=== PATIENT | male | born 2000 | race Caucasian/White ===

== ENCOUNTER 2018-10-08 12:05 | Emergency (ER) | payer BC ==
[2018-10-08] MEDS ORDERED: Ondansetron 4 MG/2 ML SDV IVPUSH ONE ×2 (12:13→13:46)
[2018-10-08] MEDS ORDERED: LORazepam 2 MG/ML SDV IVPUSH PRN (12:13)
[2018-10-08] MEDS ORDERED: Sodium Chloride 0.9% 1,000 ML IV ONE ×2 (12:18→13:25)
--- NOTE | 2018-10-08 13:19 | EDM.PDOC ---
ED HPI GENERAL MEDICAL PROBLEM - General Chief Complaint: Neurological Problem Stated Complaint: [facility] Time Seen by Provider: 10/08/18 12:08 Source of Information: Reports: EMS, Other (Mother has arrived and provided additional information on the patient's health status.) History Limitations: Reports: Altered Mental Status (Postictal) - History of Present Illness INITIAL COMMENTS - FREE TEXT/NARRATIVE: Patient is a 18-year-old male who presents to the ED via EMS after having a full tonic-clonic seizure lasted approximately 1 minute and 30 seconds. Patient was working at [employer] and per coworkers stated the patient became overheated and nauseated. He went to the office and started to vomit. During these episodes patient had a seizure. EMS was called and found the patient be postictal. During transport patient has been incoherent and uncooperative and moaning. His vital signs have been stable. There is no trauma noted. He is not incontinent nor has he bit his tongue. Per EMS patient does vape. - Related Data Allergies Allergy/AdvReac Type Severity Reaction Status Date / Time No Known Allergies Allergy Verified 02/27/18 02:04 Home Meds: Home Meds . [No Known Home Meds] 10/08/18 [History] Past Medical History - Past Health History Medical/Surgical History: Denies Medical/Surgical History Psychiatric History: Reports: ADHD, Depression, Suicide Attempt Social & Family History - Tobacco Use Smoking Status *Q: Current Every Day Smoker Years of Tobacco use: 4 Packs/Tins Daily: 1 - Caffeine Use Caffeine Use: Reports: Soda - Recreational Drug Use Recreational Drug Use: No - Living Situation & Occupation Living situation: Reports: Single, Other (2 roommates) Occupation: Employed ([employer] + [employer]) ED ROS GENERAL - Review of Systems Review Of Systems: Unable To Obtain - Physical Exam Exam: See Below Exam Limited By: Altered Mental Status (Postictal) General Appearance: Alert, Lethargic Eye Exam: Bilateral Eye: EOMI, Normal Inspection, PERRL Ears: Hearing Grossly Normal, Other (Bruise to the auricle of the right ear.) Nose: Normal Inspection Throat/Mouth: Normal Voice, No Airway Compromise, Other (No tongue trauma) Head Exam: Atraumatic, Normocephalic Neck: Normal Inspection, Supple, Non-Tender, Full Range of Motion Respiratory/Chest: No Respiratory Distress, Lungs Clear, Normal Breath Sounds, No Accessory Muscle Use, Chest Non-Tender Cardiovascular: Normal Peripheral Pulses, Regular Rate, Rhythm GI/Abdominal: Normal Bowel Sounds, Soft, Non-Tender, No Organomegaly, No Distention Neuro Exam (Abbreviated): Alert, Other (Postictal). No: Oriented Back Exam: Normal Inspection Extremities: Normal Inspection Skin Exam: Warm, Dry, Intact, Normal Color, No Rash Course - Vital Signs Last Recorded V/S: Last Vital Signs Temp 97.6 F 10/08/18 17:10 Pulse 96 10/08/18 17:10 Resp 18 10/08/18 17:10 BP 122/86 10/08/18 17:10 Pulse Ox 100 10/08/18 17:10 - Orders/Labs/Meds Orders: Active Orders 24 hr Category Date Time Status EKG Documentation Completion [RC] STAT Care 10/08/18 12:13 Active CULTURE BLOOD [BC] Stat Lab 10/08/18 12:35 Received CULTURE BLOOD [BC] Stat Lab 10/08/18 12:41 Received Blood Culture x2 Reflex Set [OM.PC] Stat Oth 10/08/18 12:15 Ordered Labs: Laboratory Tests 10/08/18 10/08/18 10/08/18 Range/Units 12:30 12:35 12:35 WBC 7.29 (4.23-9.07) K/mm3 RBC 4.71 (4.63-6.08) M/mm3 Hgb 14.5 (13.7-17.5) gm/L Hct 44.0 (40.1-51.0) % MCV 93.4 H D (79.0-92.2) fl MCH 30.8 (25.7-32.2) pg MCHC 33.0 (32.2-35.5) g/dl RDW Std Deviation 43.6 (35.1-43.9) fL Plt Count 144 L (163-337) K/mm3 MPV 10.9 (9.4-12.3) fl Neutrophils % (Manual) 61 H (40-60) % Band Neutrophils % 0 (0-10) % Lymphocytes % (Manual) 28 (20-40) % Atypical Lymphs % 0 % Monocytes % (Manual) 10 (2-10) % Eosinophils % (Manual) 0 L (0.8-7.0) % Basophils % (Manual) 1 (0.2-1.2) Toxic Granulation 1+ slight Platelet Estimate Adequate RBC Morph Comment Normal Puncture Site ABG pH (7.35-7.45) ABG pCO2 (35.0-45.0) mmHg ABG pO2 (80.0-100.0) mmHg ABG HCO3 (22.0-26.0) meq/L ABG O2 Saturation (96.0-97.0) % ABG Base Excess (-2-2.0) Facundo Test O2 Delivery Device Sodium 142 (136-145) mEq/L Potassium 3.8 (3.5-5.1) mEq/L Chloride 105 (98-107) mEq/L Carbon Dioxide 17 L D (21-32) mEq/L Anion Gap 23.8 H (5-15) BUN 17 (7-18) mg/dL Creatinine 1.2 (0.7-1.3) mg/dL Est Cr Clr Drug Dosing 94.50 mL/min Estimated GFR (MDRD) > 60 (>60) mL/min BUN/Creatinine Ratio 14.2 (14-18) Glucose 110 H (74-106) mg/dL Serum Osmolality 296 (280-300) mosm/kg Lactic Acid (0.4-2.0) mmol/L Calcium 9.1 (8.5-10.1) mg/dL Magnesium (1.8-2.4) mg/dl Total Bilirubin 0.4 (0.2-1.0) mg/dL AST 25 (15-37) U/L ALT 32 (16-63) U/L Alkaline Phosphatase 75 (46-116) U/L Creatine Kinase (39-308) U/L C-Reactive Protein < 0.2 (<1.0) mg/dL Total Protein 7.2 (6.4-8.2) g/dl Albumin 4.3 (3.4-5.0) g/dl Globulin 2.9 gm/dL Albumin/Globulin Ratio 1.5 (1-2) Lipase 206 (73-393) U/L TSH 3rd Generation 2.983 (0.516-4.13) uIU/mL Urine Color (Yellow) Urine Appearance (Clear) Urine pH (5.0-8.0) Ur Specific [place] (1.005-1.030) Urine Protein (Negative) Urine Glucose (UA) (Negative) Urine Ketones (Negative) Urine Occult Blood (Negative) Urine Nitrite (Negative) Urine Bilirubin (Negative) Urine Urobilinogen (0.2-1.0) Ur Leukocyte Esterase (Negative) Urine RBC (0-5) /hpf Urine WBC (0-5) /hpf Ur Squamous Epith Cells (0-5) /hpf Urine Bacteria (FEW) /hpf Urine Mucus (FEW) /hpf Salicylates (2.8-20) mg/dL Urine Opiates Screen (COTYHM=796) Ur Buprenorphine Scrn (CUTOFF=10) Ur Oxycodone Screen (VXF0MT=489) Urine Methadone Screen (RXQ7ZC=312) Ur Propoxyphene Screen (QPESPR=795) Acetaminophen (10-30) ug/mL Ur Barbiturates Screen (DAMCKS=070) Ur Tricyclics Screen (KPDESE=355) Ur Phencyclidine Scrn (CUTOFF=25) Ur Amphetamine Screen (YXSVPK=961) U Methamphetamines Scrn (MHUIGN=057) U Benzodiazepines Scrn (DNSTAP=817) U Cocaine Metab Screen (CZECUS=761) U Marijuana (THC) Screen (CUTOFF=50) Ethyl Alcohol (0.00) gm% 10/08/18 10/08/18 10/08/18 Range/Units 12:35 12:35 12:35 WBC (4.23-9.07) K/mm3 RBC (4.63-6.08) M/mm3 Hgb (13.7-17.5) gm/L Hct (40.1-51.0) % MCV (79.0-92.2) fl MCH (25.7-32.2) pg MCHC (32.2-35.5) g/dl RDW Std Deviation (35.1-43.9) fL Plt Count (163-337) K/mm3 MPV (9.4-12.3) fl Neutrophils % (Manual) (40-60) % Band Neutrophils % (0-10) % Lymphocytes % (Manual) (20-40) % Atypical Lymphs % % Monocytes % (Manual) (2-10) % Eosinophils % (Manual) (0.8-7.0) % Basophils % (Manual) (0.2-1.2) Toxic Granulation Platelet Estimate RBC Morph Comment Puncture Site ABG pH (7.35-7.45) ABG pCO2 (35.0-45.0) mmHg ABG pO2 (80.0-100.0) mmHg ABG HCO3 (22.0-26.0) meq/L ABG O2 Saturation (96.0-97.0) % ABG Base Excess (-2-2.0) Facundo Test O2 Delivery Device Sodium (136-145) mEq/L Potassium (3.5-5.1) mEq/L Chloride (98-107) mEq/L Carbon Dioxide (21-32) mEq/L Anion Gap (5-15) BUN (7-18) mg/dL Creatinine (0.7-1.3) mg/dL Est Cr Clr Drug Dosing mL/min Estimated GFR (MDRD) (>60) mL/min BUN/Creatinine Ratio (14-18) Glucose (74-106) mg/dL Serum Osmolality (280-300) mosm/kg Lactic Acid 8.7 H (0.4-2.0) mmol/L Calcium (8.5-10.1) mg/dL Magnesium 2.2 (1.8-2.4) mg/dl Total Bilirubin (0.2-1.0) mg/dL AST (15-37) U/L ALT (16-63) U/L Alkaline Phosphatase (46-116) U/L Creatine Kinase 122 (39-308) U/L C-Reactive Protein (<1.0) mg/dL Total Protein (6.4-8.2) g/dl Albumin (3.4-5.0) g/dl Globulin gm/dL Albumin/Globulin Ratio (1-2) Lipase (73-393) U/L TSH 3rd Generation (0.516-4.13) uIU/mL Urine Color (Yellow) Urine Appearance (Clear) Urine pH (5.0-8.0) Ur Specific [place] (1.005-1.030) Urine Protein (Negative) Urine Glucose (UA) (Negative) Urine Ketones (Negative) Urine Occult Blood (Negative) Urine Nitrite (Negative) Urine Bilirubin (Negative) Urine Urobilinogen (0.2-1.0) Ur Leukocyte Esterase (Negative) Urine RBC (0-5) /hpf Urine WBC (0-5) /hpf Ur Squamous Epith Cells (0-5) /hpf Urine Bacteria (FEW) /hpf Urine Mucus (FEW) /hpf Salicylates 1.6 L (2.8-20) mg/dL Urine Opiates Screen (XFGOXB=269) Ur Buprenorphine Scrn (CUTOFF=10) Ur Oxycodone Screen (OTO1CY=839) Urine Methadone Screen (AFZ1DH=919) Ur Propoxyphene Screen (YNVYZS=148) Acetaminophen 0 L (10-30) ug/mL Ur Barbiturates Screen (FSIGGX=384) Ur Tricyclics Screen (VEHJZS=547) Ur Phencyclidine Scrn (CUTOFF=25) Ur Amphetamine Screen (TAPALV=884) U Methamphetamines Scrn (QZAWSZ=590) U Benzodiazepines Scrn (BVPUXS=194) U Cocaine Metab Screen (WABXWN=334) U Marijuana (THC) Screen (CUTOFF=50) Ethyl Alcohol 0.00 (0.00) gm% 10/08/18 10/08/18 10/08/18 Range/Units 12:40 12:40 14:55 WBC (4.23-9.07) K/mm3 RBC (4.63-6.08) M/mm3 Hgb (13.7-17.5) gm/L Hct (40.1-51.0) % MCV (79.0-92.2) fl MCH (25.7-32.2) pg MCHC (32.2-35.5) g/dl RDW Std Deviation (35.1-43.9) fL Plt Count (163-337) K/mm3 MPV (9.4-12.3) fl Neutrophils % (Manual) (40-60) % Band Neutrophils % (0-10) % Lymphocytes % (Manual) (20-40) % Atypical Lymphs % % Monocytes % (Manual) (2-10) % Eosinophils % (Manual) (0.8-7.0) % Basophils % (Manual) (0.2-1.2) Toxic Granulation Platelet Estimate RBC Morph Comment Puncture Site Rt radial ABG pH 7.32 L (7.35-7.45) ABG pCO2 41.5 (35.0-45.0) mmHg ABG pO2 85.0 (80.0-100.0) mmHg ABG HCO3 20.7 L (22.0-26.0) meq/L ABG O2 Saturation 97.0 (96.0-97.0) % ABG Base Excess -4.6 L (-2-2.0) Facundo Test Positive O2 Delivery Device Room air Sodium (136-145) mEq/L Potassium (3.5-5.1) mEq/L Chloride (98-107) mEq/L Carbon Dioxide (21-32) mEq/L Anion Gap (5-15) BUN (7-18) mg/dL Creatinine (0.7-1.3) mg/dL Est Cr Clr Drug Dosing mL/min Estimated GFR (MDRD) (>60) mL/min BUN/Creatinine Ratio (14-18) Glucose (74-106) mg/dL Serum Osmolality (280-300) mosm/kg Lactic Acid (0.4-2.0) mmol/L Calcium (8.5-10.1) mg/dL Magnesium (1.8-2.4) mg/dl Total Bilirubin (0.2-1.0) mg/dL AST (15-37) U/L ALT (16-63) U/L Alkaline Phosphatase (46-116) U/L Creatine Kinase (39-308) U/L C-Reactive Protein (<1.0) mg/dL Total Protein (6.4-8.2) g/dl Albumin (3.4-5.0) g/dl Globulin gm/dL Albumin/Globulin Ratio (1-2) Lipase (73-393) U/L TSH 3rd Generation (0.516-4.13) uIU/mL Urine Color Yellow (Yellow) Urine Appearance Clear (Clear) Urine pH 6.0 (5.0-8.0) Ur Specific [place] 1.020 (1.005-1.030) Urine Protein Trace H (Negative) Urine Glucose (UA) Negative (Negative) Urine Ketones Negative (Negative) Urine Occult Blood Negative (Negative) Urine Nitrite Negative (Negative) Urine Bilirubin Negative (Negative) Urine Urobilinogen 0.2 (0.2-1.0) Ur Leukocyte Esterase Negative (Negative) Urine RBC Not seen (0-5) /hpf Urine WBC Not seen (0-5) /hpf Ur Squamous Epith Cells 0-5 (0-5) /hpf Urine Bacteria Not seen (FEW) /hpf Urine Mucus Not seen (FEW) /hpf Salicylates (2.8-20) mg/dL Urine Opiates Screen Negative (PAMYOJ=356) Ur Buprenorphine Scrn Negative (CUTOFF=10) Ur Oxycodone Screen Negative (LPT6ZG=713) Urine Methadone Screen Negative (CRN9ZX=412) Ur Propoxyphene Screen Negative (GLGOAM=408) Acetaminophen (10-30) ug/mL Ur Barbiturates Screen Negative (BWYOYX=775) Ur Tricyclics Screen Negative (KISHPO=827) Ur Phencyclidine Scrn Negative (CUTOFF=25) Ur Amphetamine Screen Negative (GNAQBR=012) U Methamphetamines Scrn Negative (RZYEQL=835) U Benzodiazepines Scrn Negative (KLFJNE=232) U Cocaine Metab Screen Negative (RBXDVW=378) U Marijuana (THC) Screen Presumptive positive H (CUTOFF=50) Ethyl Alcohol (0.00) gm% Meds: Medications Discontinued Medications Generic Name Dose Route Start Last Admin Trade Name Freq PRN Reason Stop Dose Admin Acetaminophen 975 mg 10/08/18 13:24 10/08/18 14:32 Tylenol PO 10/08/18 13:25 975 mg NOW ONE Administration Sodium Chloride 1,000 mls @ 999 mls/hr 10/08/18 12:18 10/08/18 12:25 Normal Saline IV 10/08/18 13:18 999 mls/hr ONETIME ONE Administration Sodium Chloride 1,000 mls @ 999 mls/hr 10/08/18 13:25 10/08/18 13:43 Normal Saline IV 10/08/18 14:25 999 mls/hr ONETIME ONE Administration Lorazepam 1 mg 10/08/18 12:13 10/08/18 12:20 Ativan IVPUSH 1 mg ONETIME PRN Administration Seizures Ondansetron HCl 4 mg 10/08/18 12:13 10/08/18 12:22 Zofran IVPUSH 10/08/18 12:14 4 mg ONETIME ONE Administration Ondansetron HCl 4 mg 10/08/18 13:46 10/08/18 13:50 Zofran IVPUSH 10/08/18 13:47 4 mg ONETIME ONE Administration - Re-Assessments/Exams Free Text/Narrative Re-Assessment/Exam: Patient is a 18-year-old male who presents to the ED after experiencing a general grand mal seizure that lasted 1-1/2 minutes. Patient is postictal uncooperative moans moves all extremities. There is no trauma noted with examination. There is no incontinence. It appears patient has not bit his tongue. He is dry heaving. IV established by EMS. Ordered Ativan 1 mg IV, Zofran 4 mg IV, normal saline IV fluids. Initial labs and studies will include: CBC, chem 14, CRP, blood cultures, lactic acid, lipase, TSH, head CT without contrast, EKG, UA, and urine drug screen. I have also ordered a CPK and magnesium level. 1240 reassessment, patient is alert and oriented. Is not recall recent events. He has no complaints at this time. Per mother patient is acting appropriate. Patient is alert and oriented 3. Denies excessive use of the vaping material. Patient has been using the same vaping product for 3 years. Admits to smoking marijuana last night. Denies any additional alcohol or other recreational drugs. He was asymptomatic last night. 10/08/18 13:25 patient's blood pressure 84 over systolic. Heart rate 60s. Complains of a headache frontal aspect of his head and mild in nature. No vision changes or focal neurological deficits. Ordered additional bag of normal saline 1 L and Tylenol 975 mg by mouth. 10/08/18 13:42 reassessment, blood pressure 91 over systolic. Heart rate within normal limits. Patient complaining of a headache with some nausea. He has just returned from the CT suite. Patient stopped ordered additional 4 mg of Zofran. Patient has not received the Tylenol. 1358, CT of the head impression: No acute intracranial abnormalities. Labs reviewed: CBC indicated White blood cell count 7.29, hemoglobin 14.5, MCV 93.4, platelet count 144. Sodium 142, 3.8 for potassium, CO2 17, AG 23.8, creatinine 1.2, glucose 110, lactic acid elevated 8.7, CRP normal, lipase normal , TSH normal. UA trace protein. Urine drug tox positive for marijuana. Salicylate level I.6. Acetaminophen 0. Serum EtOH 0.00. I have ordered ABG. Calculation indicates AG of 19.3. Patient's CK was 122. Magnesium was 2.2. 1403 I did speak with poison control. They recommended hydration for the acidosis. I suspect there is a possibility this is related to nicotine poisoning. This usually peaks and 30-90 minutes the symptoms should be improving. On further questioning of the patient he denies any ingestion of any other substances. I have discussed the case with Dr. Ward. He states the lactic acid can be elevated due to seizure activity. He has no additional suggestions on further workup. Ensure the patient's symptoms are improving. Hydrate with IV fluids. Monitor his vital signs. See results of ABG and go from there. 1515 Reassessment, patient resting comfortably in bed. Heart rate within normal limits. Blood pressure in the 101 systolic. His headache and nausea have drastically improved. 1530 Results of the ABG indicated primary respiratory acidosis, chronic. With secondary metabolic acidosis and additional metabolic alkalosis. Results discussed with Dr. Ward. 1545 Nursing staff has ambulated the patient and the patient tolerated this quite well. Patient states he is ready to be discharged home. Return precautions were discussed with the patient and mother. Patient will follow-up with neurologist of his choice for reevaluation for seizure episode. In addition he will establish medical care with a PCP provider here locally. Patient was encouraged to push the fluids. He was encouraged to stop smoking marijuana. Departure - Departure Time of Disposition: 16:44 Disposition: Home, Self-Care 01 Condition: Good Clinical Impression: Seizure, Marijuana abuse, Lactic acidosis - Discharge Information Instructions: Lactic Acid Test, Chemical Dependency, Substance Use Disorder and Mental Illness, Dehydration, Adult, [id number], Seizure, Adult Referrals: PCP,None [Primary Care Provider] - Forms: ED Department Discharge Additional Instructions: As discussed he had a one episode of general tonic-clonic seizure that lasted for approximately 1 minute and 30 seconds per coworkers. Upon presentation to the ED you were postictal that quickly resolved. Labs were consistent with you having a seizure. In addition nausea vomiting was controlled with Zofran. He received IV fluids, IV medications for nausea, and Tylenol for headache. CT of the head was essentially normal. Please refrain from driving, riding your bike, swimming, taking a bath until evaluated by neurologists of your choice over the next week. Call Neurology at [facility] or [facility] in [place] to arrange appt. Please establish medical care with a primary care provider and be evaluated this week as well. Return to the ED for any new or worsening symptoms as discussed. Stop vaping and using marijuana. - My Orders Last 24 Hours: My Active Orders 10/08/18 12:13 EKG Documentation Completion [RC] STAT 10/08/18 12:15 Blood Culture x2 Reflex Set [OM.PC] Stat 10/08/18 12:35 CULTURE BLOOD [BC] Stat 10/08/18 12:41 CULTURE BLOOD [BC] Stat - Assessment/Plan Last 24 Hours: My Active Orders 10/08/18 12:13 EKG Documentation Completion [RC] STAT 10/08/18 12:15 Blood Culture x2 Reflex Set [OM.PC] Stat 10/08/18 12:35 CULTURE BLOOD [BC] Stat 10/08/18 12:41 CULTURE BLOOD [BC] Stat
[2018-10-08] MEDS ORDERED: Acetaminophen 325 MG Tab PO ONE (13:24)
[2018-10-08 17:15] VITALS: BP 122/86
--- NOTE | 2018-10-09 10:16 | CT ---
Head CT Technique: Multiple axial sections through the brain were obtained. Intravenous contrast was not utilized. Comparison: No prior intracranial imaging. Findings: Ventricles along with basal cisterns and sulci over the convexities appear within normal limits for the patient's age. No abnormal parenchymal densities are seen. No evidence of intracranial hemorrhage. No midline shift or mass effect is seen. Bone window settings were reviewed which show no acute calvarial abnormality. Visualized sinuses are clear. Impression: 1. Nothing acute is appreciated on noncontrast head CT exam. Diagnostic code #1 I agree with preliminary report from [facility], finalized on 10/08/18, 2:54 PM Central Time
== END 2018-10-08 17:10 | disposition home or self-care (01) ==
LOC: JD.ED 12:05
DX: F12.10 Cannabis abuse, uncomplicated (principal); E87.2 Acidosis; R56.9 Unspecified convulsions
CPT/HCPCS: 36415; 36600; 70450; 80053; 80306; 81001; 82550; 82803; 83605; 83690; 83735; 83930; 84443; 85007; 85027; 86140; 87040; 93005; 96361; 96374; 96375; 96376; 99285; A9270; G0480; J2060; J2405; J7040; 99283

== ENCOUNTER 2018-12-27 19:23 | Inpatient (IN) | payer BC ==
[2018-12-27] MEDS ORDERED: LORazepam 2 MG/ML SDV ONE (20:12)
[2018-12-27] MEDS ORDERED: Lactated Ringers 1,000 ML IV ONE ×2 (20:15→21:25)
[2018-12-27] MEDS ORDERED: LORazepam 2 MG/ML SDV IVPUSH ONE (20:15)
[2018-12-27] MEDS ORDERED: Lactated Ringers 1,000 ML ONE (20:16)
--- NOTE | 2018-12-27 21:01 | CT ---
Head CT Technique: Multiple axial sections through the brain were obtained. Intravenous contrast was not utilized. Comparison: Previous head CT study of 10/08/18. Findings: Ventricles along with basal cisterns and sulci over the convexities are within normal limits for the patient's age. No abnormal parenchymal densities are seen. No evidence of intracranial hemorrhage. No midline shift or mass effect is identified. Bone window settings were reviewed which shows no acute calvarial abnormality. Visualized paranasal sinuses show nothing acute. Mastoid sinuses are also clear. Impression: 1. Nothing acute is seen on noncontrast head CT exam. Study is felt to be stable from previous head CT study. Diagnostic code #1
[2018-12-27] MEDS ORDERED: Ondansetron 4 MG/2 ML SDV IVPUSH ONE (21:07)
--- NOTE | 2018-12-27 21:44 | EDM.PDOC ---
ED HPI GENERAL MEDICAL PROBLEM - General Chief Complaint: Neurological Problem Stated Complaint: [facility] Time Seen by Provider: 12/27/18 20:14 Source of Information: Reports: EMS, Family, RN Notes Reviewed (Mother) - History of Present Illness INITIAL COMMENTS - FREE TEXT/NARRATIVE: 18-year-old male has been brought in by EMS after having a seizure, duration unknown. He has history of 1 prior seizure about 3-4 months ago. The mother states he did not have follow-up EEG or any neurologic follow-up although that had been recommended. Patient had been in the ED about 35 minutes when he had a second seizure prior to my ability to see him. That seizure was totally witnessed and lasted about 2 minutes with generalized tonic clonic activity upper lower extremities and complete unresponsiveness. He was given Ativan 2 mg IV at that time. Seizure had stopped by the time the Ativan was given. He did not bite his tongue. Patient extremely drowsy after the seizure and with the Ativan so has not been able to give any personal history from himself. His mother is not aware of him being ill recently. He had been at work just prior to this happening, is reported to have happened at the parking lot of his workplace. His mother is not aware of him being recently ill. She is not aware of any other chronic underlying medical problems. Head Pain Score (Numeric/FACES): 7 - Related Data Allergies Allergy/AdvReac Type Severity Reaction Status Date / Time No Known Allergies Allergy Verified 12/27/18 19:33 Home Meds: Home Meds . [No Known Home Meds] 10/08/18 [History] Past Medical History - Past Health History Medical/Surgical History: Denies Medical/Surgical History Neurological History: Reports: Seizure Psychiatric History: Reports: ADHD, Depression, Suicide Attempt Social & Family History - Family History Endocrine/Metabolic: Reports: Diabetes, type II - Tobacco Use Smoking Status *Q: Current Every Day Smoker Years of Tobacco use: 2 Packs/Tins Daily: 1 - Caffeine Use Caffeine Use: Reports: Soda - Recreational Drug Use Recreational Drug Use: Yes Recreational Drug Type: Reports: Marijuana/Hashish - Living Situation & Occupation Living situation: Reports: Single, Other (2 roommates) Occupation: Employed ([employer]) ED ROS GENERAL - Review of Systems Review Of Systems: Unable To Obtain ED EXAM, NEURO - Physical Exam Exam: See Below General Appearance: Other (generalized seizure at time of my initial exam) Eye Exam: Bilateral Eye: PERRL (Eyes are rolled upward to the back of his head, pupils equal) Ears: Normal External Exam Nose: Normal Inspection Throat/Mouth: Other (Oral mucosa dry, no evidence of tongue biting) Head Exam: Other (small abrasion L parietal scalp, no active bleeding or open lac). No: Facial Swelling Neck: Supple (At time of repeat exam after seizure) Respiratory/Chest: No Respiratory Distress, Lungs Clear, Normal Breath Sounds Cardiovascular: Tachycardia (Patient was tachycardic at time of seizure with heart rate in the 120s which did come back down to the 80s after his seizure) GI/Abdominal: Soft, Non-Tender Neurological: Other (Patient extremely drowsy, postictal after seizure and also drowsy from 2 mg Ativan IV given. At time of repeat exam 30-40 minutes after seizure didn't become restless, moving all extremities.) Extremities: Normal Inspection, Normal Range of Motion Skin Exam: Warm, Dry, No Rash Course - Vital Signs Last Recorded V/S: Last Vital Signs Temp 98.9 F 12/27/18 23:43 Pulse 97 12/27/18 23:43 Resp 20 12/27/18 23:43 BP 107/62 12/27/18 23:43 Pulse Ox 96 12/27/18 23:43 - Orders/Labs/Meds Orders: Medication Orders Acetaminophen (Tylenol) 650 mg PO Q4H PRN PRN Reason: Pain (Mild 1-3)/fever Hydrocodone Bitart/Acetaminophen ([place]wood 325-5 Mg) 1 tab PO Q4H PRN PRN Reason: Pain (moderate 4-6) Albuterol/Ipratropium (Duoneb 3.0-0.5 Mg/3 Ml) 3 ml NEB Q4H PRN PRN Reason: Shortness Of Breath/wheezing Bisacodyl (Dulcolax) 5 mg PO DAILY PRN PRN Reason: Constipation Docusate Sodium (Colace) 100 mg PO BID PRN PRN Reason: Constipation Hydralazine HCl (Apresoline) 20 mg IVPUSH Q4H PRN PRN Reason: Hypertension Hydromorphone HCl (Dilaudid) 0.25 mg IVPUSH Q2H PRN PRN Reason: Pain (severe 7-10) Potassium Chloride 10 meq/ (Premix) 100 mls @ 100 mls/hr IV Q1H LILLY Stop: 12/28/18 03:29 Dextrose/Sodium Chloride (Dextrose 5%-1/2 Ns) 1,000 mls @ 125 mls/hr IV ASDIRECTED [facility] Promethazine HCl 6.25 mg/ (Sodium Chloride) 50.25 mls @ 100 mls/hr IV Q6H PRN PRN Reason: Nausea/Vomiting Levetiracetam (Keppra) 1,000 mg PO NOW ONE Stop: 12/27/18 23:33 Levetiracetam (Keppra) 500 mg PO BID LILLY Lorazepam (Ativan) 1 mg IV Q6H PRN PRN Reason: Anxiety Lorazepam (Ativan) 2 mg IVPUSH Q4H PRN PRN Reason: Seizures Metoprolol Tartrate (Lopressor) 5 mg IVPUSH Q4H PRN PRN Reason: Tachycardia Ondansetron HCl (Zofran) 4 mg IV Q6H PRN PRN Reason: Nausea/Vomiting Senna/Docusate Sodium (Senna Plus) 1 tab PO BID PRN PRN Reason: Constipation Temazepam (Restoril) 7.5 mg PO BEDTIME PRN PRN Reason: Sleep Labs: Laboratory Tests 12/27/18 12/27/18 12/27/18 Range/Units 20:07 20:20 20:29 WBC 22.45 H (4.23-9.07) K/mm3 RBC 5.19 (4.63-6.08) M/mm3 Hgb 16.1 D (13.7-17.5) gm/L Hct 49.4 (40.1-51.0) % MCV 95.2 H (79.0-92.2) fl MCH 31.0 (25.7-32.2) pg MCHC 32.6 (32.2-35.5) g/dl RDW Std Deviation 46.1 H (35.1-43.9) fL Plt Count 219 D (163-337) K/mm3 MPV 10.6 (9.4-12.3) fl Neut % (Auto) 74.2 H (34.0-67.9) % Lymph % (Auto) 18.8 L (21.8-53.1) % [place] % (Auto) 5.8 (5.3-12.2) % Eos % (Auto) 0.7 L (0.8-7.0) Baso % (Auto) 0.1 (0.1-1.2) % Neut # (Auto) 16.63 H (1.78-5.38) K/mm3 Lymph # (Auto) 4.23 H (1.32-3.57) K/mm3 [place] # (Auto) 1.30 H (0.30-0.82) K/mm3 Eos # (Auto) 0.16 (0.04-0.54) K/mm3 Baso # (Auto) 0.03 (0.01-0.08) K/mm3 Manual Slide Review Abnormal smear Sodium (136-145) mEq/L Potassium (3.5-5.1) mEq/L Chloride (98-107) mEq/L Carbon Dioxide (21-32) mEq/L Anion Gap (5-15) BUN (7-18) mg/dL Creatinine (0.7-1.3) mg/dL Est Cr Clr Drug Dosing mL/min Estimated GFR (MDRD) (>60) mL/min BUN/Creatinine Ratio (14-18) Glucose (74-106) mg/dL POC Glucose 100 122 H (70-105) mg/dL Lactic Acid (0.4-2.0) mmol/L Calcium (8.5-10.1) mg/dL Total Bilirubin (0.2-1.0) mg/dL AST (15-37) U/L ALT (16-63) U/L Alkaline Phosphatase (46-116) U/L Total Protein (6.4-8.2) g/dl Albumin (3.4-5.0) g/dl Globulin gm/dL Albumin/Globulin Ratio (1-2) Urine Opiates Screen (TGXAEX=875) Ur Buprenorphine Scrn (CUTOFF=10) Ur Oxycodone Screen (GLF2FY=741) Urine Methadone Screen (HUL9XV=765) Ur Propoxyphene Screen (MPHONU=563) Ur Barbiturates Screen (YZZGVB=940) Ur Tricyclics Screen (UHXGMH=984) Ur Phencyclidine Scrn (CUTOFF=25) Ur Amphetamine Screen (MKDMMF=625) U Methamphetamines Scrn (COGUUN=433) U Benzodiazepines Scrn (YCJPDS=671) U Cocaine Metab Screen (QZQTBK=795) U Marijuana (THC) Screen (CUTOFF=50) 12/27/18 12/27/18 12/27/18 Range/Units 20:29 20:29 21:13 WBC (4.23-9.07) K/mm3 RBC (4.63-6.08) M/mm3 Hgb (13.7-17.5) gm/L Hct (40.1-51.0) % MCV (79.0-92.2) fl MCH (25.7-32.2) pg MCHC (32.2-35.5) g/dl RDW Std Deviation (35.1-43.9) fL Plt Count (163-337) K/mm3 MPV (9.4-12.3) fl Neut % (Auto) (34.0-67.9) % Lymph % (Auto) (21.8-53.1) % Lar[place] % (Auto) (5.3-12.2) % Eos % (Auto) (0.8-7.0) Baso % (Auto) (0.1-1.2) % Neut # (Auto) (1.78-5.38) K/mm3 Lymph # (Auto) (1.32-3.57) K/mm3 [place] # (Auto) (0.30-0.82) K/mm3 Eos # (Auto) (0.04-0.54) K/mm3 Baso # (Auto) (0.01-0.08) K/mm3 Manual Slide Review Sodium 148 H (136-145) mEq/L Potassium 3.3 L (3.5-5.1) mEq/L Chloride 106 (98-107) mEq/L Carbon Dioxide 16 L (21-32) mEq/L Anion Gap 29.3 H (5-15) BUN 9 (7-18) mg/dL Creatinine 1.0 (0.7-1.3) mg/dL Est Cr Clr Drug Dosing 120.96 mL/min Estimated GFR (MDRD) > 60 (>60) mL/min BUN/Creatinine Ratio 9.0 L (14-18) Glucose 139 H (74-106) mg/dL POC Glucose (70-105) mg/dL Lactic Acid 16.9 H (0.4-2.0) mmol/L Calcium 9.7 (8.5-10.1) mg/dL Total Bilirubin 0.6 (0.2-1.0) mg/dL AST 36 (15-37) U/L ALT 52 (16-63) U/L Alkaline Phosphatase 68 (46-116) U/L Total Protein 8.1 (6.4-8.2) g/dl Albumin 4.4 (3.4-5.0) g/dl Globulin 3.7 gm/dL Albumin/Globulin Ratio 1.2 (1-2) Urine Opiates Screen Negative (PZCRBW=552) Ur Buprenorphine Scrn Negative (CUTOFF=10) Ur Oxycodone Screen Negative (IOI0IY=520) Urine Methadone Screen Negative (GYA0NM=216) Ur Propoxyphene Screen Negative (VCPJGA=506) Ur Barbiturates Screen Negative (TDEYAQ=543) Ur Tricyclics Screen Negative (PZAELU=396) Ur Phencyclidine Scrn Negative (CUTOFF=25) Ur Amphetamine Screen Negative (PELVGF=767) U Methamphetamines Scrn Negative (RULQKH=072) U Benzodiazepines Scrn Negative (MRPLAF=542) U Cocaine Metab Screen Negative (WVIHGL=670) U Marijuana (THC) Screen Presumptive positive H (CUTOFF=50) Meds: Medications Generic Name Dose Route Start Last Admin Trade Name Freq PRN Reason Stop Dose Admin Acetaminophen 650 mg 12/27/18 23:27 Tylenol PO Q4H PRN Pain (Mild 1-3)/fever Hydrocodone Bitart/Acetaminophen 1 tab 12/27/18 23:27 [place]wood 325-5 Mg PO Q4H PRN Pain (moderate 4-6) Albuterol/Ipratropium 3 ml 12/27/18 23:27 Duoneb 3.0-0.5 Mg/3 Ml NEB Q4H PRN Shortness Of Breath/wheezing Bisacodyl 5 mg 12/27/18 23:27 Dulcolax PO DAILY PRN Constipation Docusate Sodium 100 mg 12/27/18 23:27 Colace PO BID PRN Constipation Hydralazine HCl 20 mg 12/27/18 23:30 Apresoline IVPUSH Q4H PRN Hypertension Hydromorphone HCl 0.25 mg 12/27/18 23:27 Dilaudid IVPUSH Q2H PRN Pain (severe 7-10) Potassium Chloride 10 meq/ 100 mls @ 100 mls/hr 12/27/18 23:30 Premix IV 12/28/18 03:29 Q1H LILLY Dextrose/Sodium Chloride 1,000 mls @ 125 mls/hr 12/27/18 23:30 Dextrose 5%-1/2 Ns IV ASDIRECTED LILLY Promethazine HCl 6.25 mg/ 50.25 mls @ 100 mls/hr 12/27/18 23:27 Sodium Chloride IV Q6H PRN Nausea/Vomiting Levetiracetam 1,000 mg 12/27/18 23:32 Keppra PO 12/27/18 23:33 NOW ONE Levetiracetam 500 mg 12/28/18 09:00 Keppra PO BID LILLY Lorazepam 1 mg 12/27/18 23:27 Ativan IV Q6H PRN Anxiety Lorazepam 2 mg 12/27/18 23:30 Ativan IVPUSH Q4H PRN Seizures Metoprolol Tartrate 5 mg 12/27/18 23:30 Lopressor IVPUSH Q4H PRN Tachycardia Ondansetron HCl 4 mg 12/27/18 23:27 Zofran IV Q6H PRN Nausea/Vomiting Senna/Docusate Sodium 1 tab 12/27/18 23:27 Senna Plus PO BID PRN Constipation Temazepam 7.5 mg 12/27/18 23:27 Restoril PO BEDTIME PRN Sleep Discontinued Medications Generic Name Dose Route Start Last Admin Trade Name Freq PRN Reason Stop Dose Admin Lactated Ringer's Confirm 12/27/18 20:16 12/27/18 21:22 Ringers, Lactated Administered 12/27/18 20:17 Not Given Dose 1,000 mls @ as directed .ROUTE .STK-MED ONE Lactated Ringer's 1,000 mls @ 999 mls/hr 12/27/18 20:15 12/27/18 20:15 Ringers, Lactated IV 12/27/18 21:15 999 mls/hr .BOLUS ONE Administration Lactated Ringer's 1,000 mls @ 999 mls/hr 12/27/18 21:25 12/27/18 21:29 Ringers, Lactated IV 12/27/18 22:25 999 mls/hr .BOLUS ONE Administration Lorazepam Confirm 12/27/18 20:12 12/27/18 23:30 Ativan Administered 12/27/18 20:13 Not Given Dose 4 mg .ROUTE .STK-MED ONE Lorazepam 4 mg 12/27/18 20:15 12/27/18 20:15 Ativan IVPUSH 12/27/18 20:16 2 mg ONETIME ONE Administration Ondansetron HCl 4 mg 12/27/18 21:07 12/27/18 21:19 Zofran IVPUSH 12/27/18 21:08 4 mg ONETIME ONE Administration - Re-Assessments/Exams Free Text/Narrative Re-Assessment/Exam: 12/27/18. 23:12. Patient did start waking up about 20-30 minutes after the seizure, initially just restless and acting like maybe he was nauseated and going to vomit. We did give Zofran 4 mg IV. When rechecked about an hour after his seizure he was waking up to where he would open his eyes and answer questions but speech was very slurred, very difficult to understand. With the second repeat seizure about an hour after his initial seizure and extreme drowsiness at time of follow -up exam about an hour after seizure it is felt he is not a safe candidate to go home this evening. Labs show quite markedly elevated anion gap, lactic acid. See labs for details. He was given initial fluid bolus 1 L lactated Ringer's and second liter ordered to continue as a bolus as well. Patient will be admitted ICU for careful further monitoring and treatment with seizure precautions. Departure - Departure Time of Disposition: 21:40 Disposition: Admitted As Inpatient 64 Condition: Serious Clinical Impression: Recurrent seizures, Dehydration Contusion of scalp Qualifiers: Encounter type: initial encounter Qualified Code(s): S00.03XA - Contusion of scalp, initial encounter - Discharge Information ED Communication - Discussed Case With (1) Discussed Case With (1): Admitting Provider (Dr Douglas, decision to admit at about 21:40.)
[2018-12-27] MEDS ORDERED: Acetaminophen 325 MG Tab PO PRN (23:27)
[2018-12-27] MEDS ORDERED: Ondansetron 4 MG/2 ML SDV IV PRN (23:27)
[2018-12-27] MEDS ORDERED: Docusate Sodium 100 MG Cap PO PRN (23:27)
[2018-12-27] MEDS ORDERED: Promethazine 6.25 MG in Sodium Chloride 0.9% 50 ML IV PRN (23:27)
[2018-12-27] MEDS ORDERED: Albuterol/Ipratropium 3.0-0.5 MG/3 ML Neb Soln NEB PRN (23:27)
[2018-12-27] MEDS ORDERED: HYDROmorphone 0.5 MG/0.5 ML Syringe IVPUSH PRN (23:27)
[2018-12-27] MEDS ORDERED: Acetaminophen/HYDROcodone 325-5 MG Tab PO PRN (23:27)
[2018-12-27] MEDS ORDERED: Bisacodyl 5 MG Tab PO PRN (23:27)
[2018-12-27] MEDS ORDERED: Temazepam 7.5 MG Cap PO PRN (23:27)
[2018-12-27] MEDS ORDERED: LORazepam 2 MG/ML SDV IV PRN (23:27)
--- NOTE | 2018-12-27 23:27 | PCM.SN ---
- Free Text/Narrative Note: Patient briefly seen and examined at bedside. Currently sedated and lethargic. He is otherwise comfortable.
[2018-12-27] MEDS ORDERED: Metoprolol Tartrate 5 MG/5 ML SDV IVPUSH PRN (23:30)
[2018-12-27] MEDS ORDERED: hydrALAZINE 20 MG/ML SDV IVPUSH PRN (23:30)
[2018-12-27] MEDS ORDERED: LORazepam 2 MG/ML SDV IVPUSH PRN (23:30)
[2018-12-27] MEDS ORDERED: Potassium Chloride 10 MEQ in Premix Bag 1 BAG IV SCH (23:30)
[2018-12-27] MEDS ORDERED: Dextrose 5%-0.45% NaCl 1,000 ML IV SCH (23:30)
[2018-12-27] MEDS ORDERED: levETIRAcetam Soln 500 MG/5 ML Cup PO ONE (23:32)
[2018-12-28] MEDS ORDERED: levETIRAcetam 1,000 MG in Sodium Chloride 0.9% 100 ML IV ONE (00:15)
[2018-12-28] MEDS ORDERED: Potassium Chloride 20 MEQ Tab.ER PO ONE (00:25)
[2018-12-28] MEDS ORDERED: levETIRAcetam Soln 500 MG/5 ML Cup PO SCH (09:00)
--- NOTE | 2018-12-28 12:21 | PCM.HP.2 ---
<Michael Brower - Last Filed: 12/28/18 12:35> H&P History of Present Illness - General Date of Service: 12/28/18 Admit Problem/Dx: Admission Diagnosis/Problem Admission Diagnosis/Problem Seizure Source of Information: Patient, Family History Limitations: Reports: No Limitations - History of Present Illness Initial Comments - Free Text/Narative: 18-year-old male with history of seizure, ADHD, depression, and suicide attempt , brought in by EMS after having a seizure, duration unknown. He has history of 1 prior seizure about 3-4 months ago. The mother states he did not have follow-up EEG or any neurologic follow-up although that had been recommended. Patient had another seizure in the ER. That seizure was totally witnessed and lasted about 2 minutes with generalized tonic clonic activity upper lower extremities and complete unresponsiveness. He was given Ativan 2 mg IV at that time. Seizure had stopped by the time the Ativan was given. He did not bite his tongue. Patient extremely drowsy after the seizure and with the Ativan so has not been able to give any personal history from himself. His mother is not aware of him being ill recently. He had been at work just prior to this happening, is reported to have happened at the parking lot of his workplace. His mother is not aware of him being recently ill. She is not aware of any other chronic underlying medical problems. Head Pain Score (Numeric/FACES): 7 - Related Data Allergies/Adverse Reactions: Allergies Allergy/AdvReac Type Severity Reaction Status Date / Time No Known Allergies Allergy Verified 12/27/18 19:33 Home Medications: Home Meds levETIRAcetam [Keppra] 500 mg PO BID #60 tablet 12/29/18 [Rx] Past Medical History - Past Health History Medical/Surgical History: Denies Medical/Surgical History Neurological History: Reports: Seizure Psychiatric History: Reports: ADHD, Depression, Suicide Attempt Social & Family History - Family History Family Medical History: Noncontributory Endocrine/Metabolic: Reports: Diabetes, type II - Tobacco Use Smoking Status *Q: Current Every Day Smoker Years of Tobacco use: 2 Packs/Tins Daily: 1 - Caffeine Use Caffeine Use: Reports: Soda - Recreational Drug Use Recreational Drug Use: Yes Drug Use in Last 12 Months: Yes Recreational Drug Type: Reports: Marijuana/Hashish Recreational Drug Use Frequency: Weekly - Living Situation & Occupation Living situation: Reports: Single, Other (2 roommates) Occupation: Employed ([employer]) H&P Review of Systems - Review of Systems: General: Reports: Fatigue HEENT: Reports: No Symptoms Pulmonary: Reports: No Symptoms Cardiovascular: Reports: No Symptoms Gastrointestinal: Reports: No Symptoms Genitourinary: Reports: No Symptoms Musculoskeletal: Reports: No Symptoms Skin: Reports: No Symptoms Psychiatric: Reports: No Symptoms Neurological: Reports: Seizure Hematologic/Lymphatic: Reports: No Symptoms Immunologic: Reports: No Symptoms Exam - Vital Signs Vital Signs: Last Vital Signs Temp 98.6 F 12/28/18 08:00 Pulse 84 12/28/18 08:00 Resp 16 12/28/18 08:00 BP 107/65 12/28/18 08:00 Pulse Ox 100 12/28/18 08:00 Weight: 70.125 kg - Exam General: Alert, Oriented, Cooperative HEENT: Conjunctiva Clear, EACs Clear, EOMI, Hearing Intact, Mucosa Moist & [place] , Nares Patent, Normal Nasal Septum, Pupils Equal, Pupils Reactive. No: Scleral Icterus Neck: Supple, Trachea Midline. No: Lymphadenopathy, JVD Lungs: Clear to Auscultation, Normal Respiratory Effort. No: Crackles, Rales, Wheezing Cardiovascular: Regular Rate, Regular Rhythm, Normal S1, Normal S2. No: Systolic Murmur, Diastolic Murmur, Rubs, Gallop/S3, Gallop/S4 GI/Abdominal Exam: Normal Bowel Sounds, Soft, Non-Tender, No Organomegaly, No Distention (Male) Exam: Deferred Rectal (Males) Exam: Deferred Back Exam: Normal Inspection, Full Range of Motion. No: Vertebral Tenderness Extremities: Normal Inspection, Normal Range of Motion, Non-Tender, No Pedal Edema. No: Joint Swelling, Increased Warmth, Redness Peripheral Pulses: 2+: Radial (L), Radial (R), Dorsalis Pedis (L), Dorsalis Pedis (R) Skin: Warm, Dry, Intact Neurological: Cranial Nerves Intact, Normal Gait, Normal Speech, Normal Tone, Sensation Intact Neuro Extensive - Mental Status: Alert, Oriented x3, Normal Mood/Affect, Normal Cognition, Memory Intact Neuro Extensive - Motor, Sensory, Reflexes: CN II-XII Intact, Normal Gait, Normal Reflexes Psychiatric: Alert, Normal Affect, Normal Mood - Patient Data Lab Results Last 24 hrs: Laboratory Results - last 24 hr 12/27/18 12/27/18 12/27/18 Range/Units 20:07 20:20 20:29 WBC 22.45 H (4.23-9.07) K/mm3 RBC 5.19 (4.63-6.08) M/mm3 Hgb 16.1 D (13.7-17.5) gm/L Hct 49.4 (40.1-51.0) % MCV 95.2 H (79.0-92.2) fl MCH 31.0 (25.7-32.2) pg MCHC 32.6 (32.2-35.5) g/dl RDW Std Deviation 46.1 H (35.1-43.9) fL Plt Count 219 D (163-337) K/mm3 MPV 10.6 (9.4-12.3) fl Neut % (Auto) 74.2 H (34.0-67.9) % Lymph % (Auto) 18.8 L (21.8-53.1) % Spencer % (Auto) 5.8 (5.3-12.2) % Eos % (Auto) 0.7 L (0.8-7.0) Baso % (Auto) 0.1 (0.1-1.2) % Neut # (Auto) 16.63 H (1.78-5.38) K/mm3 Lymph # (Auto) 4.23 H (1.32-3.57) K/mm3 Spencer # (Auto) 1.30 H (0.30-0.82) K/mm3 Eos # (Auto) 0.16 (0.04-0.54) K/mm3 Baso # (Auto) 0.03 (0.01-0.08) K/mm3 Manual Slide Review Abnormal smear Sodium (136-145) mEq/L Potassium (3.5-5.1) mEq/L Chloride (98-107) mEq/L Carbon Dioxide (21-32) mEq/L Anion Gap (5-15) BUN (7-18) mg/dL Creatinine (0.7-1.3) mg/dL Est Cr Clr Drug Dosing mL/min Estimated GFR (MDRD) (>60) mL/min BUN/Creatinine Ratio (14-18) Glucose (74-106) mg/dL POC Glucose 100 122 H (70-105) mg/dL Lactic Acid (0.4-2.0) mmol/L Calcium (8.5-10.1) mg/dL Magnesium (1.8-2.4) mg/dl Total Bilirubin (0.2-1.0) mg/dL AST (15-37) U/L ALT (16-63) U/L Alkaline Phosphatase (46-116) U/L Total Protein (6.4-8.2) g/dl Albumin (3.4-5.0) g/dl Globulin gm/dL Albumin/Globulin Ratio (1-2) Urine Opiates Screen (GOFVFA=153) Ur Buprenorphine Scrn (CUTOFF=10) Ur Oxycodone Screen (NYP9HK=615) Urine Methadone Screen (JOO1QG=125) Ur Propoxyphene Screen (IVVZLR=711) Ur Barbiturates Screen (ECXZED=286) Ur Tricyclics Screen (GDFMND=720) Ur Phencyclidine Scrn (CUTOFF=25) Ur Amphetamine Screen (YCZDFI=679) U Methamphetamines Scrn (VUMQKU=027) U Benzodiazepines Scrn (KHWTMY=395) U Cocaine Metab Screen (RAEHSV=725) U Marijuana (THC) Screen (CUTOFF=50) 12/27/18 12/27/18 12/27/18 Range/Units 20:29 20:29 21:13 WBC (4.23-9.07) K/mm3 RBC (4.63-6.08) M/mm3 Hgb (13.7-17.5) gm/L Hct (40.1-51.0) % MCV (79.0-92.2) fl MCH (25.7-32.2) pg MCHC (32.2-35.5) g/dl RDW Std Deviation (35.1-43.9) fL Plt Count (163-337) K/mm3 MPV (9.4-12.3) fl Neut % (Auto) (34.0-67.9) % Lymph % (Auto) (21.8-53.1) % Spencer % (Auto) (5.3-12.2) % Eos % (Auto) (0.8-7.0) Baso % (Auto) (0.1-1.2) % Neut # (Auto) (1.78-5.38) K/mm3 Lymph # (Auto) (1.32-3.57) K/mm3 Spencer # (Auto) (0.30-0.82) K/mm3 Eos # (Auto) (0.04-0.54) K/mm3 Baso # (Auto) (0.01-0.08) K/mm3 Manual Slide Review Sodium 148 H (136-145) mEq/L Potassium 3.3 L (3.5-5.1) mEq/L Chloride 106 (98-107) mEq/L Carbon Dioxide 16 L (21-32) mEq/L Anion Gap 29.3 H (5-15) BUN 9 (7-18) mg/dL Creatinine 1.0 (0.7-1.3) mg/dL Est Cr Clr Drug Dosing 120.96 mL/min Estimated GFR (MDRD) > 60 (>60) mL/min BUN/Creatinine Ratio 9.0 L (14-18) Glucose 139 H (74-106) mg/dL POC Glucose (70-105) mg/dL Lactic Acid 16.9 H (0.4-2.0) mmol/L Calcium 9.7 (8.5-10.1) mg/dL Magnesium (1.8-2.4) mg/dl Total Bilirubin 0.6 (0.2-1.0) mg/dL AST 36 (15-37) U/L ALT 52 (16-63) U/L Alkaline Phosphatase 68 (46-116) U/L Total Protein 8.1 (6.4-8.2) g/dl Albumin 4.4 (3.4-5.0) g/dl Globulin 3.7 gm/dL Albumin/Globulin Ratio 1.2 (1-2) Urine Opiates Screen Negative (WRLTGA=783) Ur Buprenorphine Scrn Negative (CUTOFF=10) Ur Oxycodone Screen Negative (QWT9KQ=195) Urine Methadone Screen Negative (UPV6QD=321) Ur Propoxyphene Screen Negative (IZYSEQ=120) Ur Barbiturates Screen Negative (ENIBAR=925) Ur Tricyclics Screen Negative (AEVBRM=058) Ur Phencyclidine Scrn Negative (CUTOFF=25) Ur Amphetamine Screen Negative (JJQVVO=057) U Methamphetamines Scrn Negative (SDEKVG=820) U Benzodiazepines Scrn Negative (JPEAEE=612) U Cocaine Metab Screen Negative (WADTFD=209) U Marijuana (THC) Screen Presumptive positive H (CUTOFF=50) 12/28/18 12/28/18 12/28/18 Range/Units 04:40 04:40 04:40 WBC 10.72 H (4.23-9.07) K/mm3 RBC 4.35 L (4.63-6.08) M/mm3 Hgb 13.3 L D (13.7-17.5) gm/L Hct 39.9 L (40.1-51.0) % MCV 91.7 D (79.0-92.2) fl MCH 30.6 (25.7-32.2) pg MCHC 33.3 (32.2-35.5) g/dl RDW Std Deviation 43.8 (35.1-43.9) fL Plt Count 146 L (163-337) K/mm3 MPV 10.7 (9.4-12.3) fl Neut % (Auto) 85.8 H (34.0-67.9) % Lymph % (Auto) 8.6 L (21.8-53.1) % Spencer % (Auto) 5.1 L (5.3-12.2) % Eos % (Auto) 0.1 L (0.8-7.0) Baso % (Auto) 0.1 (0.1-1.2) % Neut # (Auto) 9.20 H (1.78-5.38) K/mm3 Lymph # (Auto) 0.92 L (1.32-3.57) K/mm3 Spencer # (Auto) 0.55 (0.30-0.82) K/mm3 Eos # (Auto) 0.01 L (0.04-0.54) K/mm3 Baso # (Auto) 0.01 (0.01-0.08) K/mm3 Manual Slide Review Abnormal smear Sodium 139 (136-145) mEq/L Potassium 4.0 (3.5-5.1) mEq/L Chloride 105 (98-107) mEq/L Carbon Dioxide 25 (21-32) mEq/L Anion Gap 13.0 (5-15) BUN 8 (7-18) mg/dL Creatinine 0.8 (0.7-1.3) mg/dL Est Cr Clr Drug Dosing 146.09 mL/min Estimated GFR (MDRD) > 60 (>60) mL/min BUN/Creatinine Ratio 10.0 L (14-18) Glucose 93 (74-106) mg/dL POC Glucose (70-105) mg/dL Lactic Acid 0.7 (0.4-2.0) mmol/L Calcium 8.8 (8.5-10.1) mg/dL Magnesium 2.3 (1.8-2.4) mg/dl Total Bilirubin (0.2-1.0) mg/dL AST (15-37) U/L ALT (16-63) U/L Alkaline Phosphatase (46-116) U/L Total Protein (6.4-8.2) g/dl Albumin (3.4-5.0) g/dl Globulin gm/dL Albumin/Globulin Ratio (1-2) Urine Opiates Screen (NVWHTR=652) Ur Buprenorphine Scrn (CUTOFF=10) Ur Oxycodone Screen (ECR1UI=800) Urine Methadone Screen (KJK6MS=360) Ur Propoxyphene Screen (BFWKXP=114) Ur Barbiturates Screen (BBCDEU=446) Ur Tricyclics Screen (OUCIWE=558) Ur Phencyclidine Scrn (CUTOFF=25) Ur Amphetamine Screen (EGASXP=941) U Methamphetamines Scrn (LBZHTA=518) U Benzodiazepines Scrn (BYHUPS=534) U Cocaine Metab Screen (IYMTVQ=907) U Marijuana (THC) Screen (CUTOFF=50) 12/28/18 Range/Units 09:03 WBC (4.23-9.07) K/mm3 RBC (4.63-6.08) M/mm3 Hgb (13.7-17.5) gm/L Hct (40.1-51.0) % MCV (79.0-92.2) fl MCH (25.7-32.2) pg MCHC (32.2-35.5) g/dl RDW Std Deviation (35.1-43.9) fL Plt Count (163-337) K/mm3 MPV (9.4-12.3) fl Neut % (Auto) (34.0-67.9) % Lymph % (Auto) (21.8-53.1) % Spencer % (Auto) (5.3-12.2) % Eos % (Auto) (0.8-7.0) Baso % (Auto) (0.1-1.2) % Neut # (Auto) (1.78-5.38) K/mm3 Lymph # (Auto) (1.32-3.57) K/mm3 Spencer # (Auto) (0.30-0.82) K/mm3 Eos # (Auto) (0.04-0.54) K/mm3 Baso # (Auto) (0.01-0.08) K/mm3 Manual Slide Review Sodium (136-145) mEq/L Potassium (3.5-5.1) mEq/L Chloride (98-107) mEq/L Carbon Dioxide (21-32) mEq/L Anion Gap (5-15) BUN (7-18) mg/dL Creatinine (0.7-1.3) mg/dL Est Cr Clr Drug Dosing mL/min Estimated GFR (MDRD) (>60) mL/min BUN/Creatinine Ratio (14-18) Glucose (74-106) mg/dL POC Glucose (70-105) mg/dL Lactic Acid 0.9 (0.4-2.0) mmol/L Calcium (8.5-10.1) mg/dL Magnesium (1.8-2.4) mg/dl Total Bilirubin (0.2-1.0) mg/dL AST (15-37) U/L ALT (16-63) U/L Alkaline Phosphatase (46-116) U/L Total Protein (6.4-8.2) g/dl Albumin (3.4-5.0) g/dl Globulin gm/dL Albumin/Globulin Ratio (1-2) Urine Opiates Screen (ZPZYKO=029) Ur Buprenorphine Scrn (CUTOFF=10) Ur Oxycodone Screen (KBZ9YJ=843) Urine Methadone Screen (JOU1AN=829) Ur Propoxyphene Screen (SNNOPS=025) Ur Barbiturates Screen (PZYALV=988) Ur Tricyclics Screen (GBDMEP=531) Ur Phencyclidine Scrn (CUTOFF=25) Ur Amphetamine Screen (GLBCHG=613) U Methamphetamines Scrn (KZLXOY=834) U Benzodiazepines Scrn (BLKXZK=258) U Cocaine Metab Screen (WSHZZU=235) U Marijuana (THC) Screen (CUTOFF=50) Result Diagrams: 12/28/18 04:40 12/28/18 04:40 - Problem List (1) Contusion of scalp SNOMED Code(s): 77791852 ICD Code: S00.03XA - CONTUSION OF SCALP, INITIAL ENCOUNTER Status: Acute Qualifiers: Encounter type: initial encounter Qualified Code(s): S00.03XA - Contusion of scalp, initial encounter (2) Recurrent seizures SNOMED Code(s): 69031501, 52214600 ICD Code: G40.909 - EPILEPSY, UNSP, NOT INTRACTABLE, WITHOUT STATUS EPILEPTICUS Status: Acute (3) Dentalgia SNOMED Code(s): 79689255 ICD Code: K08.89 - OTHER SPECIFIED DISORDERS OF TEETH AND SUPPORTING STRUCTURES Status: Acute (4) Marijuana abuse SNOMED Code(s): 79929276 ICD Code: F12.10 - CANNABIS ABUSE, UNCOMPLICATED Status: Acute Orders Last 24hrs: Active Orders 24 hr Category Date Time Status Admission Status [Patient Status] [ADT] Routine ADT 12/27/18 22:05 Active Antiembolic Devices [RC] QSHIFT Care 12/27/18 23:28 Active Cardiac Monitoring [RC] CONTINUOUS Care 12/27/18 23:27 Active Height and Weight [RC] 04 Care 12/27/18 23:27 Active Intake and Output [RC] ,16 Care 12/27/18 23:27 Active Oxygen Therapy [RC] PRN Care 12/27/18 23:27 Active RT Aerosol Therapy [RC] ASDIRECTED Care 12/27/18 23:28 Active Up ad Hilaria [RC] ASDIRECTED Care 12/27/18 23:27 Active VTE/DVT Education [RC] Care 12/27/18 23:27 Active Vital Signs [RC] Q4HR Care 12/27/18 23:27 Active Consult to Case Management/Board Finisher [CONS] Cons 12/27/18 23:27 Active Routine Consult to Spiritual Care [CONS] Routine Cons 12/27/18 23:27 Active BASIC METABOLIC PANEL,BMP [CHEM] AM Lab 12/29/18 05:11 Ordered BASIC METABOLIC PANEL,BMP [CHEM] AM Lab 12/30/18 05:11 Ordered BASIC METABOLIC PANEL,BMP [CHEM] AM Lab 12/31/18 05:11 Ordered CBC WITH AUTO DIFF [HEME] AM Lab 12/29/18 05:11 Ordered CBC WITH AUTO DIFF [HEME] AM Lab 12/30/18 05:11 Ordered CBC WITH AUTO DIFF [HEME] AM Lab 12/31/18 05:11 Ordered LACTIC ACID [CHEM] Q4H Lab 12/28/18 13:00 Ordered LACTIC ACID [CHEM] Q4H Lab 12/28/18 17:00 Ordered MAGNESIUM [CHEM] AM Lab 12/29/18 05:11 Ordered MAGNESIUM [CHEM] AM Lab 12/30/18 05:11 Ordered MAGNESIUM [CHEM] AM Lab 12/31/18 05:11 Ordered Acetaminophen [Tylenol] Med 12/27/18 23:27 Active 650 mg PO Q4H PRN Acetaminophen/HYDROcodone [[place] 325-5 MG] Med 12/27/18 23:27 Active 1 tab PO Q4H PRN Albuterol/Ipratropium [DuoNeb 3.0-0.5 MG/3 ML] Med 12/27/18 23:27 Active 3 ml NEB Q4H PRN Bisacodyl [Dulcolax] Med 12/27/18 23:27 Active 5 mg PO DAILY PRN Dextrose 5%-0.45% NaCl [Dextrose 5%-1/2 NS] 1,000 ml Med 12/27/18 23:30 Active IV ASDIRECTED Docusate Sodium [Colace] Med 12/27/18 23:27 Active 100 mg PO BID PRN Docusate Sodium/Sennosides [Senna Plus] Med 12/27/18 23:27 Active 1 tab PO BID PRN HYDROmorphone [Dilaudid] Med 12/27/18 23:27 Active 0.25 mg IVPUSH Q2H PRN LORazepam [Ativan] Med 12/27/18 23:27 Active 1 mg IV Q6H PRN LORazepam [Ativan] Med 12/27/18 23:30 Active 2 mg IVPUSH Q4H PRN Metoprolol Tartrate [Lopressor] Med 12/27/18 23:30 Active 5 mg IVPUSH Q4H PRN Ondansetron [Zofran] Med 12/27/18 23:27 Active 4 mg IV Q6H PRN Promethazine [Phenergan] 6.25 mg Med 12/27/18 23:27 Active Sodium Chloride 0.9% [Normal Saline] 50 ml IV Q6H Temazepam [Restoril] Med 12/27/18 23:27 Active 7.5 mg PO BEDTIME PRN hydrALAZINE [Apresoline] Med 12/27/18 23:30 Active 20 mg IVPUSH Q4H PRN levETIRAcetam [Keppra] Med 12/28/18 11:58 Active 500 mg PO BID Sequential Compression Device [OM.PC] Per Unit Routine Oth 12/27/18 23:27 Ordered Resuscitation Status Routine Resus Stat 12/27/18 23:27 Ordered Medication Orders Acetaminophen (Tylenol) 650 mg PO Q4H PRN PRN Reason: Pain (Mild 1-3)/fever Hydrocodone Bitart/Acetaminophen ([place] 325-5 Mg) 1 tab PO Q4H PRN PRN Reason: Pain (moderate 4-6) Albuterol/Ipratropium (Duoneb 3.0-0.5 Mg/3 Ml) 3 ml NEB Q4H PRN PRN Reason: Shortness Of Breath/wheezing Bisacodyl (Dulcolax) 5 mg PO DAILY PRN PRN Reason: Constipation Docusate Sodium (Colace) 100 mg PO BID PRN PRN Reason: Constipation Hydralazine HCl (Apresoline) 20 mg IVPUSH Q4H PRN PRN Reason: Hypertension Hydromorphone HCl (Dilaudid) 0.25 mg IVPUSH Q2H PRN PRN Reason: Pain (severe 7-10) Dextrose/Sodium Chloride (Dextrose 5%-1/2 Ns) 1,000 mls @ 125 mls/hr IV ASDIRECTED LILLY Promethazine HCl 6.25 mg/ (Sodium Chloride) 50.25 mls @ 100 mls/hr IV Q6H PRN PRN Reason: Nausea/Vomiting Levetiracetam (Keppra) 500 mg PO BID LILLY Lorazepam (Ativan) 1 mg IV Q6H PRN PRN Reason: Anxiety Lorazepam (Ativan) 2 mg IVPUSH Q4H PRN PRN Reason: Seizures Metoprolol Tartrate (Lopressor) 5 mg IVPUSH Q4H PRN PRN Reason: Tachycardia Ondansetron HCl (Zofran) 4 mg IV Q6H PRN PRN Reason: Nausea/Vomiting Senna/Docusate Sodium (Senna Plus) 1 tab PO BID PRN PRN Reason: Constipation Temazepam (Restoril) 7.5 mg PO BEDTIME PRN PRN Reason: Sleep Assessment/Plan Comment:: Assessment: Acute: Seizure * Witnessed 2 minute generalized tonic clonic seizure * Hx/o similar events in past * Post-ictal state * Labs show probable stress response * No previous EEG, will be obtained during admission * Start keppra PO Marijuana abuse * patient uses marijuana frequently due to poor appetite Tooth decay * poor dentition, multiple dental caries * Chronic: ADHD, Depression, previous suicide attempt Plan: Keppra PO Seizure precautions Ativan PRN for abortive seizure Obtain EEG Consult SW concerning dental insurance Additional orders as above Code status: full code Estimated length of stay 1-2 days Prognosis: good <Nidia Douglas T - Last Filed: 12/30/18 23:26> H&P History of Present Illness - General Admit Problem/Dx: Admission Diagnosis/Problem Admission Diagnosis/Problem Seizure H&P Review of Systems - Review of Systems: Review Of Systems: See Below Exam - Exam Exam: See Below - Vital Signs Vital Signs: Last Vital Signs Temp 36.6 C 12/29/18 08:00 Pulse 70 12/29/18 08:00 Resp 18 12/29/18 08:00 BP 113/60 12/29/18 08:00 Pulse Ox 100 12/29/18 08:00 - Patient Data Result Diagrams: 12/29/18 04:20 12/29/18 04:20 - Problem List (1) Contusion of scalp SNOMED Code(s): 93350110 ICD Code: S00.03XA - CONTUSION OF SCALP, INITIAL ENCOUNTER Status: Acute Qualifiers: Encounter type: initial encounter Qualified Code(s): S00.03XA - Contusion of scalp, initial encounter (2) Recurrent seizures SNOMED Code(s): 10582344, 69091210 ICD Code: G40.909 - EPILEPSY, UNSP, NOT INTRACTABLE, WITHOUT STATUS EPILEPTICUS Status: Resolved (3) Marijuana abuse SNOMED Code(s): 67562619 ICD Code: F12.10 - CANNABIS ABUSE, UNCOMPLICATED Status: Chronic (4) Poor dentition SNOMED Code(s): 852560347 ICD Code: K08.9 - DISORDER OF TEETH AND SUPPORTING STRUCTURES, UNSPECIFIED Status: Chronic Problem List Initiated/Reviewed/Updated: Yes Assessment/Plan Comment:: The patient was seen and examined in concert with the medical student. The admission assessment and plans were discussed and agreed upon with me. Any changes or further recommendations will be based on the patient's course. Patient receive IV Keppra overnight and now on oral dosing PO BID. We felt his seizure was due to metabolic (electrolytes) and toxic (marijuana) in etiology. - Mortality Measure Prognosis:: Good
[2018-12-28] MEDS: levETIRAcetam 500 MG Tab PO SCH (21:10)
[2018-12-29 08:29] VITALS: BP 113/60
[2018-12-29] MEDS: levETIRAcetam 500 MG Tab PO SCH (08:40)
--- NOTE | 2018-12-29 13:30 | PCM.DCSUM1 ---
<LeonardaMichael - Last Filed: 12/29/18 13:30> Discharge Summary - Hospital Course HPI Initial Comments: 18-year-old male with history of seizure, ADHD, depression, and suicide attempt , brought in by EMS after having a seizure, duration unknown. He has history of 1 prior seizure about 3-4 months ago. The mother states he did not have follow-up EEG or any neurologic follow-up although that had been recommended. Patient had another seizure in the ER. That seizure was totally witnessed and lasted about 2 minutes with generalized tonic clonic activity upper lower extremities and complete unresponsiveness. He was given Ativan 2 mg IV at that time. Seizure had stopped by the time the Ativan was given. He did not bite his tongue. Patient extremely drowsy after the seizure and with the Ativan so has not been able to give any personal history from himself. His mother is not aware of him being ill recently. He had been at work just prior to this happening, is reported to have happened at the parking lot of his workplace. His mother is not aware of him being recently ill. She is not aware of any other chronic underlying medical problems. Brief History: Pt was seen in ED after having an unwitnessed seizure. While in ED he had another seizure lasting 2 minutes with generalized tonic-clonic activity of upper and lower extremities. Hospital course was uncomplicated with no further seizure activity. Received keppra PO. Discharged on keppra PO. Diagnosis: Stroke: No Modified [place] Scale: No Symptoms at All Modified [place] Scale Score: 0 - Discharge Data Discharge Disposition: Home, Self-Care 01 Condition: Good - Discharge Diagnosis/Problem(s) (1) Contusion of scalp SNOMED Code(s): 90122994 ICD Code: S00.03XA - CONTUSION OF SCALP, INITIAL ENCOUNTER Status: Acute Qualifiers: Encounter type: initial encounter Qualified Code(s): S00.03XA - Contusion of scalp, initial encounter (2) Recurrent seizures SNOMED Code(s): 44669841, 32616157 ICD Code: G40.909 - EPILEPSY, UNSP, NOT INTRACTABLE, WITHOUT STATUS EPILEPTICUS Status: Resolved (3) Dentalgia SNOMED Code(s): 76677199 ICD Code: K08.89 - OTHER SPECIFIED DISORDERS OF TEETH AND SUPPORTING STRUCTURES Status: Chronic (4) Marijuana abuse SNOMED Code(s): 91436468 ICD Code: F12.10 - CANNABIS ABUSE, UNCOMPLICATED Status: Chronic - Patient Summary/Data Consults: Consultations 12/27/18 23:27 Consult to Case Management/Branch Manager Trainee [CONS] Routine Consult to Spiritual Care [CONS] Routine 12/28/18 13:56 Consult to Director Of Broadcast [CONS] Routine - Patient Instructions Diet: Usual Diet as Tolerated Activity: As Tolerated Driving: Do Not Drive Showering/Bathing: May Shower Notify Provider of: Fever, Increased Pain, Swelling and Redness, Nausea and/or Vomiting Other/Special Instructions: - Please take all new medications as directed. - Resume routine home medications and activity as tolerated. - Call or follow up with your doctor for any concerns or issues after discharge. - Avoid Illicit drug use. - Recommend you see a dentist after discharge. - Follow up with your doctor in 1 week. - Come back or seek immediate care should your symptoms persist or get worse - Discharge Plan *PRESCRIPTION DRUG MONITORING PROGRAM REVIEWED*: Not Applicable *COPY OF PRESCRIPTION DRUG MONITORING REPORT IN PATIENT DINORAH: Not Applicable Prescriptions/Med Rec: levETIRAcetam [Keppra] 500 mg PO BID #60 tablet Home Medications: Home Meds levETIRAcetam [Keppra] 500 mg PO BID #60 tablet 12/29/18 [Rx] Oxygen Therapy Mode: Room Air Patient Handouts: Cannabis Use Disorder, What You Need to Know About Electronic Cigarettes, What You Need to Know About Marijuana Use, Seizure, Adult , [id number] Referrals: Waylon Arguello MD [Physician] - - General Info Date of Service: 12/29/18 Admission Dx/Problem (Free Text: Admission Diagnosis/Problem Admission Diagnosis/Problem Seizure Subjective Update: Patient is feeling well and eager to be discharged today. Has had no further seizure activity and is not experiencing side effects of the keppra. Functional Status: Reports: Pain Controlled - Review of Systems General: Reports: No Symptoms HEENT: Reports: No Symptoms Pulmonary: Reports: No Symptoms Cardiovascular: Reports: No Symptoms Gastrointestinal: Reports: No Symptoms Genitourinary: Reports: No Symptoms Musculoskeletal: Reports: No Symptoms Skin: Reports: No Symptoms Neurological: Reports: No Symptoms Psychiatric: Reports: No Symptoms - Patient Data Vitals - Most Recent: Last Vital Signs Temp 97.9 F 08/23/19 08:00 Pulse 70 12/29/18 08:00 Resp 18 12/29/18 08:00 BP 113/60 12/29/18 08:00 Pulse Ox 100 12/29/18 08:00 Weight - Most Recent: 66.814 kg I&O - Last 24 hours: Intake & Output 12/28/18 12/29/18 12/29/18 22:59 06:59 14:59 Intake Total 400 550 360 Output Total 600 Balance -200 550 360 Lab Results - Last 24 hrs: Laboratory Results - last 24 hr 12/28/18 12/28/18 12/29/18 Range/Units 13:15 17:25 04:20 WBC 6.49 (4.23-9.07) K/mm3 RBC 4.58 L (4.63-6.08) M/mm3 Hgb 14.1 (13.7-17.5) gm/L Hct 42.0 (40.1-51.0) % MCV 91.7 (79.0-92.2) fl MCH 30.8 (25.7-32.2) pg MCHC 33.6 (32.2-35.5) g/dl RDW Std Deviation 44.2 H (35.1-43.9) fL Plt Count 140 L (163-337) K/mm3 MPV 10.6 (9.4-12.3) fl Neut % (Auto) 64.2 (34.0-67.9) % Lymph % (Auto) 27.6 (21.8-53.1) % [place] % (Auto) 6.9 (5.3-12.2) % Eos % (Auto) 0.8 (0.8-7.0) Baso % (Auto) 0.2 (0.1-1.2) % Neut # (Auto) 4.17 (1.78-5.38) K/mm3 Lymph # (Auto) 1.79 (1.32-3.57) K/mm3 [place] # (Auto) 0.45 (0.30-0.82) K/mm3 Eos # (Auto) 0.05 (0.04-0.54) K/mm3 Baso # (Auto) 0.01 (0.01-0.08) K/mm3 Sodium (136-145) mEq/L Potassium (3.5-5.1) mEq/L Chloride (98-107) mEq/L Carbon Dioxide (21-32) mEq/L Anion Gap (5-15) BUN (7-18) mg/dL Creatinine (0.7-1.3) mg/dL Est Cr Clr Drug Dosing mL/min Estimated GFR (MDRD) (>60) mL/min BUN/Creatinine Ratio (14-18) Glucose (74-106) mg/dL Lactic Acid 0.8 0.7 (0.4-2.0) mmol/L Calcium (8.5-10.1) mg/dL Magnesium (1.8-2.4) mg/dl 12/29/18 Range/Units 04:20 WBC (4.23-9.07) K/mm3 RBC (4.63-6.08) M/mm3 Hgb (13.7-17.5) gm/L Hct (40.1-51.0) % MCV (79.0-92.2) fl MCH (25.7-32.2) pg MCHC (32.2-35.5) g/dl RDW Std Deviation (35.1-43.9) fL Plt Count (163-337) K/mm3 MPV (9.4-12.3) fl Neut % (Auto) (34.0-67.9) % Lymph % (Auto) (21.8-53.1) % [place] % (Auto) (5.3-12.2) % Eos % (Auto) (0.8-7.0) Baso % (Auto) (0.1-1.2) % Neut # (Auto) (1.78-5.38) K/mm3 Lymph # (Auto) (1.32-3.57) K/mm3 [place] # (Auto) (0.30-0.82) K/mm3 Eos # (Auto) (0.04-0.54) K/mm3 Baso # (Auto) (0.01-0.08) K/mm3 Sodium 140 (136-145) mEq/L Potassium 3.8 (3.5-5.1) mEq/L Chloride 104 (98-107) mEq/L Carbon Dioxide 25 (21-32) mEq/L Anion Gap 14.8 (5-15) BUN 10 (7-18) mg/dL Creatinine 0.9 (0.7-1.3) mg/dL Est Cr Clr Drug Dosing 123.73 mL/min Estimated GFR (MDRD) > 60 (>60) mL/min BUN/Creatinine Ratio 11.1 L (14-18) Glucose 87 (74-106) mg/dL Lactic Acid (0.4-2.0) mmol/L Calcium 9.1 (8.5-10.1) mg/dL Magnesium 2.0 (1.8-2.4) mg/dl Med Orders - Current: Current Medications Discontinued Medications Acetaminophen (Tylenol) 650 mg PO Q4H PRN PRN Reason: Pain (Mild 1-3)/fever Hydrocodone Bitart/Acetaminophen ([place] 325-5 Mg) 1 tab PO Q4H PRN PRN Reason: Pain (moderate 4-6) Albuterol/Ipratropium (Duoneb 3.0-0.5 Mg/3 Ml) 3 ml NEB Q4H PRN PRN Reason: Shortness Of Breath/wheezing Bisacodyl (Dulcolax) 5 mg PO DAILY PRN PRN Reason: Constipation Docusate Sodium (Colace) 100 mg PO BID PRN PRN Reason: Constipation Hydralazine HCl (Apresoline) 20 mg IVPUSH Q4H PRN PRN Reason: Hypertension Hydromorphone HCl (Dilaudid) 0.25 mg IVPUSH Q2H PRN PRN Reason: Pain (severe 7-10) Lactated Ringer's (Ringers, Lactated) Confirm Administered Dose 1,000 mls @ as directed .ROUTE .STK-MED ONE Stop: 12/27/18 20:17 Last Admin: 12/27/18 21:22 Dose: Not Given Lactated Ringer's (Ringers, Lactated) 1,000 mls @ 999 mls/hr IV .BOLUS ONE Stop: 12/27/18 21:15 Last Admin: 12/27/18 20:15 Dose: 999 mls/hr Lactated Ringer's (Ringers, Lactated) 1,000 mls @ 999 mls/hr IV .BOLUS ONE Stop: 12/27/18 22:25 Last Admin: 12/27/18 21:29 Dose: 999 mls/hr Potassium Chloride 10 meq/ (Premix) 100 mls @ 100 mls/hr IV Q1H [facility] Stop: 12/28/18 03:29 Last Admin: 12/28/18 00:16 Dose: 100 mls/hr Dextrose/Sodium Chloride (Dextrose 5%-1/2 Ns) 1,000 mls @ 125 mls/hr IV ASDIRECTED [facility] Promethazine HCl 6.25 mg/ (Sodium Chloride) 50.25 mls @ 100 mls/hr IV Q6H PRN PRN Reason: Nausea/Vomiting Levetiracetam 1,000 mg/ Sodium (Chloride) 110 mls @ 440 mls/hr IV ONETIME ONE Stop: 12/28/18 00:29 Last Admin: 12/28/18 00:16 Dose: 440 mls/hr Levetiracetam (Keppra) 500 mg PO BID [facility] Last Admin: 12/28/18 09:49 Dose: 500 mg Levetiracetam (Keppra) 500 mg PO BID [facility] Last Admin: 12/29/18 08:40 Dose: 500 mg Lorazepam (Ativan) Confirm Administered Dose 4 mg .ROUTE .STK-MED ONE Stop: 12/27/18 20:13 Last Admin: 12/27/18 23:30 Dose: Not Given Lorazepam (Ativan) 4 mg IVPUSH ONETIME ONE Stop: 12/27/18 20:16 Last Admin: 12/27/18 20:15 Dose: 2 mg Lorazepam (Ativan) 1 mg IV Q6H PRN PRN Reason: Anxiety Lorazepam (Ativan) 2 mg IVPUSH Q4H PRN PRN Reason: Seizures Metoprolol Tartrate (Lopressor) 5 mg IVPUSH Q4H PRN PRN Reason: Tachycardia Ondansetron HCl (Zofran) 4 mg IVPUSH ONETIME ONE Stop: 12/27/18 21:08 Last Admin: 12/27/18 21:19 Dose: 4 mg Ondansetron HCl (Zofran) 4 mg IV Q6H PRN PRN Reason: Nausea/Vomiting Potassium Chloride (Klor-Con M20) 40 meq PO ONETIME ONE Stop: 12/28/18 00:26 Last Admin: 12/28/18 00:36 Dose: 40 meq Senna/Docusate Sodium (Senna Plus) 1 tab PO BID PRN PRN Reason: Constipation Temazepam (Restoril) 7.5 mg PO BEDTIME PRN PRN Reason: Sleep - Exam General: Reports: Alert, Oriented, Cooperative, No Acute Distress HEENT: Reports: Pupils Equal, Pupils Reactive, EOMI, Mucous Membr. Moist/Orr Neck: Reports: Supple, Trachea Midline, No JVD. Denies: Lymphadenopathy Lungs: Reports: Clear to Auscultation, Normal Respiratory Effort. Denies: Crackles, Rales, Wheezing Cardiovascular: Reports: Regular Rate, Regular Rhythm, No Murmurs. Denies: Gallops, Rubs GI/Abdominal Exam: Normal Bowel Sounds, Soft, Non-Tender, No Organomegaly, No Distention (Male) Exam: Deferred Rectal (Males) Exam: Deferred Back Exam: Reports: Normal Inspection, Full Range of Motion Extremities: Normal Inspection, Normal Range of Motion, Non-Tender, No Pedal Edema. No: Joint Swelling Skin: Reports: Warm, Dry, Intact Neurological: Reports: No New Focal Deficit, Normal Gait, Normal Speech, Normal Tone, Strength Equal Bilateral Psy/Mental Status: Reports: Alert, Normal Affect, Normal Mood. Denies: Agitated <Nidia Douglas T - Last Filed: 12/30/18 23:52> Discharge Summary - Discharge Data Discharge Date: 12/29/18 - Discharge Diagnosis/Problem(s) (1) Contusion of scalp SNOMED Code(s): 78548427 ICD Code: S00.03XA - CONTUSION OF SCALP, INITIAL ENCOUNTER Status: Acute Qualifiers: Encounter type: initial encounter Qualified Code(s): S00.03XA - Contusion of scalp, initial encounter (2) Recurrent seizures SNOMED Code(s): 32434244, 79499070 ICD Code: G40.909 - EPILEPSY, UNSP, NOT INTRACTABLE, WITHOUT STATUS EPILEPTICUS Status: Resolved (3) Marijuana abuse SNOMED Code(s): 61368007 ICD Code: F12.10 - CANNABIS ABUSE, UNCOMPLICATED Status: Chronic (4) Poor dentition SNOMED Code(s): 487674506 ICD Code: K08.9 - DISORDER OF TEETH AND SUPPORTING STRUCTURES, UNSPECIFIED Status: Chronic (5) Nicotine dependence SNOMED Code(s): 86614184 ICD Code: F17.200 - NICOTINE DEPENDENCE, UNSPECIFIED, UNCOMPLICATED Status : Acute Qualifiers: Nicotine product type: unspecified Substance use status: other nicotine- induced disorder Qualified Code(s): F17.208 - Nicotine dependence, unspecified , with other nicotine-induced disorders - Patient Summary/Data Operative Procedure(s) Performed: None Complications: None Consults: Consultations 12/27/18 23:27 Consult to Case Management/Branch Manager Trainee [CONS] Routine Consult to Spiritual Care [CONS] Routine 12/28/18 13:56 Consult to Director Of Broadcast [CONS] Routine Labs Pending at D/C: None Recommended Follow-up Testing/Procedures: Dental evaluation due to very poor oral hygiene and dental caries/decay Planned Operative Procedure(s) after DC: None Hospital Course: Patient was primarily admitted for medical evaluation of seizure disorder which we felt was due to electrolyte abnormalities and possible marijuana use. He did have a tonic-clonic seizure while ED but had non during his inpatient treatment to the unit. He received intravenous and oral Keppra for maintenance medication. His abnormal electrolytes were corrected prior to discharge. His EEG was essentially normal. His hospital course was uncomplicated. Once medically stable, he was then released to home. He was advised not to drink alcohol, avoid operating any motor vehicles for now and avoid illicit drug use. He was further advised to discuss with his family physician on follow appointment on what he can and cannot do related to his seizure disorder. The patient with mom at beside expressed understanding and in agreement with plans as discussed above. All questions and or concerns answered. - Discharge Summary/Plan Comment DC Time >30 min.: No Discharge Summary/Plan Comment: Discharge to Home Offered practical counseling on smoking vapes. He was counseled about the dangers of smoking and associated health risks. At this time he is not ready to quit but receptive to the idea of smoking cessation. Patient was provided reading materials or brochures to help when to quit smoking. He was advised to set a specific date, call the Quit line and follow up with his PCP when he is ready to quit. - Patient Data Vitals - Most Recent: Last Vital Signs Temp 36.6 C 12/29/18 08:00 Pulse 70 12/29/18 08:00 Resp 18 12/29/18 08:00 BP 113/60 12/29/18 08:00 Pulse Ox 100 12/29/18 08:00 Med Orders - Current: Current Medications Discontinued Medications Acetaminophen (Tylenol) 650 mg PO Q4H PRN PRN Reason: Pain (Mild 1-3)/fever Hydrocodone Bitart/Acetaminophen ([place] 325-5 Mg) 1 tab PO Q4H PRN PRN Reason: Pain (moderate 4-6) Albuterol/Ipratropium (Duoneb 3.0-0.5 Mg/3 Ml) 3 ml NEB Q4H PRN PRN Reason: Shortness Of Breath/wheezing Bisacodyl (Dulcolax) 5 mg PO DAILY PRN PRN Reason: Constipation Docusate Sodium (Colace) 100 mg PO BID PRN PRN Reason: Constipation Hydralazine HCl (Apresoline) 20 mg IVPUSH Q4H PRN PRN Reason: Hypertension Hydromorphone HCl (Dilaudid) 0.25 mg IVPUSH Q2H PRN PRN Reason: Pain (severe 7-10) Lactated Ringer's (Ringers, Lactated) Confirm Administered Dose 1,000 mls @ as directed .ROUTE .STK-MED ONE Stop: 12/27/18 20:17 Last Admin: 12/27/18 21:22 Dose: Not Given Lactated Ringer's (Ringers, Lactated) 1,000 mls @ 999 mls/hr IV .BOLUS ONE Stop: 12/27/18 21:15 Last Admin: 12/27/18 20:15 Dose: 999 mls/hr Lactated Ringer's (Ringers, Lactated) 1,000 mls @ 999 mls/hr IV .BOLUS ONE Stop: 12/27/18 22:25 Last Admin: 12/27/18 21:29 Dose: 999 mls/hr Potassium Chloride 10 meq/ (Premix) 100 mls @ 100 mls/hr IV Q1H [facility] Stop: 12/28/18 03:29 Last Admin: 12/28/18 00:16 Dose: 100 mls/hr Dextrose/Sodium Chloride (Dextrose 5%-1/2 Ns) 1,000 mls @ 125 mls/hr IV ASDIRECTED [facility] Promethazine HCl 6.25 mg/ (Sodium Chloride) 50.25 mls @ 100 mls/hr IV Q6H PRN PRN Reason: Nausea/Vomiting Levetiracetam 1,000 mg/ Sodium (Chloride) 110 mls @ 440 mls/hr IV ONETIME ONE Stop: 12/28/18 00:29 Last Admin: 12/28/18 00:16 Dose: 440 mls/hr Levetiracetam (Keppra) 500 mg PO BID [facility] Last Admin: 12/28/18 09:49 Dose: 500 mg Levetiracetam (Keppra) 500 mg PO BID [facility] Last Admin: 12/29/18 08:40 Dose: 500 mg Lorazepam (Ativan) Confirm Administered Dose 4 mg .ROUTE .STK-MED ONE Stop: 12/27/18 20:13 Last Admin: 12/27/18 23:30 Dose: Not Given Lorazepam (Ativan) 4 mg IVPUSH ONETIME ONE Stop: 12/27/18 20:16 Last Admin: 12/27/18 20:15 Dose: 2 mg Lorazepam (Ativan) 1 mg IV Q6H PRN PRN Reason: Anxiety Lorazepam (Ativan) 2 mg IVPUSH Q4H PRN PRN Reason: Seizures Metoprolol Tartrate (Lopressor) 5 mg IVPUSH Q4H PRN PRN Reason: Tachycardia Ondansetron HCl (Zofran) 4 mg IVPUSH ONETIME ONE Stop: 12/27/18 21:08 Last Admin: 12/27/18 21:19 Dose: 4 mg Ondansetron HCl (Zofran) 4 mg IV Q6H PRN PRN Reason: Nausea/Vomiting Potassium Chloride (Klor-Con M20) 40 meq PO ONETIME ONE Stop: 12/28/18 00:26 Last Admin: 12/28/18 00:36 Dose: 40 meq Senna/Docusate Sodium (Senna Plus) 1 tab PO BID PRN PRN Reason: Constipation Temazepam (Restoril) 7.5 mg PO BEDTIME PRN PRN Reason: Sleep
== END 2018-12-29 12:25 | disposition home or self-care (01) | DRG 53 ==
LOC: JD.ED 19:23 → JD.ICU 22:05
PROVIDERS: ADMIT Internal Medicine; ATTEND Internal Medicine
DX: G40.409 Other generalized epilepsy and epileptic syndromes, not intractable, without status epilepticus (principal); F32.9 Major depressive disorder, single episode, unspecified; F90.9 Attention-deficit hyperactivity disorder, unspecified type; F17.210 Nicotine dependence, cigarettes, uncomplicated; S00.03XA Contusion of scalp, initial encounter; K08.89 Other specified disorders of teeth and supporting structures; F12.10 Cannabis abuse, uncomplicated; W19.XXXA Unspecified fall, initial encounter; Z79.899 Other long term (current) drug therapy
CPT/HCPCS: 36415; 70450; 70450-26; 80048; 80053; 80306; 82962; 83605; 83735; 85025; 95816; 96361; 96374; 96375; 99285; 99285-25; A9270-GY; J1953; J2060; J2405; J3480; J7030; J7120

== ENCOUNTER 2019-01-12 19:07 | Emergency (ER) | payer BC ==
[2019-01-12 19:19] VITALS: BP 124/60
[2019-01-12] MEDS ORDERED: LORazepam 2 MG/ML SDV ONE (19:38)
[2019-01-12] MEDS ORDERED: LORazepam 2 MG/ML SDV IVPUSH ONE (19:41)
[2019-01-12] MEDS ORDERED: Ondansetron 4 MG/2 ML SDV IVPUSH ONE (19:44)
[2019-01-12] MEDS ORDERED: Sodium Chloride 0.9% 1,000 ML IV SCH (20:30)
[2019-01-12] MEDS ORDERED: levETIRAcetam 1,000 MG in Sodium Chloride 0.9% 100 ML IV STA (21:04)
--- NOTE | 2019-01-12 21:04 | EDM.PDOC ---
ED HPI GENERAL MEDICAL PROBLEM - General Chief Complaint: Neurological Problem Stated Complaint: [facility] Time Seen by Provider: 01/12/19 20:14 Source of Information: Reports: Family (Mother), Other (Friend of patient) History Limitations: Reports: Physical Impairment (Patient is post-ictal, sleeping) - History of Present Illness INITIAL COMMENTS - FREE TEXT/NARRATIVE: Mr. Hylton is a 18 year old man who first developed seizures in August or September of this year, and has subsequently been placed on oral Keppra 500 mg po BID, although he has not seen a Neurologist as yet. Review of prior medical records finds that CT scans of his head without contrast on 10/08/2018 and 12/27/2018 were both negative. An EEG performed on 12/28/2018 was normal, however, the patient was already on Keppra by that time. According to the patient's very pleasant mother, and a friend of the patient who accompanied the patient's mother to the ED, the patient was sitting on a couch, when he looked up to the left, then developed bilateral tonic-clonic activity that lasted for 60-90 seconds. Afterwards, he was confused and sleepy. He did not appear to bite his tongue, and he was not incontinent of either bowel or bladder. The patient's mother states that the patient had watery diarrhea yesterday, then nausea and vomiting today. He told his mother that he had not skipped any of his Keppra doses, but when she and the patient's friend checked the patient' s pill count, they found that there was one pill extra. The patient's mother states that the patient has never suffered a significant traumatic head injury or concussion. The patient's friend states that the patient smokes marijuana daily, but rarely drinks alcohol. The friend states that the patient also vapes A LOT, including THC, but he does not use stimulants such as amphetamine or methamphetamine. The patient has an appointment to meet Dr. Waylon Colón on 01/26/2019. - Related Data Allergies Allergy/AdvReac Type Severity Reaction Status Date / Time No Known Allergies Allergy Verified 01/13/19 00:38 Home Meds: Home Meds levETIRAcetam [Keppra] 500 mg PO BID #60 tablet 12/29/18 [Rx] Ondansetron [Zofran ODT] 1 tab PO Q8H PRN #10 tab.dis 01/13/19 [Rx] Past Medical History Neurological History: Reports: Seizure Psychiatric History: Reports: ADHD (untreated), Depression (untreated), Suicide Attempt (15 years old) - Past Surgical History Male Surgical History: Reports: Circumcision Social & Family History - Family History Family Medical History: Noncontributory Endocrine/Metabolic: Reports: Diabetes, type II - Tobacco Use Smoking Status *Q: Never Smoker Tobacco Use Within Last Twelve Months: Other (See Below) (Vapes a lot) - Caffeine Use Caffeine Use: Reports: Soda - Alcohol Use Alcohol Use History: Yes Alcohol Use Frequency: Rarely - Recreational Drug Use Recreational Drug Use: Yes Drug Use in Last 12 Months: Yes Recreational Drug Type: Reports: LSD (Acid) (tried in the past), Marijuana/ Hashish (smokes and vapes THC daily), Psilocybin (Mushrooms) (tried in the past) - Living Situation & Occupation Living situation: Reports: Single, Alone Occupation: Employed ([employer]) ED ROS GENERAL - Review of Systems Review Of Systems: ROS reveals no pertinent complaints other than HPI. - Physical Exam Exam: See Below Exam Limited By: No Limitations General Appearance: WD/WN, No Apparent Distress, Other (Sleeping, but woke for physical exam, and was cooperative) Eye Exam: Bilateral Eye: EOMI, Normal Inspection Ears: Normal External Exam, Hearing Grossly Normal Nose: Normal Inspection Throat/Mouth: Normal Inspection, Normal Lips, Normal Oropharynx (no tongue bite boswell, swelling, or ecchymoses), Normal Voice, No Airway Compromise, Other ( Poor dentition) Head Exam: Atraumatic, Normocephalic Neck: Normal Inspection, Supple, Non-Tender, Full Range of Motion. No: Lymphadenopathy (L), Lymphadenopathy (R) Respiratory/Chest: No Respiratory Distress, Lungs Clear, Normal Breath Sounds, No Accessory Muscle Use Cardiovascular: Normal Peripheral Pulses, Regular Rate, Rhythm, No Edema, No Gallop, No JVD, No Murmur, No Rub GI/Abdominal: Normal Bowel Sounds, Soft, Non-Tender, No Organomegaly, No Distention, No Abnormal Bruit, No Mass (Male) Exam: Deferred Rectal (Males) Exam: Deferred Neuro Exam (Abbreviated): CN II-XII Intact, No Motor/Sensory Deficits, Confused Back Exam: Normal Inspection, Full Range of Motion, NT Extremities: Normal Inspection, Normal Range of Motion, No Pedal Edema, Normal Capillary Refill Skin Exam: Warm, Dry, Intact, Normal Color, No Rash Course - Vital Signs Last Recorded V/S: Last Vital Signs Temp 36.6 C 01/12/19 19:16 Pulse 94 01/12/19 19:16 Resp 12 01/12/19 19:16 BP 124/60 01/12/19 19:16 Pulse Ox 95 01/12/19 19:16 - Orders/Labs/Meds Labs: Laboratory Tests 01/12/19 01/12/19 01/13/19 Range/Units 20:56 20:56 00:14 WBC 13.07 H (4.23-9.07) K/mm3 RBC 4.75 (4.63-6.08) M/mm3 Hgb 14.7 (13.7-17.5) gm/L Hct 43.2 (40.1-51.0) % MCV 90.9 (79.0-92.2) fl MCH 30.9 (25.7-32.2) pg MCHC 34.0 (32.2-35.5) g/dl RDW Std Deviation 42.3 (35.1-43.9) fL Plt Count 187 (163-337) K/mm3 MPV 10.5 (9.4-12.3) fl Neutrophils % (Manual) 96 H (40-60) % Band Neutrophils % 0 (0-10) % Lymphocytes % (Manual) 4 L (20-40) % Atypical Lymphs % 0 % Monocytes % (Manual) 0 L (2-10) % Eosinophils % (Manual) 0 L (0.8-7.0) % Basophils % (Manual) 0 L (0.2-1.2) Platelet Estimate Adequate RBC Morph Comment Normal Sodium 139 (136-145) mEq/L Potassium 4.3 (3.5-5.1) mEq/L Chloride 105 (98-107) mEq/L Carbon Dioxide 23 (21-32) mEq/L Anion Gap 15.3 H (5-15) BUN 8 (7-18) mg/dL Creatinine 0.8 (0.7-1.3) mg/dL Est Cr Clr Drug Dosing 141.75 mL/min Estimated GFR (MDRD) > 60 (>60) mL/min BUN/Creatinine Ratio 10.0 L (14-18) Glucose 109 H (74-106) mg/dL Calcium 9.9 (8.5-10.1) mg/dL Phosphorus 1.9 L (2.6-4.7) mg/dL Magnesium 2.4 (1.8-2.4) mg/dl Total Bilirubin 0.5 (0.2-1.0) mg/dL AST 18 (15-37) U/L ALT 15 L (16-63) U/L Alkaline Phosphatase 64 (46-116) U/L Total Protein 7.3 (6.4-8.2) g/dl Albumin 4.2 (3.4-5.0) g/dl Globulin 3.1 gm/dL Albumin/Globulin Ratio 1.4 (1-2) Urine Opiates Screen Negative (GZCLKX=450) Ur Buprenorphine Scrn Negative (CUTOFF=10) Ur Oxycodone Screen Negative (LHS9VN=583) Urine Methadone Screen Negative (IEM8AJ=459) Ur Propoxyphene Screen Negative (KVKVMC=717) Ur Barbiturates Screen Negative (ZJZWWC=580) Ur Tricyclics Screen Negative (ZYVVIG=261) Ur Phencyclidine Scrn Negative (CUTOFF=25) Ur Amphetamine Screen Negative (SATJFE=268) U Methamphetamines Scrn Negative (PDYQQA=025) U Benzodiazepines Scrn Presumptive positive H (LGGBDO=019) U Cocaine Metab Screen Negative (UINSCC=064) U Marijuana (THC) Screen Presumptive positive H (CUTOFF=50) Ethyl Alcohol 0.00 (0.00) gm% Meds: Medications Discontinued Medications Generic Name Dose Route Start Last Admin Trade Name Freq PRN Reason Stop Dose Admin Sodium Chloride 1,000 mls @ 150 mls/hr 01/12/19 20:30 01/12/19 20:43 Normal Saline IV 150 mls/hr ASDIRECTED LILLY Administration Levetiracetam 1,000 mg/ Sodium 110 mls @ 400 mls/hr 01/12/19 21:04 01/12/19 22:07 Chloride IV 01/12/19 21:20 400 mls/hr ONETIME STA Administration Lorazepam Confirm 01/12/19 19:38 01/12/19 19:49 Ativan Administered 01/12/19 19:39 Not Given Dose 2 mg .ROUTE .STK-MED ONE Lorazepam 1 mg 01/12/19 19:41 01/12/19 19:48 Ativan IVPUSH 01/12/19 19:42 1 mg ONETIME ONE Administration Ondansetron HCl 4 mg 01/12/19 19:44 01/12/19 19:48 Zofran IVPUSH 01/12/19 19:45 4 mg ONETIME ONE Administration Sodium Phosphate 500 mg 01/12/19 22:05 01/12/19 22:49 Neutra-Phos PO 01/12/19 22:06 500 mg ONETIME STA Administration - Re-Assessments/Exams Free Text/Narrative Re-Assessment/Exam: 01/12/19 20:50 The cause of the patient's seizure disorder is unclear. His first seizure was in August or September of this year. It is presumed that his seizures are not due to an anatomic abnormality, as he has never suffered a traumatic brain injury, and 2 CT scans of his head, one on 10/08/2018, the other on 12/27/2018, were both negative for anatomic abnormalities. He has not yet had a MRI of his brain. If no anatomic abnormality is found, that would indicate that his seizures are metabolic in etiology. The patient's friend states that the patient vapes A LOT , including vaping THC, and that he smokes marijuana daily, but he states that the patient does not use stimulants, such as amphetamine or methamphetamine. Presuming the patient has metabolic seizures, his seizure threshold could be lowered due to his failure to take his Keppra this morning, and/or due to fluid or electrolyte shifts as a result of his recent gastroenteritis. As such, I have ordered a workup that includes a CBC, CMP, magnesium level, and phosphate level. I have also added an alcohol level and a urine drug screen. 01/12/19 22:07 The patient's phosphate level has returned depressed at 1.9, with a normal calcium level. His phosphate is likely low because of his recent diarrhea, and should correct on it's own without dietary supplementation once his diarrhea has resolved, however, since hypophosphatemia is a known cause of lowering seizure threshold, I believe it would be appropriate to treat his hypophosphatemia at this time. I have therefore ordered 500 mg of oral Neutra- Phos. 09/06/19 23:35 The patient's CBC is remarkable for WBC count elevated at 13.07, but with 0% bandemia. The remainder of his CBC is unremarkable. His CMP is unremarkable. His magnesium is within normal limits at 2.4. His EtOH level is 0. The patient has not yet provided a urine sample for the urine drug screen. 01/13/19 00:04 Lucy TEMPLE straight-cathed the patient to get a urine sample. 01/13/19 00:35 The patient's urine drug screen has returned positive for benzodiazepines and marijuana. The benzodiazepines are likely from the Ativan that he was given shortly after arrival to the ED. The patient has not expressed any additional seizure-like activity. He may safely be discharged home. I will refer him to Neurology in [place]. 01/13/19 00:42 The [facility] website finds Susanne Nascimento DNP, as a Neurology provider. She is not, however, listed on the [place] provider list - perhaps she is new. Since the wait time to see a Neurologist is so long, I will refer the patient to her in the hope that he can be seen sooner. Departure - Departure Time of Disposition: 00:39 Disposition: Home, Self-Care 01 Condition: Good Clinical Impression: Seizure, Hypophosphatemia, Gastroenteritis, Marijuana abuse - Discharge Information *PRESCRIPTION DRUG MONITORING PROGRAM REVIEWED*: Not Applicable *COPY OF PRESCRIPTION DRUG MONITORING REPORT IN PATIENT [place]: Not Applicable Prescriptions: Ondansetron [Zofran ODT] 1 tab PO Q8H PRN #10 tab.dis PRN Reason: Nausea/Vomiting Instructions: Viral Gastroenteritis, Adult, [id number], What You Need to Know About Marijuana Use, Hypophosphatemia, Seizure, Adult Referrals: Waylon Arguello MD [Physician] - Forms: ED Department Discharge, ED Return to Work/School Form Additional Instructions: You were seen in the Emergency Room after having a seizure at home. Workup in the ER included bloodwork and a urine drug screen. Your workup found your phosphate level to be low at 1.9. This is likely due to your recent diarrhea. You were given replacement phosphate in the ER. You were given replacement IV Keppra in the ER. The remainder of your workup was unremarkable. Based on your history, physical exam, and ER tests, the cause of your seizure was most likely due to a combination of your failing to take your Keppra this morning, as well as your low phosphate level. A prescription for the anti-nausea medicine Zofran has been sent to the [facility], located at [address] [place] [address]. Dissolve one tablet of Zofran on your tongue up to every 8 hours, as needed for nausea/vomiting. You may take [id number] loperamide (Imodium) as directed on label, as needed for diarrhea. We recommend that you stay adequately hydrated with Gatorade or Powerade. Eat a bland diet until you are feeling better. Chicken noodle soup with saltine crackers is an excellent choice, but you may also eat oatmeal, rice, applesauce , or bananas. Continue to take your Keppra twice a day, as prescribed. A note for work has been provided to you. Follow-up with the Neurology provider Susanne Nascimento DNP next available appointment. Call [phone] to make an appointment. If any other problems, please do not hesitate to return to the ER.
[2019-01-12] MEDS ORDERED: Phosphorus #1 250 MG Tab PO STA (22:05)
== END 2019-01-13 01:15 | disposition home or self-care (01) ==
LOC: JD.ED 19:07
DX: R56.9 Unspecified convulsions (principal); K52.9 Noninfective gastroenteritis and colitis, unspecified; F12.10 Cannabis abuse, uncomplicated; E83.39 Other disorders of phosphorus metabolism; Z79.899 Other long term (current) drug therapy
CPT/HCPCS: 36415; 80053; 80306; 80320; 83735; 84100; 85007; 85027; 96361; 96365; 96375; 99284; A9270; J1953; J2060; J2405; J7030; J7040; G0480

== ENCOUNTER 2019-06-08 12:00 | Emergency (ER) | payer OTHER ==
[2019-06-08] MEDS ORDERED: LORazepam 2 MG/ML SDV IVPUSH ONE (12:07)
[2019-06-08] MEDS ORDERED: Ondansetron 4 MG/2 ML SDV IVPUSH ONE (12:07)
[2019-06-08] MEDS ORDERED: LORazepam 2 MG/ML SDV ONE (12:08)
[2019-06-08] MEDS ORDERED: Sodium Chloride 0.9% 10 ML Syringe FLUSH PRN (12:13)
[2019-06-08] MEDS ORDERED: Sodium Chloride 0.9% 1,000 ML IV STA (12:13)
--- NOTE | 2019-06-08 14:55 | EDM.PDOC ---
ED HPI GENERAL MEDICAL PROBLEM - General Chief Complaint: Neurological Problem Stated Complaint: [facility] Time Seen by Provider: 06/08/19 12:04 Source of Information: Reports: Patient, EMS History Limitations: Reports: No Limitations - History of Present Illness INITIAL COMMENTS - FREE TEXT/NARRATIVE: The patient presents by [facility] for a seizure. He had a seizure this morning. This lasted a few minutes. He has a history of seizures and he is on keppra 500mg BID. There has been no changes in his meds. He said he did drink last night and he had been vomiting last night and did not get much sleep. He has no fever, chills, cough, chest pain or shortness of breath. Onset: Sudden, Gradual Duration: Minutes: Location: Reports: Generalized Severity: Moderate Improves with: Reports: None Worsens with: Reports: None Associated Symptoms: Reports: Nausea/Vomiting. Denies: Chest Pain, Cough, Fever /Chills, Headaches, Shortness of Breath Headache Pain Score (Numeric/FACES): 5 - Related Data Allergies Allergy/AdvReac Type Severity Reaction Status Date / Time No Known Allergies Allergy Verified 06/08/19 12:05 Home Meds: Home Meds levETIRAcetam [Keppra] 500 mg PO BID #60 tablet 12/29/18 [Rx] Ondansetron [Zofran ODT] 1 tab PO Q8H PRN #10 tab.dis 01/13/19 [Rx] Ondansetron [Zofran ODT] 4 mg PO Q6H PRN #20 tab.dis 06/08/19 [Rx] Past Medical History - Past Health History Medical/Surgical History: Denies Medical/Surgical History Neurological History: Reports: Seizure Psychiatric History: Reports: ADHD, Depression, Suicide Attempt - Past Surgical History Male Surgical History: Reports: Circumcision Social & Family History - Family History Family Medical History: Noncontributory Endocrine/Metabolic: Reports: Diabetes, type II - Tobacco Use Smoking Status *Q: Never Smoker - Caffeine Use Caffeine Use: Reports: Soda - Recreational Drug Use Recreational Drug Use: No - Living Situation & Occupation Living situation: Reports: Single, Alone Occupation: Employed ([employer]) ED ROS GENERAL - Review of Systems Review Of Systems: See Below Constitutional: Reports: No Symptoms HEENT: Reports: No Symptoms Respiratory: Reports: No Symptoms Cardiovascular: Reports: No Symptoms Endocrine: Reports: No Symptoms GI/Abdominal: Reports: Nausea, Vomiting. Denies: Abdominal Pain : Reports: No Symptoms Musculoskeletal: Reports: No Symptoms Neurological: Reports: Seizure. Denies: Headache - Physical Exam Exam: See Below Exam Limited By: No Limitations General Appearance: Alert, No Apparent Distress Ears: Normal External Exam Nose: Normal Inspection Head Exam: Atraumatic, Normocephalic Neck: Normal Inspection Respiratory/Chest: No Respiratory Distress, Lungs Clear, Normal Breath Sounds Cardiovascular: Regular Rate, Rhythm, No Edema, No Murmur GI/Abdominal: Soft, Non-Tender, No Organomegaly, No Mass Neuro Exam (Abbreviated): Alert, Oriented, No Motor/Sensory Deficits Course - Vital Signs Last Recorded V/S: Last Vital Signs Temp 98.7 F 06/08/19 12:03 Pulse Resp 17 06/08/19 12:03 BP Pulse Ox - Orders/Labs/Meds Orders: Active Orders 24 hr Category Date Time Status Peripheral IV Care [RC] . DIRECTED Care 06/08/19 12:13 Active DRUG SCREEN, URINE [URCHEM] Stat Lab 06/08/19 12:13 Stop Req Sodium Chloride 0.9% [Saline Flush] Med 06/08/19 12:13 Active 10 ml FLUSH ASDIRECTED PRN ED Antiemetic Medication Reflex [OM.PC] Stat Oth 06/08/19 12:13 Ordered Peripheral IV Insertion Adult [OM.PC] Stat Oth 06/08/19 12:13 Ordered Medication Orders Sodium Chloride (Saline Flush) 10 ml FLUSH ASDIRECTED PRN PRN Reason: Keep Vein Open Last Admin: 06/08/19 12:32 Dose: 10 ml Labs: Laboratory Tests 06/08/19 06/08/19 Range/Units 12:42 12:42 WBC 6.23 (4.23-9.07) K/mm3 RBC 4.69 (4.63-6.08) M/mm3 Hgb 14.5 (13.7-17.5) gm/dl Hct 43.7 (40.1-51.0) % MCV 93.2 H (79.0-92.2) fl MCH 30.9 (25.7-32.2) pg MCHC 33.2 (32.2-35.5) g/dl RDW Std Deviation 43.0 (35.1-43.9) fL Plt Count 169 (163-337) K/mm3 MPV 10.6 (9.4-12.3) fl Neut % (Auto) 80.0 H (34.0-67.9) % Lymph % (Auto) 16.4 L (21.8-53.1) % Hinds % (Auto) 2.9 L (5.3-12.2) % Eos % (Auto) 0.3 L (0.8-7.0) Baso % (Auto) 0.2 (0.1-1.2) % Neut # (Auto) 4.99 (1.78-5.38) K/mm3 Lymph # (Auto) 1.02 L (1.32-3.57) K/mm3 Hinds # (Auto) 0.18 L (0.30-0.82) K/mm3 Eos # (Auto) 0.02 L (0.04-0.54) K/mm3 Baso # (Auto) 0.01 (0.01-0.08) K/mm3 Sodium 139 (136-145) mEq/L Potassium 4.3 (3.5-5.1) mEq/L Chloride 103 (98-107) mEq/L Carbon Dioxide 21 (21-32) mEq/L Anion Gap 19.3 H (5-15) BUN 13 (7-18) mg/dL Creatinine 1.1 (0.7-1.3) mg/dL Est Cr Clr Drug Dosing 113.14 mL/min Estimated GFR (MDRD) > 60 (>60) mL/min BUN/Creatinine Ratio 11.8 L (14-18) Glucose 105 (74-106) mg/dL Calcium 9.0 (8.5-10.1) mg/dL Magnesium 2.5 H (1.8-2.4) mg/dl Total Bilirubin 0.5 (0.2-1.0) mg/dL AST 17 (15-37) U/L ALT 27 (16-63) U/L Alkaline Phosphatase 76 (46-116) U/L Total Protein 7.6 (6.4-8.2) g/dl Albumin 4.3 (3.4-5.0) g/dl Globulin 3.3 gm/dL Albumin/Globulin Ratio 1.3 (1-2) Ethyl Alcohol 0.00 (0.00) gm% Meds: Medications Generic Name Dose Route Start Last Admin Trade Name Freq PRN Reason Stop Dose Admin Sodium Chloride 10 ml 06/08/19 12:13 06/08/19 12:32 Saline Flush FLUSH 10 ml ASDIRECTED PRN Administration Keep Vein Open Discontinued Medications Generic Name Dose Route Start Last Admin Trade Name Freq PRN Reason Stop Dose Admin Sodium Chloride 1,000 mls @ 1,000 mls/hr 06/08/19 12:13 06/08/19 12:31 Normal Saline IV 06/08/19 13:12 1,000 mls/hr .BOLUS STA Administration Lorazepam 1 mg 06/08/19 12:07 06/08/19 12:10 Ativan IVPUSH 06/08/19 12:08 1 mg ONETIME ONE Administration Lorazepam Confirm 06/08/19 12:08 06/08/19 12:12 Ativan Administered 06/08/19 12:09 Not Given Dose 2 mg .ROUTE .STK-MED ONE Ondansetron HCl 4 mg 06/08/19 12:07 06/08/19 12:13 Zofran IVPUSH 06/08/19 12:08 4 mg ONETIME ONE Administration - Re-Assessments/Exams Free Text/Narrative Re-Assessment/Exam: 06/08/19 14:54 I ordered an IV NS 1L bolus, ativan 1mg IV, zofran 4mg IV, and labs. His CBC looks good. His anion gap was elevated at 19.3. His magnesium was elevated at 2.5. His ETOH is 0. 06/08/19 15:09 He feels better. I will have him keep taking his keppra and I will give him some zofran. Departure - Departure Time of Disposition: 15:10 Disposition: Home, Self-Care 01 Condition: Good Clinical Impression: Seizure, Vomiting - Discharge Information *PRESCRIPTION DRUG MONITORING PROGRAM REVIEWED*: Not Applicable *COPY OF PRESCRIPTION DRUG MONITORING REPORT IN PATIENT [place]: Not Applicable Prescriptions: Ondansetron [Zofran ODT] 4 mg PO Q6H PRN #20 tab.dis PRN Reason: Nausea\vomiting Referrals: Waylon Arguello MD [Primary Care Provider] - Forms: ED Department Discharge, ED Return to Work/School Form Additional Instructions: Drink plenty of fluids. Take the zofran every 6 hours as needed for nausea and vomiting. Take your keppra as prescribed. Get some sleep. Try to avoid alcohol because that could lower your seizure threshold. Please return if you are worse. Sepsis Event Note - Evaluation Sepsis Screening Result: No Definite Risk - Focused Exam Vital Signs: Vital Signs Temp Resp 06/08/19 12:03 98.7 F 17 Date Exam was Performed: 06/08/19 Time Exam was Performed: 15:09 - My Orders Last 24 Hours: My Active Orders 06/08/19 12:13 Peripheral IV Care [RC] . DIRECTED DRUG SCREEN, URINE [URCHEM] Stat Sodium Chloride 0.9% [Saline Flush] 10 ml FLUSH ASDIRECTED PRN ED Antiemetic Medication Reflex [OM.PC] Stat Peripheral IV Insertion Adult [OM.PC] Stat - Assessment/Plan Last 24 Hours: My Active Orders 06/08/19 12:13 Peripheral IV Care [RC] . DIRECTED DRUG SCREEN, URINE [URCHEM] Stat Sodium Chloride 0.9% [Saline Flush] 10 ml FLUSH ASDIRECTED PRN ED Antiemetic Medication Reflex [OM.PC] Stat Peripheral IV Insertion Adult [OM.PC] Stat
== END 2019-06-08 15:27 | disposition home or self-care (01) ==
LOC: JD.ED 12:00
DX: R56.9 Unspecified convulsions (principal); R11.2 Nausea with vomiting, unspecified; Z79.899 Other long term (current) drug therapy
CPT/HCPCS: 36415; 80053; 80320; 83735; 85025; 96361; 96374; 96375; 99285; J2060; J2405; J7030; 99284; G0480

== ENCOUNTER 2019-06-09 10:17 | Emergency (ER) | payer SELFPAY ==
[2019-06-09] MEDS ORDERED: LORazepam 2 MG/ML SDV IVPUSH ONE (10:24)
[2019-06-09] MEDS ORDERED: Ondansetron 4 MG/2 ML SDV IVPUSH ONE (10:24)
[2019-06-09] MEDS ORDERED: levETIRAcetam 1,000 MG in Sodium Chloride 0.9% 100 ML IV ONE (10:25)
[2019-06-09 10:29] VITALS: BP 91/53; PULSE 72
[2019-06-09] MEDS ORDERED: Ketorolac 30 MG/ML SDV IVPUSH ONE (10:34)
[2019-06-09] MEDS ORDERED: Sodium Chloride 0.9% 1,000 ML IV ONE (10:35)
--- NOTE | 2019-06-09 12:41 | EDM.PDOC ---
ED HPI GENERAL MEDICAL PROBLEM - General Chief Complaint: Neurological Problem Stated Complaint: [facility] Time Seen by Provider: 06/09/19 10:22 Source of Information: Reports: Patient, EMS History Limitations: Reports: No Limitations - History of Present Illness INITIAL COMMENTS - FREE TEXT/NARRATIVE: The patient presents by [facility] for a seizure. He was seen here yesterday for the same. He had a seizure this morning. He had a seizure yesterday and he had a lack of sleep and vomiting yesterday and drank. He drank alcohol again last night and did not get much rest. He has a headache now. He has no fever, chills, cough, chest pain, shortness of breath, nausea or vomiting. Onset: Sudden Duration: Minutes: Location: Reports: Generalized Severity: Moderate Improves with: Reports: None Worsens with: Reports: None Associated Symptoms: Reports: No Other Symptoms head Pain Score (Numeric/FACES): 10 - Related Data Allergies Allergy/AdvReac Type Severity Reaction Status Date / Time No Known Allergies Allergy Verified 06/09/19 10:26 Home Meds: Home Meds levETIRAcetam [Keppra] 500 mg PO BID #60 tablet 12/29/18 [Rx] Ondansetron [Zofran ODT] 4 mg PO Q6H PRN #20 tab.dis 06/08/19 [Rx] Past Medical History - Past Health History Medical/Surgical History: Denies Medical/Surgical History Neurological History: Reports: Seizure Psychiatric History: Reports: ADHD, Depression, Suicide Attempt - Past Surgical History Male Surgical History: Reports: Circumcision Social & Family History - Family History Family Medical History: Noncontributory Endocrine/Metabolic: Reports: Diabetes, type II - Tobacco Use Smoking Status *Q: Never Smoker - Caffeine Use Caffeine Use: Reports: None - Recreational Drug Use Recreational Drug Use: No - Living Situation & Occupation Living situation: Reports: Single, Alone Occupation: Employed ([employer] ED ROS GENERAL - Review of Systems Review Of Systems: See Below Constitutional: Reports: No Symptoms HEENT: Reports: No Symptoms Respiratory: Reports: No Symptoms Cardiovascular: Reports: No Symptoms Endocrine: Reports: No Symptoms GI/Abdominal: Reports: No Symptoms : Reports: No Symptoms Musculoskeletal: Reports: No Symptoms Neurological: Reports: Headache, Seizure - Physical Exam Exam: See Below Exam Limited By: No Limitations General Appearance: Alert, No Apparent Distress Ears: Normal External Exam Nose: Normal Inspection Head Exam: Atraumatic, Normocephalic Neck: Normal Inspection Respiratory/Chest: No Respiratory Distress, Lungs Clear, Normal Breath Sounds Cardiovascular: Regular Rate, Rhythm, No Edema, No Murmur GI/Abdominal: Soft, Non-Tender, No Organomegaly, No Mass Neuro Exam (Abbreviated): Alert, Oriented, No Motor/Sensory Deficits Course - Vital Signs Last Recorded V/S: Last Vital Signs Temp 97.3 F 06/09/19 10:26 Pulse 72 06/09/19 10:26 Resp 24 H 06/09/19 10:26 BP 91/53 L 06/09/19 10:26 Pulse Ox 100 06/09/19 10:26 - Orders/Labs/Meds Orders: Active Orders 24 hr Category Date Time Status DRAKETAM, S [REF] Stat Lab 06/09/19 10:54 Received Meds: Medications Discontinued Medications Generic Name Dose Route Start Last Admin Trade Name Freq PRN Reason Stop Dose Admin Levetiracetam 1,000 mg/ Sodium 110 mls @ 400 mls/hr 06/09/19 10:25 06/09/19 10:38 Chloride IV 06/09/19 10:39 400 mls/hr ONETIME ONE Administration Sodium Chloride 1,000 mls @ 1,000 mls/hr 06/09/19 10:35 06/09/19 10:38 Normal Saline IV 06/09/19 11:34 1,000 mls/hr ONETIME ONE Administration Ketorolac Tromethamine 30 mg 06/09/19 10:34 06/09/19 10:42 Toradol IVPUSH 06/09/19 10:35 30 mg ONETIME ONE Administration Lorazepam 1 mg 06/09/19 10:24 06/09/19 10:31 Ativan IVPUSH 06/09/19 10:25 1 mg ONETIME ONE Administration Ondansetron HCl 4 mg 06/09/19 10:24 06/09/19 10:31 Zofran IVPUSH 06/09/19 10:25 4 mg ONETIME ONE Administration - Re-Assessments/Exams Free Text/Narrative Re-Assessment/Exam: 06/09/19 12:39 I ordered an IV NS 1L bolus, zofran 4mg IV, ativan 1mg IV, and keppra 1,000mg IV. Departure - Departure Time of Disposition: 12:45 Disposition: Home, Self-Care 01 Condition: Good Clinical Impression: Seizure - Discharge Information *PRESCRIPTION DRUG MONITORING PROGRAM REVIEWED*: Not Applicable *COPY OF PRESCRIPTION DRUG MONITORING REPORT IN PATIENT DINORAH: Not Applicable Referrals: Waylon Arguello MD [Primary Care Provider] - Additional Instructions: Get plenty of rest. Stop drinking. Take your medication as prescribed. Call your doctor and neurologist and let them know what happened this weekend and see if they want to up your medication. Sepsis Event Note - Evaluation Sepsis Screening Result: No Definite Risk - Focused Exam Vital Signs: Vital Signs Temp Pulse Resp BP Pulse Ox 06/09/19 10:26 97.3 F 72 24 H 91/53 L 100 Date Exam was Performed: 06/09/19 Time Exam was Performed: 12:36 - My Orders Last 24 Hours: My Active Orders 06/09/19 10:54 LEVETIRACETAM, S [REF] Stat - Assessment/Plan Last 24 Hours: My Active Orders 06/09/19 10:54 LEVETIRACETAM, S [REF] Stat
== END 2019-06-09 13:16 | disposition home or self-care (01) ==
LOC: JD.ED 10:17
DX: R56.9 Unspecified convulsions (principal); Z79.899 Other long term (current) drug therapy
CPT/HCPCS: 80177; 96361; 96365; 96375; 99284; J1885; J1953; J2060; J2405; J7030; J7050; 99283

== ENCOUNTER 2020-02-08 15:15 | Emergency (ER) | payer SELFPAY ==
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
[2020-02-08 19:03] VITALS: BP 120/60; PULSE 65
== END 2020-02-08 19:03 | disposition home or self-care (01) ==
LOC: JD.ED 15:15
DX: S06.0X0A Concussion without loss of consciousness, initial encounter (principal); S00.83XA Contusion of other part of head, initial encounter; G40.909 Epilepsy, unspecified, not intractable, without status epilepticus; R51.9 Headache, unspecified; Z79.899 Other long term (current) drug therapy; X58.XXXA Exposure to other specified factors, initial encounter
CPT/HCPCS: 70450; 70486; 99283; 99284-25

== ENCOUNTER 2020-02-29 03:47 | Emergency (ER) | payer SELFPAY ==
[2020-02-29] MEDS ORDERED: Bupivacaine 0.5% 10 ML SDV INJECT ONE (03:54)
[2020-02-29 03:55] VITALS: BP 145/99; PULSE 106
--- NOTE | 2020-02-29 03:56 | EDM.PDOC ---
ED HPI GENERAL MEDICAL PROBLEM - General Chief Complaint: Upper Extremity Injury/Pain Stated Complaint: [facility] Time Seen by Provider: 02/29/20 03:51 Source of Information: Reports: Patient History Limitations: Reports: No Limitations - History of Present Illness INITIAL COMMENTS - FREE TEXT/NARRATIVE: 19-year-old male arrives in the ED per [facility] after a self- inflicted injury to the distal aspect of his left fourth finger occurred at home. It is clear what trauma his distal left fourth finger has undergone to cause his injury. Patient appears to be intoxicated by drug and alcohol.. He admits to smoking marijuana tonight. He has been drinking whiskey as well. He can remember how he hurt his finger. He believes he is up-to-date on his tetan us toxoid as he stepped on a nail with his left foot within the last 4 years. Onset: Today, Sudden Onset Date: 02/29/20 Onset Time: 03:20 Duration: Minutes: Location: Reports: Upper Extremity, Left (Acute injury to the distal aspect of the left fourth finger apparently lacerated by a sharp knife.) Quality: Reports: Ache Severity: Mild Improves with: Reports: None Worsens with: Reports: Movement Context: Reports: Trauma (Acute injury to the distal aspect of the left fourth finger. It appears to have been lacerated but it could well of been crushed upon looking at the wound. Patient is unclear what has happened to his finger.). Denies: Activity, Exercise, Sick Contact Associated Symptoms: Reports: Confusion, Other (Under the influence of drug(s)) Treatments ASSISTIVE TECHNOLOGY TRAINER: Reports: Other (see below) (None.) Left Finger-Ring Pain Score (Numeric/FACES): 8 - Related Data Allergies Allergy/AdvReac Type Severity Reaction Status Date / Time No Known Allergies Allergy Verified 03/01/20 14:23 Home Meds: Home Meds levETIRAcetam [Keppra] 1,250 mg PO DAILY 02/08/20 [History] Doxycycline [Vibra-Tabs] 100 mg PO Q12HR #28 tab 02/29/20 [Rx] Past Medical History - Past Health History Medical/Surgical History: Denies Medical/Surgical History Neurological History: Reports: Seizure Psychiatric History: Reports: ADHD, Depression, Suicide Attempt - Past Surgical History Male Surgical History: Reports: Circumcision Social & Family History - Family History Family Medical History: Noncontributory Endocrine/Metabolic: Reports: Diabetes, type II - Caffeine Use Caffeine Use: Reports: Soda - Living Situation & Occupation Living situation: Reports: Single, Alone Occupation: Employed ([employer]) Review of Systems - Review of Systems Review Of Systems: See Below Constitutional: Reports: No Symptoms Eyes: Reports: No Symptoms Ears: Reports: No Symptoms Nose: Reports: No Symptoms Mouth/Throat: Reports: No Symptoms Respiratory: Reports: No Symptoms Cardiovascular: Reports: No Symptoms GI/Abdominal: Reports: No Symptoms Genitourinary: Reports: No Symptoms Musculoskeletal: Reports: No Symptoms Skin: Reports: No Symptoms Neurological: Reports: No Symptoms Psychiatric: Reports: No Symptoms ED EXAM, GENERAL - Physical Exam Exam: See Below Exam Limited By: Intoxication (Peers to be intoxicated by drug(s)) General Appearance: No Apparent Distress, Other (He indicates that his finger does not even hurt.) Eye Exam: Bilateral Eye: Conjunctival Injection (Mild bilaterally) Respiratory/Chest: No Respiratory Distress, Lungs Clear, Normal Breath Sounds, No Accessory Muscle Use Cardiovascular: Normal Peripheral Pulses, Regular Rate, Rhythm, No Edema, No Gallop, No Murmur, No Rub Extremities: Other (Examination of the distal aspect of the left ring finger reveals loss of the fingernail and multiple lacerations in the nail bed as well.. It appears to be fractured through the mid distal phalanx. The volar aspect of the fingertip is still in place. Blood supply appears to be adequate and the tissue likely will be salvageable. Tip of the finger is hanging volarly.) Neurological: Alert, Oriented, CN II-XII Intact Psychiatric: Other (His affect is blunted by the effect of drugs on board.). No: Normal Affect Skin Exam: Warm, Dry, Normal Color ED TRAUMA EXTREMITY PROCEDURES - Laceration/Wound Repair Left Distal Digit - 4th (Ring) Lac/Wound Length In cm: 3.5 Appearance: Subcutaneous, Clean Distal NVT: No Tendon Injury Anesthetic Type: Digital Local Anesthesia - Bupivicaine (Marcaine): 0.5% Plain Local Anesthetic Volume: 5cc Skin Prep: Providone-Iodine (Betadine) Exploration/Debridement/Repair: Wound Explored, Minimal Debridement, No Foreign Material Found Closed With: Sutures Suture Size: 3-0 # of Sutures: 8 (Used 3-0 Ethilon 2 approximate the laceration of the tip of the finger in a near circumferential fashion.) Suture Type: Nylon, Interrupted, Simple Suture Size: 4-0 # of Sutures: 2 (Suture was used to reoppose the nailbed that was fractured distally.) Repaired With: Vicryl Course - Vital Signs Last Recorded V/S: Last Vital Signs Temp 36.9 C 02/29/20 03:52 Pulse 106 H 02/29/20 03:52 Resp 16 02/29/20 03:52 BP 145/99 H 02/29/20 03:52 Pulse Ox 100 02/29/20 03:52 - Orders/Labs/Meds Meds: Medications Discontinued Medications Generic Name Dose Route Start Last Admin Trade Name Freq PRN Reason Stop Dose Admin Amoxicillin/Clavulanate Potassium 1 tab 02/29/20 04:08 Augmentin 875 Mg/125 Mg PO 02/29/20 04:09 ONETIME ONE Bupivacaine HCl 10 ml 02/29/20 03:54 Sensorcaine-Mpf 0.5% INJECT 02/29/20 03:55 ONETIME ONE - Radiology Interpretation Free Text/Narrative:: 19-year-old male who appears to be under the influence of drugs or alcohol or both presents to the ED with an acute injury to the distal aspect of his left fourth finger. Is unclear exactly what is happened to this finger. However it appears on examination that he is avulsed most of the fingernail and likely has a fracture through the distal phalanx. The volar aspect of the finger is still present and appears to have adequate circulation. Patient's fingertip will be be repaired under a block using bupivacaine 0.5%. - Re-Assessments/Exams Free Text/Narrative Re-Assessment/Exam: 02/29/20 04:06 X-ray reveals a comminuted fracture of the distal portion of the distal phalanx. The nail and nailbed has been severely damaged from an apparent crush type injury. Like it was perhaps slammed in a door. Digital block has been performed using 0.5% bupivacaine. Plan will be to cleanse the wound or let it soak in saline and Betadine solution. Patient will be given Augmentin 875 mg / 125 mg tablet per oral now. 02/29/20 05:03 An approximately 3.5 cm laceration which was nearly circumferential around the distal left fourth finger tip was sutured using 3-0 Ethilon suture to reapproximate the fingertip to anatomical position. Two 4-0 Vicryl sutures were utilized to help close up the badly lacerated nailbed. The fingernail has been avulsed completely from the nailbed. Therefore he has suffered an open fracture with comminution of the distal phalanx. The nail matrix has not been injured in the fingernail is likely to grow back over the next 6 to 8 months. Patient will be placed on doxycycline 100 mg twice daily for the next 2 weeks to prevent secondary wound infection and in particular osteomyelitis. Patient was advised on how to cleanse the wound and apply topical antibiotic and bandages over top and then wear a aluminum splint to protect the tip of the finger for the next 4 to 5 weeks until he can heal. Ideally he should follow up with his primary care physician in the next 10 days. Departure - Departure Time of Disposition: 04:52 Disposition: Home, Self-Care 01 Condition: Fair Clinical Impression: Open fracture of finger of left hand Qualifiers: Encounter type: initial encounter Finger: ring finger Phalanx: distal Fracture alignment: displaced Qualified Code(s): S62.635B - Displaced fracture of distal phalanx of left ring finger, initial encounter for open fracture - Discharge Information *PRESCRIPTION DRUG MONITORING PROGRAM REVIEWED*: Not Applicable *COPY OF PRESCRIPTION DRUG MONITORING REPORT IN PATIENT DINORAH: Not Applicable Prescriptions: Doxycycline [Vibra-Tabs] 100 mg PO Q12HR #28 tab Instructions: Finger Fracture, Adult, [id number] Referrals: PCP,None [Primary Care Provider] - Forms: ED Department Discharge, ED Return to Work/School Form Additional Instructions: Evaluation in the emergency room tonight in regards to acute injury to the distal aspect of your left fourth finger. It appears to have suffered some form of crush type injury such as may occur from being caught in the hinge side of a door. The injury resulted in complete avulsion of the fingernail from the nailbed and a comminuted fracture of the distal phalanx. This means that the tip of the finger bone was broken into several pieces. The wound was cleansed by soaking in saline with Betadine solution. The finger then was anesthetized with digital block using 0.5% bupivacaine. This allowed me to suture your fingertip back into anatomical position and realign the fractured bone fragments. The briggs now is to prevent the wound from developing secondary infection. Initial dressing should remain in place for the next 2 days. After that the wound should be cleansed daily with soap and water or soaked in warm soapy solution using even a drop or 2 of dish soap. After that the area should be dabbed dry and then topical antibiotic such as bacitracin or Polysporin ointment should be used to cover the entire fingertip and then bandages applied up and over the tip and then around the finger to keep it clean. You will need to wear a aluminum splint on the finger to protect the tip until the bone can heal. This will take a minimum of 4 to 5 weeks for the bone to knit together. Use Motrin 600 mg every 6 hours as needed for pain relief. You will need antibiotic doxycycline 100 mg twice daily by mouth for the next 2 weeks to prevent bone infection from occurring and allow the soft tissues to heal over the bone. Suggest follow-up with your personal care physician in approximately 10 days time have the sutures removed.
[2020-02-29] MEDS ORDERED: Amoxicillin/Clavulanate K 875-125 MG Tab PO ONE (04:08)
--- NOTE | 2020-03-06 10:39 | CR ---
PROCEDURE INFORMATION: Exam: XR Left Finger(s) Exam date and time: 02/29/2020 3:42 AM Age: 19 years old Clinical indication: Injury or trauma; Other: Crushing injury, intoxicated; Left; Ring finger TECHNIQUE: Imaging protocol: XR Left fingers. Views: Minimum 2 views. COMPARISON: No relevant prior studies available. FINDINGS: Bones/joints: Comminuted fracture of the distal phalanx of the left 4th digit. Soft tissues: Normal. IMPRESSION: Comminuted fracture of the distal phalanx of the left 4th digit. Thank you for allowing us to participate in the care of your patient. Dictated and Authenticated by: Waylon Mcfadden MD 02/29/2020 5:47 AM Central Time ([place] & [place]) JILLIAN
== END 2020-02-29 05:27 | disposition home or self-care (01) ==
LOC: JD.ED 03:47
DX: S62.635B Displaced fracture of distal phalanx of left ring finger, initial encounter for open fracture (principal); R56.9 Unspecified convulsions; Z79.899 Other long term (current) drug therapy; W26.0XXA Contact with knife, initial encounter; Y92.009 Unspecified place in unspecified non-institutional (private) residence as the place of occurrence of the external cause
CPT/HCPCS: 11730; 12002; 73140-26-F3; 73140-F3; 99283; 99284-25

== ENCOUNTER 2020-03-01 14:11 | Emergency (ER) | payer SELFPAY ==
[2020-03-01 14:23] VITALS: BP 114/93; PULSE 100
[2020-03-01] MEDS ORDERED: Doxycycline 100 MG Cap PO ONE (14:35)
--- NOTE | 2020-03-01 14:41 | EDM.PDOC ---
ED HPI GENERAL MEDICAL PROBLEM - General Chief Complaint: Wound Recheck Stated Complaint: WOUND RECHECK Time Seen by Provider: 03/01/20 14:15 Source of Information: Reports: Patient History Limitations: Reports: No Limitations - History of Present Illness INITIAL COMMENTS - FREE TEXT/NARRATIVE: Patient is a 19-year-old male presenting to the emergency department for a wound recheck. He was seen in this ER early yesterday morning after having a crush injury to his left fourth finger. He states that today he has had some bleeding seeping through the dressing, therefore he is concerned that he "is going to bleed out ". He has not picked up his prescription for doxycycline, but stats that he plans to pick it up when he leaves here. Left Hand Pain Score (Numeric/FACES): 4 - Related Data Allergies Allergy/AdvReac Type Severity Reaction Status Date / Time No Known Allergies Allergy Verified 03/01/20 14:23 Home Meds: Home Meds levETIRAcetam [Keppra] 1,250 mg PO DAILY 02/08/20 [History] Doxycycline [Vibra-Tabs] 100 mg PO Q12HR #28 tab 02/29/20 [Rx] Past Medical History - Past Health History Medical/Surgical History: Denies Medical/Surgical History Neurological History: Reports: Seizure Psychiatric History: Reports: ADHD, Depression, Suicide Attempt - Infectious Disease History Infectious Disease History: Reports: None - Past Surgical History Male Surgical History: Reports: Circumcision Social & Family History - Family History Family Medical History: Noncontributory Endocrine/Metabolic: Reports: Diabetes, type II - Caffeine Use Caffeine Use: Reports: Soda - Living Situation & Occupation Living situation: Reports: Single, Alone Occupation: Employed ([employer]) ED ROS GENERAL - Review of Systems Review Of Systems: See Below Constitutional: Reports: No Symptoms. Denies: Fever, Chills, Weakness HEENT: Reports: No Symptoms Respiratory: Reports: No Symptoms Cardiovascular: Reports: No Symptoms Endocrine: Reports: No Symptoms GI/Abdominal: Reports: No Symptoms : Reports: No Symptoms Musculoskeletal: Reports: Other (small amount of blood to dressing covering left 4th finger.) Psychiatric: Reports: No Symptoms Hematologic/Lymphatic: Reports: No Symptoms Immunologic: Reports: No Symptoms ED EXAM, SKIN/RASH Exam: See Below General Appearance: Alert, WD/WN, No Apparent Distress Respiratory/Chest: No Respiratory Distress, Lungs Clear, Normal Breath Sounds, No Accessory Muscle Use, Chest Non-Tender Cardiovascular: Normal Peripheral Pulses, Regular Rate, Rhythm, No Edema, No Gallop, No JVD, No Murmur, No Rub Extremities: Other (repaired fingertip laceration and with underlying fracture to the distal aspect of the left 4th finger. scant amount of bleeding.) Course - Vital Signs Last Recorded V/S: Last Vital Signs Temp 97.1 F 03/01/20 14:21 Pulse 100 03/01/20 14:21 Resp 16 03/01/20 14:21 BP 114/93 H 03/01/20 14:21 Pulse Ox 99 03/01/20 14:21 - Orders/Labs/Meds Orders: Active Orders 24 hr Category Date Time Status Doxycycline [Vibramycin] Med 03/01/20 14:35 Once 200 mg PO ONETIME ONE - Re-Assessments/Exams Free Text/Narrative Re-Assessment/Exam: Patient is a 19-year-old male presenting to the emergency department for a wound recheck. He was seen in this emergency department yesterday morning for injury to his left fourth finger, however he does not remember what he did since he was intoxicated at the time of the injury. He states today while at work, he noticed a small amount of blood coming through the dressing, so he was concerned that he was "bleeding out ". Dressing was removed and it appears that the spli nt and dressing had shifted upward on the finger. The petroleum gauze was no longer over the area of injury. Dressing was completely removed and wound was cleansed with sterile saline and CHG soap. There is a scant amount of active bleeding to the area of missing nail bed but otherwise the wound looks good. Bacitracin ointment and a clean nonstick sterile dressing was applied. 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 I will give him 200 mg of oral doxycycline while he was here with instructions to pick it up immediately following here. He should be seen in the clinic 10 days from the original injury to have the sutures removed. He was provided with a new aluminum splint as there was dried blood on his old 1. Discharge instructions as documented. Departure - Departure Time of Disposition: 14:42 Disposition: Home, Self-Care 01 Condition: Good Clinical Impression: Encounter for wound re-check - Discharge Information *PRESCRIPTION DRUG MONITORING PROGRAM REVIEWED*: No *COPY OF PRESCRIPTION DRUG MONITORING REPORT IN PATIENT DINORAH: No Instructions: Wound Care, Adult Referrals: PCP,None [Primary Care Provider] - Additional Instructions: You were seen in the emergency department today to have the wound to your finger on your left hand rechecked. The dressing was removed, the wound was cleansed and new dressing was applied. Leave this dressing in place until tomorrow. You should then wash the wound twice daily with soap and water. 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 You received a dose of antibiotic in the ER today. You should be seen in the clinic 10 days from yesterday to have the sutures removed and have the wound rechecked. You should continue wearing the splint for at least 4 weeks. Use tylenol or ibuprofen as needed for pain. Return to the ER as needed. Sepsis Event Note (ED) - Evaluation Sepsis Screening Result: No Definite Risk - Focused Exam Vital Signs: Vital Signs Temp Pulse Resp BP Pulse Ox 03/01/20 14:21 97.1 F 100 16 114/93 H 99 - My Orders Last 24 Hours: My Active Orders 03/01/20 14:35 Doxycycline [Vibramycin] 200 mg PO ONETIME ONE - Assessment/Plan Last 24 Hours: My Active Orders 03/01/20 14:35 Doxycycline [Vibramycin] 200 mg PO ONETIME ONE
== END 2020-03-01 15:00 | disposition home or self-care (01) ==
LOC: JD.ED 14:11
DX: Z48.00 Encounter for change or removal of nonsurgical wound dressing (principal); R56.9 Unspecified convulsions; Z79.899 Other long term (current) drug therapy
CPT/HCPCS: 99282; A9270; 99283

== ENCOUNTER 2020-05-29 14:47 | Emergency (ER) | payer SELFPAY ==
[2020-05-29 15:25] VITALS: BP 115/74; PULSE 71
[2020-05-29] MEDS ORDERED: Ondansetron 4 MG/2 ML SDV IVPUSH ONE (15:28)
[2020-05-29] MEDS ORDERED: Sodium Chloride 0.9% 10 ML Syringe FLUSH PRN (15:28)
[2020-05-29] MEDS ORDERED: Sodium Chloride 0.9% 1,000 ML IV SCH (15:30)
--- NOTE | 2020-05-29 15:41 | EDM.PDOC ---
ED HPI GENERAL MEDICAL PROBLEM - General Chief Complaint: Abdominal Pain Stated Complaint: ABDOMINAL PAIN Time Seen by Provider: 05/29/20 15:20 Source of Information: Reports: Patient, RN Notes Reviewed History Limitations: Reports: No Limitations - History of Present Illness INITIAL COMMENTS - FREE TEXT/NARRATIVE: Patient is a 20-year-old male who presents to the ED for his right lower quadrant abdominal pain. Patient notes that this started yesterday, and it has been increasingly more steady and sharp throughout the day. He notes that it does hurt worse with movement. He has had a little bit of nausea this morning due to the pain, but no vomiting or diarrhea. He has had no fevers or chills, cough or shortness of breath. Does note that bumps in the road seem to make the pain worse as well. Patient notes that he does have a history of seizures, but denies any other major medical issues. He is not had any abdominal surgeries. He has not had any meals today, he has only had water or Powerade for fluids. Treatments VIDEO TAPE TRANSFERRER: Reports: Other (see below) Other Treatments VIDEO TAPE TRANSFERRER: none Right Lower Abdominal Pain Score (Numeric/FACES): 2 - Related Data Allergies Allergy/AdvReac Type Severity Reaction Status Date / Time No Known Allergies Allergy Verified 03/01/20 14:23 Home Meds: Home Meds levETIRAcetam [Keppra] 1,250 mg PO DAILY 02/08/20 [History] Past Medical History Neurological History: Reports: Seizure Psychiatric History: Reports: ADD, Depression, Suicide Attempt - Past Surgical History Male Surgical History: Reports: Circumcision Social & Family History - Family History Family Medical History: No Pertinent Family History Endocrine/Metabolic: Reports: Diabetes, type II - Tobacco Use Tobacco Use Status *Q: Current Every Day Tobacco User Years of Tobacco use: 2 Packs/Tins Daily: 0.2 - Caffeine Use Caffeine Use: Reports: Soda - Recreational Drug Use Recreational Drug Type: Reports: Marijuana/Hashish Recreational Drug Use Frequency: Weekly - Living Situation & Occupation Living situation: Reports: Single, Alone Occupation: Employed ([employer]) ED ROS GENERAL - Review of Systems Review Of Systems: Comprehensive ROS is negative, except as noted in HPI. ED EXAM, GI/ABD - Physical Exam Exam: See Below Exam Limited By: No Limitations General Appearance: Alert, WD/WN, No Apparent Distress Respiratory/Chest: No Respiratory Distress, Lungs Clear, Normal Breath Sounds, No Accessory Muscle Use, Chest Non-Tender Cardiovascular: Normal Peripheral Pulses, Regular Rate, Rhythm, No Edema GI/Abdominal Exam: Normal Bowel Sounds, Soft, No Distention, No Mass, Tender (RLQ tenderness) Extremities: Normal Inspection, Normal Capillary Refill Neurological: Alert, Oriented, Normal Cognition, No Motor/Sensory Deficits Psychiatric: Normal Affect, Normal Mood Skin Exam: Warm, Dry, Intact, Normal Color, No Rash Course - Vital Signs Last Recorded V/S: Last Vital Signs Temp 97.9 F 05/29/20 15:22 Pulse 71 05/29/20 15:22 Resp 20 05/29/20 15:22 BP 115/74 05/29/20 15:22 Pulse Ox 99 05/29/20 15:22 - Orders/Labs/Meds Orders: Active Orders 24 hr Category Date Time Status Peripheral IV Care [RC] . DIRECTED Care 05/29/20 15:28 Active Sodium Chloride 0.9% [Normal Saline] 1,000 ml Med 05/29/20 15:30 Active IV ASDIRECTED Sodium Chloride 0.9% [Saline Flush] Med 05/29/20 15:28 Active 10 ml FLUSH ASDIRECTED PRN Sodium Chloride 0.9% [Saline Flush] Med 05/29/20 16:30 Active 10 ml FLUSH BOLUS Peripheral IV Insertion Adult [OM.PC] Routine Oth 05/29/20 15:28 Ordered Medication Orders Sodium Chloride (Normal Saline) 1,000 mls @ 999 mls/hr IV ASDIRECTED LILLY Last Admin: 05/29/20 17:01 Dose: 999 mls/hr Documented by: MARIZOL Sodium Chloride (Saline Flush) 10 ml FLUSH ASDIRECTED PRN PRN Reason: Keep Vein Open Last Admin: 05/29/20 17:00 Dose: 10 ml Documented by: Sodium Chloride (Saline Flush) 10 ml FLUSH BOLUS [facility] Last Admin: 05/29/20 17:02 Dose: 10 ml Documented by: Admin: 05/29/20 16:56 Dose: 10 ml Documented by: RADHA Labs: Laboratory Tests 05/29/20 05/29/20 05/29/20 Range/Units 15:25 15:25 15:45 WBC 5.74 (4.23-9.07) K/mm3 RBC 4.78 (4.63-6.08) M/mm3 Hgb 15.3 (13.7-17.5) gm/dl Hct 45.9 (40.1-51.0) % MCV 96.0 H (79.0-92.2) fl MCH 32.0 (25.7-32.2) pg MCHC 33.3 (32.2-35.5) g/dl RDW Std Deviation 48.0 H (35.1-43.9) fL Plt Count 196 (163-337) K/mm3 MPV 10.3 (9.4-12.3) fl Neutrophils % (Manual) 69 H (40-60) % Band Neutrophils % 0 (0-10) % Lymphocytes % (Manual) 24 (20-40) % Atypical Lymphs % 0 % Monocytes % (Manual) 5 (2-10) % Eosinophils % (Manual) 1 (0.8-7.0) % Basophils % (Manual) 1 (0.2-1.2) Platelet Estimate Adequate RBC Morph Comment Normal Sodium 140 (136-145) mEq/L Potassium 3.5 (3.5-5.1) mEq/L Chloride 103 (98-107) mEq/L Carbon Dioxide 24 (21-32) mEq/L Anion Gap 16.5 H (5-15) BUN 10 (7-18) mg/dL Creatinine 0.8 (0.7-1.3) mg/dL Est Cr Clr Drug Dosing 145.43 mL/min Estimated GFR (MDRD) > 60 (>60) mL/min BUN/Creatinine Ratio 12.5 L (14-18) Glucose 97 (74-106) mg/dL Calcium 9.1 (8.5-10.1) mg/dL Total Bilirubin 1.0 (0.2-1.0) mg/dL AST 26 (15-37) U/L ALT 34 (16-63) U/L Alkaline Phosphatase 72 (46-116) U/L C-Reactive Protein < 0.2 (<1.0) mg/dL Total Protein 7.7 (6.4-8.2) g/dl Albumin 4.3 (3.4-5.0) g/dl Globulin 3.4 gm/dL Albumin/Globulin Ratio 1.3 (1-2) Urine Color Yellow (Yellow) Urine Appearance Clear (Clear) Urine pH 6.5 (5.0-8.0) Ur Specific [place] > or = 1.030 (1.005-1.030) Urine Protein 1+ H (Negative) Urine Glucose (UA) Negative (Negative) Urine Ketones Negative (Negative) Urine Occult Blood Negative (Negative) Urine Nitrite Negative (Negative) Urine Bilirubin 1+ H (Negative) Urine Urobilinogen 1.0 (0.2-1.0) Ur Leukocyte Esterase Negative (Negative) Urine RBC 0-5 (0-5) /hpf Urine WBC 0-5 (0-5) /hpf Ur Epithelial Cells 0-5 (0-5) /hpf Urine Bacteria Rare (FEW) /hpf Urine Mucus Moderate H (FEW) /hpf Meds: Medications Generic Name Dose Route Start Last Admin Trade Name Freq PRN Reason Stop Dose Admin Sodium Chloride 1,000 mls @ 999 mls/hr 05/29/20 15:30 05/29/20 17:01 Normal Saline IV 999 mls/hr ASDIRECTED LILLY Administration Sodium Chloride 10 ml 05/29/20 15:28 05/29/20 17:00 Saline Flush FLUSH 10 ml ASDIRECTED PRN Administration Keep Vein Open Sodium Chloride 10 ml 05/29/20 16:30 05/29/20 17:02 Saline Flush FLUSH 10 ml BOLUS LILLY Administration Discontinued Medications Generic Name Dose Route Start Last Admin Trade Name Freq PRN Reason Stop Dose Admin Diatrizoate Meglum/Diatrizoate Sod 120 ml 05/29/20 15:56 05/29/20 16:55 Gastrografin 37% PO 05/29/20 15:57 60 ml ONETIME ONE Administration Iopamidol 100 ml 05/29/20 15:56 05/29/20 16:56 Isovue-300 (61%) IVPUSH 05/29/20 15:57 100 ml ONETIME ONE Administration Ondansetron HCl 4 mg 05/29/20 15:28 05/29/20 16:58 Zofran IVPUSH 05/29/20 15:29 4 mg ONETIME ONE Administration - Re-Assessments/Exams Free Text/Narrative Re-Assessment/Exam: 05/29/20 15:41 Patient presents to the ED for the evaluation of his right lower quadrant abdominal pain, we will get labs, and a CT to evaluate for appendicitis. 05/29/20 17:14 The patient's labs are resulted and everything is fairly unremarkable, CT of the abdomen pelvis also is without major abnormalities. Departure - Departure Time of Disposition: 17:41 Disposition: Home, Self-Care 01 Condition: Good Clinical Impression: RLQ abdominal pain - Discharge Information *PRESCRIPTION DRUG MONITORING PROGRAM REVIEWED*: No *COPY OF PRESCRIPTION DRUG MONITORING REPORT IN PATIENT DINORAH: No Instructions: Abdominal Pain, Adult, [id number] Referrals: Waylon Arguello MD [Primary Care Provider] - Forms: ED Department Discharge Additional Instructions: You were seen in the ER today for your right lower quadrant abdominal pain. Laboratory evaluation and CT demonstrated no sign of appendicitis at today's visit. If you should develop any sort of fever/chills, worsening of your pain, or where you cannot keep food or fluids down by mouth, please return to the ER at any time for reevaluation and further management. Sepsis Event Note (ED) - Evaluation Sepsis Screening Result: No Definite Risk - Focused Exam Vital Signs: Vital Signs Temp Pulse Resp BP Pulse Ox 05/29/20 15:22 97.9 F 71 20 115/74 99 - My Orders Last 24 Hours: My Active Orders 05/29/20 15:28 Peripheral IV Care [RC] . DIRECTED Sodium Chloride 0.9% [Saline Flush] 10 ml FLUSH ASDIRECTED PRN Peripheral IV Insertion Adult [OM.PC] Routine 05/29/20 15:30 Sodium Chloride 0.9% [Normal Saline] 1,000 ml IV ASDIRECTED 05/29/20 16:30 Sodium Chloride 0.9% [Saline Flush] 10 ml FLUSH BOLUS - Assessment/Plan Last 24 Hours: My Active Orders 05/29/20 15:28 Peripheral IV Care [RC] . DIRECTED Sodium Chloride 0.9% [Saline Flush] 10 ml FLUSH ASDIRECTED PRN Peripheral IV Insertion Adult [OM.PC] Routine 05/29/20 15:30 Sodium Chloride 0.9% [Normal Saline] 1,000 ml IV ASDIRECTED 05/29/20 16:30 Sodium Chloride 0.9% [Saline Flush] 10 ml FLUSH BOLUS
[2020-05-29] MEDS ORDERED: Iopamidol 612 MG/ML 100 ML Bottle IVPUSH ONE (15:56)
[2020-05-29] MEDS ORDERED: Diatrizoate Meglumine/Diatrizoate Sodium 37% 120 ML Bottle PO ONE (15:56)
[2020-05-29] MEDS: Sodium Chloride 0.9% 10 ML Syringe FLUSH SCH ×2 (16:56→17:02)
--- NOTE | 2020-05-29 17:12 | CT ---
CT abdomen and pelvis Technique: Multiple axial sections were obtained from slightly below the liver inferiorly through the pubic symphysis. Intravenous and oral contrast was utilized. Reconstructed coronal and sagittal images were obtained. Comparison: Previous CT abdomen and pelvis study of 08/23/14. Findings: Visualized lung bases show nothing acute. Visualized liver shows no focal abnormality. Spleen appears within normal limits. Adrenal glands show no nodule. Pancreas appears within normal limits. Gallbladder contains no calcified gallstones. Kidneys show symmetric contrast enhancement. Kidneys show no cysts or solid abnormality. Aorta shows no aneurysm. No retroperitoneal adenopathy or mesenteric abnormalities are appreciated. No pelvic mass or adenopathy is seen. Appendix is felt to be visualized and is normal in size. No inflammatory change or free fluid is seen. Bone window settings were reviewed which appear within normal limits for the patient's age. Impression: 1. Nothing acute is appreciated on CT study of the abdomen and pelvis. No appreciable change from previous study is seen. Diagnostic code #1
== END 2020-05-29 18:05 | disposition home or self-care (01) ==
LOC: JD.ED 14:47
DX: R10.31 Right lower quadrant pain (principal); Z72.0 Tobacco use
CPT/HCPCS: 36415; 74177; 80053; 81001; 85007; 85027; 86140; 96374; 99284; J2405; J7030; Q9963; Q9967; 99283

== ENCOUNTER 2020-07-23 23:57 | Emergency (ER) | payer SELFPAY ==
[2020-07-24 00:10] VITALS: BP 145/67; PULSE 88
--- NOTE | 2020-07-24 00:10 | EDM.PDOC ---
ED HPI GENERAL MEDICAL PROBLEM - General Chief Complaint: Head Injury Stated Complaint: HIT HEAD Time Seen by Provider: 07/24/20 00:10 - History of Present Illness INITIAL COMMENTS - FREE TEXT/NARRATIVE: 20-year-old male brought into the emergency room after passing out in the bathroom at work. Patient was working and he felt somewhat nauseated. He went into the bathroom and had an episode. Apparently the patient felt like he was going to pass out and then a few minutes later awoke on the floor with a coworker by his side. Patient had no loss of bowel or bladder control he has no other injuries associated with this he did not bite his tongue. However, the patient has a history of a seizure in the past and was treated for an uncertain amount of time on Keppra. The patient is not certain when he stopped taking the Keppra. Apparently he has a regular healthcare provider here in [facility] and a neurologist in [place]. This evening the patient did not want to come into the emergency room however his mother insisted he come in to be checked out. Patient denies any other complaint at this point other than having a headache. Headache Pain Score (Numeric/FACES): 6 - Related Data Allergies Allergy/AdvReac Type Severity Reaction Status Date / Time No Known Allergies Allergy Verified 07/24/20 00:10 Home Meds: Home Meds . [No Known Home Meds] 07/24/20 [History] Past Medical History - Past Health History Medical/Surgical History: Denies Medical/Surgical History Neurological History: Reports: Seizure Psychiatric History: Reports: ADD, Depression, Suicide Attempt - Infectious Disease History Infectious Disease History: Reports: None - Past Surgical History Male Surgical History: Reports: Circumcision Social & Family History - Family History Family Medical History: No Pertinent Family History Endocrine/Metabolic: Reports: Diabetes, type II - Caffeine Use Caffeine Use: Reports: Soda - Living Situation & Occupation Living situation: Reports: Single, Alone Occupation: Employed ([employer]) ED [facility] GENERAL - Review of Systems Review Of Systems: See Below Constitutional: Reports: No Symptoms HEENT: Reports: No Symptoms Respiratory: Reports: No Symptoms Cardiovascular: Reports: No Symptoms GI/Abdominal: Reports: Nausea. Denies: Abdominal Pain, Constipation, Diarrhea : Reports: No Symptoms Musculoskeletal: Reports: No Symptoms Neurological: Reports: Headache, Other (Patient had an episode tonight). Denies: Confusion, Dizziness, Tingling Psychiatric: Reports: No Symptoms ED EXAM, HEAD INJURY - Physical Exam Exam: See Below Exam Limited By: No Limitations General Appearance: Alert, No Apparent Distress, Mild Distress Head: Atraumatic, Normocephalic Nexus Criteria: No: Posterior, Midline Cervical Tenderness, Evidence of Intoxication, Altered Level of Consciousness, Focal Neurological Deficit, Painful Distraction Injuries Eyes: Bilateral Eye: EOMI, Normal Inspection, PERRL Ears: Normal External Exam, Normal Canal, Hearing Grossly Normal, Normal TMs Nose: Normal Inspection, Normal Mucousa, No Blood Throat/Mouth: Normal Oropharynx, Normal Voice, No Airway Compromise, Other (Examination of the tongue does not reveal any bruising bite boswell or any evidence of trauma). No: Normal Teeth (Really poor dentition) Neck: Non-Tender, Full Range of Motion, Normal Alignment, Normal Inspection Respiratory: No Respiratory Distress, Lungs Clear, Normal Breath Sounds Cardiovascular: Regular Rate, Rhythm, No Edema, No Murmur GI/Abdominal Exam: Normal Bowel Sounds, Soft, Non-Tender Back Exam: Normal Inspection, Full Range of Motion. No: CVA Tenderness (L), CVA Tenderness (R) Extremities: Normal Inspection, Normal Range of Motion, Non-Tender Neurologic: No Motor/Sensory Deficits, Alert, Oriented x 3 - Bitely Coma Score Best Eye Response (Paramjit): (4) Open Spontaneously Best Verbal Response (Bitely): (5) Oriented Best Motor Response (Paramjit): (6) Obeys Commands Course - Vital Signs Last Recorded V/S: Last Vital Signs Temp 36.9 C 07/24/20 00:07 Pulse 88 07/24/20 00:07 Resp 18 07/24/20 00:07 BP 145/67 H 07/24/20 00:07 Pulse Ox 99 07/24/20 00:07 - Orders/Labs/Meds Orders: Active Orders 24 hr Category Date Time Status Acetaminophen [TylenoL] Med 07/24/20 00:29 Once 650 mg PO NOW ONE Medication Orders Acetaminophen (Acetaminophen 325 Mg Tab) 650 mg PO NOW ONE Stop: 07/24/20 00:30 Meds: Medications Generic Name Dose Route Start Last Admin Trade Name Freq PRN Reason Stop Dose Admin Acetaminophen 650 mg 07/24/20 00:29 Acetaminophen 325 Mg Tab PO 07/24/20 00:30 NOW ONE - Re-Assessments/Exams Free Text/Narrative Re-Assessment/Exam: 07/24/20 00:[address] examination tonight with the uncertainty of what really happened and he does have a headache. However this is declined at the patient just wants some Tylenol and to go home. He is refusing any other work-up at this time. Departure - Departure Time of Disposition: 00:36 Disposition: Home, Self-Care 01 Clinical Impression: Head injury, History of seizure disorder - Discharge Information Referrals: PCP,None [Primary Care Provider] - Forms: ED Department Discharge Additional Instructions: Return to the emergency room with any questions problems or worsening symptoms. Provider as soon as you can. Do not drive or operate hazardous equipment until this whole situation is sorted out. Sepsis Event Note (ED) - Focused Exam Vital Signs: Vital Signs Temp Pulse Resp BP Pulse Ox 07/24/20 00:07 36.9 C 88 18 145/67 H 99 - My Orders Last 24 Hours: My Active Orders 07/24/20 00:29 Acetaminophen [TylenoL] 650 mg PO NOW ONE - Assessment/Plan Last 24 Hours: My Active Orders 07/24/20 00:29 Acetaminophen [TylenoL] 650 mg PO NOW ONE
[2020-07-24] MEDS ORDERED: Acetaminophen 325 MG Tab PO ONE (00:29)
== END 2020-07-24 00:44 | disposition home or self-care (01) ==
LOC: JD.ED 23:57
DX: S09.90XA Unspecified injury of head, initial encounter (principal); G40.909 Epilepsy, unspecified, not intractable, without status epilepticus; X58.XXXA Exposure to other specified factors, initial encounter
CPT/HCPCS: 99283; A9270

== ENCOUNTER 2020-09-11 14:25 | Emergency (ER) | payer SELFPAY ==
--- NOTE | 2020-09-11 14:51 | EDM.PDOC ---
ED HPI GENERAL MEDICAL PROBLEM - General Source of Information: Reports: Patient History Limitations: Reports: No Limitations - History of Present Illness Onset: Today Onset Date: 09/11/20 Onset Time: 09:00 Duration: Hour(s): Location: Reports: Other (Patient awoke in a cold sweat with a headache at the base of his skull that intensified. He suspects that he suffered a grand mal convulsion which he has had many times in the past. He is currently not on any medications for the last year. ) Quality: Reports: Ache (Mild headache at the base of the skull at present. He also feels retrobulbar pressure bilaterally.) Severity: Mild Improves with: Reports: None Worsens with: Reports: Other Context: Denies: Activity (Worse with walking and movement.), Exercise, Lifting, Sick Contact, Trauma Associated Symptoms: Reports: Confusion (Transient confusion after he awoke and stagger to the bathroom. Sounds like he was postictal), Diaphoresis, Headaches, Loss of Appetite, Malaise, Nausea/Vomiting (Awoke in a cold sweat this morning.), Weakness (Generalized weakness when he first got up from bed awakening in a cold sweat and suspected he may have had a seizure.). 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 He estimates he got up around 0900 hrs. after awakening in a cold sweat. He did not appreciate his bedding necessarily in a mass. He states he got up to use the washroom and vomited once. No hematemesis. He appreciated a headache at the base of his skull which was very intense. He appreciated that he was ataxic and had difficulty walking getting to the bathroom. He made it back to bed and subsequently vomited once more. Since then he has had 2 very minimal loose stools. Patient has a history of grand mal convulsions starting at age 18. He was on Keppra for about a year he believes 500 in the morning and 750 at bedtime but after a year his prescription ran out and therefore he never refilled the medication. His mother whom is with him indicates that he had breakthrough seizures even while on the Keppra. Subsequently he has had about 4 seizures in the last year off of medication. He does not drive a motor vehicle and had does not have a motor vehicle license. He uses alcohol socially. He thinks his last seizure was about 3 to 4 months ago. (Rao Marin) - Related Data Allergies Allergy/AdvReac Type Severity Reaction Status Date / Time No Known Allergies Allergy Verified 09/11/20 14:40 Home Meds: Home Meds carBAMazepine [TEGretol Tab] 200 mg PO BID #60 tablet 09/11/20 [Rx] Past Medical History - Past Health History Medical/Surgical History: Denies Medical/Surgical History HEENT History: Reports: Other (See Below) (Patient has severe dental caries with teeth down to the gingiva margin particular the incisors and canines.) Neurological History: Reports: Seizure (Started having grand mal seizures at age 18. He was on Keppra 500 in the morning and 750 at bedtime for 1 year. He still had breakthrough seizures on medication. Has been off medication for the last year and estimates he has had 4 or 5 seizures in the last year off medication.) Psychiatric History: Reports: ADD, Depression, Suicide Attempt - Infectious Disease History Infectious Disease History: Reports: None - Past Surgical History Male Surgical History: Reports: Circumcision <Rao Marin - Last Filed: 09/11/20 19:35> Social & Family History - Family History Family Medical History: No Pertinent Family History Endocrine/Metabolic: Reports: Diabetes, type II - Caffeine Use Caffeine Use: Reports: Soda - Alcohol Use Alcohol Use History: Yes Days Per Week of Alcohol Use: 1 (He states he drinks rarely. He estimates twice a month.) - Recreational Drug Use Recreational Drug Use: Yes Drug Use in Last 12 Months: Yes Recreational Drug Type: Reports: Marijuana/Hashish Recreational Drug Use Frequency: Weekly - Living Situation & Occupation Living situation: Reports: Single, Alone Occupation: Employed ([employer]) <Rao Marin Funmilayo - Last Filed: 09/11/20 19:35> ED ROS GENERAL - Review of Systems Review Of Systems: See Below Constitutional: Reports: Malaise, Weakness, Fatigue, Decreased Appetite. Denies: Fever, Chills HEENT: Reports: No Symptoms, Dental Pain (Patient has severe multiple dental caries with teeth down to the gingiva margin both upper and lower. It mostly affects the incisors and the canines. He does have chronic dental pain which he lives with.) Respiratory: Reports: No Symptoms Cardiovascular: Reports: No Symptoms Endocrine: Reports: Fatigue (Mild fatigue at present.) GI/Abdominal: Reports: Diarrhea (To mild loose stools today.), Nausea, Vomiting (Vomited twice this morning. Bilious emesis without blood.) : Reports: No Symptoms Musculoskeletal: Reports: No Symptoms Skin: Reports: No Symptoms Neurological: Reports: Headache (Awoke with a bad headache at the base of the skull which is much better at present. It seemed to get better after the second time he vomited. Now has a ), Seizure, Difficulty Walking (After his suspected seizure this morning.), Weakness (Generalized weakness with ataxia and difficulty walking when he first got out of bed at 9:00 this morning. He woke up in a cold sweat and suspected that he probably had a recurrent seizure.). Denies: Confusion, Dizziness, Paresthesia, Pre-Existing Deficit, Syncope, Tremors, Trouble Speaking, Change in Speech Psychiatric: Reports: No Symptoms Hematologic/Lymphatic: Reports: No Symptoms Immunologic: Reports: No Symptoms <Tania,Rao Funmilayo - Last Filed: 09/11/20 19:35> - Physical Exam Exam: See Below Exam Limited By: No Limitations General Appearance: Alert, WD/WN, No Apparent Distress, Other (Temperature is 35.6 degrees. He does not feel cold to touch. Heart rate was 74 and sinus respiratory is 12 with O2 sats of 99% on room air BP 114/76.) Eye Exam: Bilateral Eye: Normal Inspection (No nystagmus. No blepharal pallor or scleral icterus.), PERRL (No gaze palsy.) Throat/Mouth: Normal Inspection, Normal Lips, Normal Oropharynx. No: Evidence of Tongue Biting Head Exam: Atraumatic, Normocephalic Neck: Normal Inspection, Supple, Non-Tender, Full Range of Motion. No: Lymphadenopathy (L), Lymphadenopathy (R) Respiratory/Chest: No Respiratory Distress, Lungs Clear, Normal Breath Sounds Cardiovascular: Normal Peripheral Pulses, Regular Rate, Rhythm, No Edema, No Gallop, No Murmur GI/Abdominal: Soft, Non-Tender, No Organomegaly, No Mass, Pelvis Stable (Male) Exam: No Hernia Neuro Exam (Abbreviated): Alert, Oriented, CN II-XII Intact, Normal Cognition, Normal Reflexes, No Motor/Sensory Deficits DTR: 1+: Achilles (R), Achilles (L), 2+: Bicep (R), Bicep (L), Patella (R), Patella (L) Back Exam: Normal Inspection, Full Range of Motion. No: CVA Tenderness (L), CVA Tenderness (R) Extremities: Normal Inspection, Normal Range of Motion, Non-Tender, No Pedal Edema Psychiatric: Normal Affect, Normal Mood Skin Exam: Warm, Dry, Intact, Normal Color, No Rash <Rao Marin - Last Filed: 09/11/20 19:35> Course <Rao Marin - Last Filed: 09/11/20 19:35> <Jagdeep Rodriguez - Last Filed: 09/11/20 21:32> - Vital Signs Last Recorded V/S: Last Vital Signs Temp 35.8 C L 09/11/20 18:54 Pulse 70 09/11/20 18:54 Resp 18 09/11/20 18:54 BP 115/60 09/11/20 18:54 Pulse Ox 98 09/11/20 18:54 - Orders/Labs/Meds Orders: Active Orders 24 hr Category Date Time Status Insert Ahumada Catheter [Insert Urinary Catheter] [OM.PC] Care 09/11/20 16:15 Ordered Stat Oxygen Therapy [RC] ASDIRECTED Care 09/11/20 18:35 Active Urinary Catheter Assessment [RC] ASDIRECTED Care 09/11/20 16:15 Active Dextrose 5%-0.9% NaCl [Dextrose 5%-Normal Saline] 1,000 Med 09/11/20 15:00 Active ml IV ASDIRECTED Medication Orders Dextrose/Sodium Chloride (Dextrose 5%-Normal Saline) 1,000 mls @ 500 mls/hr IV ASDIRECTED LILLY Last Admin: 09/11/20 15:16 Dose: 500 mls/hr Documented by: LANRE Labs: Laboratory Tests 09/11/20 09/11/20 09/11/20 Range/Units 14:55 14:55 14:55 WBC 9.69 H (4.23-9.07) K/mm3 RBC 4.86 (4.63-6.08) M/mm3 Hgb 15.8 (13.7-17.5) gm/dl Hct 46.4 (40.1-51.0) % MCV 95.5 H (79.0-92.2) fl MCH 32.5 H (25.7-32.2) pg MCHC 34.1 (32.2-35.5) g/dl RDW Std Deviation 45.1 H (35.1-43.9) fL Plt Count 198 (163-337) K/mm3 MPV 10.3 (9.4-12.3) fl Neut % (Auto) 88.0 H (34.0-67.9) % Lymph % (Auto) 7.5 L (21.8-53.1) % Hunt % (Auto) 4.4 L (5.3-12.2) % Eos % (Auto) 0 L (0.8-7.0) Baso % (Auto) 0.0 L (0.1-1.2) % Neut # (Auto) 8.52 H (1.78-5.38) K/mm3 Lymph # (Auto) 0.73 L (1.32-3.57) K/mm3 Hunt # (Auto) 0.43 (0.30-0.82) K/mm3 Eos # (Auto) 0.00 L (0.04-0.54) K/mm3 Baso # (Auto) 0.00 L (0.01-0.08) K/mm3 Manual Slide Review Abnormal smear Sodium 136 (136-145) mEq/L Potassium 3.9 (3.5-5.1) mEq/L Chloride 100 (98-107) mEq/L Carbon Dioxide 24 (21-32) mEq/L Anion Gap 15.9 H (5-15) BUN 13 (7-18) mg/dL Creatinine 1.0 (0.7-1.3) mg/dL Est Cr Clr Drug Dosing 114.04 mL/min Estimated GFR (MDRD) > 60 (>60) mL/min BUN/Creatinine Ratio 13.0 L (14-18) Glucose 106 (74-106) mg/dL Lactic Acid 1.4 (0.4-2.0) mmol/L Calcium 9.3 (8.5-10.1) mg/dL Total Bilirubin 1.1 H (0.2-1.0) mg/dL AST 23 (15-37) U/L ALT 34 (16-63) U/L Alkaline Phosphatase 74 (46-116) U/L C-Reactive Protein <0.2 (<1.0) mg/dL Total Protein 8.0 (6.4-8.2) g/dl Albumin 4.5 (3.4-5.0) g/dl Globulin 3.5 gm/dL Albumin/Globulin Ratio 1.3 (1-2) Urine Opiates Screen (XJWFGM=061) Ur Buprenorphine Scrn (CUTOFF=10) Ur Oxycodone Screen (KCR8CY=358) Urine Methadone Screen (IFE3TS=265) Ur Propoxyphene Screen (VZYMPC=218) Ur Barbiturates Screen (PZTFPN=294) Ur Tricyclics Screen (HHSKGS=637) Ur Phencyclidine Scrn (CUTOFF=25) Ur Amphetamine Screen (QXKIHO=044) U Methamphetamines Scrn (CBLCJY=727) U Benzodiazepines Scrn (RNTSWV=324) U Cocaine Metab Screen (SMMUSK=967) U Marijuana (THC) Screen (CUTOFF=50) Ethyl Alcohol (0.00) gm% 09/11/20 09/11/20 Range/Units 14:55 16:15 WBC (4.23-9.07) K/mm3 RBC (4.63-6.08) M/mm3 Hgb (13.7-17.5) gm/dl Hct (40.1-51.0) % MCV (79.0-92.2) fl MCH (25.7-32.2) pg MCHC (32.2-35.5) g/dl RDW Std Deviation (35.1-43.9) fL Plt Count (163-337) K/mm3 MPV (9.4-12.3) fl Neut % (Auto) (34.0-67.9) % Lymph % (Auto) (21.8-53.1) % Hunt % (Auto) (5.3-12.2) % Eos % (Auto) (0.8-7.0) Baso % (Auto) (0.1-1.2) % Neut # (Auto) (1.78-5.38) K/mm3 Lymph # (Auto) (1.32-3.57) K/mm3 Hunt # (Auto) (0.30-0.82) K/mm3 Eos # (Auto) (0.04-0.54) K/mm3 Baso # (Auto) (0.01-0.08) K/mm3 Manual Slide Review Sodium (136-145) mEq/L Potassium (3.5-5.1) mEq/L Chloride (98-107) mEq/L Carbon Dioxide (21-32) mEq/L Anion Gap (5-15) BUN (7-18) mg/dL Creatinine (0.7-1.3) mg/dL Est Cr Clr Drug Dosing mL/min Estimated GFR (MDRD) (>60) mL/min BUN/Creatinine Ratio (14-18) Glucose (74-106) mg/dL Lactic Acid (0.4-2.0) mmol/L Calcium (8.5-10.1) mg/dL Total Bilirubin (0.2-1.0) mg/dL AST (15-37) U/L ALT (16-63) U/L Alkaline Phosphatase (46-116) U/L C-Reactive Protein (<1.0) mg/dL Total Protein (6.4-8.2) g/dl Albumin (3.4-5.0) g/dl Globulin gm/dL Albumin/Globulin Ratio (1-2) Urine Opiates Screen Negative (CEHYYW=637) Ur Buprenorphine Scrn Negative (CUTOFF=10) Ur Oxycodone Screen Negative (QED6FN=894) Urine Methadone Screen Negative (LEV3TQ=899) Ur Propoxyphene Screen Negative (YTTWTE=137) Ur Barbiturates Screen Negative (DVZDHC=022) Ur Tricyclics Screen Negative (SNORZU=944) Ur Phencyclidine Scrn Negative (CUTOFF=25) Ur Amphetamine Screen Negative (AGXYGM=067) U Methamphetamines Scrn Negative (UFQPPB=352) U Benzodiazepines Scrn Negative (PWTWPN=089) U Cocaine Metab Screen Negative (QJCNOR=405) U Marijuana (THC) Screen Presumptive positive H (CUTOFF=50) Ethyl Alcohol 0.00 (0.00) gm% Meds: Medications Generic Name Dose Route Start Last Admin Trade Name Freq PRN Reason Stop Dose Admin Dextrose/Sodium Chloride 1,000 mls @ 500 mls/hr 09/11/20 15:00 09/11/20 15:16 Dextrose 5%-Normal Saline IV 500 mls/hr ASDIRECTED LILLY Administration Discontinued Medications Generic Name Dose Route Start Last Admin Trade Name Freq PRN Reason Stop Dose Admin Carbamazepine 200 mg 09/11/20 14:57 09/11/20 17:03 Carbamazepine 200 Mg Tab PO 09/11/20 14:58 200 mg ONETIME ONE Administration Carbamazepine 200 mg 09/11/20 19:33 Carbamazepine 200 Mg Tab PO 09/11/20 19:34 ONETIME ONE Levetiracetam 500 mg/ Sodium 105 mls @ 400 mls/hr 09/11/20 15:15 09/11/20 15:34 Chloride IV 09/11/20 15:29 400 mls/hr ONETIME ONE Administration Lorazepam Confirm 09/11/20 15:11 09/11/20 15:24 Lorazepam 2 Mg/Ml Sdv Administered 09/11/20 15:12 Not Given Dose 2 mg .ROUTE .STK-MED ONE Lorazepam 2 mg 09/11/20 15:15 09/11/20 15:15 Lorazepam 2 Mg/Ml Sdv IVPUSH 09/11/20 15:16 2 mg ONETIME ONE Administration Ondansetron HCl 4 mg 09/11/20 14:53 09/11/20 19:41 Ondansetron 4 Mg/2 Ml Sdv IVPUSH 09/11/20 14:54 Not Given ONETIME ONE - Radiology Interpretation Free Text/Narrative:: 20-year-old male presents to the ED with suspicion that he suffered a grand mal convulsion while asleep this morning. He states he aroused around 0900 hrs. with a headache in the base of his skull and nausea. He woke up in a cold sweat which she has done before after suffering a seizure. He made his way to the bathroom but was ataxic and weak with difficulty walking. He vomited in the bathroom and then had to void as well. He then made his way back to bed for another hour and after that he was unable to sleep. Subsequently he vomited once more and the headache seemed to get much better after vomiting. Both emeses contain bilious material no blood. Patient has a history of grand mal seizures starting at age 18. He was seen by neurology in [place]. He has had a CT of the brain which was normal. He had been started on Keppra 500 mg twice daily and subsequently this was increased to 500 in the morning and 750 at bedtime which she took for 1 year. Once her prescription ran out he never refilled it. Of note his mother reports that he did have breakthrough seizures even while on the Keppra. This would not be unexpected since Keppra is not a primary medication for seizure disorder. It is considered an adjuvant medication. EEG was never completed because he was on antiseizure medication at the time he seen the neurologist. Patient has had approximately 4 seizures in the last year off medication. He denies any recent alcohol use or use of any medications that might precipitate a seizure. Initial neuro exam in the emergency room is completely normal. He states he has a bit of a headache behind his eyes bilaterally. Plan routine labs to be done including a lactic acid.. He will be given Zofran 4 mg IV for nausea relief. IV will be D5 normal saline at 500 mls an hour. (Rao Marin) - Re-Assessments/Exams Free Text/Narrative Re-Assessment/Exam: 09/11/20 15:16 Patient told his mom he did not feel well and felt nauseated like he was going to throw up. He then had the wherewithal to state he thinks that is going to happen. He therefore identifies a feeling in the pit of his stomach prior to seizure development. He suffered a grand mal convulsion lasting approximately 2 minutes according to the nursing staff. Patient has not yet received any medications. He will be given Ativan 2 mg IV stat and Keppra 500 mg IV following this. There is no sign of injury from the seizure at this time. Patient is postictal and moderately agitated and restless. 09/11/20 16:00: Patient aroused easily. He had been sleeping after receiving the Ativan 2 mg IV and the Keppra 500 mg IV infusion is now done. He was mildly confused but understood where he was and spoke to his mother. Plan will be to keep him in the ED for observation for the next 4 to 6 hours. Mother has to go to work and will not be off until 11 PM tonight. As soon as he can swallow he will be given the Tegretol 200 mg orally. The plan will be to place him on Tegretol 200 mg twice daily for antiseizure medication. At present he does not have insurance and admission to hospital would be extremely costly. He already has a confirmed diagnosis of seizures. However if he has any more seizures he will require hospitalization. 09/11/20 16:13 White count is 9.69 mildly elevated. The differential reveals 88% neutrophils. Hemoglobin is 15.8 with hematocrit of 46.4. MCV is mildly elevated at 95.5. Sodium is 136 with a potassium of 3.9. Chloride is 100 with a bicarb of 24. Anion gap is minimally elevated at 15.9. BUN is 13 with a creatinine of 1.0 and a GFR greater than 60. Glucose is 106. Lactic acid is 1.4. Calcium is 9.3. Bilirubin is 1.1. The remainder of the liver function is normal. C-reactive protein is less than 0.2. Total protein 8.0 with an albumin fraction of 4.5. Blood alcohol is 0.00. 09/11/20 17:36 Patient continues to sleep curled up in the position in his room. No further seizure activity has occurred.Urinalysis is positive for marijuana as the patient stated that he uses. Patient did wake up and did ingest his Tegretol 200 mg tablet per or with some water approximately 45 minutes ago. 09/11/20 18:30: Patient remains asleep. Vital signs remained stable with BP 114/70. Heart rate is 74 and sinus. O2 sats are 97 to 98% on room air. 09/11/20 19:01 it is now change of shift. Care has been transferred to Dr. Rodriguez. 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 Patient suffered a grand mal convulsion while in the ED lasting approximately 2 minutes. He was agitated and markedly postictal. He received 2 mg of Ativan in the ED and Keppra 500 mg IV and subsequently Tegretol 200 mg per ora.. The plan will be to discharge him in the care of his mother later this evening when she gets off work at 11 PM. He will be started on Tegretol 200 mg twice daily. Prescription written for 1 month supply with 1 repeat. He is to follow-up with Dr. Colón next week. Patient does not have any insurance and therefore did not want to be admitted to the hospital unless absolutely necessary due to financial constraints. However if he has any further seizure activity he will require admission to the hospital. 09/11/20 19:36 Wrote a note for Tegretol 200 mg tablet to be taken home with the patient to take first thing in the morning to prevent further seizures. (Rao Marin) 09/11/20 21:29 Notified that someone is on their way to pick the patient up. I went and talked to the patient. He has not suffered any additional seizures or other problems. He states that he feels fine. He states that his friend is on his way to pick him up, and that his friend and his friend's girlfriend can watch him tonight. He will be discharged with a prescription for Tegretol, written by Dr. Marin, along with a single dose of Tegretol that the patient can take in the morning before he fills his prescription. The patient agreed to return to the ED if any other problems develop. (Jagdeep Rodriguez) Departure - Departure Condition: Fair - Discharge Information *PRESCRIPTION DRUG MONITORING PROGRAM REVIEWED*: Not Applicable *COPY OF PRESCRIPTION DRUG MONITORING REPORT IN PATIENT DINORAH: Not Applicable <Rao Marin - Last Filed: 09/11/20 19:35> - Departure Time of Disposition: 21:31 <Jagdeep Rodriguez - Last Filed: 09/11/20 21:32> - Departure Disposition: Home, Self-Care 01 Clinical Impression: Epileptic seizures Qualifiers: Epilepsy type: generalized idiopathic Intractability: not intractable Status epilepticus: without status epilepticus Qualified Code(s): G40.309 - Generalized idiopathic epilepsy and epileptic syndromes, not intractable, without status epilepticus - Discharge Information Prescriptions: carBAMazepine [TEGretol Tab] 200 mg PO BID #60 tablet Instructions: Epilepsy Referrals: Waylon Arguello MD [Primary Care Provider] - Forms: ED Department Discharge Additional Instructions: Evaluation in the emergency room today in regards to suspect seizure at home in bed early this morning. He reports he woke up with a cold sweat and a headache at the base of your skull. Associated nausea and vomiting x2 at home this morning. Headache improved after second emesis. History would suggest that you had postictal phase upon getting up from bed this morning with difficulty walking due to being off balance and weak in the legs. While in the emergency room today you have suffered a generalized or grand mal convulsion that lasted approximately 2 minutes. You were treated with intravenous Ativan 2 mg and Keppra 500 mg IV. Later you were able to swallow initial dose of Tegretol 200 mg by mouth. You were monitored in the ED for approximately 6 hours to make sure there was no further seizure activity. Lab tests proved essentially normal. You will need to take Tegretol 200 mg twice daily morning and bedtime. As we discussed you are not able to operate a motor vehicle for a minimum of 3 months after no further seizure activity has occurred. Suggest staying with your mother for a couple of days until you get used to new medication. New medication will cause some degree of sedation and slowing of cognitive function until you get used to the medication which usually is by sick day 7-10 after starting it. You will need to return to the emergency room if you have any further seizure activity that lasts longer than a minute. Otherwise you need to follow-up with Dr. Colón as planned for follow-up of seizure disorder and lab tests. Sepsis Event Note (ED) - Evaluation Sepsis Screening Result: No Definite Risk <Rao Marin - Last Filed: 09/11/20 19:35> - Focused Exam Vital Signs: Vital Signs Temp Pulse Resp BP Pulse Ox 09/11/20 18:54 35.8 C L 70 18 115/60 98 09/11/20 18:30 78 20 114/70 98 09/11/20 14:30 35.6 C L 74 12 114/76 99
[2020-09-11] MEDS ORDERED: carBAMazepine 200 MG Tab PO ONE ×2 (14:57→19:33)
[2020-09-11] MEDS ORDERED: Dextrose 5%-0.9% NaCl 1,000 ML IV SCH (15:00)
[2020-09-11] MEDS ORDERED: LORazepam 2 MG/ML SDV ONE (15:11)
[2020-09-11] MEDS: Ondansetron 4 MG/2 ML SDV IVPUSH ONE ×3 (15:14→19:41)
[2020-09-11] MEDS ORDERED: levETIRAcetam 500 MG in Sodium Chloride 0.9% 100 ML IV ONE (15:15)
[2020-09-11] MEDS ORDERED: LORazepam 2 MG/ML SDV IVPUSH ONE (15:15)
[2020-09-11 18:56] VITALS: BP 115/60; PULSE 70
== END 2020-09-11 21:35 | disposition home or self-care (01) ==
LOC: JD.ED 14:25
DX: G40.309 Generalized idiopathic epilepsy and epileptic syndromes, not intractable, without status epilepticus (principal)
CPT/HCPCS: 36415; 80053; 80306; 80307; 83605; 85025; 86140; 96365; 96375; 99284; A9270; J1953; J2060; J2405; J7042; 99285

== ENCOUNTER 2020-09-24 11:48 | Emergency (ER) | payer SELFPAY ==
[2020-09-24] MEDS ORDERED: LORazepam 2 MG/ML SDV ONE (11:58)
[2020-09-24] MEDS ORDERED: LORazepam 2 MG/ML SDV IVPUSH ONE (12:05)
--- NOTE | 2020-09-24 12:08 | EDM.PDOC ---
ED HPI GENERAL MEDICAL PROBLEM - General Chief Complaint: Neurological Problem Stated Complaint: POSS SEIZURE Time Seen by Provider: 09/24/20 11:55 Source of Information: Reports: Patient History Limitations: Reports: No Limitations - History of Present Illness INITIAL COMMENTS - FREE TEXT/NARRATIVE: 20-year-old male presents to the ED with a feeling like he may have a seizure. Patient has a known seizure disorder and often has a warning that his seizure may occur. 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 He has not had a seizure since he was last seen through the ED and prescribed Tegretol 200 mg twice daily. This was started on 11 September. at present he feels pressure in the back of his head and scotomata in his eyes. He does not have a headache. Feels slightly nauseated in the pit of his stomach. He has not had any vomiting or diarrhea. Onset: Today, Sudden Onset Date: 09/24/20 Onset Time: 11:15 Duration: Minutes: Location: Reports: Head Quality: Reports: Ache (Male sleep pressure at the base of his skull.), Pressure Severity: Moderate Improves with: Reports: None Worsens with: Reports: None Context: Reports: Other. 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 (see below) (None.) - Related Data Allergies Allergy/AdvReac Type Severity Reaction Status Date / Time No Known Allergies Allergy Verified 09/24/20 12:02 Home Meds: Home Meds carBAMazepine [TEGretol Tab] 200 mg PO BID #60 tablet 09/11/20 [Rx] LORazepam [Ativan] 1 mg PO Q6H PRN #8 tablet 09/24/20 [Rx] Past Medical History - Past Health History Medical/Surgical History: Denies Medical/Surgical History HEENT History: Reports: Other (See Below) (Patient has severe dental caries with teeth down to the gingiva margin particular the incisors and canines.) Respiratory History: Reports: Other (See Below) Other Respiratory History: lung issues at . Neurological History: Reports: Seizure (Started having grand mal seizures at age 18. He was on Keppra 500 in the morning and 750 at bedtime for 1 year. He still had breakthrough seizures on medication. Has been off medication for the last year and estimates he has had 4 or 5 seizures in the last year off medication.) Psychiatric History: Reports: ADD, Depression, Suicide Attempt - Infectious Disease History Infectious Disease History: Reports: None - Past Surgical History Male Surgical History: Reports: Circumcision Social & Family History - Family History Family Medical History: No Pertinent Family History Endocrine/Metabolic: Reports: Diabetes, type II - Caffeine Use Caffeine Use: Reports: Soda - Living Situation & Occupation Living situation: Reports: Single, Alone Occupation: Employed ([employer] [facility] [facility] [employer] [facility] - Review of Systems Review Of Systems: See Below Constitutional: Reports: Malaise, Weakness, Fatigue, Decreased Appetite. Denies: Fever, Chills, Weight Loss HEENT: Reports: No Symptoms Respiratory: Reports: No Symptoms Cardiovascular: Reports: No Symptoms Endocrine: Reports: Fatigue GI/Abdominal: Reports: No Symptoms : Reports: No Symptoms Musculoskeletal: Reports: No Symptoms Skin: Reports: No Symptoms Neurological: Reports: Headache (Rarely), Seizure Psychiatric: Reports: No Symptoms Hematologic/Lymphatic: Reports: No Symptoms Immunologic: Reports: No Symptoms ED EXAM, NEURO - Physical Exam Exam: See Below Exam Limited By: No Limitations General Appearance: Alert, WD/WN, Anxious, Other Eye Exam: Bilateral Eye: Normal Inspection (No scleral icterus no blepharal pallor.), PERRL Throat/Mouth: Normal Lips, Normal Oropharynx, Other. No: Normal Teeth (Teeth are in bad need of dental care. Numerous dental caries) Head Exam: Atraumatic (Tongue is dry and coated.), Normocephalic Neck: Normal Inspection, Supple, Non-Tender, Full Range of Motion. No: Lymphadenopathy (L), Lymphadenopathy (R) Respiratory/Chest: No Respiratory Distress, Lungs Clear, Normal Breath Sounds, No Accessory Muscle Use Cardiovascular: Normal Peripheral Pulses, Regular Rate, Rhythm, No Edema, No Gallop, No Murmur GI/Abdominal: Normal Bowel Sounds, Soft, Non-Tender, No Organomegaly, No Abnormal Bruit, No Mass, Pelvis Stable Neurological: Alert, CN II-XII Intact, Normal Plantar Flexion, Normal Gait, Normal Reflexes, No Motor/Sensory Deficits, Oriented x 3 Extremities: Normal Inspection, Normal Range of Motion, Non-Tender, No Pedal Edema Psychiatric: Normal Mood, Anxious Skin Exam: Warm, Dry, Intact, Normal Color, No Rash Course - Vital Signs Last Recorded V/S: Last Vital Signs Temp 36.4 C 09/24/20 11:58 Pulse 91 09/24/20 12:45 Resp 16 09/24/20 12:45 BP 107/67 09/24/20 12:45 Pulse Ox 95 09/24/20 12:45 - Orders/Labs/Meds Meds: Medications Discontinued Medications Generic Name Dose Route Start Last Admin Trade Name Freq PRN Reason Stop Dose Admin Lorazepam Confirm 09/24/20 11:58 09/24/20 12:01 Lorazepam 2 Mg/Ml Sdv Administered 09/24/20 11:59 Not Given Dose 2 mg .ROUTE .STK-MED ONE Lorazepam 1 mg 09/24/20 12:05 09/24/20 12:35 Lorazepam 2 Mg/Ml Sdv IVPUSH 09/24/20 12:06 1 mg ONETIME ONE Administration - Radiology Interpretation Free Text/Narrative:: 20-year-old male presents to the ED with a feeling like he is going to have a seizure. He has a known seizure disorder and was last seen here I believe September 11. He had not been treated for any major seizure disorders up until that time. We witnessed a grand mal convulsion that lasted a minute and a half or so in the ED at that time. He was placed on Tegretol 200 mg twice daily and has not had any seizures since that time. At present he is complaining of pressure at the base of his head and scotomata and loud lightening-like effect within his head which often precedes a seizure occurrence. Patient will be given Ativan 1 mg IV. He will then be monitored in the ED. - Re-Assessments/Exams Free Text/Narrative Re-Assessment/Exam: 09/24/20 12:56 patient is feeling much better after Ativan 1 mg IV. No longer feels like he is going to have a seizure. He is alert and oriented. He has a friend here to drive him home to help with sleep. Note will be given to excuse him from the workplace. I am going to send him home with 8 tablets of Ativan 1 mg strength to be utilized on a as needed basis when he gets the feeling like he may have a seizure. Departure - Departure Time of Disposition: 12:57 Disposition: Home, Self-Care 01 Condition: Good Clinical Impression: Seizure disorder - Discharge Information *PRESCRIPTION DRUG MONITORING PROGRAM REVIEWED*: Not Applicable *COPY OF PRESCRIPTION DRUG MONITORING REPORT IN PATIENT DINORAH: Not Applicable Prescriptions: LORazepam [Ativan] 1 mg PO Q6H PRN #8 tablet PRN Reason: grand mal seizure disorder Referrals: Waylon Arguello MD [Primary Care Provider] - Forms: ED Department Discharge, ED Return to Work/School Form Additional Instructions: Evaluation in the emergency room today in regards to feeling that you were going to have a recurrent seizure. You have a history of grand mall seizure disorder and recently started on medication Tegretol 200 mg twice daily with no seizures in the interim. Many people appreciate signs and symptoms prior to the onset of a grand mal seizure. Sometimes it can be in abnormal swabs smell. As you discussed a headache in the base of your skull etc. You received Ativan 1 mg IV today and the symptoms improved within 10 to 15 minutes. I am going to send you home with a prescription for Ativan 1 mg strength tablets to have on hand to could be taken at onset of similar type symptoms or what we call preaura before a seizure recurrence. Often taking the Ativan right away when your symptoms occur will prevent a seizure from occurring. Sepsis Event Note (ED) - Focused Exam Vital Signs: Vital Signs Temp Pulse Resp BP Pulse Ox 09/24/20 12:45 91 16 107/67 95 09/24/20 11:58 36.4 C 85 18 122/98 H 100
[2020-09-24 12:50] VITALS: BP 107/67; PULSE 91
== END 2020-09-24 13:33 | disposition home or self-care (01) ==
LOC: JD.ED 11:48
DX: G40.909 Epilepsy, unspecified, not intractable, without status epilepticus (principal)
CPT/HCPCS: 96374; 99283; J2060; 99284

== ENCOUNTER 2020-09-25 20:17 | Emergency (ER) | payer SELFPAY ==
[2020-09-25 20:23] VITALS: BP 121/83; PULSE 104
[2020-09-25] MEDS ORDERED: Sodium Chloride 0.9% 10 ML Syringe FLUSH PRN (20:41)
[2020-09-25] MEDS ORDERED: LORazepam 2 MG/ML SDV IVPUSH ONE (20:42)
[2020-09-25] MEDS ORDERED: Sodium Chloride 0.9% 1,000 ML IV SCH (20:45)
--- NOTE | 2020-09-25 21:18 | EDM.PDOC ---
ED HPI GENERAL MEDICAL PROBLEM - General Chief Complaint: Neuro Symptoms/Deficits Stated Complaint: [facility] Time Seen by Provider: 09/25/20 20:21 Source of Information: Reports: Patient, EMS History Limitations: Reports: Altered Mental Status - History of Present Illness INITIAL COMMENTS - FREE TEXT/NARRATIVE: The patient presents by [facility] for a seizure. He had about a 30 second to 1minute seizure. He has a history of seizure. He was confused when EMS arrived. He is a little confused now. He denies a headache, fever, chills, cough, congestion, runny nose, chest pain, shortness of breath, abdominal pain, nausea or vomiting. He says he has not missed any doses of his medications. It looks like he is on carbamazepine. Onset: Sudden Duration: Minutes: Location: Reports: Generalized Severity: Moderate Improves with: Reports: None Worsens with: Reports: None Associated Symptoms: Reports: No Other Symptoms Treatments BOX PULLER: Reports: IV/IO, Other (see below) Other Treatments BOX PULLER: zofran 4 mg - Related Data Allergies Allergy/AdvReac Type Severity Reaction Status Date / Time No Known Allergies Allergy Verified 09/25/20 20:20 Home Meds: Home Meds carBAMazepine [TEGretol Tab] 200 mg PO BID #60 tablet 09/11/20 [Rx] LORazepam [Ativan] 1 mg PO Q6H PRN #8 tablet 09/24/20 [Rx] Past Medical History - Past Health History Medical/Surgical History: Denies Medical/Surgical History HEENT History: Reports: Other (See Below) Other HEENT History: poor dentition Respiratory History: Reports: Other (See Below) Other Respiratory History: lung issues at . Neurological History: Reports: Seizure Psychiatric History: Reports: ADD, Depression, Suicide Attempt - Infectious Disease History Infectious Disease History: Reports: None - Past Surgical History Male Surgical History: Reports: Circumcision Social & Family History - Family History Family Medical History: No Pertinent Family History Endocrine/Metabolic: Reports: Diabetes, type II - Tobacco Use Tobacco Use Status *Q: Unknown Ever Used Tobacco - Caffeine Use Caffeine Use: Reports: Soda - Living Situation & Occupation Living situation: Reports: Single, Alone Occupation: Employed ([employer]) [employer] - Review of Systems Review Of Systems: See Below Constitutional: Reports: No Symptoms HEENT: Reports: No Symptoms Respiratory: Reports: No Symptoms Cardiovascular: Reports: No Symptoms Endocrine: Reports: No Symptoms GI/Abdominal: Reports: No Symptoms : Reports: No Symptoms Musculoskeletal: Reports: No Symptoms Skin: Reports: No Symptoms Neurological: Reports: Seizure ED EXAM, NEURO - Physical Exam Exam: See Below Exam Limited By: No Limitations General Appearance: Alert, No Apparent Distress Ears: Normal External Exam Nose: Normal Inspection Head Exam: Atraumatic, Normocephalic Neck: Normal Inspection Respiratory/Chest: No Respiratory Distress, Lungs Clear, Normal Breath Sounds Cardiovascular: Regular Rate, Rhythm, No Edema, No Murmur GI/Abdominal: Soft, Non-Tender, No Organomegaly, No Mass Neurological: Alert, No Motor/Sensory Deficits, Oriented x 3 Course - Vital Signs Last Recorded V/S: Last Vital Signs Temp 96.7 F L 09/25/20 20: Pulse 104 H 09/25/20 20:21 Resp 17 09/25/20 20:21 BP 121/83 09/25/20 20:21 Pulse Ox 93 L 09/25/20 20:21 - Orders/Labs/Meds Orders: Active Orders 24 hr Category Date Time Status Cardiac Monitoring [RC] . DIRECTED Care 09/25/20 20:41 Active Peripheral IV Care [RC] . DIRECTED Care 09/25/20 20:41 Active Head wo Cont [CT] Stat Exams 09/25/20 20:42 Taken DRUG SCREEN, URINE [URCHEM] Stat Lab 09/25/20 20:41 Ordered Sodium Chloride 0.9% [Normal Saline] 1,000 ml Med 09/25/20 20:45 Active IV .BOLUS Sodium Chloride 0.9% [Saline Flush] Med 09/25/20 20:41 Active 10 ml FLUSH ASDIRECTED PRN Peripheral IV Insertion Adult [OM.PC] Stat Oth 09/25/20 20:41 Ordered Medication Orders Sodium Chloride (Normal Saline) 1,000 mls @ 1,000 mls/hr IV .BOLUS LILLY Last Admin: 09/25/20 20:57 Dose: 1,000 mls/hr Documented by: MIHAELA Sodium Chloride (Sodium Chloride 0.9% 10 Ml Syringe) 10 ml FLUSH ASDIRECTED PRN PRN Reason: Keep Vein Open Last Admin: 09/25/20 20:57 Dose: 10 ml Documented by: MIHAELA Labs: Laboratory Tests 09/25/20 09/25/20 Range/Units 20:58 20:58 WBC 5.84 (4.23-9.07) K/mm3 RBC 4.64 (4.63-6.08) M/mm3 Hgb 14.9 (13.7-17.5) gm/dl Hct 44.1 (40.1-51.0) % MCV 95.0 H (79.0-92.2) fl MCH 32.1 (25.7-32.2) pg MCHC 33.8 (32.2-35.5) g/dl RDW Std Deviation 42.5 (35.1-43.9) fL Plt Count 150 L (163-337) K/mm3 MPV 9.9 (9.4-12.3) fl Neut % (Auto) 76.9 H (34.0-67.9) % Lymph % (Auto) 13.7 L (21.8-53.1) % [place] % (Auto) 8.0 (5.3-12.2) % Eos % (Auto) 0.9 (0.8-7.0) Baso % (Auto) 0.3 (0.1-1.2) % Neut # (Auto) 4.49 (1.78-5.38) K/mm3 Lymph # (Auto) 0.80 L (1.32-3.57) K/mm3 [place] # (Auto) 0.47 (0.30-0.82) K/mm3 Eos # (Auto) 0.05 (0.04-0.54) K/mm3 Baso # (Auto) 0.02 (0.01-0.08) K/mm3 Sodium 137 (136-145) mEq/L Potassium 3.9 (3.5-5.1) mEq/L Chloride 100 (98-107) mEq/L Carbon Dioxide 24 (21-32) mEq/L Anion Gap 16.9 H (5-15) BUN 15 (7-18) mg/dL Creatinine 1.2 (0.7-1.3) mg/dL Est Cr Clr Drug Dosing TNP Estimated GFR (MDRD) > 60 (>60) mL/min BUN/Creatinine Ratio 12.5 L (14-18) Glucose 76 (70-99) mg/dL Calcium 8.9 (8.5-10.1) mg/dL Magnesium 2.3 (1.8-2.4) mg/dL Total Bilirubin 0.5 (0.2-1.0) mg/dL AST 36 (15-37) U/L ALT 44 (16-63) U/L Alkaline Phosphatase 72 (46-116) U/L Total Protein 7.6 (6.4-8.2) g/dl Albumin 4.2 (3.4-5.0) g/dl Globulin 3.4 gm/dL Albumin/Globulin Ratio 1.2 (1-2) Ethyl Alcohol 0.00 (0.00) gm% Meds: Medications Generic Name Dose Route Start Last Admin Trade Name Freq PRN Reason Stop Dose Admin Sodium Chloride 1,000 mls @ 1,000 mls/hr 09/25/20 20:45 09/25/20 20:57 Normal Saline IV 1,000 mls/hr .BOLUS LILLY Administration Sodium Chloride 10 ml 09/25/20 20:41 09/25/20 20:57 Sodium Chloride 0.9% 10 Ml Syringe FLUSH 10 ml ASDIRECTED PRN Administration Keep Vein Open Discontinued Medications Generic Name Dose Route Start Last Admin Trade Name Freq PRN Reason Stop Dose Admin Lorazepam 0.5 mg 09/25/20 20:42 09/25/20 20:57 Lorazepam 2 Mg/Ml Sdv IVPUSH 09/25/20 20:43 0.5 mg ONETIME ONE Administration - Re-Assessments/Exams Free Text/Narrative Re-Assessment/Exam: 09/25/20 21:17 I ordered an IV NS 1L bolus, ativan IV, labs and a CT of his head. 09/25/20 22:[address] of his head shows nothing acute. His CBC and CMP look good. His ETOH is negative. I will discharge him home. Departure - Departure Time of Disposition: 22:30 Disposition: Home, Self-Care 01 Condition: Good Clinical Impression: Seizure - Discharge Information *PRESCRIPTION DRUG MONITORING PROGRAM REVIEWED*: Not Applicable *COPY OF PRESCRIPTION DRUG MONITORING REPORT IN PATIENT DINORAH: Not Applicable Referrals: PCP,None [Primary Care Provider] - Forms: ED Department Discharge Additional Instructions: Take your medications as prescribed. Drink plenty of fluids. Do not drink alcohol and get plenty of rest. Please return if you are worse. Sepsis Event Note (ED) - Evaluation Sepsis Screening Result: No Definite Risk - Focused Exam Vital Signs: Vital Signs Temp Pulse Resp BP Pulse Ox 09/25/20 20:21 96.7 F L 104 H 17 121/83 93 L - My Orders Last 24 Hours: My Active Orders 09/25/20 20:41 Cardiac Monitoring [RC] . DIRECTED Peripheral IV Care [RC] . DIRECTED DRUG SCREEN, URINE [URCHEM] Stat Sodium Chloride 0.9% [Saline Flush] 10 ml FLUSH ASDIRECTED PRN Peripheral IV Insertion Adult [OM.PC] Stat 09/25/20 20:42 Head wo Cont [CT] Stat 09/25/20 20:45 Sodium Chloride 0.9% [Normal Saline] 1,000 ml IV .BOLUS - Assessment/Plan Last 24 Hours: My Active Orders 09/25/20 20:41 Cardiac Monitoring [RC] . DIRECTED Peripheral IV Care [RC] . DIRECTED DRUG SCREEN, URINE [URCHEM] Stat Sodium Chloride 0.9% [Saline Flush] 10 ml FLUSH ASDIRECTED PRN Peripheral IV Insertion Adult [OM.PC] Stat 09/25/20 20:42 Head wo Cont [CT] Stat 09/25/20 20:45 Sodium Chloride 0.9% [Normal Saline] 1,000 ml IV .BOLUS
--- NOTE | 2020-09-26 08:19 | CT ---
Head CT Technique: Multiple axial sections through the brain were obtained. Intravenous contrast was not utilized. Reconstructed coronal and sagittal images were obtained. Comparison: Prior head CT study of 02/08/20 and 12/27/18. Findings: Ventricles along with basal cisterns and sulci are the convexities are within normal limits for the patient's age. No abnormal parenchymal densities are seen. No evidence of intracranial hemorrhage. No midline shift or mass-effect is appreciated. Bone window settings were reviewed which show no acute osseous abnormality. Visualized mastoid sinuses and paranasal sinuses appear within normal limits. Impression: 1. Nothing acute is seen on noncontrast head CT study. 2. No change from previous studies is seen. Diagnostic code #1 I agree with preliminary report from [facility], finalized on 09/25/20, 10:47 PM CDT, code 1
== END 2020-09-25 22:27 | disposition home or self-care (01) ==
LOC: JD.ED 20:17
DX: R56.9 Unspecified convulsions (principal)
CPT/HCPCS: 36415; 70450; 80053; 80307; 83735; 85025; 96374; 99285; J2060; J7030; 99284

== ENCOUNTER 2020-10-21 23:48 | Emergency (ER) | payer SELFPAY ==
[2020-10-21 23:52] VITALS: BP 96/66; PULSE 90
--- NOTE | 2020-10-22 00:50 | EDM.PDOC ---
ED HPI GENERAL MEDICAL PROBLEM - General Chief Complaint: Neurological Problem Stated Complaint: [facility] Time Seen by Provider: 10/22/20 00:20 Source of Information: Reports: Patient, Family (Mother) History Limitations: Reports: No Limitations - History of Present Illness INITIAL COMMENTS - FREE TEXT/NARRATIVE: Mr. Hylton is a pleasant 20-year-old man who is now brought to the ED by EMS after he suffered an approximately 2-minute generalized tonic-clonic seizure while at work, witnessed by coworkers. He was initially postictal, but has subsequently regained normal mentation. An Accu-Chek by EMS was 130. He states that he recalls working at [employer], then waking up in the ambulance. He denies having pain anywhere, including a headache. He denies biting his tongue, and he denies having lost continence of bowel or bladder. The patient has had seizures since August or September 2018. He has been on a variety of antiepileptic medications, and is currently on carbamazepine, which he states he is taking as prescribed. He states that he saw a Neurologist at one point in the past, however, his mother tells me that the Neurologist did not seem to do anything, therefore they did not go back to him. Reviewing prior medical records, it appears that the patient suffered a seizure about once every week or 2, with his most recent seizure on 09/25/2020. The patient acknowledges that he smokes marijuana daily, although states that he drinks alcohol only occasionally, most recently about a week ago. Here in the ED, the patient is found to be hemodynamically stable, afebrile, saturating 99% on room air. He appears to be comfortable, in no acute distress. The patient states that he vomited around 11 AM, otherwise, he denies having a recent fever, chills, sore throat, ear pain, nasal or sinus congestion, cough, dyspnea, chest pain, palpitations, constipation, diarrhea, abdominal pain, urinary symptoms, recent weight gain or weight loss, recent bloody bowel movements or black bowel movements, recent joint aches, headaches, or rashes. The patient's PCP is Dr. Waylon Colón. - Related Data Allergies Allergy/AdvReac Type Severity Reaction Status Date / Time No Known Allergies Allergy Verified 10/21/20 23:52 Home Meds: Home Meds carBAMazepine [TEGretol Tab] 200 mg PO BID #60 tablet 09/11/20 [Rx] LORazepam [Ativan] 1 mg PO Q6H PRN #8 tablet 09/24/20 [Rx] Past Medical History Neurological History: Reports: Seizure Psychiatric History: Reports: ADHD (untreated), Depression (untreated), Suicide Attempt (15 yrs old) - Past Surgical History Male Surgical History: Reports: Circumcision Social & Family History - Tobacco Use Tobacco Use Status *Q: Current Every Day Tobacco User Tobacco Use Within Last Twelve Months: Vaping (Nicotine) Years of Tobacco use: 5 Packs/Tins Daily: 0.1 Tobacco Use Comment: Started smoking 2015 - Caffeine Use Caffeine Use: Reports: Energy Drinks, Soda - Alcohol Use Alcohol Use History: Yes Alcohol Use Frequency: Socially - Recreational Drug Use Recreational Drug Use: Yes Drug Use in Last 12 Months: Yes Recreational Drug Type: Reports: Marijuana/Hashish (smokes daily) - Living Situation & Occupation Living situation: Reports: Single, Alone Occupation: Employed ([employer] ED ROS GENERAL - Review of Systems Review Of Systems: Comprehensive ROS is negative, except as noted in HPI. - Physical Exam Exam: See Below Exam Limited By: No Limitations General Appearance: Alert, WD/WN, No Apparent Distress Eye Exam: Bilateral Eye: EOMI, Normal Inspection, PERRL Ears: Normal External Exam, Normal Canal, Hearing Grossly Normal, Normal TMs Nose: Normal Inspection, Normal Mucosa, No Blood Throat/Mouth: Normal Inspection, Normal Lips, Normal Teeth (poor dentition), Normal Gums, Normal Oropharynx, Normal Voice, No Airway Compromise Head Exam: Atraumatic, Normocephalic Neck: Normal Inspection, Supple, Non-Tender, Full Range of Motion. No: Lymphadenopathy (L), Lymphadenopathy (R) Respiratory/Chest: No Respiratory Distress, Lungs Clear, Normal Breath Sounds, No Accessory Muscle Use Cardiovascular: Normal Peripheral Pulses, Regular Rate, Rhythm, No Edema, No Gallop, No JVD, No Murmur, No Rub GI/Abdominal: Normal Bowel Sounds, Soft, Non-Tender, No Organomegaly, No Distention, No Abnormal Bruit, No Mass Neuro Exam (Abbreviated): Alert, Oriented, CN II-XII Intact, Normal Cognition, No Motor/Sensory Deficits Back Exam: Normal Inspection, Full Range of Motion, NT Extremities: Normal Inspection, Normal Range of Motion, No Pedal Edema, Normal Capillary Refill Psychiatric: Normal Affect Skin Exam: Warm, Dry, Intact, Normal Color, No Rash Course - Vital Signs Last Recorded V/S: Last Vital Signs Temp 36.1 C 10/21/20 23:50 Pulse 90 10/21/20 23:50 Resp 12 10/21/20 23:50 BP 96/66 10/21/20 23:50 Pulse Ox 99 10/21/20 23:50 - Orders/Labs/Meds Meds: Medications Discontinued Medications Generic Name Dose Route Start Last Admin Trade Name Chago PRN Reason Stop Dose Admin Ondansetron HCl 4 mg 10/22/20 01:02 10/22/20 01:05 Ondansetron 4 Mg Tab.Dis PO 10/22/20 01:03 4 mg ONETIME ONE Administration Ondansetron HCl Confirm 10/22/20 01:03 10/22/20 05:44 Ondansetron 4 Mg Tab.Dis Administered 10/22/20 01:04 Not Given Dose 4 mg .ROUTE .STK-MED ONE - Re-Assessments/Exams Free Text/Narrative Re-Assessment/Exam: 10/22/20 00:44 As above, the patient, who has a seizure disorder, suffered an approximately 2 minutes generalized tonic-clonic seizure while at work this evening. He is uninjured, and did not lose continence of bowel or bladder. An Accu-Chek by EMS was 130. He was initially postictal, but by the time I evaluated him, his mental status had returned to normal. His physical exam, including a thorough neurologic exam, is completely normal. Unfortunately, we are unable to check a carbamazepine level from the ED. I do not see an indication for any other work- up at this time. Due to the frequency of his seizures, I am recommending that he follow-up with a Neurologist in [place]. Departure - Departure Time of Disposition: 00:46 Disposition: Home, Self-Care 01 Condition: Good Clinical Impression: Epileptic seizure - Discharge Information *PRESCRIPTION DRUG MONITORING PROGRAM REVIEWED*: Not Applicable *COPY OF PRESCRIPTION DRUG MONITORING REPORT IN PATIENT DINORAH: Not Applicable Instructions: Epilepsy, [id number], Seizure, Adult Referrals: Waylon Arguello MD [Physician] - Mack Quesada MD [Ordering Only Provider] - Forms: ED Department Discharge Additional Instructions: You were seen in the emergency room after suffering an approximately 2-minute seizure while at work tonight. While you were originally confused (postictal), your mental status returned to normal over time. Because your physical and neurologic exam were normal, no further work-up was felt necessary. Because you have frequent seizures, we strongly recommend that you follow-up with a Neurologist. Please follow-up with Dr. Mack Quesada, in [place], at the next available appointment. In the meantime, continue to take your carbamazepine (Tegretol) as prescribed. If any other problems, please do not hesitate to return to the ER. Sepsis Event Note (ED) - Evaluation Sepsis Screening Result: No Definite Risk - Focused Exam Vital Signs: Vital Signs Temp Pulse Resp BP Pulse Ox 10/21/20 23:50 36.1 C 90 12 96/66 99
[2020-10-22] MEDS ORDERED: Ondansetron 4 MG Tab.DIS PO ONE (01:02)
[2020-10-22] MEDS ORDERED: Ondansetron 4 MG Tab.DIS ONE (01:03)
== END 2020-10-22 01:06 | disposition home or self-care (01) ==
LOC: JD.ED 23:48
DX: G40.909 Epilepsy, unspecified, not intractable, without status epilepticus (principal); Z72.0 Tobacco use
CPT/HCPCS: 99284; A9270; 99283

== ENCOUNTER 2020-11-03 14:30 | Emergency (ER) | payer SELFPAY ==
[2020-11-03] MEDS ORDERED: Sodium Chloride 0.9% 10 ML Syringe FLUSH PRN (15:00)
[2020-11-03] MEDS ORDERED: Sodium Chloride 0.9% 1,000 ML IV ONE (15:00)
[2020-11-03] MEDS ORDERED: Ondansetron 4 MG/2 ML SDV IVPUSH ONE (15:00)
[2020-11-03] MEDS ORDERED: Famotidine 20 MG/2 ML SDV IVPUSH ONE (15:25)
--- NOTE | 2020-11-03 16:07 | EDM.PDOC ---
ED HPI GENERAL MEDICAL PROBLEM - General Chief Complaint: Gastrointestinal Problem Stated Complaint: VOMITING /SHAKING Time Seen by Provider: 11/03/20 14:50 Source of Information: Reports: Patient History Limitations: Reports: No Limitations - History of Present Illness INITIAL COMMENTS - FREE TEXT/NARRATIVE: 20 yo M with hx seizure disorder presents with vomiting. States he has frequent episodes of heart burn and vomiting, especially in the morning. Today he had several episodes so came to ED for eval. Had mild diarrhea today. No abdominal pain. Nausea/vomiting now much improved without intervention. Smokes marijuana because it helps with nausea. No fever/recent illness. He did take his anti- epileptic medication this morning. No additional complaint. Headache Pain Score (Numeric/FACES): 3 - Related Data Allergies Allergy/AdvReac Type Severity Reaction Status Date / Time No Known Allergies Allergy Verified 11/03/20 14:54 Home Meds: Home Meds carBAMazepine [TEGretol Tab] 200 mg PO BID #60 tablet 09/11/20 [Rx] Famotidine 20 mg PO BID #60 tablet 11/03/20 [Rx] Ondansetron [Ondansetron ODT] 4 mg PO Q6H PRN #12 tab.rapdis 11/03/20 [Rx] Past Medical History - Past Health History Medical/Surgical History: Denies Medical/Surgical History HEENT History: Reports: Other (See Below) Other HEENT History: poor dentition Respiratory History: Reports: Other (See Below) Other Respiratory History: lung issues at . Neurological History: Reports: Seizure Psychiatric History: Reports: ADHD, Depression, Psych Hospitalization(s), Suicide Attempt - Infectious Disease History Infectious Disease History: Reports: None - Past Surgical History Male Surgical History: Reports: Circumcision Social & Family History - Family History Family Medical History: No Pertinent Family History Endocrine/Metabolic: Reports: Diabetes, type II - Tobacco Use Tobacco Use Status *Q: Current Every Day Tobacco User Years of Tobacco use: 4 Packs/Tins Daily: 0.5 - Caffeine Use Caffeine Use: Reports: Soda - Recreational Drug Use Recreational Drug Use: Yes Drug Use in Last 12 Months: Yes Recreational Drug Type: Reports: Marijuana/Hashish Recreational Drug Use Frequency: Daily - Living Situation & Occupation Living situation: Reports: Single, Alone Occupation: Employed ([employer]) ED ROS GENERAL - Review of Systems Review Of Systems: See Below Constitutional: Denies: Fever HEENT: Reports: No Symptoms Respiratory: Denies: Shortness of Breath Cardiovascular: Denies: Chest Pain Endocrine: Reports: No Symptoms GI/Abdominal: Reports: Vomiting. Denies: Abdominal Pain : Reports: No Symptoms Musculoskeletal: Reports: No Symptoms Skin: Reports: No Symptoms Neurological: Reports: No Symptoms Psychiatric: Reports: No Symptoms Hematologic/Lymphatic: Reports: No Symptoms Immunologic: Reports: No Symptoms ED EXAM, GI/ABD - Physical Exam Exam: See Below Exam Limited By: No Limitations General Appearance: Alert, WD/WN, No Apparent Distress Eyes: Bilateral: Normal Appearance Ears: Normal External Exam Nose: Normal Inspection Throat/Mouth: Normal Inspection, Normal Voice, No Airway Compromise Head: Atraumatic, Normocephalic Neck: Normal Inspection, Supple Respiratory/Chest: No Respiratory Distress, Lungs Clear, Normal Breath Sounds, Chest Non-Tender Cardiovascular: Normal Peripheral Pulses, Regular Rate, Rhythm, No Edema GI/Abdominal Exam: Soft, Non-Tender, No Distention Back Exam: Normal Inspection Extremities: Normal Inspection Neurological: Alert, Oriented, Normal Cognition Psychiatric: Normal Affect, Normal Mood Skin Exam: Warm, Dry, Intact, Normal Color, No Rash Course - Vital Signs Last Recorded V/S: Last Vital Signs Temp 36.2 C 11/03/20 14:49 Pulse 78 11/03/20 16:30 Resp 16 11/03/20 16:30 BP 128/80 11/03/20 16:30 Pulse Ox 99 11/03/20 16:30 - Orders/Labs/Meds Orders: Active Orders 24 hr Category Date Time Status CULTURE URINE [MREF] Stat Lab 11/03/20 15:10 Received GC/CHLAMYDIA BY PCR [MOLEC] Stat Lab 11/03/20 16:30 Received Sodium Chloride 0.9% [Saline Flush] Med 11/03/20 15:00 Active 10 ml FLUSH ASDIRECTED PRN Peripheral IV Insertion Adult [OM.PC] Routine Oth 11/03/20 15:00 Ordered Medication Orders Sodium Chloride (Sodium Chloride 0.9% 10 Ml Syringe) 10 ml FLUSH ASDIRECTED PRN PRN Reason: Keep Vein Open Last Admin: 11/03/20 15:11 Dose: 10 ml Documented by: LETI Labs: Laboratory Tests 06/28/21 06/28/21 06/28/21 Range/Units 15:10 15:10 15:10 WBC 5.12 (4.23-9.07) K/mm3 RBC 4.13 L (4.63-6.08) M/mm3 Hgb 13.6 L (13.7-17.5) gm/dl Hct 39.2 L (40.1-51.0) % MCV 94.9 H (79.0-92.2) fl MCH 32.9 H (25.7-32.2) pg MCHC 34.7 (32.2-35.5) g/dl RDW Std Deviation 43.9 (35.1-43.9) fL Plt Count 186 (163-337) K/mm3 MPV 9.6 (9.4-12.3) fl Neut % (Auto) 66.4 (34.0-67.9) % Lymph % (Auto) 24.4 (21.8-53.1) % Maury % (Auto) 8.2 (5.3-12.2) % Eos % (Auto) 0.8 (0.8-7.0) Baso % (Auto) 0.2 (0.1-1.2) % Neut # (Auto) 3.40 (1.78-5.38) K/mm3 Lymph # (Auto) 1.25 L (1.32-3.57) K/mm3 Maury # (Auto) 0.42 (0.30-0.82) K/mm3 Eos # (Auto) 0.04 (0.04-0.54) K/mm3 Baso # (Auto) 0.01 (0.01-0.08) K/mm3 Sodium 139 (136-145) mEq/L Potassium 3.8 (3.5-5.1) mEq/L Chloride 104 (98-107) mEq/L Carbon Dioxide 25 (21-32) mEq/L Anion Gap 13.8 (5-15) BUN 13 (7-18) mg/dL Creatinine 0.9 (0.7-1.3) mg/dL Est Cr Clr Drug Dosing 131.33 mL/min Estimated GFR (MDRD) > 60 (>60) mL/min BUN/Creatinine Ratio 14.4 (14-18) Glucose 98 (70-99) mg/dL Calcium 8.3 L (8.5-10.1) mg/dL Total Bilirubin 0.5 (0.2-1.0) mg/dL AST 21 (15-37) U/L ALT 31 (16-63) U/L Alkaline Phosphatase 78 (46-116) U/L Total Protein 7.1 (6.4-8.2) g/dl Albumin 4.0 (3.4-5.0) g/dl Globulin 3.1 gm/dL Albumin/Globulin Ratio 1.3 (1-2) Lipase 153 (73-393) U/L Urine Color Yellow (Yellow) Urine Appearance Slt cloudy H (Clear) Urine pH 6.5 (5.0-8.0) Ur Specific [place] 1.025 (1.005-1.030) Urine Protein Trace H (Negative) Urine Glucose (UA) Negative (Negative) Urine Ketones Negative (Negative) Urine Occult Blood Negative (Negative) Urine Nitrite Negative (Negative) Urine Bilirubin Negative (Negative) Urine Urobilinogen 0.2 (0.2-1.0) Ur Leukocyte Esterase Negative (Negative) Urine RBC Not seen (0-5) /hpf Urine WBC 0-5 (0-5) /hpf Ur Epithelial Cells 0-5 (0-5) /hpf Urine Bacteria Moderate H (FEW) /hpf Urine Mucus Many H (FEW) /hpf Meds: Medications Generic Name Dose Route Start Last Admin Trade Name Chago PRN Reason Stop Dose Admin Sodium Chloride 10 ml 11/03/20 15:00 11/03/20 15:11 Sodium Chloride 0.9% 10 Ml Syringe FLUSH 10 ml ASDIRECTED PRN Administration Keep Vein Open Discontinued Medications Generic Name Dose Route Start Last Admin Trade Name Chago PRN Reason Stop Dose Admin Famotidine 20 mg 11/03/20 15:25 11/03/20 15:42 Famotidine 20 Mg/2 Ml Sdv IVPUSH 11/03/20 15:26 20 mg ONETIME ONE Administration Sodium Chloride 1,000 mls @ 1,000 mls/hr 11/03/20 15:00 11/03/20 15:11 Normal Saline IV 11/03/20 15:59 1,000 mls/hr ONETIME ONE Administration Ondansetron HCl 4 mg 11/03/20 15:00 11/03/20 15:11 Ondansetron 4 Mg/2 Ml Sdv IVPUSH 11/03/20 15:01 4 mg ONETIME ONE Administration - Re-Assessments/Exams Free Text/Narrative Re-Assessment/Exam: 11/03/20 17:03 Well appearing, normal vitals, nausea had largely resolved prior to ED visit. Labs unremarkable. Will rx zofran/famotidine, encouraged PCP f/u as this appears to be an acute exacerbation of a chronic problem. Discussed ED return precautions. Departure - Departure Time of Disposition: 16:02 Disposition: Home, Self-Care 01 Clinical Impression: Vomiting Qualifiers: Vomiting type: unspecified Vomiting Intractability: non-intractable Nausea presence: with nausea Qualified Code(s): R11.2 - Nausea with vomiting, unspecified - Discharge Information Prescriptions: Famotidine 20 mg PO BID #60 tablet Ondansetron [Ondansetron ODT] 4 mg PO Q6H PRN #12 tab.rapdis PRN Reason: Nausea Instructions: Vomiting, Adult Referrals: Waylon Arguello MD [Primary Care Provider] - Forms: ED Department Discharge Additional Instructions: 1. Take famotidine as prescribed 2. Take ondansetron as needed for nausea 3. Follow up with your regular doctor as soon as possible Sepsis Event Note (ED) - Evaluation Sepsis Screening Result: No Definite Risk - Focused Exam Vital Signs: Vital Signs Temp Pulse Resp BP Pulse Ox 11/03/20 16:30 78 16 128/80 99 11/03/20 14:49 36.2 C 65 16 106/67 96 - My Orders Last 24 Hours: My Active Orders 11/03/20 15:00 Sodium Chloride 0.9% [Saline Flush] 10 ml FLUSH ASDIRECTED PRN Peripheral IV Insertion Adult [OM.PC] Routine 11/03/20 15:10 CULTURE URINE [MREF] Stat 11/03/20 16:30 GC/CHLAMYDIA BY PCR [MOLEC] Stat - Assessment/Plan Last 24 Hours: My Active Orders 11/03/20 15:00 Sodium Chloride 0.9% [Saline Flush] 10 ml FLUSH ASDIRECTED PRN Peripheral IV Insertion Adult [OM.PC] Routine 11/03/20 15:10 CULTURE URINE [MREF] Stat 11/03/20 16:30 GC/CHLAMYDIA BY PCR [MOLEC] Stat
[2020-11-03 16:44] VITALS: BP 128/80; PULSE 78
[2020-11-03 18:10] LABS: C. TRACHOMATIS BY PCR NOT DETECTED; N. GONORRHOEAE BY PCR NOT DETECTED
== END 2020-11-03 16:35 | disposition home or self-care (01) ==
LOC: JD.ED 14:30
DX: R11.2 Nausea with vomiting, unspecified (principal); R51.9 Headache, unspecified; Z72.0 Tobacco use
CPT/HCPCS: 36415; 80053; 81001; 83690; 85025; 87086; 87491; 87591; 96374; 96375; 99284; J2405; J3490; J7030; 99283

== ENCOUNTER 2020-11-29 19:04 | Emergency (ER) | payer SELFPAY ==
[2020-11-29 19:11] VITALS: BP 108/60; PULSE 103
--- NOTE | 2020-11-29 19:43 | EDM.PDOC ---
ED HPI GENERAL MEDICAL PROBLEM - General Chief Complaint: Neuro Symptoms/Deficits Stated Complaint: [facility] Time Seen by Provider: 11/29/20 19:15 Source of Information: Reports: Patient History Limitations: Reports: No Limitations - History of Present Illness INITIAL COMMENTS - FREE TEXT/NARRATIVE: Ten is a very pleasant 20-year-old man with a past medical history significant for epilepsy, on carbamazepine 200 mg po BID, which he states he is compliant with, who is now brought to the ED by EMS after being found unresponsive in the bathroom at work. The patient states that he recalls going to the bathroom to vomit, which he virtually always does prior to suffering a seizure. The next thing he knew, he woke up on an EMS gurney. He states that he is uninjured, and that he did not bite his tongue or lose continence of bowel or bladder. The patient acknowledges that he smokes marijuana on a daily basis, but that he misspoke when he told the triage nurse that he had smoked methamphetamine this morning. He states that he tried methamphetamine only once, in 2018, and none since. Here in the ED, the patient is initially found to be slightly tachycardic 103 bpm, otherwise, he is hemodynamically stable, afebrile, saturating 100% on room air. He appears to be comfortable, in no acute distress. The patient states that his last seizure was when he was last seen in this ED, and 11/03/2020. Prior to this evening the patient denies having a recent fever, chills, sore throat, ear pain, nasal or sinus congestion, cough, dyspnea, chest pain, palpitations, nausea, vomiting, constipation, diarrhea, abdominal pain, urinary symptoms, recent weight gain or weight loss, recent bloody bowel movements or black bowel movements, recent joint aches, headaches, or rashes. The patient's PCP is Dr. Waylon Colón. The patient is not sure if he has a Neurologist or not, or what their name is. - Related Data Allergies Allergy/AdvReac Type Severity Reaction Status Date / Time No Known Allergies Allergy Verified 11/29/20 19:11 Home Meds: Home Meds carBAMazepine [TEGretol Tab] 200 mg PO BID #60 tablet 09/11/20 [Rx] Ondansetron [Ondansetron ODT] 4 mg PO Q6H PRN #12 tab.rapdis 11/03/20 [Rx] Past Medical History HEENT History: Reports: Other (See Below) (poor dentition) Neurological History: Reports: Seizure Psychiatric History: Reports: ADHD (untreated), Depression (untreated), Psych Hospitalization(s), Suicide Attempt - Past Surgical History Male Surgical History: Reports: Circumcision Social & Family History - Tobacco Use Tobacco Use Status *Q: Current Every Day Tobacco User Tobacco Use Within Last Twelve Months: Vaping (Nicotine) Years of Tobacco use: 5 Packs/Tins Daily: 0.5 Tobacco Use Comment: Started smoking 2015 - Caffeine Use Caffeine Use: Reports: Energy Drinks - Alcohol Use Alcohol Use History: Yes Alcohol Use Frequency: Socially - Recreational Drug Use Recreational Drug Use: Yes Drug Use in Last 12 Months: Yes Recreational Drug Type: Reports: Marijuana/Hashish (smokes daily), Methamphetamine (smoked once in 2019) - Living Situation & Occupation Living situation: Reports: Single, Alone Occupation: Employed ([employer]) ED ROS GENERAL - Review of Systems Review Of Systems: Comprehensive ROS is negative, except as noted in HPI. - Physical Exam Exam: See Below Exam Limited By: No Limitations General Appearance: Alert, WD/WN, No Apparent Distress Eye Exam: Bilateral Eye: EOMI, Normal Inspection, PERRL Ears: Normal External Exam, Hearing Grossly Normal Nose: Normal Inspection Throat/Mouth: Normal Inspection, Normal Lips, Normal Voice, No Airway Compromise, Other (Poor dentition) Head Exam: Atraumatic, Normocephalic Neck: Normal Inspection, Supple, Non-Tender, Full Range of Motion Respiratory/Chest: No Respiratory Distress, Lungs Clear, Normal Breath Sounds, No Accessory Muscle Use Cardiovascular: Normal Peripheral Pulses, Regular Rate, Rhythm, No Edema, No Gallop, No JVD, No Murmur, No Rub GI/Abdominal: Normal Bowel Sounds, Soft, Non-Tender, No Organomegaly, No Distention, No Abnormal Bruit, No Mass Neuro Exam (Abbreviated): Alert, Oriented, CN II-XII Intact, Normal Cognition, N o Motor/Sensory Deficits Back Exam: Normal Inspection, Full Range of Motion, NT Extremities: Normal Inspection, Normal Range of Motion, No Pedal Edema, Normal Capillary Refill Psychiatric: Normal Affect Skin Exam: Warm, Dry, Intact, Normal Color, No Rash Course - Vital Signs Last Recorded V/S: Last Vital Signs Temp 35.9 C L 11/29/20 19:08 Pulse 103 H 11/29/20 19:08 Resp 16 11/29/20 19:08 BP 108/60 11/29/20 19:08 Pulse Ox 100 11/29/20 19:08 - Orders/Labs/Meds Orders: Active Orders 24 hr Category Date Time Status Accu Check [Blood Glucose Check, Bedside] [RC] ONETIME Care 11/29/20 19:17 Active Labs: Laboratory Tests 11/29/20 Range/Units 19:23 POC Glucose 130 H (70-99) mg/dL - Re-Assessments/Exams Free Text/Narrative Re-Assessment/Exam: 11/29/20 19:34 As above, the patient, who has epilepsy, was found unresponsive in the bathroom at work, likely having suffered a seizure. The patient recalls going to the bathroom and vomiting, which he states he almost always does before he has a seizure. The next thing he knew, he woke up on an EMS gurney. He is uninjured, he did not bite his tongue, and he did not lose continence of bowel or bladder. At this time, he is neurologically normal. An Accu-Chek is 130. I offered to run some blood work to make sure that there were no significant electrolyte abnormalities that might benefit from correcting, but he declined. He would like to go home. He pointed out that, were it not for his employer calling EMS, he would not ordinarily have come to the ED following a seizure. Going forward, I recommended that the patient follow-up with his Neurologist, if he has one, but I will also refer him to a Neurologist in case he does not. Departure - Departure Time of Disposition: 19:36 Disposition: Home, Self-Care 01 Condition: Good Clinical Impression: Epileptic seizure - Discharge Information *PRESCRIPTION DRUG MONITORING PROGRAM REVIEWED*: Not Applicable *COPY OF PRESCRIPTION DRUG MONITORING REPORT IN PATIENT DINORAH: Not Applicable Instructions: Epilepsy, [id number] Referrals: Waylon Arguello MD [Physician] - Mack Quesada MD [Ordering Only Provider] - Forms: ED Department Discharge Additional Instructions: You were seen in the emergency room after suffering a seizure at work. Work-up in the ER included a check of your blood sugar, which was mildly elevated at 130, consistent with a recent seizure. Further work-up, including blood tests and urine tests were offered, but declined. We recommend that you follow-up with your Neurologist, if you have one, or you can follow-up with Dr. Mack Quesada, in [place], in order to review your antiepileptic medication, to see if you might benefit from modification. If any other problems, please do not hesitate to return to the ER. Sepsis Event Note (ED) - Evaluation Sepsis Screening Result: No Definite Risk - Focused Exam Vital Signs: Vital Signs Temp Pulse Resp BP Pulse Ox 11/29/20 19:08 35.9 C L 103 H 16 108/60 100 - My Orders Last 24 Hours: My Active Orders 11/29/20 19:17 Accu Check [Blood Glucose Check, Bedside] [RC] ONETIME - Assessment/Plan Last 24 Hours: My Active Orders 11/29/20 19:17 Accu Check [Blood Glucose Check, Bedside] [RC] ONETIME
== END 2020-11-29 19:51 | disposition home or self-care (01) ==
LOC: JD.ED 19:04
DX: G40.919 Epilepsy, unspecified, intractable, without status epilepticus (principal); Z72.0 Tobacco use
CPT/HCPCS: 82947; 99283; 99285

== ENCOUNTER 2020-12-28 12:06 | Observation (INO) | payer SELFPAY ==
[2020-12-28] MEDS ORDERED: Sodium Chloride 0.9% 1,000 ML IV ONE (12:47)
[2020-12-28] MEDS ORDERED: Ondansetron 4 MG/2 ML SDV IVPUSH ONE (12:47)
[2020-12-28] MEDS ORDERED: Sodium Chloride 0.9% 10 ML Syringe FLUSH PRN ×2 (12:47→15:28)
--- NOTE | 2020-12-28 12:56 | EDM.PDOC ---
ED HPI GENERAL MEDICAL PROBLEM - General Chief Complaint: Gastrointestinal Problem Stated Complaint: VOMITING X 4 DAYS /SEIZURE 2 DAYS AGO Time Seen by Provider: 12/28/20 12:27 Source of Information: Reports: Patient, Family History Limitations: Reports: No Limitations - History of Present Illness INITIAL COMMENTS - FREE TEXT/NARRATIVE: 20-year-old male presents the emergency department with complaints of nausea, vomiting, and left upper quadrant/epigastric pain. He states that this started about 2 days ago. He states he does have a seizure disorder and did have a seizure at work however it was not a grand mal seizure that he usually has. He states he was able to notice that his fingers were starting to twitch and he lowered himself to the ground and then had more of a focal seizure that lasted approximately a minute. This was witnessed by his mother who works with him. He was also dizzy and nauseated for a few hours after the event. He states he did see a neurologist once approximately 2 years ago and had a "brain scan",, but nothing further was ordered and he has not been back for follow-up. He does take Tegretol for his seizure disorder however he states he has missed a few doses over the past few days. He states that he took his dose this morning but then vomited shortly thereafter. He states he has been slightly dizzy when rising from sitting to standing and at times when ambulating. He also notes he has been short of breath. He states he vomited about 4 times today and it did appear to be across the ground emesis. He does not take NSAIDs regularly. States he has not taken them for about a week and prior to that did not routinely take them. He has not had any fever or chills. He has not had any cough or upper respiratory type of symptoms. He states he has had not much in the way of an appetite and has to force himself to eat. He has been trying to take in as much fluid as possible. He has no urinary symptoms and states he is voiding normally. He states he has 2 bowel movements daily and these have been normal and brown. He denies any black tarry stools. He does admit to being a daily marijuana user however does not correlate nausea and vomiting associated with smoking the marijuana as he states it actually helps his appetite. His primary care provider is Dr. Colón. Abdominal Pain Score (Numeric/FACES): 5 - Related Data Allergies Allergy/AdvReac Type Severity Reaction Status Date / Time No Known Allergies Allergy Verified 12/28/20 12:15 Home Meds: Home Meds carBAMazepine [TEGretol Tab] 200 mg PO BID #60 tablet 09/11/20 [Rx] Ondansetron [Ondansetron ODT] 4 mg PO Q6H PRN #12 tab.rapdis 11/03/20 [Rx] Pantoprazole [ProTONIX] 40 mg PO DAILY #30 tab.cr 12/29/20 [Rx] Past Medical History - Past Health History Medical/Surgical History: Denies Medical/Surgical History HEENT History: Reports: Other (See Below) Other HEENT History: poor dentition Respiratory History: Reports: Other (See Below) Other Respiratory History: lung issues at . Neurological History: Reports: Seizure Psychiatric History: Reports: ADHD, Depression, Psych Hospitalization(s), Suicide Attempt - Infectious Disease History Infectious Disease History: Reports: None - Past Surgical History Male Surgical History: Reports: Circumcision Social & Family History - Family History Family Medical History: No Pertinent Family History Endocrine/Metabolic: Reports: Diabetes, type II - Tobacco Use Tobacco Use Status *Q: Current Every Day Tobacco User Years of Tobacco use: 2 Packs/Tins Daily: 1 - Caffeine Use Caffeine Use: Reports: Soda - Recreational Drug Use Recreational Drug Use: Yes Recreational Drug Type: Reports: Marijuana/Hashish Recreational Drug Use Frequency: Daily - Living Situation & Occupation Living situation: Reports: Single, Alone Occupation: Employed ([employer]) ED ROS GENERAL - Review of Systems Review Of Systems: Comprehensive ROS is negative, except as noted in HPI. ED EXAM, GI/ABD - Physical Exam Exam: See Below Exam Limited By: No Limitations General Appearance: Alert, WD/WN, No Apparent Distress Eyes: Bilateral: Pale Conjunctiva Ears: Normal External Exam, Hearing Grossly Normal Nose: Normal Inspection Throat/Mouth: Normal Inspection, Normal Lips, Normal Voice, No Airway Compromise Head: Atraumatic Neck: Normal Inspection, Supple Respiratory/Chest: No Respiratory Distress, Lungs Clear, Normal Breath Sounds, No Accessory Muscle Use, Chest Non-Tender Cardiovascular: Normal Peripheral Pulses, Regular Rate, Rhythm, No Edema, No Murmur GI/Abdominal Exam: Normal Bowel Sounds, Soft, No Distention, Tender (Generalized abdominal tenderness however it is more tender in the left upper and epigastric area) (Male) Exam: Deferred Rectal (Males) Exam: Deferred Back Exam: Normal Inspection Extremities: Normal Inspection, Normal Range of Motion, Non-Tender, No Pedal Edema, Normal Capillary Refill Neurological: Alert, Oriented, Normal Cognition Psychiatric: Normal Affect, Normal Mood Skin Exam: Warm, Dry, Intact, No Rash, Pallor Lymphatic: No Adenopathy #1 Interpretation EKG Date: 12/28/20 Time: 14:26 Rhythm: NSR Rate (Beats/Min): 70 [place]: Normal P-Wave: Present QRS: Normal ST-T: Normal QT: Normal EKG Interpretation Comments: Per Dr. Whitlock interpretation: Sinus rhythm at 70 bpm Course - Vital Signs Text/Narrative:: As stated above, the patient presents with nausea, vomiting, abdominal pain for the past 4 days. He vomited 4 times today which was coffee-ground emesis in appearance. Upon assessment, the patient is extremely pale. He does admit to dizziness and shortness of breath with ambulation. He does have generalized abdominal tenderness however abdomen is significantly more tender to the left upper quadrant and epigastric area. I have ordered labs to include a CBC, CMP, magnesium and C-reactive protein level. We will get a CT scan of the abdomen. Patient will receive a liter of normal saline wide open as he is likely dehydrated. We will have nursing staff obtain orthostatic vital signs. We will also give him 4 mg of Zofran IV. Last Recorded V/S: Last Vital Signs Temp 98.1 F 12/29/20 08:10 Pulse 65 12/29/20 11:40 Resp 16 12/29/20 08:10 BP 120/96 H 12/29/20 11:40 Pulse Ox 100 12/29/20 11:40 Orthostatic Blood Pressure [ 94/57 Standing] Orthostatic Blood Pressure [ 95/56 Supine] - Orders/Labs/Meds Labs: Laboratory Tests 12/28/20 12/28/20 12/28/20 Range/Units 12:14 12:24 12:24 WBC 2.75 L (4.23-9.07) K/mm3 RBC 1.83 L (4.63-6.08) M/mm3 Hgb 5.8 L* D (13.7-17.5) gm/dl Hct 17.6 L (40.1-51.0) % MCV 96.2 H (79.0-92.2) fl MCH 31.7 (25.7-32.2) pg MCHC 33.0 (32.2-35.5) g/dl RDW Std Deviation 39.1 (35.1-43.9) fL Plt Count 313 D (163-337) K/mm3 MPV 10.1 (9.4-12.3) fl Neut % (Auto) 49.8 (34.0-67.9) % Lymph % (Auto) 43.6 (21.8-53.1) % [place] % (Auto) 5.1 L (5.3-12.2) % Eos % (Auto) 1.1 (0.8-7.0) Baso % (Auto) 0.4 (0.1-1.2) % Neut # (Auto) 1.37 L (1.78-5.38) K/mm3 Lymph # (Auto) 1.20 L (1.32-3.57) K/mm3 [place] # (Auto) 0.14 L (0.30-0.82) K/mm3 Eos # (Auto) 0.03 L (0.04-0.54) K/mm3 Baso # (Auto) 0.01 (0.01-0.08) K/mm3 Manual Slide Review Abnormal smear Sodium 139 (136-145) mEq/L Potassium 4.0 (3.5-5.1) mEq/L Chloride 105 (98-107) mEq/L Carbon Dioxide 27 (21-32) mEq/L Anion Gap 11.0 (5-15) BUN 17 (7-18) mg/dL Creatinine 0.7 (0.7-1.3) mg/dL Est Cr Clr Drug Dosing 170.45 mL/min Estimated GFR (MDRD) > 60 (>60) mL/min BUN/Creatinine Ratio 24.3 H (14-18) Glucose 97 (70-99) mg/dL Calcium 8.2 L (8.5-10.1) mg/dL Magnesium 1.9 (1.8-2.4) mg/dL Total Bilirubin 0.2 (0.2-1.0) mg/dL AST 23 (15-37) U/L ALT 33 (16-63) U/L Alkaline Phosphatase 62 (46-116) U/L C-Reactive Protein <0.2 (<1.0) mg/dL Total Protein 6.7 (6.4-8.2) g/dl Albumin 3.7 (3.4-5.0) g/dl Globulin 3.0 gm/dL Albumin/Globulin Ratio 1.2 (1-2) Urine Color (Yellow) Urine Appearance (Clear) Urine pH (5.0-8.0) Ur Specific [place] (1.005-1.030) Urine Protein (Negative) Urine Glucose (UA) (Negative) Urine Ketones (Negative) Urine Occult Blood (Negative) Urine Nitrite (Negative) Urine Bilirubin (Negative) Urine Urobilinogen (0.2-1.0) Ur Leukocyte Esterase (Negative) Urine Opiates Screen (YDHZMQ=522) Ur Buprenorphine Scrn (CUTOFF=10) Ur Oxycodone Screen (ONP8UP=738) Urine Methadone Screen (KOQ9CB=576) Ur Propoxyphene Screen (VOLMBK=039) Ur Barbiturates Screen (ABBYMY=395) Ur Tricyclics Screen (UPIHBC=832) Ur Phencyclidine Scrn (CUTOFF=25) Ur Amphetamine Screen (SVQRHB=022) U Methamphetamines Scrn (SNTWCL=323) U Benzodiazepines Scrn (LBYZUV=597) U Cocaine Metab Screen (TMWNYF=042) U Marijuana (THC) Screen (CUTOFF=50) HIV-1 Ab Rapid Screen (NEGATIVE) SARS-CoV-2 RNA (ROMELIA) Negative (NEGATIVE) Blood Type Gel Antibody Screen Crossmatch 12/28/20 12/28/20 12/28/20 Range/Units 12:24 13:46 13:46 WBC (4.23-9.07) K/mm3 RBC (4.63-6.08) M/mm3 Hgb (13.7-17.5) gm/dl Hct (40.1-51.0) % MCV (79.0-92.2) fl MCH (25.7-32.2) pg MCHC (32.2-35.5) g/dl RDW Std Deviation (35.1-43.9) fL Plt Count (163-337) K/mm3 MPV (9.4-12.3) fl Neut % (Auto) (34.0-67.9) % Lymph % (Auto) (21.8-53.1) % [place] % (Auto) (5.3-12.2) % Eos % (Auto) (0.8-7.0) Baso % (Auto) (0.1-1.2) % Neut # (Auto) (1.78-5.38) K/mm3 Lymph # (Auto) (1.32-3.57) K/mm3 [place] # (Auto) (0.30-0.82) K/mm3 Eos # (Auto) (0.04-0.54) K/mm3 Baso # (Auto) (0.01-0.08) K/mm3 Manual Slide Review Sodium (136-145) mEq/L Potassium (3.5-5.1) mEq/L Chloride (98-107) mEq/L Carbon Dioxide (21-32) mEq/L Anion Gap (5-15) BUN (7-18) mg/dL Creatinine (0.7-1.3) mg/dL Est Cr Clr Drug Dosing mL/min Estimated GFR (MDRD) (>60) mL/min BUN/Creatinine Ratio (14-18) Glucose (70-99) mg/dL Calcium (8.5-10.1) mg/dL Magnesium (1.8-2.4) mg/dL Total Bilirubin (0.2-1.0) mg/dL AST (15-37) U/L ALT (16-63) U/L Alkaline Phosphatase (46-116) U/L C-Reactive Protein (<1.0) mg/dL Total Protein (6.4-8.2) g/dl Albumin (3.4-5.0) g/dl Globulin gm/dL Albumin/Globulin Ratio (1-2) Urine Color (Yellow) Urine Appearance (Clear) Urine pH (5.0-8.0) Ur Specific [place] (1.005-1.030) Urine Protein (Negative) Urine Glucose (UA) (Negative) Urine Ketones (Negative) Urine Occult Blood (Negative) Urine Nitrite (Negative) Urine Bilirubin (Negative) Urine Urobilinogen (0.2-1.0) Ur Leukocyte Esterase (Negative) Urine Opiates Screen (BZVJBJ=247) Ur Buprenorphine Scrn (CUTOFF=10) Ur Oxycodone Screen (PST6FX=762) Urine Methadone Screen (SAX0WN=726) Ur Propoxyphene Screen (LEYERS=292) Ur Barbiturates Screen (CUNDXZ=323) Ur Tricyclics Screen (PASGFS=339) Ur Phencyclidine Scrn (CUTOFF=25) Ur Amphetamine Screen (DTAHRI=354) U Methamphetamines Scrn (LFYBQM=811) U Benzodiazepines Scrn (CTRDCC=471) U Cocaine Metab Screen (OBRMJR=631) U Marijuana (THC) Screen (CUTOFF=50) HIV-1 Ab Rapid Screen Negative (NEGATIVE) SARS-CoV-2 RNA (ROMELIA) (NEGATIVE) Blood Type O NEGATIVE Gel Antibody Screen Negative Crossmatch See Detail See Detail 12/28/20 12/28/20 Range/Units 17:17 17:20 WBC (4.23-9.07) K/mm3 RBC (4.63-6.08) M/mm3 Hgb (13.7-17.5) gm/dl Hct (40.1-51.0) % MCV (79.0-92.2) fl MCH (25.7-32.2) pg MCHC (32.2-35.5) g/dl RDW Std Deviation (35.1-43.9) fL Plt Count (163-337) K/mm3 MPV (9.4-12.3) fl Neut % (Auto) (34.0-67.9) % Lymph % (Auto) (21.8-53.1) % [place] % (Auto) (5.3-12.2) % Eos % (Auto) (0.8-7.0) Baso % (Auto) (0.1-1.2) % Neut # (Auto) (1.78-5.38) K/mm3 Lymph # (Auto) (1.32-3.57) K/mm3 [place] # (Auto) (0.30-0.82) K/mm3 Eos # (Auto) (0.04-0.54) K/mm3 Baso # (Auto) (0.01-0.08) K/mm3 Manual Slide Review Sodium (136-145) mEq/L Potassium (3.5-5.1) mEq/L Chloride (98-107) mEq/L Carbon Dioxide (21-32) mEq/L Anion Gap (5-15) BUN (7-18) mg/dL Creatinine (0.7-1.3) mg/dL Est Cr Clr Drug Dosing mL/min Estimated GFR (MDRD) (>60) mL/min BUN/Creatinine Ratio (14-18) Glucose (70-99) mg/dL Calcium (8.5-10.1) mg/dL Magnesium (1.8-2.4) mg/dL Total Bilirubin (0.2-1.0) mg/dL AST (15-37) U/L ALT (16-63) U/L Alkaline Phosphatase (46-116) U/L C-Reactive Protein (<1.0) mg/dL Total Protein (6.4-8.2) g/dl Albumin (3.4-5.0) g/dl Globulin gm/dL Albumin/Globulin Ratio (1-2) Urine Color Yellow (Yellow) Urine Appearance Clear (Clear) Urine pH 7.0 (5.0-8.0) Ur Specific [place] 1.020 (1.005-1.030) Urine Protein Negative (Negative) Urine Glucose (UA) Negative (Negative) Urine Ketones Negative (Negative) Urine Occult Blood Negative (Negative) Urine Nitrite Negative (Negative) Urine Bilirubin Negative (Negative) Urine Urobilinogen 0.2 (0.2-1.0) Ur Leukocyte Esterase Negative (Negative) Urine Opiates Screen Negative (XXBRRJ=333) Ur Buprenorphine Scrn Negative (CUTOFF=10) Ur Oxycodone Screen Negative (HKP9BO=986) Urine Methadone Screen Negative (HGH4RO=826) Ur Propoxyphene Screen Negative (NSOLIY=781) Ur Barbiturates Screen Negative (OKYWPJ=449) Ur Tricyclics Screen Negative (TMGMYO=504) Ur Phencyclidine Scrn Negative (CUTOFF=25) Ur Amphetamine Screen Negative (KBWQJO=809) U Methamphetamines Scrn Negative (TZUYRR=474) U Benzodiazepines Scrn Negative (UCUDKL=980) U Cocaine Metab Screen Negative (OJANUO=874) U Marijuana (THC) Screen Presumptive positive H (CUTOFF=50) HIV-1 Ab Rapid Screen (NEGATIVE) SARS-CoV-2 RNA (ROMELIA) (NEGATIVE) Blood Type Gel Antibody Screen Crossmatch Meds: Medications Discontinued Medications Generic Name Dose Route Start Last Admin Trade Name Freq PRN Reason Stop Dose Admin Acetaminophen 975 mg 12/28/20 17:00 12/29/20 10:04 Acetaminophen 325 Mg Tab PO Not Given Q8H LILLY Carbamazepine 200 mg 12/28/20 21:00 12/29/20 10:03 Carbamazepine 200 Mg Tab PO 200 mg BID LILLY Administration Diphenhydramine HCl 25 mg 12/28/20 16:59 Diphenhydramine 25 Mg Cap PO BEDTIME PRN Insomnia Fentanyl Confirm 12/29/20 09:52 Fentanyl 100 Mcg/2 Ml Sdv Administered 12/29/20 09:53 Dose 100 mcg .ROUTE .STK-MED ONE Sodium Chloride 1,000 mls @ 999 mls/hr 12/28/20 12:47 12/28/20 13:05 Normal Saline IV 12/28/20 13:47 999 mls/hr ONETIME ONE Administration Lactated Ringer's 1,000 mls @ 100 mls/hr 12/28/20 17:00 12/29/20 00:11 Ringers, Lactated IV 100 mls/hr ASDIRECTED LILLY Administration Sodium Chloride Confirm 12/28/20 19:48 12/28/20 21:20 Normal Saline Administered 12/28/20 19:49 20 mls/hr Dose Administration 1,000 mls @ as directed .ROUTE .STK-MED ONE Iopamidol 100 ml 12/28/20 15:28 12/28/20 15:37 Iopamidol 612 Mg/Ml 100 Ml Bottle IVPUSH 12/28/20 15:29 100 ml ONETIME ONE Administration Lorazepam 0.5 mg 12/28/20 16:57 12/28/20 17:19 Lorazepam 2 Mg/Ml Sdv IVPUSH 12/28/20 16:58 0.5 mg ONETIME ONE Administration Melatonin 3 mg 12/28/20 16:58 Melatonin 3 Mg Tab PO BEDTIME PRN Insomnia Midazolam HCl Confirm 12/29/20 09:52 Midazolam 1 Mg/Ml 2 Ml Sdv Administered 12/29/20 09:53 Dose 2 mg .ROUTE .STK-MED ONE Ondansetron HCl 4 mg 12/28/20 12:47 12/28/20 13:05 Ondansetron 4 Mg/2 Ml Sdv IVPUSH 12/28/20 12:48 4 mg ONETIME ONE Administration Ondansetron HCl 0 packet 12/28/20 16:57 Take Home: Ondansetron 4 Mg Tab.Dis, 2 Tab Pack PO Q6H PRN Nausea Ondansetron HCl 4 mg 12/29/20 08:51 Ondansetron 4 Mg Tab.Dis PO Q6H PRN Nausea Ondansetron HCl Confirm 12/29/20 10:54 Ondansetron 4 Mg/2 Ml Sdv Administered 12/29/20 10:55 Dose 4 mg .ROUTE .STK-MED ONE Pantoprazole Sodium 40 mg 12/28/20 16:46 12/28/20 17:19 Pantoprazole 40 Mg Vial IVPUSH 12/28/20 16:47 40 mg ONETIME ONE Administration Pantoprazole Sodium 40 mg 12/29/20 05:00 12/29/20 07:49 Pantoprazole 40 Mg Vial IVPUSH 40 mg Q12H LILLY Administration Propofol Confirm 12/29/20 09:52 Propofol 200 Mg/20 Ml Sdv Administered 12/29/20 09:53 Dose 400 mg .ROUTE .STK-MED ONE Propofol Confirm 12/29/20 10:54 Propofol 200 Mg/20 Ml Sdv Administered 12/29/20 10:55 Dose 200 mg .ROUTE .STK-MED ONE Sodium Chloride 10 ml 12/28/20 12:47 12/28/20 13:05 Sodium Chloride 0.9% 10 Ml Syringe FLUSH 10 ml ASDIRECTED PRN Administration Keep Vein Open Sodium Chloride 10 ml 12/28/20 15:28 12/28/20 15:37 Sodium Chloride 0.9% 10 Ml Syringe FLUSH 10 ml ONETIME PRN Administration IV FLUSH - Re-Assessments/Exams Free Text/Narrative Re-Assessment/Exam: 12/28/20 12:24 Orthostatic vital signs reveal a supine blood pressure 95/56 with a heart rate of 72, rest of 94/57 with a heart rate of 90 Lab called to inform you that the patient's hemoglobin is 5.8. I have ordered for the patient to receive 3 units of PRBCs 12/28/20 14:34 Rectal exam was completed, patient is occult negative 12/28/20 16:18 Hematology reveals a WBC of 2.75, RBC 1.83, hemoglobin 5.8, hematocrit 17.6, MCV 96.2, platelet count 313 Chemistry is essentially unremarkable Patient is Covid negative CT scan of the abdomen pelvis radiologist impression: 1. Slight increase stool within the colon 2. No additional abnormality is appreciated on CT study of the abdomen and pelvis. I suspect this patient may have an upper GI bleed. I have consulted the surgeon on-call, Dr. Bright who has agreed to come in and see the patient. 12/28/20 16:52 Deangelo here to see the patient states he will admit the patient under his care request that I start the patient on Protonix 40 mg twice daily as well as order a urine drug screen and a rapid HIV test. Departure - Departure Time of Disposition: 17:28 Disposition: Refer to Observation Condition: Good Clinical Impression: Bleeding - Discharge Information
[2020-12-28] MEDS ORDERED: Iopamidol 612 MG/ML 100 ML Bottle IVPUSH ONE (15:28)
--- NOTE | 2020-12-28 16:04 | CT ---
CT abdomen and pelvis Technique: Multiple axial sections were obtained from above the dome of the diaphragm inferiorly through the pubic symphysis. Intravenous contrast was utilized. No oral contrast has been given. Reconstructed coronal and sagittal images were obtained. Delayed images were also obtained through the bladder. Comparison: Prior CT abdomen and pelvis exam of 05/29/20. Findings: Visualized lung bases show nothing acute. Liver contains no focal parenchymal abnormality. Spleen size is normal. Adrenal glands show no nodule. Gallbladder contains no calcified gallstones. Pancreas appears within normal limits. Kidneys show symmetric contrast enhancement. No hydronephrosis or mass is seen. Delayed images show contrast within the distal ureters and within the bladder. Abdominal aorta shows no aneurysm. No retroperitoneal adenopathy or mesenteric abnormalities are seen. Appendix is seen which is normal. No pelvic mass or adenopathy is seen. No free fluid or inflammatory change is seen. Minimal increased stool is seen within the colon. Bone window settings were reviewed which show no acute osseous abnormality. Impression: 1. Slight increased stool within the colon. 2. No additional abnormality is appreciated on CT study of the abdomen and pelvis. Diagnostic code #2
[2020-12-28] MEDS ORDERED: Pantoprazole 40 MG Vial IVPUSH ONE (16:46)
[2020-12-28] MEDS ORDERED: Take Home: Ondansetron 4 MG Tab.DIS, 2 Tab Pack PO PRN (16:57)
[2020-12-28] MEDS ORDERED: LORazepam 2 MG/ML SDV IVPUSH ONE (16:57)
[2020-12-28] MEDS ORDERED: Melatonin 3 MG Tab PO PRN (16:58)
[2020-12-28] MEDS ORDERED: diphenhydrAMINE 25 MG Cap PO PRN (16:59)
[2020-12-28] MEDS ORDERED: Lactated Ringers 1,000 ML IV SCH (17:00)
--- NOTE | 2020-12-28 17:06 | PCM.HP.2 ---
H&P History of Present Illness - General Date of Service: 12/28/20 Admit Problem/Dx: Admission Diagnosis/Problem Admission Diagnosis/Problem Anemia Source of Information: Patient History Limitations: Reports: No Limitations - History of Present Illness Initial Comments - Free Text/Narative: Mr. Hylton is a 20 yo man who presents with signs and symptoms of anemia. He developed weakness, malaise, fatigue all within the past week. He has had mild epigastric discomfort and vomiting, which he describes as like chocolate milk but his mother described as like coffee grounds. In the ER he appears pale and Hgb is 5.8 g/dL. He denies hematemesis, melena, hematochezia. He has been having diarrhea without any abnormal color. He reports he was found to be anemic a few months ago and had a transfusion but no diagnosis was made. He has never had endoscopy. The only medication he has been taking is his neuroleptic, and he did have a seizure within the past week. He has no postprandial pain. His eating habits are poor, eating stuff like [employer] once a day. He works at [employer]. He vapes and smokes marijuana occasionally to help with his appetite. He denies recent alcohol binge s, but had a few shots about a week ago (not enough to the point that he vomited). When asked about family history, he says he father was exposed to agent orange and was diagnosed with, he thinks, colon cancer in his 50s. There is no personal or family history of bleeding diathesis or inflammatory bowel disease. A CT scan in the ER today of the abdomen and pelvis is unremarkable. Abdominal Pain Score (Numeric/FACES): 5 - Related Data Allergies/Adverse Reactions: Allergies Allergy/AdvReac Type Severity Reaction Status Date / Time No Known Allergies Allergy Verified 12/28/20 12:15 Home Medications: Home Meds carBAMazepine [TEGretol Tab] 200 mg PO BID #60 tablet 09/11/20 [Rx] Ondansetron [Ondansetron ODT] 4 mg PO Q6H PRN #12 tab.rapdis 11/03/20 [Rx] Past Medical History - Past Health History Medical/Surgical History: Denies Medical/Surgical History HEENT History: Reports: Other (See Below) Other HEENT History: poor dentition Respiratory History: Reports: Other (See Below) Other Respiratory History: lung issues at . Neurological History: Reports: Seizure Psychiatric History: Reports: ADHD, Depression, Psych Hospitalization(s), Suicide Attempt - Infectious Disease History Infectious Disease History: Reports: None - Past Surgical History Male Surgical History: Reports: Circumcision Social & Family History - Family History Family Medical History: No Pertinent Family History Endocrine/Metabolic: Reports: Diabetes, type II - Tobacco Use Tobacco Use Status *Q: Current Every Day Tobacco User Years of Tobacco use: 2 Packs/Tins Daily: 1 - Caffeine Use Caffeine Use: Reports: Soda - Recreational Drug Use Recreational Drug Use: Yes Recreational Drug Type: Reports: Marijuana/Hashish Recreational Drug Use Frequency: Daily - Living Situation & Occupation Living situation: Reports: Single, Alone Occupation: Employed ([employer]) H&P Review of Systems - Review of Systems: Review Of Systems: See Below General: Reports: Malaise, Weakness, Fatigue HEENT: Reports: No Symptoms Pulmonary: Reports: No Symptoms Cardiovascular: Reports: Lightheadedness Gastrointestinal: Reports: Abdominal Pain, Diarrhea Genitourinary: Reports: No Symptoms Musculoskeletal: Reports: No Symptoms Skin: Reports: Pallor Psychiatric: Reports: No Symptoms Neurological: Reports: Dizziness, Seizure Hematologic/Lymphatic: Reports: Anemia Immunologic: Reports: No Symptoms Exam - Exam Exam: See Below - Vital Signs Vital Signs: Last Vital Signs Temp 36.8 C 12/28/20 16:49 Pulse 70 12/28/20 16:49 Resp 16 12/28/20 16:49 BP 99/52 L 12/28/20 16:49 Pulse Ox 97 12/28/20 14:04 Orthostatic Blood Pressure [ 94/57 Standing] Orthostatic Blood Pressure [ 95/56 Supine] Weight: 72.802 kg - Exam General: Alert, Oriented, Cooperative HEENT: Conjunctiva Clear, EOMI, Other (pupils equal. no icterus. uvula deviates to right. Tongue protrudes at midline. Very poor dentition ("meth mouth")) Neck: Supple, Trachea Midline Lungs: Normal Respiratory Effort Cardiovascular: Regular Rate, Regular Rhythm, Other (palpable radial pulses) GI/Abdominal Exam: Soft, Non-Tender, No Distention, No Mass Extremities: Normal Inspection, No Pedal Edema Skin: Other (pale) Neuro Extensive - Mental Status: Alert, Oriented x3 Psychiatric: Anxious - Patient Data Lab Results Last 24 hrs: Laboratory Results - last 24 hr 12/28/20 12/28/20 12/28/20 Range/Units 12:14 12:24 12:24 WBC 2.75 L (4.23-9.07) K/mm3 RBC 1.83 L (4.63-6.08) M/mm3 Hgb 5.8 L* D (13.7-17.5) gm/dl Hct 17.6 L (40.1-51.0) % MCV 96.2 H (79.0-92.2) fl MCH 31.7 (25.7-32.2) pg MCHC 33.0 (32.2-35.5) g/dl RDW Std Deviation 39.1 (35.1-43.9) fL Plt Count 313 D (163-337) K/mm3 MPV 10.1 (9.4-12.3) fl Neut % (Auto) 49.8 (34.0-67.9) % Lymph % (Auto) 43.6 (21.8-53.1) % [place] % (Auto) 5.1 L (5.3-12.2) % Eos % (Auto) 1.1 (0.8-7.0) Baso % (Auto) 0.4 (0.1-1.2) % Neut # (Auto) 1.37 L (1.78-5.38) K/mm3 Lymph # (Auto) 1.20 L (1.32-3.57) K/mm3 [place] # (Auto) 0.14 L (0.30-0.82) K/mm3 Eos # (Auto) 0.03 L (0.04-0.54) K/mm3 Baso # (Auto) 0.01 (0.01-0.08) K/mm3 Manual Slide Review Abnormal smear Sodium 139 (136-145) mEq/L Potassium 4.0 (3.5-5.1) mEq/L Chloride 105 (98-107) mEq/L Carbon Dioxide 27 (21-32) mEq/L Anion Gap 11.0 (5-15) BUN 17 (7-18) mg/dL Creatinine 0.7 (0.7-1.3) mg/dL Est Cr Clr Drug Dosing 170.45 mL/min Estimated GFR (MDRD) > 60 (>60) mL/min BUN/Creatinine Ratio 24.3 H (14-18) Glucose 97 (70-99) mg/dL Calcium 8.2 L (8.5-10.1) mg/dL Magnesium 1.9 (1.8-2.4) mg/dL Total Bilirubin 0.2 (0.2-1.0) mg/dL AST 23 (15-37) U/L ALT 33 (16-63) U/L Alkaline Phosphatase 62 (46-116) U/L C-Reactive Protein <0.2 (<1.0) mg/dL Total Protein 6.7 (6.4-8.2) g/dl Albumin 3.7 (3.4-5.0) g/dl Globulin 3.0 gm/dL Albumin/Globulin Ratio 1.2 (1-2) SARS-CoV-2 RNA (ROMELIA) Negative (NEGATIVE) Blood Type Gel Antibody Screen Crossmatch 12/28/20 Range/Units 12:24 WBC (4.23-9.07) K/mm3 RBC (4.63-6.08) M/mm3 Hgb (13.7-17.5) gm/dl Hct (40.1-51.0) % MCV (79.0-92.2) fl MCH (25.7-32.2) pg MCHC (32.2-35.5) g/dl RDW Std Deviation (35.1-43.9) fL Plt Count (163-337) K/mm3 MPV (9.4-12.3) fl Neut % (Auto) (34.0-67.9) % Lymph % (Auto) (21.8-53.1) % [place] % (Auto) (5.3-12.2) % Eos % (Auto) (0.8-7.0) Baso % (Auto) (0.1-1.2) % Neut # (Auto) (1.78-5.38) K/mm3 Lymph # (Auto) (1.32-3.57) K/mm3 [place] # (Auto) (0.30-0.82) K/mm3 Eos # (Auto) (0.04-0.54) K/mm3 Baso # (Auto) (0.01-0.08) K/mm3 Manual Slide Review Sodium (136-145) mEq/L Potassium (3.5-5.1) mEq/L Chloride (98-107) mEq/L Carbon Dioxide (21-32) mEq/L Anion Gap (5-15) BUN (7-18) mg/dL Creatinine (0.7-1.3) mg/dL Est Cr Clr Drug Dosing mL/min Estimated GFR (MDRD) (>60) mL/min BUN/Creatinine Ratio (14-18) Glucose (70-99) mg/dL Calcium (8.5-10.1) mg/dL Magnesium (1.8-2.4) mg/dL Total Bilirubin (0.2-1.0) mg/dL AST (15-37) U/L ALT (16-63) U/L Alkaline Phosphatase (46-116) U/L C-Reactive Protein (<1.0) mg/dL Total Protein (6.4-8.2) g/dl Albumin (3.4-5.0) g/dl Globulin gm/dL Albumin/Globulin Ratio (1-2) SARS-CoV-2 RNA (ROMELIA) (NEGATIVE) Blood Type O NEGATIVE Gel Antibody Screen Negative Crossmatch See Detail Result Diagrams: 12/28/20 12:24 12/28/20 12:24 Sepsis Event Note - Focused Exam Vital Signs: Vital Signs Temp Temp Pulse Resp BP Pulse Ox 12/28/20 16:49 36.8 C 70 16 99/52 L 12/28/20 16:35 36.4 C 70 16 100/76 12/28/20 16:30 36.9 C 74 16 93/55 L 12/28/20 14:46 36.9 C 66 16 101/57 L 12/28/20 14:36 37.0 C 74 16 90/53 L 12/28/20 14:04 70 18 102/79 97 12/28/20 12:13 36.7 C 71 20 117/72 99 Problem List Initiated/Reviewed/Updated: Yes Orders Last 24hrs: Active Orders 24 hr Category Date Time Status Patient Status [ADT] Routine ADT 12/28/20 16:52 Ordered Activity as Tolerated [RC] .Routine Care 12/28/20 16:52 Ordered Antiembolic Devices [RC] PER UNIT ROUTINE Care 12/28/20 16:55 Ordered Orthostatic Vital Signs [RC] ASDIRECTED Care 12/28/20 12:49 Active Oxygen Therapy [RC] PRN Care 12/28/20 16:52 Ordered Vital Signs [RC] Q4HR Care 12/28/20 16:52 Ordered Nothing Per Oral Diet [DIET] Diet 12/29/20 Breakfast Ordered Regular Diet [DIET] Diet 12/28/20 Breakfast Ordered BASIC METABOLIC PANEL,BMP [CHEM] AM Lab 12/29/20 05:11 Ordered CBC WITH AUTO DIFF [HEME] AM Lab 12/29/20 05:11 Ordered DRUG SCREEN, URINE [URCHEM] Stat Lab 12/28/20 16:50 Ordered HIV RAPID SCREEN RLFX COMFIRM [CHEM] Stat Lab 12/28/20 16:51 Ordered RED BLOOD CELLS LP [BBK] Stat Lab 12/28/20 12:24 Results TYPE AND SCREEN [BBK] Stat Lab 12/28/20 12:24 Results UA RFX TIGIST AND CULT IF INDIC [URIN] Stat Lab 12/28/20 12:48 Ordered Acetaminophen [TylenoL] Med 12/28/20 17:00 Ordered 975 mg PO Q8H Lactated Ringers @ 100 MLS/HR(1000ml Bag) Med 12/28/20 17:00 Ordered Lactated Ringers [Ringers, Lactated] 1,000 ml IV ASDIRECTED Melatonin Med 12/28/20 16:58 Ordered 3 mg PO BEDTIME PRN Ondansetron [Take Home: Ondansetron ODT 4 MG, 2 Tab Med 12/28/20 16:57 Ordered Pack] 4 mg PO Q6H PRN Pantoprazole [ProTONIX IV] Med 12/29/20 05:00 Ordered 40 mg IVPUSH Q12H Sodium Chloride 0.9% [Saline Flush] Med 12/28/20 12:47 Active 10 ml FLUSH ASDIRECTED PRN Sodium Chloride 0.9% [Saline Flush] Med 12/28/20 15:28 Active 10 ml FLUSH ONETIME PRN carBAMazepine [TEGretol Tab] Med 12/28/20 21:00 Ordered 200 mg PO BID diphenhydrAMINE [Benadryl] Med 12/28/20 16:59 Ordered 25 mg PO BEDTIME PRN Saline Lock Insert [OM.PC] Stat Oth 12/28/20 12:47 Ordered Sequential Compression Device [OM.PC] Routine Oth 12/28/20 16:52 Ordered Transfuse PRBC [Transfuse Red Blood Cells] [COMM] Stat Oth 12/28/20 13:38 Ordered Resuscitation Status Routine Resus Stat 12/28/20 16:52 Ordered Medication Orders Acetaminophen (Acetaminophen 325 Mg Tab) 975 mg PO Q8H LILLY Carbamazepine (Carbamazepine 200 Mg Tab) 200 mg PO BID LILLY Lactated Ringer's (Ringers, Lactated) 1,000 mls @ 100 mls/hr IV ASDIRECTED LILLY Melatonin (Melatonin 3 Mg Tab) 3 mg PO BEDTIME PRN PRN Reason: Insomnia Ondansetron HCl (Take Home: Ondansetron 4 Mg Tab.Dis, 2 Tab Pack) packet PO Q6H PRN PRN Reason: Nausea Pantoprazole Sodium (Pantoprazole 40 Mg Vial) 40 mg IVPUSH Q12H LILLY Sodium Chloride (Sodium Chloride 0.9% 10 Ml Syringe) 10 ml FLUSH ASDIRECTED PRN PRN Reason: Keep Vein Open Last Admin: 12/28/20 13:05 Dose: 10 ml Documented by: NIRAJ Sodium Chloride (Sodium Chloride 0.9% 10 Ml Syringe) 10 ml FLUSH ONETIME PRN PRN Reason: IV FLUSH Last Admin: 12/28/20 15:37 Dose: 10 ml Documented by: TIGIST Assessment/Plan Comment:: Anemia, although history is more suggestive of a subacute, insidious etiology. Description of coffee ground emesis and patient's epigastric pain raise possibility of peptic ulcer disease. 3 u pRBC ordered in ER for Hgb 5.8 g/dL. VSS and patient in no distress. Pantoprazole started in ER. COVID negative. -tylenol as needed for pain -regular diet, npo after midnight for planned EGD in AM -LR @ 100 cc/hr -iv protonix 40 mg bid -ordered urine toxicology and HIV test - Mortality Measure Prognosis:: Good
[2020-12-28] MEDS: Acetaminophen 325 MG Tab PO SCH (18:01)
[2020-12-28] MEDS ORDERED: Sodium Chloride 0.9% 1,000 ML ONE (19:48)
[2020-12-28] MEDS: carBAMazepine 200 MG Tab PO SCH (21:20)
[2020-12-29] MEDS: Acetaminophen 325 MG Tab PO SCH ×2 (01:01→10:04)
[2020-12-29] MEDS ORDERED: Pantoprazole 40 MG Vial IVPUSH SCH (05:00)
[2020-12-29] MEDS ORDERED: Ondansetron 4 MG Tab.DIS PO PRN (08:51)
--- NOTE | 2020-12-29 09:00 | PCM.PREANE ---
Preanesthetic Assessment - Procedure Proposed Procedure: egd - Anesthesia/Transfusion/Family Hx Anesthesia History: Prior Anesthesia Without Reaction Family History of Anesthesia Reaction: No Transfusion History: Prior Transfusion Without Reaction - Review of Systems General: Fatigue, Chills (Tuesday), Appetite (diminished appetite) Pulmonary: No Symptoms Cardiovascular: No Symptoms Gastrointestinal: Abdominal Pain (2 days ago), Decreased Appetite, Diarrhea, Vomiting (last 2 days) Neurological: Seizure (has them about once a month and had one tuesday- 2 days ago) Other: Reports: Depression (in high school) - Physical Assessment NPO Status Date: 12/28/20 NPO Status Time: 18:00 Vital Signs: Last Vital Signs Temp 98.1 F 12/29/20 08:10 Pulse 72 12/29/20 08:10 Resp 16 12/29/20 08:10 BP 94/49 L 12/29/20 08:10 Pulse Ox 98 12/29/20 08:10 Orthostatic Blood Pressure [ 94/57 Standing] Orthostatic Blood Pressure [ 95/56 Supine] Height: 6 ft Weight: 71.305 kg ASA Class: 2 Mental Status: Alert & Oriented x3 Airway Class: Mallampati = 1 Dentition: Reports: Broken Tooth/Teeth, Missing Tooth/Teeth, Caries Thyro-Mental Finger Breadths: 2 Mouth Opening Finger Breadths: 3 ROM/Head Extension: Full Lungs: Clear to Auscultation, Normal Respiratory Effort Cardiovascular: Regular Rate, Regular Rhythm - Lab Values: Laboratory Last Values WBC 5.75 K/mm3 (4.23-9.07) 12/29/20 05:40 RBC 2.85 M/mm3 (4.63-6.08) L 12/29/20 05:40 Hgb 8.6 gm/dl (13.7-17.5) L D 12/29/20 05:40 Hct 25.7 % (40.1-51.0) L 12/29/20 05:40 MCV 90.2 fl (79.0-92.2) D 12/29/20 05:40 MCH 30.2 pg (25.7-32.2) 12/29/20 05:40 MCHC 33.5 g/dl (32.2-35.5) 12/29/20 05:40 RDW Std Deviation 46.6 fL (35.1-43.9) H 12/29/20 05:40 Plt Count 281 K/mm3 (163-337) 12/29/20 05:40 MPV 10.1 fl (9.4-12.3) 12/29/20 05:40 Neut % (Auto) 73.3 % (34.0-67.9) H 12/29/20 05:40 Lymph % (Auto) 20.2 % (21.8-53.1) L 12/29/20 05:40 [place] % (Auto) 5.4 % (5.3-12.2) 12/29/20 05:40 Eos % (Auto) 0.7 (0.8-7.0) L 12/29/20 05:40 Baso % (Auto) 0.2 % (0.1-1.2) 12/29/20 05:40 Neut # (Auto) 4.22 K/mm3 (1.78-5.38) 12/29/20 05:40 Lymph # (Auto) 1.16 K/mm3 (1.32-3.57) L 12/29/20 05:40 [place] # (Auto) 0.31 K/mm3 (0.30-0.82) 12/29/20 05:40 Eos # (Auto) 0.04 K/mm3 (0.04-0.54) 12/29/20 05:40 Baso # (Auto) 0.01 K/mm3 (0.01-0.08) 12/29/20 05:40 Manual Slide Review Not Reportable 12/29/20 05:40 Sodium 140 mEq/L (136-145) 12/29/20 05:40 Potassium 4.3 mEq/L (3.5-5.1) 12/29/20 05:40 Chloride 106 mEq/L (98-107) 12/29/20 05:40 Carbon Dioxide 26 mEq/L (21-32) 12/29/20 05:40 Anion Gap 12.3 (5-15) 12/29/20 05:40 BUN 11 mg/dL (7-18) 12/29/20 05:40 Creatinine 0.7 mg/dL (0.7-1.3) 12/29/20 05:40 Est Cr Clr Drug Dosing 166.94 mL/min 12/29/20 05:40 Estimated GFR (MDRD) > 60 mL/min (>60) 12/29/20 05:40 BUN/Creatinine Ratio 15.7 (14-18) 12/29/20 05:40 Glucose 98 mg/dL (70-99) 12/29/20 05:40 Calcium 8.3 mg/dL (8.5-10.1) L 12/29/20 05:40 Magnesium 1.9 mg/dL (1.8-2.4) 12/28/20 12:24 Total Bilirubin 0.2 mg/dL (0.2-1.0) 12/28/20 12:24 AST 23 U/L (15-37) 12/28/20 12:24 ALT 33 U/L (16-63) 12/28/20 12:24 Alkaline Phosphatase 62 U/L (46-116) 12/28/20 12:24 C-Reactive Protein <0.2 mg/dL (<1.0) 12/28/20 12:24 Total Protein 6.7 g/dl (6.4-8.2) 12/28/20 12:24 Albumin 3.7 g/dl (3.4-5.0) 12/28/20 12:24 Globulin 3.0 gm/dL 12/28/20 12:24 Albumin/Globulin Ratio 1.2 (1-2) 12/28/20 12:24 Urine Color Yellow (Yellow) 12/28/20 17:20 Urine Appearance Clear (Clear) 12/28/20 17:20 Urine pH 7.0 (5.0-8.0) 12/28/20 17:20 Ur Specific [place] 1.020 (1.005-1.030) 12/28/20 17:20 Urine Protein Negative (Negative) 12/28/20 17:20 Urine Glucose (UA) Negative (Negative) 12/28/20 17:20 Urine Ketones Negative (Negative) 12/28/20 17:20 Urine Occult Blood Negative (Negative) 12/28/20 17:20 Urine Nitrite Negative (Negative) 12/28/20 17:20 Urine Bilirubin Negative (Negative) 12/28/20 17:20 Urine Urobilinogen 0.2 (0.2-1.0) 12/28/20 17:20 Ur Leukocyte Esterase Negative (Negative) 12/28/20 17:20 Urine Opiates Screen Negative (JEOYUI=475) 12/28/20 17:17 Ur Buprenorphine Scrn Negative (CUTOFF=10) 12/28/20 17:17 Ur Oxycodone Screen Negative (AMQ8SV=081) 12/28/20 17:17 Urine Methadone Screen Negative (NCO8RS=872) 12/28/20 17:17 Ur Propoxyphene Screen Negative (RPAMGT=769) 12/28/20 17:17 Ur Barbiturates Screen Negative (VWGEGU=717) 12/28/20 17:17 Ur Tricyclics Screen Negative (JGQBAX=320) 12/28/20 17:17 Ur Phencyclidine Scrn Negative (CUTOFF=25) 12/28/20 17:17 Ur Amphetamine Screen Negative (FJXAGH=008) 12/28/20 17:17 U Methamphetamines Scrn Negative (ZJHYBF=317) 12/28/20 17:17 U Benzodiazepines Scrn Negative (ZRPNSS=337) 12/28/20 17:17 U Cocaine Metab Screen Negative (DLVVAK=002) 12/28/20 17:17 U Marijuana (THC) Screen Presumptive positive (CUTOFF=50) H 12/28/20 17:17 HIV-1 Ab Rapid Screen Negative (NEGATIVE) 12/28/20 13:46 SARS-CoV-2 RNA (ROMELIA) Negative (NEGATIVE) 12/28/20 12:14 Blood Type O NEGATIVE 12/28/20 12:24 Gel Antibody Screen Negative 12/28/20 12:24 Crossmatch See Detail 12/28/20 13:46 - Allergies Allergies/Adverse Reactions: Allergies Allergy/AdvReac Type Severity Reaction Status Date / Time No Known Allergies Allergy Verified 12/28/20 12:15 - Blood Blood Available: No - Acknowledgements Anesthesia Type Planned: MAC Pt an Appropriate Candidate for the Planned Anesthesia: Yes Alternatives and Risks of Anesthesia Discussed w Pt/Guardian: Yes Pt/Guardian Understands and Agrees with Anesthesia Plan: Yes PreAnesthesia Questionnaire - Past Health History Medical/Surgical History: Denies Medical/Surgical History HEENT History: Reports: Other (See Below) Other HEENT History: poor dentition Cardiovascular History: Reports: None Respiratory History: Reports: Other (See Below) Other Respiratory History: lung issues at . Gastrointestinal History: Reports: Other (See Below) (abd pain- vominting and diarrhea) Genitourinary History: Reports: None [employer] History: Reports: None Neurological History: Reports: Seizure (once a month for 2 years- last one tuesday) Psychiatric History: Reports: ADHD, Depression, Psych Hospitalization(s), Suicide Attempt Endocrine/Metabolic History: Reports: None Hematologic History: Reports: Blood Transfusion(s) (5.8 hgb on admission-) Oncologic (Cancer) History: Reports: None - Infectious Disease History Infectious Disease History: Reports: None - Past Surgical History Male Surgical History: Reports: Circumcision - SUBSTANCE USE Tobacco Use Status *Q: Current Every Day Tobacco User (vape and marijuana) Tobacco Use Within Last Twelve Months: Vaping Second Hand Smoke Exposure: Yes Days Per Week of Alcohol Use: 2 Number of Drinks Per Day: 3 Total Drinks Per Week: 6 Date of Last Drink: 12/24/20 Time of Last Drink: 19:00 Recreational Drug Use History: Yes Recreational Drug Type: Reports: Cocaine (not now), LSD (Acid) (not now), Marijuana/Hashish, Methamphetamine (not now) - HOME MEDS Home Medications: Home Meds carBAMazepine [TEGretol Tab] 200 mg PO BID #60 tablet 09/11/20 [Rx] Ondansetron [Ondansetron ODT] 4 mg PO Q6H PRN #12 tab.rapdis 11/03/20 [Rx] - CURRENT (IN HOUSE) MEDS Current Meds: Current Medications Acetaminophen (Acetaminophen 325 Mg Tab) 975 mg PO Q8H [facility] Last Admin: 12/29/20 01:01 Dose: Not Given Documented by: Carbamazepine (Carbamazepine 200 Mg Tab) 200 mg PO BID [facility] Last Admin: 12/28/20 21:20 Dose: 200 mg Documented by: Diphenhydramine HCl (Diphenhydramine 25 Mg Cap) 25 mg PO BEDTIME PRN PRN Reason: Insomnia Lactated Ringer's (Ringers, Lactated) 1,000 mls @ 100 mls/hr IV ASDIRECTED [facility] Last Admin: 12/29/20 00:11 Dose: 100 mls/hr Documented by: Melatonin (Melatonin 3 Mg Tab) 3 mg PO BEDTIME PRN PRN Reason: Insomnia Ondansetron HCl (Ondansetron 4 Mg Tab.Dis) 4 mg PO Q6H PRN PRN Reason: Nausea Pantoprazole Sodium (Pantoprazole 40 Mg Vial) 40 mg IVPUSH Q12H [facility] Last Admin: 12/29/20 07:49 Dose: 40 mg Documented by: Sodium Chloride (Sodium Chloride 0.9% 10 Ml Syringe) 10 ml FLUSH ASDIRECTED PRN PRN Reason: Keep Vein Open Last Admin: 12/28/20 13:05 Dose: 10 ml Documented by: Discontinued Medications Sodium Chloride (Normal Saline) 1,000 mls @ 999 mls/hr IV ONETIME ONE Stop: 12/28/20 13:47 Last Admin: 12/28/20 13:05 Dose: 999 mls/hr Documented by: Sodium Chloride (Normal Saline) Confirm Administered Dose 1,000 mls @ as directed .ROUTE .STK-MED ONE Stop: 12/28/20 19:49 Last Admin: 12/28/20 21:20 Dose: 20 mls/hr Documented by: Iopamidol (Iopamidol 612 Mg/Ml 100 Ml Bottle) 100 ml IVPUSH ONETIME ONE Stop: 12/28/20 15:29 Last Admin: 12/28/20 15:37 Dose: 100 ml Documented by: Lorazepam (Lorazepam 2 Mg/Ml Sdv) 0.5 mg IVPUSH ONETIME ONE Stop: 12/28/20 16:58 Last Admin: 12/28/20 17:19 Dose: 0.5 mg Documented by: Ondansetron HCl (Ondansetron 4 Mg/2 Ml Sdv) 4 mg IVPUSH ONETIME ONE Stop: 12/28/20 12:48 Last Admin: 12/28/20 13:05 Dose: 4 mg Documented by: Ondansetron HCl (Take Home: Ondansetron 4 Mg Tab.Dis, 2 Tab Pack) 0 packet PO Q6H PRN PRN Reason: Nausea Pantoprazole Sodium (Pantoprazole 40 Mg Vial) 40 mg IVPUSH ONETIME ONE Stop: 12/28/20 16:47 Last Admin: 12/28/20 17:19 Dose: 40 mg Documented by: Sodium Chloride (Sodium Chloride 0.9% 10 Ml Syringe) 10 ml FLUSH ONETIME PRN PRN Reason: IV FLUSH Last Admin: 12/28/20 15:37 Dose: 10 ml Documented by:
[2020-12-29] MEDS ORDERED: Propofol 200 MG/20 ML SDV ONE ×2 (09:52→10:54)
[2020-12-29] MEDS ORDERED: fentaNYL 100 MCG/2 ML SDV ONE (09:52)
[2020-12-29] MEDS ORDERED: Midazolam 1 MG/ML 2 ML SDV ONE (09:52)
[2020-12-29] MEDS: carBAMazepine 200 MG Tab PO SCH (10:03)
[2020-12-29] MEDS ORDERED: Ondansetron 4 MG/2 ML SDV ONE (10:54)
--- NOTE | 2020-12-29 11:42 | PCM48HPAN ---
Post Anesthesia Note - EVALUATION WITHIN 48HRS OF ANESTHETIC Vital Signs in Normal Range: Yes Patient Participated in Evaluation: Yes Respiratory Function Stable: Yes Airway Patent: Yes Cardiovascular Function Stable: Yes Hydration Status Stable: Yes Pain Control Satisfactory: Yes Nausea and Vomiting Control Satisfactory: Yes Mental Status Recovered: Yes Vital Signs: Last Vital Signs Temp 36.7 C 12/29/20 08:10 Pulse 72 12/29/20 08:10 Resp 16 12/29/20 08:10 BP 94/49 L 12/29/20 08:10 Pulse Ox 98 12/29/20 08:10 Orthostatic Blood Pressure [ 94/57 Standing] Orthostatic Blood Pressure [ 95/56 Supine] - COMMENTS/OBSERVATIONS Free Text/Narrative:: pt sitting up talking, vss, report to RN
[2020-12-29 11:52] VITALS: BP 120/96; PULSE 65
--- NOTE | 2020-12-29 17:14 | PCM.PRNOTE ---
- Free Text/Narrative Note: Date: 12/29/2020 Procedure: diagnostic esophagogastroduodenoscopy Indication: anemia, epigastric pain, vomiting Endoscopist: Chon Bright MD Findings: no abnormal findings. Mucosal biopsies obtained from duodenum, antrum, esophagus. Detailed Report: The patient was taken to the endoscopy suite and placed in left lateral decubitus position. Time out was performed and monitored anesthesia care initiated. A bite block was placed. The endoscope was inserted and advanced to the duodenum with ease. The duodenal mucosa appeared normal and ampulla was seen. A biopsy from the bulb was obtained with cold forceps. The scope was withdrawn into the stomach. There was no evidence of old blood or hemorrhage. No ulceration or inflammatory change was noted. Biopsies were obtained from the antrum. On retroflexion, no hiatal hernia was evident. The scope was withdrawn into the esophagus. The Z-line appeared normal and no inflammatory change was appreciated. A biopsy of distal esophageal mucosa was obtained. Air was suctioned from the stomach prior to withdrawal of the scope. The patient tolerated the procedure well.
--- NOTE | 2020-12-29 17:17 | PCM.DCSUM1 ---
Discharge Summary - Hospital Course Free Text/Narrative:: Admitted from the ER on 12/28 with anemia, etiology unclear. Hgb was 5.6 g/dL. The patient denied signs of GI bleeding but he did have vomiting and epigastric pain raising concern for peptic ulcer disease. His issue seemed more chronic, he says he was transfused for anemia a few months ago but no etiology was identified. Upper endoscopy was unremarkable, and biopsies were obtained. He had a good response to transfusion of 3 u pRBC with Hgb 8.6 the following day. He was kept on pantoprazole. Testing for drug abuse and HIV was negative. He was deemed fit for discharge to home following endoscopy with plan for PCP follow up, repeat labs and further workup of his anemia. Diagnosis: Stroke: No - Discharge Data Discharge Date: 12/29/20 Discharge Disposition: Home, Self-Care 01 Condition: Stable - Referral to Home Health Primary Care Physician: Waylon London MD - Patient Instructions Diet: Usual Diet as Tolerated Showering/Bathing: May Shower - Discharge Plan *PRESCRIPTION DRUG MONITORING PROGRAM REVIEWED*: Not Applicable *COPY OF PRESCRIPTION DRUG MONITORING REPORT IN PATIENT DINORAH: Not Applicable Prescriptions/Med Rec: Pantoprazole [ProTONIX] 40 mg PO DAILY #30 tab.cr Home Medications: Home Meds carBAMazepine [TEGretol Tab] 200 mg PO BID #60 tablet 09/11/20 [Rx] Ondansetron [Ondansetron ODT] 4 mg PO Q6H PRN #12 tab.rapdis 11/03/20 [Rx] Pantoprazole [ProTONIX] 40 mg PO DAILY #30 tab.cr 12/29/20 [Rx] Patient Handouts: Electronic Cigarette Information, Preventing Marijuana Misuse Forms: ED Department Discharge Referrals: Farhad Mansfield NP [Nurse Practitioner] - 01/13/21 8:40 am (please attend the scheduled hospital follow up appointment with Dr. London's nurse practitioner. It is recommended that you have lab work rechecked at this follow up to see if hemoglobin is stable.) Waylon London MD [Primary Care Provider] - (A follow up appointment could not be made with Dr. Han as he is booked-scheduled follow up appointment with his nurse practitioner.) - Discharge Summary/Plan Comment DC Time >30 min.: No Total # of Minutes for Discharge Time: 15 - Patient Data Vitals - Most Recent: Last Vital Signs Temp 36.7 C 12/29/20 08:10 Pulse 65 12/29/20 11:40 Resp 16 12/29/20 08:10 BP 120/96 H 12/29/20 11:40 Pulse Ox 100 12/29/20 11:40 Orthostatic Blood Pressure [ 94/57 Standing] Orthostatic Blood Pressure [ 95/56 Supine] Weight - Most Recent: 71.305 kg I&O - Last 24 hours: Intake & Output 12/29/20 12/29/20 12/29/20 06:59 14:59 22:59 Intake Total 904 Balance 904 Lab Results - Last 24 hrs: Laboratory Results - last 24 hr 12/28/20 12/28/20 12/28/20 Range/Units 12:24 13:46 13:46 WBC (4.23-9.07) K/mm3 RBC (4.63-6.08) M/mm3 Hgb (13.7-17.5) gm/dl Hct (40.1-51.0) % MCV (79.0-92.2) fl MCH (25.7-32.2) pg MCHC (32.2-35.5) g/dl RDW Std Deviation (35.1-43.9) fL Plt Count (163-337) K/mm3 MPV (9.4-12.3) fl Neut % (Auto) (34.0-67.9) % Lymph % (Auto) (21.8-53.1) % [place] % (Auto) (5.3-12.2) % Eos % (Auto) (0.8-7.0) Baso % (Auto) (0.1-1.2) % Neut # (Auto) (1.78-5.38) K/mm3 Lymph # (Auto) (1.32-3.57) K/mm3 [place] # (Auto) (0.30-0.82) K/mm3 Eos # (Auto) (0.04-0.54) K/mm3 Baso # (Auto) (0.01-0.08) K/mm3 Manual Slide Review Sodium (136-145) mEq/L Potassium (3.5-5.1) mEq/L Chloride (98-107) mEq/L Carbon Dioxide (21-32) mEq/L Anion Gap (5-15) BUN (7-18) mg/dL Creatinine (0.7-1.3) mg/dL Est Cr Clr Drug Dosing mL/min Estimated GFR (MDRD) (>60) mL/min BUN/Creatinine Ratio (14-18) Glucose (70-99) mg/dL Calcium (8.5-10.1) mg/dL Urine Color (Yellow) Urine Appearance (Clear) Urine pH (5.0-8.0) Ur Specific [place] (1.005-1.030) Urine Protein (Negative) Urine Glucose (UA) (Negative) Urine Ketones (Negative) Urine Occult Blood (Negative) Urine Nitrite (Negative) Urine Bilirubin (Negative) Urine Urobilinogen (0.2-1.0) Ur Leukocyte Esterase (Negative) Urine Opiates Screen (JJWIMX=212) Ur Buprenorphine Scrn (CUTOFF=10) Ur Oxycodone Screen (VRC8EJ=824) Urine Methadone Screen (CQT9GA=643) Ur Propoxyphene Screen (GISHIV=584) Ur Barbiturates Screen (WGKPTO=238) Ur Tricyclics Screen (BRAWZL=474) Ur Phencyclidine Scrn (CUTOFF=25) Ur Amphetamine Screen (RXBPUO=598) U Methamphetamines Scrn (LUIEYP=862) U Benzodiazepines Scrn (OAPBMO=821) U Cocaine Metab Screen (XDVMMW=673) U Marijuana (THC) Screen (CUTOFF=50) HIV-1 Ab Rapid Screen Negative (NEGATIVE) Blood Type O NEGATIVE Gel Antibody Screen Negative Crossmatch See Detail See Detail 12/28/20 12/28/20 12/29/20 Range/Units 17:17 17:20 05:40 WBC 5.75 (4.23-9.07) K/mm3 RBC 2.85 L (4.63-6.08) M/mm3 Hgb 8.6 L D (13.7-17.5) gm/dl Hct 25.7 L (40.1-51.0) % MCV 90.2 D (79.0-92.2) fl MCH 30.2 (25.7-32.2) pg MCHC 33.5 (32.2-35.5) g/dl RDW Std Deviation 46.6 H (35.1-43.9) fL Plt Count 281 (163-337) K/mm3 MPV 10.1 (9.4-12.3) fl Neut % (Auto) 73.3 H (34.0-67.9) % Lymph % (Auto) 20.2 L (21.8-53.1) % [place] % (Auto) 5.4 (5.3-12.2) % Eos % (Auto) 0.7 L (0.8-7.0) Baso % (Auto) 0.2 (0.1-1.2) % Neut # (Auto) 4.22 (1.78-5.38) K/mm3 Lymph # (Auto) 1.16 L (1.32-3.57) K/mm3 [place] # (Auto) 0.31 (0.30-0.82) K/mm3 Eos # (Auto) 0.04 (0.04-0.54) K/mm3 Baso # (Auto) 0.01 (0.01-0.08) K/mm3 Manual Slide Review Not Reportable Sodium (136-145) mEq/L Potassium (3.5-5.1) mEq/L Chloride (98-107) mEq/L Carbon Dioxide (21-32) mEq/L Anion Gap (5-15) BUN (7-18) mg/dL Creatinine (0.7-1.3) mg/dL Est Cr Clr Drug Dosing mL/min Estimated GFR (MDRD) (>60) mL/min BUN/Creatinine Ratio (14-18) Glucose (70-99) mg/dL Calcium (8.5-10.1) mg/dL Urine Color Yellow (Yellow) Urine Appearance Clear (Clear) Urine pH 7.0 (5.0-8.0) Ur Specific [place] 1.020 (1.005-1.030) Urine Protein Negative (Negative) Urine Glucose (UA) Negative (Negative) Urine Ketones Negative (Negative) Urine Occult Blood Negative (Negative) Urine Nitrite Negative (Negative) Urine Bilirubin Negative (Negative) Urine Urobilinogen 0.2 (0.2-1.0) Ur Leukocyte Esterase Negative (Negative) Urine Opiates Screen Negative (HFDBTO=971) Ur Buprenorphine Scrn Negative (CUTOFF=10) Ur Oxycodone Screen Negative (KKG2XT=231) Urine Methadone Screen Negative (LHM7MA=915) Ur Propoxyphene Screen Negative (IXNVHM=438) Ur Barbiturates Screen Negative (VSABFE=929) Ur Tricyclics Screen Negative (RASVAC=923) Ur Phencyclidine Scrn Negative (CUTOFF=25) Ur Amphetamine Screen Negative (XTFNGJ=287) U Methamphetamines Scrn Negative (UXBQQQ=120) U Benzodiazepines Scrn Negative (JFWQOS=913) U Cocaine Metab Screen Negative (IRRZJB=350) U Marijuana (THC) Screen Presumptive positive H (CUTOFF=50) HIV-1 Ab Rapid Screen (NEGATIVE) Blood Type Gel Antibody Screen Crossmatch 12/29/20 Range/Units 05:40 WBC (4.23-9.07) K/mm3 RBC (4.63-6.08) M/mm3 Hgb (13.7-17.5) gm/dl Hct (40.1-51.0) % MCV (79.0-92.2) fl MCH (25.7-32.2) pg MCHC (32.2-35.5) g/dl RDW Std Deviation (35.1-43.9) fL Plt Count (163-337) K/mm3 MPV (9.4-12.3) fl Neut % (Auto) (34.0-67.9) % Lymph % (Auto) (21.8-53.1) % [place] % (Auto) (5.3-12.2) % Eos % (Auto) (0.8-7.0) Baso % (Auto) (0.1-1.2) % Neut # (Auto) (1.78-5.38) K/mm3 Lymph # (Auto) (1.32-3.57) K/mm3 [place] # (Auto) (0.30-0.82) K/mm3 Eos # (Auto) (0.04-0.54) K/mm3 Baso # (Auto) (0.01-0.08) K/mm3 Manual Slide Review Sodium 140 (136-145) mEq/L Potassium 4.3 (3.5-5.1) mEq/L Chloride 106 (98-107) mEq/L Carbon Dioxide 26 (21-32) mEq/L Anion Gap 12.3 (5-15) BUN 11 (7-18) mg/dL Creatinine 0.7 (0.7-1.3) mg/dL Est Cr Clr Drug Dosing 166.94 mL/min Estimated GFR (MDRD) > 60 (>60) mL/min BUN/Creatinine Ratio 15.7 (14-18) Glucose 98 (70-99) mg/dL Calcium 8.3 L (8.5-10.1) mg/dL Urine Color (Yellow) Urine Appearance (Clear) Urine pH (5.0-8.0) Ur Specific [place] (1.005-1.030) Urine Protein (Negative) Urine Glucose (UA) (Negative) Urine Ketones (Negative) Urine Occult Blood (Negative) Urine Nitrite (Negative) Urine Bilirubin (Negative) Urine Urobilinogen (0.2-1.0) Ur Leukocyte Esterase (Negative) Urine Opiates Screen (KQMGPK=706) Ur Buprenorphine Scrn (CUTOFF=10) Ur Oxycodone Screen (DKN2YG=733) Urine Methadone Screen (FCW8QW=332) Ur Propoxyphene Screen (NYUOXE=391) Ur Barbiturates Screen (NDVROE=510) Ur Tricyclics Screen (OAWOYN=945) Ur Phencyclidine Scrn (CUTOFF=25) Ur Amphetamine Screen (QQUBDN=208) U Methamphetamines Scrn (DYPRWQ=315) U Benzodiazepines Scrn (WWOQSW=605) U Cocaine Metab Screen (MTBOMK=247) U Marijuana (THC) Screen (CUTOFF=50) HIV-1 Ab Rapid Screen (NEGATIVE) Blood Type Gel Antibody Screen Crossmatch Med Orders - Current: Current Medications Discontinued Medications Acetaminophen (Acetaminophen 325 Mg Tab) 975 mg PO Q8H [facility] Last Admin: 12/29/20 10:04 Dose: Not Given Documented by: Carbamazepine (Carbamazepine 200 Mg Tab) 200 mg PO BID [facility] Last Admin: 12/29/20 10:03 Dose: 200 mg Documented by: Diphenhydramine HCl (Diphenhydramine 25 Mg Cap) 25 mg PO BEDTIME PRN PRN Reason: Insomnia Fentanyl (Fentanyl 100 Mcg/2 Ml Sdv) Confirm Administered Dose 100 mcg .ROUTE .STK-MED ONE Stop: 12/29/20 09:53 Sodium Chloride (Normal Saline) 1,000 mls @ 999 mls/hr IV ONETIME ONE Stop: 12/28/20 13:47 Last Admin: 12/28/20 13:05 Dose: 999 mls/hr Documented by: Lactated Ringer's (Ringers, Lactated) 1,000 mls @ 100 mls/hr IV ASDIRECTED LILLY Last Admin: 12/29/20 00:11 Dose: 100 mls/hr Documented by: Sodium Chloride (Normal Saline) Confirm Administered Dose 1,000 mls @ as directed .ROUTE .STK-MED ONE Stop: 12/28/20 19:49 Last Admin: 12/28/20 21:20 Dose: 20 mls/hr Documented by: Iopamidol (Iopamidol 612 Mg/Ml 100 Ml Bottle) 100 ml IVPUSH ONETIME ONE Stop: 12/28/20 15:29 Last Admin: 12/28/20 15:37 Dose: 100 ml Documented by: Lorazepam (Lorazepam 2 Mg/Ml Sdv) 0.5 mg IVPUSH ONETIME ONE Stop: 12/28/20 16:58 Last Admin: 12/28/20 17:19 Dose: 0.5 mg Documented by: Melatonin (Melatonin 3 Mg Tab) 3 mg PO BEDTIME PRN PRN Reason: Insomnia Midazolam HCl (Midazolam 1 Mg/Ml 2 Ml Sdv) Confirm Administered Dose 2 mg .ROUTE .STK-MED ONE Stop: 12/29/20 09:53 Ondansetron HCl (Ondansetron 4 Mg/2 Ml Sdv) 4 mg IVPUSH ONETIME ONE Stop: 12/28/20 12:48 Last Admin: 12/28/20 13:05 Dose: 4 mg Documented by: Ondansetron HCl (Take Home: Ondansetron 4 Mg Tab.Dis, 2 Tab Pack) 0 packet PO Q6H PRN PRN Reason: Nausea Ondansetron HCl (Ondansetron 4 Mg Tab.Dis) 4 mg PO Q6H PRN PRN Reason: Nausea Ondansetron HCl (Ondansetron 4 Mg/2 Ml Sdv) Confirm Administered Dose 4 mg .ROUTE .STK-MED ONE Stop: 12/29/20 10:55 Pantoprazole Sodium (Pantoprazole 40 Mg Vial) 40 mg IVPUSH ONETIME ONE Stop: 12/28/20 16:47 Last Admin: 12/28/20 17:19 Dose: 40 mg Documented by: Pantoprazole Sodium (Pantoprazole 40 Mg Vial) 40 mg IVPUSH Q12H [facility] Last Admin: 12/29/20 07:49 Dose: 40 mg Documented by: Propofol (Propofol 200 Mg/20 Ml Sdv) Confirm Administered Dose 400 mg .ROUTE .STK-MED ONE Stop: 12/29/20 09:53 Propofol (Propofol 200 Mg/20 Ml Sdv) Confirm Administered Dose 200 mg .ROUTE .STK-MED ONE Stop: 12/29/20 10:55 Sodium Chloride (Sodium Chloride 0.9% 10 Ml Syringe) 10 ml FLUSH ASDIRECTED PRN PRN Reason: Keep Vein Open Last Admin: 12/28/20 13:05 Dose: 10 ml Documented by: Sodium Chloride (Sodium Chloride 0.9% 10 Ml Syringe) 10 ml FLUSH ONETIME PRN PRN Reason: IV FLUSH Last Admin: 12/28/20 15:37 Dose: 10 ml Documented by:
== END 2020-12-29 13:10 | disposition home or self-care (01) ==
LOC: JD.ED 12:06 → JD.MS 17:22
PROVIDERS: ADMIT Surgery; ATTEND Surgery
DX: K20.0 Eosinophilic esophagitis (principal); K31.89 Other diseases of stomach and duodenum; D64.9 Anemia, unspecified; F17.210 Nicotine dependence, cigarettes, uncomplicated; Z01.812 Encounter for preprocedural laboratory examination; Z20.822 Contact with and (suspected) exposure to COVID-19; Z79.899 Other long term (current) drug therapy
CPT/HCPCS: 36415; 36430; 43239; 74177; 80048; 80053; 80306; 81003; 83735; 85025; 86140; 86850; 86900; 86901; 86922; 87449; 87635; 93005; 96374; 96375; 96376; 99285; A9270; C9113; G0378; J2060; J2250; J2405; J2704; J3010; J7030; J7120; P9016; Q9967; 00731; 93010; G0433; U0002

== ENCOUNTER 2021-01-18 10:58 | Emergency (ER) | payer SELFPAY ==
[2021-01-18] MEDS ORDERED: Sodium Chloride 0.9% 10 ML Syringe FLUSH PRN (10:59)
[2021-01-18] MEDS ORDERED: Sodium Chloride 0.9% 500 ML IV SCH (13:00)
--- NOTE | 2021-01-18 14:39 | EDM.PDOC ---
ED HPI GENERAL MEDICAL PROBLEM - General Chief Complaint: Cardiovascular Problem Stated Complaint: [facility] Time Seen by Provider: 01/18/21 10:59 Source of Information: Reports: Patient, EMS History Limitations: Reports: No Limitations - History of Present Illness INITIAL COMMENTS - FREE TEXT/NARRATIVE: The patient presents by [facility] for a seizure. The patient has a history of seizures. He takes tegretol for his seizures. His mom went to check on him this morning and found he was post ictal and confused. She was concerned he had a seizure. The patient says he did not miss a dose of his medicine. He did not drink and he was getting plenty of rest. He was seen here back on December 28 and he had abdominal pain, nausea and vomiting. He was found to have a Hgb of 5.8. He was given a blood transfusion and admitted. Dr Bright did an EGD and colonoscopy and found no source of bleed. He was guiac negative in the ER. He had iron studies done and they were normal to elevated. No real source for the anemia was found. He has been taking protonix. He has been observing his stools and there has been no blood and they are not dark. Onset: Sudden Duration: Hour(s): Location: Reports: Generalized Severity: Moderate Improves with: Reports: None Worsens with: Reports: None Associated Symptoms: Reports: No Other Symptoms - Related Data Allergies Allergy/AdvReac Type Severity Reaction Status Date / Time No Known Allergies Allergy Verified 01/18/21 11:04 Home Meds: Home Meds carBAMazepine [TEGretol Tab] 200 mg PO BID #60 tablet 09/11/20 [Rx] Pantoprazole [ProTONIX] 40 mg PO DAILY #30 tab.cr 12/29/20 [Rx] Past Medical History - Past Health History Medical/Surgical History: Denies Medical/Surgical History HEENT History: Reports: Other (See Below) Other HEENT History: poor dentition Cardiovascular History: Reports: None Respiratory History: Reports: Other (See Below) Other Respiratory History: lung issues at . Gastrointestinal History: Reports: Other (See Below) (abd pain- vominting and diarrhea) Genitourinary History: Reports: None [employer]ER History: Reports: None Neurological History: Reports: Seizure Psychiatric History: Reports: ADHD, Depression, Psych Hospitalization(s), Suicide Attempt Endocrine/Metabolic History: Reports: None Hematologic History: Reports: Anemia, Blood Transfusion(s) Oncologic (Cancer) History: Reports: None - Infectious Disease History Infectious Disease History: Reports: None - Past Surgical History Male Surgical History: Reports: Circumcision Social & Family History - Family History Family Medical History: No Pertinent Family History Endocrine/Metabolic: Reports: Diabetes, type II - Tobacco Use Years of Tobacco use: 2 - Caffeine Use Caffeine Use: Reports: Soda Other Caffeine Use: 1xday - Recreational Drug Use Recreational Drug Use: Yes Recreational Drug Type: Reports: Marijuana/Hashish Recreational Drug Use Frequency: Daily - Living Situation & Occupation Living situation: Reports: Single, Alone Occupation: Employed ([employer] ED ROS GENERAL - Review of Systems Review Of Systems: See Below Constitutional: Reports: No Symptoms HEENT: Reports: No Symptoms Respiratory: Reports: No Symptoms Cardiovascular: Reports: No Symptoms Endocrine: Reports: No Symptoms GI/Abdominal: Reports: No Symptoms : Reports: No Symptoms Musculoskeletal: Reports: No Symptoms ED EXAM, GENERAL - Physical Exam Exam: See Below Exam Limited By: No Limitations General Appearance: Alert, No Apparent Distress Ears: Normal External Exam Nose: Normal Inspection Head: Atraumatic, Normocephalic Neck: Normal Inspection Respiratory/Chest: No Respiratory Distress, Lungs Clear, Normal Breath Sounds Cardiovascular: Regular Rate, Rhythm, No Edema, No Murmur GI/Abdominal: Soft, Non-Tender, No Organomegaly, No Mass Back Exam: Normal Inspection Extremities: Normal Inspection Course - Vital Signs Last Recorded V/S: Last Vital Signs Temp 97.6 F 01/18/21 16:08 Pulse 65 01/18/21 17:00 Resp 16 01/18/21 17:00 BP 110/59 L 01/18/21 17:00 Pulse Ox 90 L 01/18/21 17:00 - Orders/Labs/Meds Orders: Active Orders 24 hr Category Date Time Status Cardiac Monitoring [RC] . DIRECTED Care 01/18/21 10:59 Active Peripheral IV Care [RC] . DIRECTED Care 01/18/21 10:59 Active Sodium Chloride 0.9% [Normal Saline] 500 ml Med 01/18/21 13:00 Active IV .BOLUS Sodium Chloride 0.9% [Saline Flush] Med 01/18/21 10:59 Active 10 ml FLUSH ASDIRECTED PRN Peripheral IV Insertion Adult [OM.PC] Stat Oth 01/18/21 10:59 Ordered Transfuse Red Blood Cells [COMM] Stat Ot 01/18/21 12:02 Ordered Medication Orders Sodium Chloride (Normal Saline) 500 mls @ 999 mls/hr IV .BOLUS LILLY Last Admin: 01/18/21 13:18 Dose: 999 mls/hr Documented by: GIANLUCA Sodium Chloride (Sodium Chloride 0.9% 10 Ml Syringe) 10 ml FLUSH ASDIRECTED PRN PRN Reason: Keep Vein Open Last Admin: 01/18/21 11:26 Dose: 10 ml Documented by: GIANLUCA Labs: Laboratory Tests 01/18/21 01/18/21 01/18/21 Range/Units 11:45 11:45 11:45 WBC 5.10 (4.23-9.07) K/mm3 RBC 1.99 L (4.63-6.08) M/mm3 Hgb 6.0 L* D (13.7-17.5) gm/dl Hct 18.1 L (40.1-51.0) % MCV 91.0 (79.0-92.2) fl MCH 30.2 (25.7-32.2) pg MCHC 33.1 (32.2-35.5) g/dl RDW Std Deviation 40.3 (35.1-43.9) fL Plt Count 277 D (163-337) K/mm3 MPV 9.6 (9.4-12.3) fl Neut % (Auto) 81.4 H (34.0-67.9) % Lymph % (Auto) 13.7 L (21.8-53.1) % [place] % (Auto) 4.1 L (5.3-12.2) % Eos % (Auto) 0.6 L (0.8-7.0) Baso % (Auto) 0.2 (0.1-1.2) % Neut # (Auto) 4.15 (1.78-5.38) K/mm3 Lymph # (Auto) 0.70 L (1.32-3.57) K/mm3 [place] # (Auto) 0.21 L (0.30-0.82) K/mm3 Eos # (Auto) 0.03 L (0.04-0.54) K/mm3 Baso # (Auto) 0.01 (0.01-0.08) K/mm3 Sodium 140 (136-145) mEq/L Potassium 4.5 (3.5-5.1) mEq/L Chloride 108 H (98-107) mEq/L Carbon Dioxide 25 (21-32) mEq/L Anion Gap 11.5 (5-15) BUN 15 (7-18) mg/dL Creatinine 0.8 (0.7-1.3) mg/dL Est Cr Clr Drug Dosing 167.26 mL/min Estimated GFR (MDRD) > 60 (>60) mL/min BUN/Creatinine Ratio 18.8 H (14-18) Glucose 95 (70-99) mg/dL Calcium 8.1 L (8.5-10.1) mg/dL Magnesium 2.4 (1.8-2.4) mg/dL Total Bilirubin 0.3 (0.2-1.0) mg/dL AST 22 (15-37) U/L ALT 24 (16-63) U/L Alkaline Phosphatase 61 (46-116) U/L Total Protein 6.5 (6.4-8.2) g/dl Albumin 3.7 (3.4-5.0) g/dl Globulin 2.8 gm/dL Albumin/Globulin Ratio 1.3 (1-2) Blood Type O NEGATIVE Gel Antibody Screen Negative Crossmatch See Detail Meds: Medications Generic Name Dose Route Start Last Admin Trade Name Freq PRN Reason Stop Dose Admin Sodium Chloride 500 mls @ 999 mls/hr 01/18/21 13:00 01/18/21 13:18 Normal Saline IV 999 mls/hr .BOLUS LILLY Administration Sodium Chloride 10 ml 01/18/21 10:59 01/18/21 11:26 Sodium Chloride 0.9% 10 Ml Syringe FLUSH 10 ml ASDIRECTED PRN Administration Keep Vein Open - Re-Assessments/Exams Free Text/Narrative Re-Assessment/Exam: 01/18/21 14:41 I ordered an IV saline lock and labs. He was feeling better just tired. His Hgb came back low at 6. I ordered 2 units of PRBcs. His CMP looks good. He did not want a rectal exam at this time. 01/18/21 17:38 The blood is done. I will discharge him home. He needs to see his provider and get a referral to hematology. Departure - Departure Time of Disposition: 17:40 Disposition: Home, Self-Care 01 Condition: Good Clinical Impression: Seizure Anemia Qualifiers: Anemia type: other cause Other causes of anemia: other cause, not classified Qualified Code(s): D64.89 - Other specified anemias Referrals: PCP,None [Primary Care Provider] - Waylon London MD [Physician] - 3 Days Forms: ED Department Discharge Additional Instructions: Keep taking your medications. Follow up with Dr London or one of his partners this week. You need a referral to hematology. Please return if you are worse. Sepsis Event Note (ED) - Focused Exam Vital Signs: Vital Signs Temp Temp Pulse Resp BP Pulse Ox 01/18/21 17:00 65 16 110/59 L 90 L 01/18/21 16:15 67 16 110/59 L 91 L 01/18/21 16:08 97.6 F 80 16 99/59 L 97 01/18/21 15:45 64 16 103/58 L 97 01/18/21 13:30 96.9 F 73 22 H 82/36 L 01/18/21 13:12 97.1 F 83 12 94/53 L 01/18/21 11:03 98.0 F 77 20 84/42 L 97 - My Orders Last 24 Hours: My Active Orders 01/18/21 10:59 Cardiac Monitoring [RC] . DIRECTED Peripheral IV Care [RC] . DIRECTED Sodium Chloride 0.9% [Saline Flush] 10 ml FLUSH ASDIRECTED PRN Peripheral IV Insertion Adult [OM.PC] Stat 01/18/21 12:02 Transfuse Red Blood Cells [COMM] Stat 01/18/21 13:00 Sodium Chloride 0.9% [Normal Saline] 500 ml IV .BOLUS - Assessment/Plan Last 24 Hours: My Active Orders 01/18/21 10:59 Cardiac Monitoring [RC] . DIRECTED Peripheral IV Care [RC] . DIRECTED Sodium Chloride 0.9% [Saline Flush] 10 ml FLUSH ASDIRECTED PRN Peripheral IV Insertion Adult [OM.PC] Stat 01/18/21 12:02 Transfuse Red Blood Cells [COMM] Stat 01/18/21 13:00 Sodium Chloride 0.9% [Normal Saline] 500 ml IV .BOLUS
[2021-01-18 17:49] VITALS: BP 106/65; PULSE 75
== END 2021-01-18 18:20 | disposition home or self-care (01) ==
LOC: JD.ED 10:58
DX: R56.9 Unspecified convulsions (principal); D64.89 Other specified anemias; Z79.899 Other long term (current) drug therapy; Z72.0 Tobacco use
CPT/HCPCS: 36415; 36430; 80053; 83735; 85025; 86850; 86900; 86901; 86922; 99284; J7040; P9016

== ENCOUNTER 2021-02-11 11:26 | Emergency (ER) | payer SELFPAY ==
[2021-02-11 11:37] VITALS: PULSE 99
--- NOTE | 2021-02-11 11:48 | EDM.PDOC ---
ED HPI GENERAL MEDICAL PROBLEM - General Chief Complaint: Neurological Problem Stated Complaint: ANSHUL AMB Time Seen by Provider: 02/11/21 11:43 Source of Information: Reports: EMS, Family History Limitations: Reports: Altered Mental Status - History of Present Illness INITIAL COMMENTS - FREE TEXT/NARRATIVE: Patient is a 20-year-old male presenting to the emergency room with a chief complaint of seizure. Patient presents via EMS and accompanied by mother. History provided by EMS and mother. Patient has a past history of seizure disorder, drug abuse including methamphetamine and cannabis and chronic anemia. Patient presents today for having 2 seizures this morning. Mother states that he was scheduled to have a blood transfusion this afternoon for his chronic ane lisa. However, he had one seizure this morning which lasted about 2 minutes while he was on the couch. As they were getting ready to go for his appointment he had a second seizure. This is when mother called EMS and had patient evaluated. According to EMS, when they arrived patient was not postictal but did appear pale. As they were transporting the patient from the department to the ambulance, the patient had a seizure which is described as generalized tonic- clonic. Seizure lasted for several minutes and was aborted with 2 mg of Ativan IV given by EMS. Since then, patient has been minimally responsive and was hypoxic so patient was placed on O2 via nonrebreather. Patient last had seizure in January when he was evaluated in this emergency room. Is also currently undergoing work-up for chronic anemia. Had endoscopies which were negative. Patient is scheduled to see night shift supervisor for further evaluation. Treatments SHIPPING/RECEIVING MANAGER: Reports: IV/IO, Other Medication(s) Other Treatments SHIPPING/RECEIVING MANAGER: Ativan - Related Data Allergies Allergy/AdvReac Type Severity Reaction Status Date / Time No Known Allergies Allergy Verified 02/11/21 11:36 Home Meds: Home Meds carBAMazepine [TEGretol Tab] 200 mg PO BID #60 tablet 09/11/20 [Rx] Pantoprazole [ProTONIX] 40 mg PO DAILY #30 tab.cr 12/29/20 [Rx] Past Medical History - Past Health History Medical/Surgical History: Denies Medical/Surgical History HEENT History: Reports: Other (See Below) Other HEENT History: poor dentition Cardiovascular History: Reports: None Respiratory History: Reports: Other (See Below) Other Respiratory History: lung issues at . Gastrointestinal History: Reports: Other (See Below) (abd pain- vominting and diarrhea) Genitourinary History: Reports: None [employer]TER History: Reports: None Neurological History: Reports: Seizure Psychiatric History: Reports: ADHD, Addiction, Depression, Psych Hospitalization(s), Suicide Attempt Endocrine/Metabolic History: Reports: None Hematologic History: Reports: Anemia, Blood Transfusion(s) Oncologic (Cancer) History: Reports: None - Infectious Disease History Infectious Disease History: Reports: None - Past Surgical History Male Surgical History: Reports: Circumcision Social & Family History - Family History Family Medical History: No Pertinent Family History Endocrine/Metabolic: Reports: Diabetes, type II - Caffeine Use Caffeine Use: Reports: Soda Other Caffeine Use: 1xday - Recreational Drug Use Recreational Drug Use: Yes Recreational Drug Type: Reports: Marijuana/Hashish - Living Situation & Occupation Living situation: Reports: Single, Alone Occupation: Employed ([employer]) ED ROS GENERAL - Review of Systems Review Of Systems: Unable To Obtain Reason Not Obtained: Altered mental status - Physical Exam Exam: See Below Text/Narrative:: I have reviewed the triage vital signs Const: Disheveled in appearance. Lying flat on stretcher with occasional spontaneous movements. Eyes: Pupils Equal and reactive to light bilaterally, no conjunctival injection HENT: Poor dentition throughout. No signs of trauma or swelling, Neck supple without meningismus CV: Regular Rate Rhythm, Warm, well-perfused extremities RESP: Unlabored respiratory effort GI: soft, non-tender, non-distended, no masses MSK: No gross deformities appreciated Skin: Warm, dry. No rashes Neuro: Eyes closed and not open to command or stimuli. Moving all 4 extremities spontaneously. Neuro exam limited secondary to patient's mental status. Psych: Unable to evaluate Course - Vital Signs Last Recorded V/S: Last Vital Signs Temp 36.1 C 02/11/21 11:32 Pulse 99 02/11/21 11:32 Resp 24 H 02/11/21 11:32 BP 137/72 02/11/21 11:32 Pulse Ox 95 02/11/21 11:32 - Orders/Labs/Meds Orders: Active Orders 24 hr Category Date Time Status Blood Glucose Check, Bedside [RC] ONETIME Care 02/11/21 11:31 Active Labs: Laboratory Tests 02/11/21 02/11/21 02/11/21 Range/Units 11:32 11:32 11:32 WBC 20.91 H (4.23-9.07) K/mm3 RBC 2.58 L (4.63-6.08) M/mm3 Hgb 7.6 L (13.7-17.5) gm/dl Hct 23.8 L (40.1-51.0) % MCV 92.2 (79.0-92.2) fl MCH 29.5 (25.7-32.2) pg MCHC 31.9 L (32.2-35.5) g/dl RDW Std Deviation 41.4 (35.1-43.9) fL Plt Count 733 H D (163-337) K/mm3 MPV 10.2 (9.4-12.3) fl Neut % (Auto) 68.1 H (34.0-67.9) % Lymph % (Auto) 26.5 (21.8-53.1) % [place] % (Auto) 4.7 L (5.3-12.2) % Eos % (Auto) 0.3 L (0.8-7.0) Baso % (Auto) 0.1 (0.1-1.2) % Neut # (Auto) 14.22 H (1.78-5.38) K/mm3 Lymph # (Auto) 5.55 H (1.32-3.57) K/mm3 [place] # (Auto) 0.99 H (0.30-0.82) K/mm3 Eos # (Auto) 0.06 (0.04-0.54) K/mm3 Baso # (Auto) 0.03 (0.01-0.08) K/mm3 Manual Slide Review Abnormal smear Sodium 143 (136-145) mEq/L Potassium 3.7 (3.5-5.1) mEq/L Chloride 101 (98-107) mEq/L Carbon Dioxide 9 L D (21-32) mEq/L Anion Gap 36.7 H (5-15) BUN 16 (7-18) mg/dL Creatinine 1.6 H (0.7-1.3) mg/dL Est Cr Clr Drug Dosing 79.49 mL/min Estimated GFR (MDRD) 54 (>60) mL/min BUN/Creatinine Ratio 10.0 L (14-18) Glucose 226 H (70-99) mg/dL Calcium 9.2 (8.5-10.1) mg/dL Total Bilirubin 0.2 (0.2-1.0) mg/dL AST 41 H (15-37) U/L ALT 44 (16-63) U/L Alkaline Phosphatase 87 (46-116) U/L Total Protein 8.1 (6.4-8.2) g/dl Albumin 4.4 (3.4-5.0) g/dl Globulin 3.7 gm/dL Albumin/Globulin Ratio 1.2 (1-2) Ethyl Alcohol 0.00 (0.00) gm% Blood Type O NEGATIVE Gel Antibody Screen Negative Meds: Medications Discontinued Medications Generic Name Dose Route Start Last Admin Trade Name Freq PRN Reason Stop Dose Admin Lactated Ringer's 1,000 mls @ 1,000 mls/hr 02/11/21 12:20 02/11/21 12:52 Ringers, Lactated IV 02/11/21 13:19 1,000 mls/hr .BOLUS ONE Administration Departure - Departure Time of Disposition: 14:20 Disposition: Home, Self-Care 01 Clinical Impression: Dehydration, Seizure disorder - Discharge Information *PRESCRIPTION DRUG MONITORING PROGRAM REVIEWED*: Not Applicable *COPY OF PRESCRIPTION DRUG MONITORING REPORT IN PATIENT DINORAH: Not Applicable Forms: ED Department Discharge Sepsis Event Note (ED) - Evaluation Sepsis Screening Result: No Definite Risk - Focused Exam Vital Signs: Vital Signs Temp Pulse Resp BP Pulse Ox 02/11/21 11:32 36.1 C 99 24 H 137/72 95 - My Orders Last 24 Hours: My Active Orders 02/11/21 11:31 Blood Glucose Check, Bedside [RC] ONETIME - Assessment/Plan Last 24 Hours: My Active Orders 02/11/21 11:31 Blood Glucose Check, Bedside [RC] ONETIME Assessment:: Patient is a 20-year-old male presenting to the emergency room with chief complaint of seizure. Patient initially sedated and postictal on arrival, but patient was maintaining a normal airway and end-tidal CO2 was monitored throughout ER stay. Patient gradually became more awake to the point where he was back to his baseline mental status. Patient states he feels dehydrated and is thirsty. Otherwise has no complaints. No indication for emergent head imaging at this time given patient had no history of trauma and has a known seizure disorder. Laboratory studies reviewed demonstrate elevated blood cell count, platelets and a hemoglobin of 7.6. No indication for emergent blood transfusion at this time. Patient does have outpatient transfusion set up for tomorrow. Leukocytosis and tachycardia likely secondary to seizure and consideration for sepsis was made however seem extremely low likelihood given patient's presentation. Etiology of seizure is likely secondary to underlying disorder and may be confounded with continued drug abuse. Patient has outpatient follow- up with both hematology and neurology. No other work-up indicated at this time. Patient ambulating in the emergency room. Tolerating p.o. Return precautions discussed. Patient discharged home with mother.
[2021-02-11] MEDS ORDERED: Lactated Ringers 1,000 ML IV ONE (12:20)
[2021-02-11 14:59] VITALS: BP 127/70
== END 2021-02-11 14:48 | disposition home or self-care (01) ==
LOC: JD.ED 11:26
DX: G40.909 Epilepsy, unspecified, not intractable, without status epilepticus (principal); E86.0 Dehydration; Z79.899 Other long term (current) drug therapy
CPT/HCPCS: 36415; 80053; 80307; 82947; 85025; 86850; 86900; 86901; 99284; J7120

== ENCOUNTER 2021-03-10 11:03 | Emergency (ER) | payer SELFPAY ==
[2021-03-10 11:27] VITALS: BP 110/76; PULSE 84
[2021-03-10] MEDS ORDERED: Metoclopramide 10 MG/2 ML SDV IVPUSH ONE (11:30)
[2021-03-10] MEDS ORDERED: Sodium Chloride 0.9% 1,000 ML IV ONE (11:31)
[2021-03-10] MEDS ORDERED: Sodium Chloride 0.9% 10 ML Syringe FLUSH PRN (11:39)
--- NOTE | 2021-03-10 12:06 | EDM.PDOC ---
ED HPI GENERAL MEDICAL PROBLEM - General Chief Complaint: Neurological Problem Stated Complaint: SEIZURE Time Seen by Provider: 03/10/21 11:19 Source of Information: Reports: Patient, Family History Limitations: Reports: No Limitations - History of Present Illness INITIAL COMMENTS - FREE TEXT/NARRATIVE: 20-year-old male presents the emergency department with complaints of a seizure just prior to arrival. Patient does have a significant history of seizure disorder and has been seen here on many occasions in the emergency department. Of note, patient has been having seizures for approximately the past 2 years and has not schedule an appointment to see a neurologist. Currently is taking Tegretol for seizure disorder as he states it was prescribed to him here in the emergency department. Per the patient's mom she heard disruption in the patient's room this morning and walked in and the patient was having a seizure. She states that patient was having full body convulsions and was incontinent of urine. She states that the seizure lasted approximately 2 minutes. She states after that he immediately began vomiting. She was assisting him to the bathroom and he almost fell a couple of times however she was able to catch him. Patient also has a history of chronic anemia and is currently seeing hematology. Currently taking Tegretol for his seizure disorder and states he did miss a couple doses approximately 2 days ago due to vomiting. He states he has been eating and drinking well however over the past 2 days he has not been able to sleep and has not been going to bed till 6 or 7 in the morning. He does have a history of drug abuse and admits to smoking marijuana daily. He states that when his stomach is upset he smokes marijuana and this does seem to calm his nausea. Denies any recent fever, chills, cough or shortness of breath. Abdomen Pain Score (Numeric/FACES): 3 - Related Data Allergies Allergy/AdvReac Type Severity Reaction Status Date / Time No Known Allergies Allergy Verified 03/10/21 11:27 Home Meds: Home Meds Pantoprazole [ProTONIX] 40 mg PO DAILY #30 tab.cr 12/29/20 [Rx] levETIRAcetam [Keppra] 500 mg PO BID 03/10/21 [History] predniSONE [Prednisone] 20 mg PO DAILY 03/10/21 [History] Past Medical History - Past Health History Medical/Surgical History: Denies Medical/Surgical History HEENT History: Reports: Other (See Below) Other HEENT History: poor dentition Cardiovascular History: Reports: None Respiratory History: Reports: Other (See Below) Other Respiratory History: lung issues at , "tore his lung" at according to mom. Gastrointestinal History: Reports: GERD Genitourinary History: Reports: None [employer] ED[employer]ATION History: Reports: None Neurological History: Reports: Seizure Psychiatric History: Reports: ADHD, Addiction, Depression, Psych Hospitalization(s), Suicide Attempt Endocrine/Metabolic History: Reports: None Hematologic History: Reports: Anemia, Blood Transfusion(s) Oncologic (Cancer) History: Reports: None - Infectious Disease History Infectious Disease History: Reports: None - Past Surgical History Male Surgical History: Reports: Circumcision Social & Family History - Family History Family Medical History: No Pertinent Family History Endocrine/Metabolic: Reports: Diabetes, type II - Tobacco Use Tobacco Use Status *Q: Current Some Day Tobacco User Years of Tobacco use: 4 Packs/Tins Daily: 0.5 - Caffeine Use Caffeine Use: Reports: Soda Other Caffeine Use: 1xday - Alcohol Use Days Per Week of Alcohol Use: 4 Number of Drinks Per Day: 4 Total Drinks Per Week: 16 - Recreational Drug Use Recreational Drug Use: Yes Recreational Drug Type: Reports: Marijuana/Hashish Recreational Drug Use Frequency: Daily - Living Situation & Occupation Living situation: Reports: Single, Alone Occupation: Employed ([employer] Referrals) ED ROS GENERAL - Review of Systems Review Of Systems: Comprehensive ROS is negative, except as noted in HPI. - Physical Exam Exam: See Below Exam Limited By: No Limitations General Appearance: Alert, WD/WN, Mild Distress (Due to nausea and vomiting) Ears: Normal External Exam, Hearing Grossly Normal Nose: Normal Inspection Throat/Mouth: Normal Inspection, Normal Lips, Normal Voice, No Airway Compromise Head Exam: Atraumatic Neck: Normal Inspection, Supple Respiratory/Chest: No Respiratory Distress, Lungs Clear, Normal Breath Sounds, No Accessory Muscle Use, Chest Non-Tender Cardiovascular: Normal Peripheral Pulses, Regular Rate, Rhythm, No Edema, No Murmur GI/Abdominal: Normal Bowel Sounds, Soft, Non-Tender, No Distention Rectal (Males) Exam: Deferred Neuro Exam (Abbreviated): Alert, Oriented, CN II-XII Intact, Normal Cognition Back Exam: Normal Inspection Extremities: Normal Inspection Psychiatric: Normal Affect, Normal Mood Skin Exam: Warm, Dry, Intact, No Rash, Pallor Course - Vital Signs Text/Narrative:: As stated above, patient presents with history of grand mal seizure lasting approximately 2 minutes witnessed by his mother this morning. This occurred just prior to arrival. Patient presents to the ER awake, alert and oriented however he is nauseated and dry heaving. Patient is hemodynamically stable. Physical exam is essentially unremarkable. I do not feel we need to do any scanning of the patient's head due to the fact that he did not fall or hit his head. Will obtain lab studies, urine drug screen, normal saline 1 a liter wide open as well as Reglan for nausea and vomiting. Last Recorded V/S: Last Vital Signs Temp 96.7 F L 03/10/21 11:15 Pulse 84 03/10/21 11:15 Resp 24 H 03/10/21 11:15 BP 110/76 03/10/21 11:15 Pulse Ox 98 03/10/21 11:15 - Orders/Labs/Meds Orders: Active Orders 24 hr Category Date Time Status Sodium Chloride 0.9% [Saline Flush] Med 03/10/21 11:39 Active 10 ml FLUSH ASDIRECTED PRN Saline Lock Insert [OM.PC] Stat Oth 03/10/21 11:39 Ordered Medication Orders Sodium Chloride (Sodium Chloride 0.9% 10 Ml Syringe) 10 ml FLUSH ASDIRECTED PRN PRN Reason: Keep Vein Open Last Admin: 03/10/21 12:00 Dose: 10 ml Documented by: HERMMIC Labs: Laboratory Tests 03/10/21 03/10/21 03/10/21 Range/Units 11:57 11:57 11:57 WBC 8.06 (4.23-9.07) K/mm3 RBC 3.70 L (4.63-6.08) M/mm3 Hgb 12.8 L D (13.7-17.5) gm/dl Hct 39.2 L (40.1-51.0) % MCV 105.9 H D (79.0-92.2) fl MCH 34.6 H (25.7-32.2) pg MCHC 32.7 (32.2-35.5) g/dl Plt Count 253 D (163-337) K/mm3 MPV 9.7 (9.4-12.3) fl Neut % (Auto) 76.2 H (34.0-67.9) % Lymph % (Auto) 15.5 L (21.8-53.1) % [place] % (Auto) 7.2 (5.3-12.2) % Eos % (Auto) 0.4 L (0.8-7.0) Baso % (Auto) 0.2 (0.1-1.2) % Neut # (Auto) 6.14 H (1.78-5.38) K/mm3 Lymph # (Auto) 1.25 L (1.32-3.57) K/mm3 [place] # (Auto) 0.58 (0.30-0.82) K/mm3 Eos # (Auto) 0.03 L (0.04-0.54) K/mm3 Baso # (Auto) 0.02 (0.01-0.08) K/mm3 Manual Slide Review Abnormal smear Sodium 140 (136-145) mEq/L Potassium 4.4 (3.5-5.1) mEq/L Chloride 103 (98-107) mEq/L Carbon Dioxide 29 D (21-32) mEq/L Anion Gap 12.4 (5-15) BUN 8 (7-18) mg/dL Creatinine 0.8 (0.7-1.3) mg/dL Est Cr Clr Drug Dosing 145.52 mL/min Estimated GFR (MDRD) > 60 (>60) mL/min BUN/Creatinine Ratio 10.0 L (14-18) Glucose 103 H (70-99) mg/dL Lactic Acid 1.6 (0.4-2.0) mmol/L Calcium 9.6 (8.5-10.1) mg/dL Magnesium 2.2 (1.8-2.4) mg/dL Total Bilirubin 0.8 (0.2-1.0) mg/dL AST 23 (15-37) U/L ALT 33 (16-63) U/L Alkaline Phosphatase 76 (46-116) U/L C-Reactive Protein <0.2 (<1.0) mg/dL Total Protein 7.5 (6.4-8.2) g/dl Albumin 4.3 (3.4-5.0) g/dl Globulin 3.2 gm/dL Albumin/Globulin Ratio 1.3 (1-2) Urine Color (Yellow) Urine Appearance (Clear) Urine pH (5.0-8.0) Ur Specific [place] (1.005-1.030) Urine Protein (Negative) Urine Glucose (UA) (Negative) Urine Ketones (Negative) Urine Occult Blood (Negative) Urine Nitrite (Negative) Urine Bilirubin (Negative) Urine Urobilinogen (0.2-1.0) Ur Leukocyte Esterase (Negative) Urine Opiates Screen (HDIJRW=075) Ur Buprenorphine Scrn (CUTOFF=10) Ur Oxycodone Screen (ASN9OY=558) Urine Methadone Screen (MGY6NI=711) Ur Propoxyphene Screen (MNWRKH=630) Ur Barbiturates Screen (ETNMLI=949) Ur Tricyclics Screen (WZKNRB=766) Ur Phencyclidine Scrn (CUTOFF=25) Ur Amphetamine Screen (EPLFJU=116) U Methamphetamines Scrn (PNDYJH=969) U Benzodiazepines Scrn (EQLQJC=559) U Cocaine Metab Screen (RXWQGV=295) U Marijuana (THC) Screen (CUTOFF=50) Ethyl Alcohol 0.00 (0.00) gm% 03/10/21 03/10/21 Range/Units 14:19 14:19 WBC (4.23-9.07) K/mm3 RBC (4.63-6.08) M/mm3 Hgb (13.7-17.5) gm/dl Hct (40.1-51.0) % MCV (79.0-92.2) fl MCH (25.7-32.2) pg MCHC (32.2-35.5) g/dl Plt Count (163-337) K/mm3 MPV (9.4-12.3) fl Neut % (Auto) (34.0-67.9) % Lymph % (Auto) (21.8-53.1) % [place] % (Auto) (5.3-12.2) % Eos % (Auto) (0.8-7.0) Baso % (Auto) (0.1-1.2) % Neut # (Auto) (1.78-5.38) K/mm3 Lymph # (Auto) (1.32-3.57) K/mm3 [place] # (Auto) (0.30-0.82) K/mm3 Eos # (Auto) (0.04-0.54) K/mm3 Baso # (Auto) (0.01-0.08) K/mm3 Manual Slide Review Sodium (136-145) mEq/L Potassium (3.5-5.1) mEq/L Chloride (98-107) mEq/L Carbon Dioxide (21-32) mEq/L Anion Gap (5-15) BUN (7-18) mg/dL Creatinine (0.7-1.3) mg/dL Est Cr Clr Drug Dosing mL/min Estimated GFR (MDRD) (>60) mL/min BUN/Creatinine Ratio (14-18) Glucose (70-99) mg/dL Lactic Acid (0.4-2.0) mmol/L Calcium (8.5-10.1) mg/dL Magnesium (1.8-2.4) mg/dL Total Bilirubin (0.2-1.0) mg/dL AST (15-37) U/L ALT (16-63) U/L Alkaline Phosphatase (46-116) U/L C-Reactive Protein (<1.0) mg/dL Total Protein (6.4-8.2) g/dl Albumin (3.4-5.0) g/dl Globulin gm/dL Albumin/Globulin Ratio (1-2) Urine Color Yellow (Yellow) Urine Appearance Clear (Clear) Urine pH 7.0 (5.0-8.0) Ur Specific [place] 1.025 (1.005-1.030) Urine Protein Negative (Negative) Urine Glucose (UA) Negative (Negative) Urine Ketones Negative (Negative) Urine Occult Blood Negative (Negative) Urine Nitrite Negative (Negative) Urine Bilirubin Negative (Negative) Urine Urobilinogen 0.2 (0.2-1.0) Ur Leukocyte Esterase Negative (Negative) Urine Opiates Screen Negative (RXELIU=975) Ur Buprenorphine Scrn Negative (CUTOFF=10) Ur Oxycodone Screen Negative (GZY8RZ=875) Urine Methadone Screen Negative (SBA9IG=700) Ur Propoxyphene Screen Negative (LMCCHP=658) Ur Barbiturates Screen Negative (WXAYRZ=680) Ur Tricyclics Screen Negative (HFZLKX=768) Ur Phencyclidine Scrn Negative (CUTOFF=25) Ur Amphetamine Screen Negative (HYDFAV=772) U Methamphetamines Scrn Negative (PMGCTL=650) U Benzodiazepines Scrn Negative (EJYEFH=610) U Cocaine Metab Screen Negative (XZGNZV=833) U Marijuana (THC) Screen Presumptive positive H (CUTOFF=50) Ethyl Alcohol (0.00) gm% Meds: Medications Generic Name Dose Route Start Last Admin Trade Name Freq PRN Reason Stop Dose Admin Sodium Chloride 10 ml 03/10/21 11:39 03/10/21 12:00 Sodium Chloride 0.9% 10 Ml Syringe FLUSH 10 ml ASDIRECTED PRN Administration Keep Vein Open Discontinued Medications Generic Name Dose Route Start Last Admin Trade Name Freq PRN Reason Stop Dose Admin Sodium Chloride 1,000 mls @ 999 mls/hr 03/10/21 11:31 03/10/21 12:00 Normal Saline IV 03/10/21 12:31 999 mls/hr ONETIME ONE Administration Metoclopramide HCl 5 mg 03/10/21 11:30 03/10/21 12:00 Metoclopramide 10 Mg/2 Ml Sdv IVPUSH 03/10/21 11:31 5 mg ONETIME ONE Administration Ondansetron HCl 4 mg 03/10/21 13:29 03/10/21 14:26 Ondansetron 4 Mg/2 Ml Sdv IVPUSH 03/10/21 13:30 Not Given ONETIME ONE - Re-Assessments/Exams Free Text/Narrative Re-Assessment/Exam: 03/10/21 12:58 Hematology reveals a WBC of 8.06, hemoglobin 12.8, hematocrit 39.2, platelet count 253 Chemistry reveals a sodium of 140, potassium 4.4, anion gap 12.4, BUN 8, creatinine 0.8, glucose 103, lactic acid 1.6, magnesium 2.2, C-reactive protein less than 0.2 Toxicology reveals a blood alcohol of 0.00 Patient's lactic acid is not elevated so it is questionable whether or not he has had an actual seizure. Lab studies otherwise are essentially unremarkable. 03/10/21 13:28 Patient states he is feeling much better however he states he is still slightly nauseated. We will give him a dose of IV Zofran to see if we can fully abort the nausea and then patient likely will be discharged home. 03/10/21 14:55 Patient refused Zofran from nursing staff. He states he is feeling well and requesting to go home. Departure - Departure Time of Disposition: 14:56 Disposition: Home, Self-Care 01 Condition: Good Clinical Impression: Vomiting, Seizure disorder - Discharge Information Referrals: Chad Sneed MD [Primary Care Provider] - Forms: ED Department Discharge Additional Instructions: You were seen in the emergency department today after having a seizure and then developing nausea and vomiting. While in the emergency department you did receive 1 L of IV fluids and nausea medication and this did seem to resolve the vomiting. Lab studies were completed and were essentially unremarkable. Your hemoglobin level today was 12.8. Recommend that you go home and rest and drink plenty of fluids. Be sure to take your seizure medication as prescribed. Get plenty of sleep. Follow-up with your primary care provider in about 1 week for reevaluation. Also recommend scheduled with a neurologist to evaluate seizure disorder. Sepsis Event Note (ED) - Evaluation Sepsis Screening Result: No Definite Risk - Focused Exam Vital Signs: Vital Signs Temp Pulse Resp BP Pulse Ox 03/10/21 11:15 96.7 F L 84 24 H 110/76 98 - My Orders Last 24 Hours: My Active Orders 03/10/21 11:39 Sodium Chloride 0.9% [Saline Flush] 10 ml FLUSH ASDIRECTED PRN Saline Lock Insert [OM.PC] Stat - Assessment/Plan Last 24 Hours: My Active Orders 03/10/21 11:39 Sodium Chloride 0.9% [Saline Flush] 10 ml FLUSH ASDIRECTED PRN Saline Lock Insert [OM.PC] Stat
[2021-03-10] MEDS ORDERED: Ondansetron 4 MG/2 ML SDV IVPUSH ONE (13:29)
== END 2021-03-10 15:18 | disposition home or self-care (01) ==
LOC: JD.ED 11:03
DX: G40.909 Epilepsy, unspecified, not intractable, without status epilepticus (principal); R11.10 Vomiting, unspecified; K21.9 Gastro-esophageal reflux disease without esophagitis; Z79.899 Other long term (current) drug therapy; Z72.0 Tobacco use
CPT/HCPCS: 36415; 80053; 80306; 80307; 81003; 83605; 83735; 85025; 86140; 96374; 99284; J2765; J7030

== ENCOUNTER 2021-06-13 21:02 | Emergency (ER) | payer SELFPAY ==
[2021-06-13] MEDS ORDERED: propofoL 100 ML ONE (21:16)
[2021-06-13] MEDS: propofoL 100 ML IV SCH ×2 (21:20→23:49)
[2021-06-13] MEDS ORDERED: Propofol 200 MG/20 ML SDV ONE (21:30)
[2021-06-13] MEDS ORDERED: Sodium Chloride 0.9% 1,000 ML IV ONE ×2 (21:52→22:57)
[2021-06-13 22:00] LABS: ACETAMINOPHEN 0 ug/mL (10-30)
[2021-06-13] MEDS ORDERED: propofoL 200 ML ONE (22:00)
[2021-06-13] MEDS ORDERED: Rocuronium 50 MG/5 ML Vial IVPUSH STA (22:13)
[2021-06-13] MEDS: Potassium Chloride 10 MEQ in Premix Bag 1 BAG IV SCH (23:00)
[2021-06-13] MEDS ORDERED: levETIRAcetam 1,500 MG in Sodium Chloride 0.9% 100 ML IV STA (23:39)
[2021-06-13] MEDS ORDERED: Rocuronium 50 MG/5 ML Vial IV STA (23:49)
[2021-06-13] MEDS ORDERED: Rocuronium 100 MG/10 ML MDV IV STA (23:49)
[2021-06-14] MEDS: Potassium Chloride 10 MEQ in Premix Bag 1 BAG IV SCH (00:28)
[2021-06-14] MEDS: propofoL 100 ML IV SCH (02:07)
[2021-06-14 02:51] VITALS: BP 119/72; PULSE 86
== END 2021-06-14 02:20 ==
LOC: JD.ED 21:02
DX: G40.901 Epilepsy, unspecified, not intractable, with status epilepticus (principal); E87.6 Hypokalemia; E87.2 Acidosis; R73.9 Hyperglycemia, unspecified; F12.90 Cannabis use, unspecified, uncomplicated; R00.0 Tachycardia, unspecified; Z72.0 Tobacco use; Z79.899 Other long term (current) drug therapy; Z20.822 Contact with and (suspected) exposure to COVID-19
CPT/HCPCS: 31500; 36415; 36600; 43752; 70450; 80053; 80143; 80179; 80306; 80307; 82803; 83605; 83735; 84100; 85007; 85027; 87635; 93005; 96365; 96366; 96368; 96375; 99285; J1953; J2704; J3360; J3480; J7030; U0002

== ENCOUNTER 2021-09-21 14:34 | Emergency (ER) | payer SELFPAY ==
[2021-09-21] MEDS ORDERED: Ketorolac 30 MG/ML SDV IVPUSH ONE (14:50)
[2021-09-21] MEDS ORDERED: Metoclopramide 10 MG/2 ML SDV IVPUSH ONE (14:50)
[2021-09-21] MEDS ORDERED: LORazepam 2 MG/ML SDV IVPUSH ONE (14:50)
[2021-09-21] MEDS ORDERED: Sodium Chloride 0.9% 1,000 ML IV ONE (14:51)
[2021-09-21] MEDS ORDERED: Potassium Chloride 20 MEQ Tab.ER PO ONE (15:44)
== END 2021-09-21 17:50 | disposition home or self-care (01) ==
LOC: JD.ED 14:34
DX: R56.9 Unspecified convulsions (principal); Z20.822 Contact with and (suspected) exposure to COVID-19
CPT/HCPCS: 36415; 80053; 80177; 80306; 81001; 85025; 87635; 96361; 96374; 96375; 99284; A9270; J1885; J2060; J2765; J7030; 99283; U0002

== ENCOUNTER 2021-11-01 15:32 | Emergency (ER) | payer MEDICAID ==
[2021-11-01 15:39] VITALS: BP 141/88; PULSE 149
[2021-11-01] MEDS: Sodium Chloride 0.9% 1,000 ML IV ONE (15:43)
[2021-11-01] MEDS ORDERED: levETIRAcetam 1,000 MG in Sodium Chloride 0.9% 100 ML IV ONE (16:08)
[2021-11-01] MEDS ORDERED: Ondansetron 4 MG/2 ML SDV IVPUSH ONE (23:58)
[2021-11-02] MEDS ORDERED: Potassium Chloride 20 MEQ Tab.ER PO ONE (00:02)
== END 2021-11-02 00:25 | disposition home or self-care (01) ==
LOC: JD.ED 15:32
DX: G40.909 Epilepsy, unspecified, not intractable, without status epilepticus (principal); E87.6 Hypokalemia
CPT/HCPCS: 36415; 70450; 80053; 80177; 85025; 96361; 96365; 96375; 99285; A9270; J1953; J2405; J7030; 99284

== ENCOUNTER 2021-11-29 00:47 | Emergency (ER) | payer MEDICAID ==
[2021-11-29] MEDS ORDERED: LORazepam 2 MG/ML SDV ONE ×2 (00:50→01:01)
[2021-11-29] MEDS ORDERED: Sodium Chloride 0.9% 1,000 ML IV STA (01:01)
[2021-11-29] MEDS ORDERED: Sodium Chloride 0.9% 10 ML Syringe FLUSH PRN (01:01)
[2021-11-29] MEDS ORDERED: LORazepam 2 MG/ML SDV IVPUSH ONE ×2 (01:01→01:02)
[2021-11-29 01:42] VITALS: BP 164/106; PULSE 143
[2021-11-29 01:54] LABS: ESTIMATED GFR 79 mL/min (>60)
[2021-11-29] MEDS ORDERED: levETIRAcetam 1,000 MG in Sodium Chloride 0.9% 100 ML IV ONE (02:06)
[2021-11-29] MEDS ORDERED: propofoL 100 ML ONE (03:08)
[2021-11-29] MEDS ORDERED: Succinylcholine 200 MG/10 ML MDV IV ONE (03:08)
[2021-11-29] MEDS ORDERED: Midazolam 1 MG/ML 5 ML SDV ONE (03:09)
[2021-11-29] MEDS ORDERED: Etomidate 2 MG/ML 20 ML SDV IVPUSH ONE (03:09)
[2021-11-29] MEDS ORDERED: Midazolam 1 MG/ML 5 ML SDV IVPUSH ONE (03:09)
[2021-11-29] MEDS ORDERED: Rocuronium 50 MG/5 ML Vial IVPUSH ONE (03:09)
[2021-11-29] MEDS ORDERED: propofoL 100 ML IV SCH (03:15)
[2021-11-29] MEDS ORDERED: Sodium Chloride 0.9% 1,000 ML IV SCH (03:30)
[2021-11-29] MEDS: Potassium Chloride 10 MEQ in Premix Bag 1 BAG IV SCH ×2 (03:34→04:49)
== END 2021-11-29 05:11 ==
LOC: JD.ED 00:47
DX: T17.908A Unspecified foreign body in respiratory tract, part unspecified causing other injury, initial encounter (principal); R56.9 Unspecified convulsions; E87.6 Hypokalemia; Z79.899 Other long term (current) drug therapy; Z20.822 Contact with and (suspected) exposure to COVID-19
CPT/HCPCS: 31500; 36415; 36600; 43752; 51702; 70450; 71045; 80053; 80306; 80307; 82803; 83735; 85025; 87635; 96361; 96365; 96367; 96375; 99285; J0330; J1953; J2060; J2250; J2704; J3480; J3490; J7030; U0002

== ENCOUNTER 2022-01-11 09:22 | Emergency (ER) | payer MEDICAID ==
[2022-01-11 09:39] VITALS: BP 109/67; PULSE 103
[2022-01-11] MEDS ORDERED: LORazepam 2 MG/ML SDV IVPUSH ONE (10:02)
[2022-01-11] MEDS ORDERED: levETIRAcetam 1,000 MG in Sodium Chloride 0.9% 100 ML IV ONE (10:03)
[2022-01-11 10:33] LABS: CORONAVIRUS COVID-19 NAA NEGATIVE (NEGATIVE)
[2022-01-11] MEDS ORDERED: Metoclopramide 10 MG/2 ML SDV IVPUSH ONE (10:47)
[2022-01-11] MEDS: Dextrose 5%-Lactated Ringers 1,000 ML IV SCH ×2 (11:05→12:32)
[2022-01-11 11:54] LABS: ESTIMATED GFR 123 mL/min (>60)
[2022-01-11] MEDS ORDERED: Potassium Chloride 20 MEQ Tab.ER PO ONE (12:03)
[2022-01-11] MEDS ORDERED: Dextrose 5%-Lactated Ringers 1,000 ML IV SCH (12:15)
== END 2022-01-11 18:03 | disposition home or self-care (01) ==
LOC: JD.ED 09:22
DX: F10.930 Alcohol use, unspecified with withdrawal, uncomplicated (principal); G40.909 Epilepsy, unspecified, not intractable, without status epilepticus; F17.210 Nicotine dependence, cigarettes, uncomplicated; Z79.899 Other long term (current) drug therapy; Z20.822 Contact with and (suspected) exposure to COVID-19
CPT/HCPCS: 0241U; 36415; 80053; 80143; 80179; 80306; 80307; 82009; 83605; 83690; 83735; 85025; 85610; 85730; 86140; 93005; 96361; 96365; 96375; 99285; A9270; J1953; J2060; J2765; J7121; 93010; 99283

== ENCOUNTER 2022-01-21 17:11 | Emergency (ER) | payer MEDICAID ==
[2022-01-21 18:19] VITALS: BP 121/85; PULSE 73
[2022-01-21] MEDS: Sodium Chloride 0.9% 10 ML Syringe FLUSH PRN ×2 (18:41→20:04)
[2022-01-21] MEDS ORDERED: Sodium Chloride 0.9% 1,000 ML IV STA (19:12)
[2022-01-21] MEDS ORDERED: LORazepam 2 MG/ML SDV IVPUSH ONE (19:30)
[2022-01-21] MEDS ORDERED: levETIRAcetam 500 MG Tab PO ONE (19:36)
[2022-01-21] MEDS ORDERED: LORazepam 1 MG Tab PO ONE (23:19)
[2022-01-21] MEDS ORDERED: Ondansetron 4 MG Tab.DIS PO ONE (23:19)
== END 2022-01-21 23:59 | disposition other institution (70) ==
LOC: JD.ED 17:11
DX: F10.930 Alcohol use, unspecified with withdrawal, uncomplicated (principal); F17.210 Nicotine dependence, cigarettes, uncomplicated; Z20.822 Contact with and (suspected) exposure to COVID-19; Y90.0 Blood alcohol level of less than 20 mg/100 ml
CPT/HCPCS: 36415; 80053; 80306; 80307; 85025; 87635; 96361; 96374; 99284; A9270; J2060; J3490; J7030; 99282; U0002

== ENCOUNTER 2022-03-29 21:52 | Emergency (ER) | payer MEDICAID ==
[2022-03-29] MEDS ORDERED: Lidocaine 1% 10 ML MDV INJECT ONE (22:45)
[2022-03-29 23:32] VITALS: BP 99/68; PULSE 85
== END 2022-03-29 23:30 | disposition home or self-care (01) ==
LOC: JD.ED 21:52
DX: S61.212A Laceration without foreign body of right middle finger without damage to nail, initial encounter (principal); R56.9 Unspecified convulsions; Z79.899 Other long term (current) drug therapy; W26.0XXA Contact with knife, initial encounter
CPT/HCPCS: 12001; 99282

== ENCOUNTER 2022-04-16 04:08 | Emergency (ER) | payer MEDICAID ==
[2022-04-16] MEDS ORDERED: Ondansetron 4 MG Tab.DIS PO ONE (05:07)
[2022-04-16 05:12] LABS: ESTIMATED GFR 123 mL/min (>60)
[2022-04-16 07:00] VITALS: BP 111/65; PULSE 66
== END 2022-04-16 06:51 | disposition home or self-care (01) ==
LOC: JD.ED 04:08
DX: G40.909 Epilepsy, unspecified, not intractable, without status epilepticus (principal)
CPT/HCPCS: 36415; 80053; 80306; 80307; 85025; 99284; A9270

== ENCOUNTER 2022-05-28 10:34 | Emergency (ER) | payer MEDICAID ==
[2022-05-28 13:36] LABS: CORONAVIRUS COVID-19 NAA NEGATIVE (NEGATIVE)
[2022-05-28] MEDS ORDERED: Sodium Chloride 0.9% 1,000 ML IV ONE (16:27)
[2022-05-28] MEDS ORDERED: LORazepam 2 MG/ML SDV IVPUSH ONE (18:21)
[2022-05-28 20:31] VITALS: BP 108/71; PULSE 109
== END 2022-05-28 20:29 | disposition home or self-care (01) ==
LOC: JD.ED 10:34
DX: G40.309 Generalized idiopathic epilepsy and epileptic syndromes, not intractable, without status epilepticus (principal); F10.10 Alcohol abuse, uncomplicated; Z72.0 Tobacco use; Z79.899 Other long term (current) drug therapy; Z20.822 Contact with and (suspected) exposure to COVID-19
CPT/HCPCS: 0240U; 36415; 71045; 80053; 80177; 80306; 80307; 81001; 85025; 96361; 96374; 99284; J2060; J7030

== ENCOUNTER 2022-07-01 16:47 | Emergency (ER) | payer MEDICAID ==
[2022-07-01] MEDS ORDERED: Ondansetron 4 MG/2 ML SDV IVPUSH ONE (17:46)
[2022-07-01] MEDS ORDERED: Sodium Chloride 0.9% 10 ML Syringe FLUSH PRN (17:46)
[2022-07-01] MEDS ORDERED: Sodium Chloride 0.9% 1,000 ML IV ONE (17:46)
[2022-07-01 19:39] VITALS: BP 114/74; PULSE 91
== END 2022-07-01 19:39 | disposition home or self-care (01) ==
LOC: JD.ED 16:47
DX: R11.2 Nausea with vomiting, unspecified (principal); E86.0 Dehydration
CPT/HCPCS: 36415; 80053; 80307; 83690; 85025; 96361; 96374; 99284; J2405; J3490; J7030; 99283

== ENCOUNTER 2022-07-31 11:06 | Emergency (ER) | payer MEDICAID ==
[2022-07-31 11:16] VITALS: BP 109/71; PULSE 95
[2022-07-31] MEDS ORDERED: LORazepam 2 MG/ML SDV IVPUSH ONE (11:41)
[2022-07-31] MEDS ORDERED: Sodium Chloride 0.9% 10 ML Syringe FLUSH PRN (11:41)
== END 2022-07-31 14:16 | disposition home or self-care (01) ==
LOC: JD.ED 11:06
DX: R56.9 Unspecified convulsions (principal); F10.920 Alcohol use, unspecified with intoxication, uncomplicated; Z72.0 Tobacco use
CPT/HCPCS: 36415; 80053; 80307; 83735; 85025; 96374; 99284; J2060; J3490

== ENCOUNTER 2022-08-21 15:12 | Emergency (ER) | payer MEDICAID ==
[2022-08-21] MEDS ORDERED: Sodium Chloride 0.9% 10 ML Syringe FLUSH PRN (15:33)
[2022-08-21] MEDS ORDERED: Ondansetron 4 MG/2 ML SDV IVPUSH ONE (15:33)
[2022-08-21] MEDS ORDERED: Sodium Chloride 0.9% 1,000 ML IV SCH (15:45)
[2022-08-21] MEDS ORDERED: levETIRAcetam 1,000 MG in Sodium Chloride 0.9% 100 ML IV ONE (16:32)
[2022-08-21] MEDS ORDERED: LORazepam 2 MG/ML SDV IVPUSH ONE (16:32)
[2022-08-21 16:50] LABS: ESTIMATED GFR 96 mL/min (>60)
[2022-08-21] MEDS ORDERED: Lactated Ringers 1,000 ML IV SCH (17:00)
[2022-08-21] MEDS ORDERED: Potassium Chloride 20 MEQ Tab.ER PO ONE (18:44)
[2022-08-21] MEDS ORDERED: LORazepam 1 MG Tab PO ONE ×2 (19:09→19:10)
[2022-08-21 19:52] VITALS: BP 108/60; PULSE 104
== END 2022-08-21 19:45 | disposition home or self-care (01) ==
LOC: JD.ED 15:12
DX: R56.9 Unspecified convulsions (principal); F17.210 Nicotine dependence, cigarettes, uncomplicated; Z79.899 Other long term (current) drug therapy
CPT/HCPCS: 36415; 80053; 80307; 83690; 83735; 85025; 86140; 96361; 96365; 96375; 99284; A9270; J1953; J2405; J3490; J7030; 99283

== ENCOUNTER 2022-09-01 09:06 | Emergency (ER) | payer MEDICAID ==
[2022-09-01 09:17] VITALS: BP 124/86; PULSE 86
[2022-09-01] MEDS ORDERED: Sodium Chloride 0.9% 10 ML Syringe FLUSH PRN (09:31)
[2022-09-01] MEDS ORDERED: Magnesium Oxide 400 MG Tab PO ONE (11:01)
[2022-09-01] MEDS ORDERED: Potassium Chloride 20 MEQ Tab.ER PO ONE (11:01)
== END 2022-09-01 11:30 | disposition home or self-care (01) ==
LOC: JD.ED 09:06
DX: R07.89 Other chest pain (principal); R07.81 Pleurodynia; F17.210 Nicotine dependence, cigarettes, uncomplicated; Z79.899 Other long term (current) drug therapy
CPT/HCPCS: 36415; 71045; 80053; 83735; 84484; 85025; 93005; 99284; A9270; J3490; 93010

== ENCOUNTER 2022-10-19 22:52 | Emergency (ER) | payer MEDICAID ==
[2022-10-19] MEDS ORDERED: Sodium Chloride 0.9% 10 ML Syringe FLUSH PRN (22:59)
[2022-10-19] MEDS ORDERED: Ondansetron 4 MG in Sodium Chloride 0.9% 50 ML IV ONE (23:01)
[2022-10-19] MEDS ORDERED: Ondansetron 4 MG/2 ML SDV IVPUSH ONE (23:06)
[2022-10-19] MEDS ORDERED: Lactated Ringers 2,000 ML IV ONE ×2 (23:24→23:35)
[2022-10-19 23:29] LABS: BASOPHILS ABSOLUTE AUTO 0.01 K/mm3 (0.01-0.08); BASOPHILS PERCENT AUTO 0.1 % (0.1-1.2); EOSINOPHILS PERCENT AUTO 0 (0.8-7.0); HEMATOCRIT 39.3 % (40.1-51.0); IMMATURE GRAN ABSOLUTE AUTO 0.01 K/mm3 (0.00-0.10); IMMATURE GRAN PERCENT AUTO 0.1 % (<=1.0); LYMPHOCYTES ABSOLUTE AUTO 0.25 K/mm3 (1.32-3.57); LYMPHOCYTES PERCENT AUTO 2.7 % (21.8-53.1); MEAN CORPUSCULAR HEMOGLOBIN 35.9 pg (25.7-32.2); MEAN CORPUSCULAR HGB CONC 35.6 g/dl (32.2-35.5); MEAN CORPUSCULAR VOLUME 100.8 fl (79.0-92.2); MEAN PLATELET VOLUME 9.5 fl (9.4-12.3); MONOCYTES ABSOLUTE AUTO 0.46 K/mm3 (0.30-0.82); NEUTROPHILS ABSOLUTE AUTO 8.53 K/mm3 (1.78-5.38); NEUTROPHILS PERCENT AUTO 92.1 % (34.0-67.9); PLATELET COUNT,PLT 200 K/mm3 (163-337); WHITE BLOOD CELL COUNT,WBC 9.26 K/mm3 (4.23-9.07)
[2022-10-19] MEDS ORDERED: Lactated Ringers 1,000 ML IV ONE (23:37)
[2022-10-19 23:51] LABS: A/G RATIO 1.4 (1-2); ALANINE AMINOTRANSFERASE,ALT 78 U/L (16-63); ALBUMIN 3.5 g/dl (3.4-5.0); ALKALINE PHOSPHATASE 110 U/L (46-116); ANION GAP 21.9 (5-15); ASPARTATE AMNIOTRANSFERASE,AST 51 U/L (15-37); BILIRUBIN TOTAL 1.6 mg/dL (0.2-1.0); BLOOD UREA NITROGEN,BUN 7 mg/dL (7-18); BUN/CREATININE RATIO 5.4 (14-18); CALCIUM 8.3 mg/dL (8.5-10.1); CARBON DIOXIDE,CO2 18 mEq/L (21-32); CHLORIDE,CL 101 mEq/L (98-107); CREATINE KINASE,CK 78 U/L (39-308); CREATININE 1.3 mg/dL (0.7-1.3); ESTIMATED GFR 79 mL/min (>60); GLUCOSE RANDOM 144 mg/dL (70-99); IRON,FE 169 ug/dL (65-175); PHOSPHORUS 2.5 mg/dL (2.6-4.7); POTASSIUM,K 2.9 mEq/L (3.5-5.1); SODIUM,NA 138 mEq/L (136-145)
[2022-10-20 00:17] LABS: VALPROIC ACID < 3.0 ug/mL (50.0-100.0)
[2022-10-20 00:43] LABS: SLIDE REVIEW ABNORMAL SMEAR
[2022-10-20] MEDS ORDERED: Lactated Ringers 1,000 ML IV ONE (00:51)
[2022-10-20] MEDS ORDERED: Phosphorus #1 250 MG Tab PO ONE (01:39)
[2022-10-20] MEDS ORDERED: Potassium Chloride 10 MEQ in Premix Bag 1 BAG IV SCH (01:45)
[2022-10-20] MEDS ORDERED: Ketorolac 30 MG/ML SDV IVPUSH ONE (02:07)
[2022-10-20] MEDS ORDERED: Potassium Chloride 20 MEQ Tab.ER PO SCH ×2 (02:28→09:00)
[2022-10-20 02:58] VITALS: PULSE 109
[2022-10-20 02:59] VITALS: BP 112/74
== END 2022-10-20 02:57 | disposition home or self-care (01) ==
LOC: JD.ED 22:52
DX: G40.909 Epilepsy, unspecified, not intractable, without status epilepticus (principal)
CPT/HCPCS: 36415; 70450; 80053; 80164; 80177; 80203; 80307; 82550; 83540; 83735; 84100; 85025; 96361; 96374; 96375; 99285; A9270; J1885; J2405; J3490; J7120; 99284

== ENCOUNTER 2022-12-21 15:57 | Emergency (ER) | payer MEDICAID ==
[2022-12-21] MEDS ORDERED: LORazepam 2 MG/ML SDV ONE (16:03)
[2022-12-21] MEDS ORDERED: LORazepam 2 MG/ML SDV IVPUSH ONE ×2 (16:05→17:56)
[2022-12-21] MEDS ORDERED: propofoL 100 ML ONE (16:16)
[2022-12-21] MEDS ORDERED: Rocuronium 50 MG/5 ML Vial IVPUSH ONE (16:17)
[2022-12-21] MEDS ORDERED: Propofol 200 MG/20 ML SDV IVPUSH ONE (16:17)
[2022-12-21] MEDS ORDERED: propofoL 100 ML IV SCH (16:20)
[2022-12-21] MEDS: propofoL 100 ML IV SCH ×2 (16:20→19:41)
[2022-12-21 16:47] LABS: HEMATOCRIT 48.8 % (40.1-51.0); MEAN CORPUSCULAR HEMOGLOBIN 37.1 pg (25.7-32.2); MEAN PLATELET VOLUME 10.3 fl (9.4-12.3); RED BLOOD CELL COUNT 4.21 M/mm3 (4.63-6.08); WHITE BLOOD CELL COUNT,WBC 12.36 K/mm3 (4.23-9.07)
[2022-12-21 16:50] LABS: HEMOGLOBIN 15.6 gm/dl (13.7-17.5); MEAN CORPUSCULAR VOLUME 115.9 fl (79.0-92.2); PLATELET COUNT,PLT 308 K/mm3 (163-337)
[2022-12-21 16:57] LABS: A/G RATIO 1.2 (1-2); ALBUMIN 4.5 g/dl (3.4-5.0); ANION GAP 28.5 (5-15); BILIRUBIN TOTAL 0.6 mg/dL (0.2-1.0); BUN/CREATININE RATIO 8.5 (14-18); CALCIUM 9.7 mg/dL (8.5-10.1); CREATININE 1.3 mg/dL (0.7-1.3); EST CRCL DRUG DOSING (CG) 81.51 mL/min; PHOSPHORUS 6.3 mg/dL (2.6-4.7); POTASSIUM,K 4.5 mEq/L (3.5-5.1); PROTEIN TOTAL,TP 8.4 g/dl (6.4-8.2)
[2022-12-21 17:20] LABS: BASE EXCESS ARTERIAL -11.8 (-2-2.0); BICARBONATE,ARTERIAL 20.2 meq/L (22.0-26.0); O2 SATURATION ARTERIAL 98.5 % (96.0-97.0); PCO2 ARTERIAL 73.7 mmHg (35.0-45.0)
[2022-12-21 17:22] VITALS: PULSE 175
[2022-12-21] MEDS ORDERED: Sodium Chloride 0.9% 1,000 ML IV ONE ×2 (17:23→18:20)
[2022-12-21 17:24] LABS: BAND PERCENT MAN 0 % (0-10); BASOPHILS PERCENT MAN 0 (0.2-1.2); EOSINOPHILS PERCENT MAN 0 % (0.8-7.0); LYMPHOCYTES % ATYPICAL MANUAL 0 %; LYMPHOCYTES PERCENT MAN 44 % (20-40); MONOCYTES PERCENT MAN 6 % (2-10)
[2022-12-21 17:27] LABS: ANISOCYTOSIS 1+ SLIGHT; OVALOCYTES 1+ SLIGHT; PLATELET COUNT ESTIMATE ADEQUATE; POLYCHROMASIA 1+ SLIGHT; STOMATOCYTES 1+ SLIGHT; TOXIC GRANULATION 1+ SLIGHT
[2022-12-21] MEDS ORDERED: Rocuronium 50 MG/5 ML Vial IVPUSH STA ×3 (17:28→20:40)
[2022-12-21 17:52] LABS: BARBITURATE SCREEN,URINE NEGATIVE (CUTOFF=200); BENZODIAZEPINES SCREEN,URINE NEGATIVE (CUTOFF=150); BUPRENORPHINE SCREEN,URINE NEGATIVE (CUTOFF=10); METHADONE SCREEN, URINE NEGATIVE (CUT0FF=200); METHAMPHETAMINES SCREEN, URINE NEGATIVE (CUTOFF=500); OXYCODONE SCREEN,URINE NEGATIVE (CUT0FF=100); PROPOXYPHENE SCREEN,URINE NEGATIVE (CUTOFF=300); THC SCREEN,URINE 20 NG/ML PRESUMPTIVE POSITIVE (CUTOFF=50)
[2022-12-21 17:53] LABS: AMPHETAMINES SCREEN, URINE NEGATIVE (CUTOFF=500)
[2022-12-21 18:16] LABS: LACTIC ACID 1.8 mmol/L (0.4-2.0)
[2022-12-21 18:19] LABS: BASE EXCESS ARTERIAL -8.9 (-2-2.0); BICARBONATE,ARTERIAL 18.2 meq/L (22.0-26.0); O2 SATURATION ARTERIAL 91.3 % (96.0-97.0); PCO2 ARTERIAL 45.3 mmHg (35.0-45.0)
[2022-12-21] MEDS ORDERED: levETIRAcetam 2,000 MG in Sodium Chloride 0.9% 100 ML IV STA (19:01)
[2022-12-21 21:57] VITALS: BP 113/68
== END 2022-12-21 21:00 ==
LOC: JD.ED 15:57
DX: G40.901 Epilepsy, unspecified, not intractable, with status epilepticus (principal); E87.20 Acidosis, unspecified; F17.290 Nicotine dependence, other tobacco product, uncomplicated; Z79.899 Other long term (current) drug therapy
CPT/HCPCS: 31500; 36415; 36600; 43752; 51702; 71045; 80053; 80306; 80307; 82009; 82803; 82947; 83605; 83735; 84100; 85007; 85027; 96361; 96365; 96375; 99285; J1953; J2060; J2704; J3490; J7030

== ENCOUNTER 2023-01-27 13:53 | Emergency (ER) | payer MEDICAID ==
[2023-01-27] MEDS ORDERED: Dextrose 5%-0.9% NaCl 1,000 ML IV SCH (14:00)
[2023-01-27] MEDS ORDERED: levETIRAcetam 1,000 MG in Sodium Chloride 0.9% 100 ML IV ONE (14:01)
[2023-01-27 14:32] LABS: BASOPHILS PERCENT AUTO 0.4 % (0.0-1.0); EOSINOPHILS PERCENT AUTO 0.2 % (0.0-6.0); HEMATOCRIT 47.8 % (42.0-52.0); HEMOGLOBIN 15.3 gm/dl (14.0-18.0); IMMATURE GRAN ABSOLUTE AUTO 0.09 K/mm3 (0.00-0.05); LYMPHOCYTES ABSOLUTE AUTO 4.8 K/mm3 (1.0-4.8); LYMPHOCYTES PERCENT AUTO 52.7 % (24.0-44.0); MEAN CORPUSCULAR HEMOGLOBIN 36.8 pg (28.0-32.0); MEAN CORPUSCULAR VOLUME 114.9 fl (83.0-99.0); MEAN PLATELET VOLUME 9.9 fl (9.4-12.4); MONOCYTES ABSOLUTE AUTO 0.5 K/mm3 (0.0-0.8); MONOCYTES PERCENT AUTO 5.3 % (0.0-8.0); NEUTROPHILS ABSOLUTE AUTO 3.7 K/mm3 (1.8-7.7); NEUTROPHILS PERCENT AUTO 40.4 % (41.0-71.0); NRBC ABSOLUTE 0.02 (0.00-0.02); NRBC PERCENT 0.2 % (0.0-0.2); PLATELET COUNT,PLT 235 K/mm3 (150-400); RED BLOOD CELL COUNT 4.16 M/mm3 (4.52-5.90); WHITE BLOOD CELL COUNT,WBC 9.04 K/mm3 (3.9-11.3)
[2023-01-27 14:34] LABS: BARBITURATE SCREEN,URINE NEGATIVE (CUTOFF=200); BENZODIAZEPINES SCREEN,URINE NEGATIVE (CUTOFF=150); BUPRENORPHINE SCREEN,URINE NEGATIVE (CUTOFF=10); METHADONE SCREEN, URINE NEGATIVE (CUT0FF=200); METHAMPHETAMINES SCREEN, URINE NEGATIVE (CUTOFF=500); OXYCODONE SCREEN,URINE NEGATIVE (CUT0FF=100); PROPOXYPHENE SCREEN,URINE NEGATIVE (CUTOFF=300); THC SCREEN,URINE 20 NG/ML PRESUMPTIVE POSITIVE (CUTOFF=50)
[2023-01-27 14:41] LABS: AMPHETAMINES SCREEN, URINE NEGATIVE (CUTOFF=500)
[2023-01-27 14:43] LABS: A/G RATIO 1.1 (1-2); ALANINE AMINOTRANSFERASE,ALT 43 U/L (16-63); ALBUMIN 3.6 g/dl (3.4-5.0); ALKALINE PHOSPHATASE 131 U/L (46-116); ANION GAP 27.6 (5-15); ASPARTATE AMNIOTRANSFERASE,AST 109 U/L (15-37); BILIRUBIN TOTAL 0.5 mg/dL (0.2-1.0); BLOOD UREA NITROGEN,BUN 8 mg/dL (7-18); BUN/CREATININE RATIO 5.3 (14-18); C-REACTIVE PROTEIN <0.2 mg/dL (<1.0); CARBON DIOXIDE,CO2 11 mEq/L (21-32); CHLORIDE,CL 103 mEq/L (98-107); CREATININE 1.5 mg/dL (0.7-1.3); ESTIMATED GFR 66 mL/min (>60); GLUCOSE RANDOM 237 mg/dL (70-99); MAGNESIUM 2.1 mg/dL (1.8-2.4); POTASSIUM,K 3.6 mEq/L (3.5-5.1); SODIUM,NA 138 mEq/L (136-145)
[2023-01-27 15:03] LABS: SLIDE REVIEW ABNORMAL SMEAR
[2023-01-27] MEDS ORDERED: Lidocaine 1% 10 ML MDV ONE (15:08)
[2023-01-27] MEDS ORDERED: Etomidate 2 MG/ML 20 ML SDV IVPUSH ONE (15:09)
[2023-01-27] MEDS ORDERED: Succinylcholine 200 MG/10 ML MDV ONE (15:10)
[2023-01-27] MEDS ORDERED: propofoL 100 ML ONE (15:14)
[2023-01-27] MEDS ORDERED: Piperacillin/Tazobactam 4.5 GM in Sodium Chloride 0.9% 100 ML IV ONE (15:19)
[2023-01-27] MEDS ORDERED: Propofol 200 MG/20 ML SDV ONE (15:24)
[2023-01-27] MEDS ORDERED: propofoL 100 ML IV SCH (15:30)
[2023-01-27] MEDS ORDERED: Midazolam 1 MG/ML 5 ML SDV ONE ×2 (15:45→16:10)
[2023-01-27 15:54] LABS: BASE EXCESS ARTERIAL -10.1 (-2-2.0); BICARBONATE,ARTERIAL 17.2 meq/L (22.0-26.0); O2 SATURATION ARTERIAL 95.5 % (96.0-97.0); PCO2 ARTERIAL 44.2 mmHg (35.0-45.0)
[2023-01-27] MEDS ORDERED: Midazolam 1 MG/ML 2 ML SDV ONE (16:36)
[2023-01-27] MEDS ORDERED: Midazolam 5 MG/ML 10 ML MDV ONE ×2 (16:36→16:39)
[2023-01-27] MEDS ORDERED: Sodium Chloride 0.9% 100 ML ONE (16:38)
[2023-01-27 17:02] LABS: CORONAVIRUS COVID-19 NAA NEGATIVE (NEGATIVE); INFLUENZA A NAA NEGATIVE (NEGATIVE); RESPIRATORY SYNCYTIAL VIR NAA NEGATIVE (NEGATIVE)
[2023-01-27 17:18] VITALS: PULSE 113
[2023-01-27 17:57] VITALS: BP 110/78
== END 2023-01-27 18:15 ==
LOC: JD.ED 13:53
DX: J69.0 Pneumonitis due to inhalation of food and vomit (principal); G40.801 Other epilepsy, not intractable, with status epilepticus; I60.9 Nontraumatic subarachnoid hemorrhage, unspecified
CPT/HCPCS: 0241U; 31500; 36415; 36600; 51702; 70450; 71045; 71250; 80053; 80306; 80307; 82009; 82803; 83605; 83735; 85025; 86140; 93005; 96361; 96365; 96367; 99285; J0330; J1953; J2250; J2543; J2704; J3490; J7042; 93010

== ENCOUNTER 2023-03-02 14:02 | Emergency (ER) | payer MEDICAID ==
[2023-03-02] MEDS ORDERED: Sodium Chloride 0.9% 10 ML Syringe FLUSH PRN (14:16)
[2023-03-02 14:30] LABS: APPEARANCE,URINE CLEAR (Clear); BILIRUBIN,URINE 2+ (Negative); COLOR,URINE AMBER (Yellow); GLUCOSE,URINE NEGATIVE (Negative); KETONES,URINE TRACE (Negative); LEUKOCYTE ESTERASE,URINE NEGATIVE (Negative); NITRITE,URINE NEGATIVE (Negative); OCCULT BLOOD,URINE TRACE-INTACT (Negative); PROTEIN,URINE 2+ (Negative)
[2023-03-02 14:35] LABS: BASOPHILS PERCENT AUTO 0.3 % (0.0-1.0); EOSINOPHILS PERCENT AUTO 0.1 % (0.0-6.0); HEMOGLOBIN 16.4 gm/dl (14.0-18.0); IMMATURE GRAN ABSOLUTE AUTO 0.03 K/mm3 (0.00-0.05); IMMATURE GRAN PERCENT AUTO 0.3 % (0.0-0.4); LYMPHOCYTES ABSOLUTE AUTO 0.8 K/mm3 (1.0-4.8); LYMPHOCYTES PERCENT AUTO 8.7 % (24.0-44.0); MEAN CORPUSCULAR HEMOGLOBIN 37.1 pg (28.0-32.0); MEAN CORPUSCULAR HGB CONC 36.4 g/dl (32.0-36.0); MEAN CORPUSCULAR VOLUME 101.8 fl (83.0-99.0); MEAN PLATELET VOLUME 9.6 fl (9.4-12.4); MONOCYTES ABSOLUTE AUTO 0.3 K/mm3 (0.0-0.8); MONOCYTES PERCENT AUTO 3.1 % (0.0-8.0); NEUTROPHILS ABSOLUTE AUTO 7.8 K/mm3 (1.8-7.7); NEUTROPHILS PERCENT AUTO 87.5 % (41.0-71.0); PLATELET COUNT,PLT 177 K/mm3 (150-400); RED BLOOD CELL COUNT 4.42 M/mm3 (4.52-5.90)
[2023-03-02] MEDS ORDERED: Lactated Ringers 1,000 ML IV ONE (14:39)
[2023-03-02] MEDS ORDERED: Ondansetron 4 MG/2 ML SDV IVPUSH ONE (14:39)
[2023-03-02 14:42] LABS: BARBITURATE SCREEN,URINE NEGATIVE (CUTOFF=200); BENZODIAZEPINES SCREEN,URINE NEGATIVE (CUTOFF=150); BUPRENORPHINE SCREEN,URINE NEGATIVE (CUTOFF=10); METHADONE SCREEN, URINE NEGATIVE (CUT0FF=200); METHAMPHETAMINES SCREEN, URINE NEGATIVE (CUTOFF=500); OXYCODONE SCREEN,URINE NEGATIVE (CUT0FF=100); THC SCREEN,URINE 20 NG/ML PRESUMPTIVE POSITIVE (CUTOFF=50)
[2023-03-02 14:43] LABS: AMPHETAMINES SCREEN, URINE NEGATIVE (CUTOFF=500)
[2023-03-02 15:03] LABS: A/G RATIO 1.3 (1-2); ALBUMIN 4.3 g/dl (3.4-5.0); ANION GAP 19.3 (5-15); BILIRUBIN TOTAL 2.7 mg/dL (0.2-1.0); BUN/CREATININE RATIO 7.5 (14-18); CALCIUM 9.4 mg/dL (8.5-10.1); CREATININE 1.2 mg/dL (0.7-1.3); EST CRCL DRUG DOSING (CG) 85.93 mL/min; POTASSIUM,K 3.3 mEq/L (3.5-5.1); PROTEIN TOTAL,TP 7.5 g/dl (6.4-8.2)
[2023-03-02 15:16] LABS: BACTERIA,URINE FEW /hpf (FEW); MUCUS,URINE MANY /hpf (FEW); RBC,URINE 0-5 /hpf (0-5); SQUAMOUS EPITHELIAL CELLS,UR 0-5 /hpf (0-5); WBC,URINE 0-5 /hpf (0-5)
[2023-03-02] MEDS ORDERED: Metoclopramide 10 MG/2 ML SDV IVPUSH ONE (16:01)
[2023-03-02] MEDS ORDERED: Potassium Chloride 20 MEQ Tab.ER PO ONE (17:57)
[2023-03-02 19:13] VITALS: BP 115/78; PULSE 108
== END 2023-03-02 19:29 | disposition home or self-care (01) ==
LOC: JD.ED 14:02
DX: G40.909 Epilepsy, unspecified, not intractable, without status epilepticus (principal); F12.10 Cannabis abuse, uncomplicated; R11.0 Nausea
CPT/HCPCS: 36415; 70450; 80053; 80177; 80306; 80307; 81001; 83605; 85025; 96361; 96374; 96375; 99284; A9270; J2405; J2765; J3490; J7120

== ENCOUNTER 2023-05-14 21:50 | Emergency (ER) | payer MEDICAID ==
[2023-05-14] MEDS ORDERED: Ondansetron 4 MG Tab.DIS PO ONE (22:16)
[2023-05-14] MEDS ORDERED: levETIRAcetam 500 MG Tab PO SCH (22:18)
[2023-05-14] MEDS ORDERED: levETIRAcetam 500 MG Tab PO ONE (22:30)
[2023-05-14 23:15] LABS: CORONAVIRUS COVID-19 NAA NEGATIVE (NEGATIVE); INFLUENZA A NAA NEGATIVE (NEGATIVE); RESPIRATORY SYNCYTIAL VIR NAA NEGATIVE (NEGATIVE)
[2023-05-15 00:05] VITALS: BP 108/78; PULSE 78
== END 2023-05-14 23:45 | disposition home or self-care (01) ==
LOC: JD.ED 21:50
DX: G40.909 Epilepsy, unspecified, not intractable, without status epilepticus (principal); B34.9 Viral infection, unspecified; Z20.822 Contact with and (suspected) exposure to COVID-19; Z79.899 Other long term (current) drug therapy
CPT/HCPCS: 0241U; 99284; A9270; 99283

== ENCOUNTER 2023-06-07 23:34 | Emergency (ER) | payer MEDICAID ==
[2023-06-07] MEDS ORDERED: levETIRAcetam 500 MG in Sodium Chloride 0.9% 100 ML IV ONE (23:43)
[2023-06-07] MEDS ORDERED: levETIRAcetam 100 MG in Sodium Chloride 0.9% 100 ML IV ONE (23:43)
[2023-06-07] MEDS ORDERED: LORazepam 2 MG/ML SDV ONE (23:48)
[2023-06-07 23:50] LABS: BASOPHILS PERCENT AUTO 0.3 % (0.0-1.0); EOSINOPHILS ABSOLUTE AUTO 0.1 K/mm3 (0.0-0.4); EOSINOPHILS PERCENT AUTO 0.5 % (0.0-6.0); HEMATOCRIT 44.6 % (42.0-52.0); HEMOGLOBIN 14.8 gm/dl (14.0-18.0); IMMATURE GRAN ABSOLUTE AUTO 0.04 K/mm3 (0.00-0.05); IMMATURE GRAN PERCENT AUTO 0.4 % (0.0-0.4); LYMPHOCYTES ABSOLUTE AUTO 1.1 K/mm3 (1.0-4.8); MEAN CORPUSCULAR HEMOGLOBIN 35.6 pg (28.0-32.0); MEAN CORPUSCULAR HGB CONC 33.2 g/dl (32.0-36.0); MEAN CORPUSCULAR VOLUME 107.2 fl (83.0-99.0); MEAN PLATELET VOLUME 9.4 fl (9.4-12.4); MONOCYTES ABSOLUTE AUTO 0.4 K/mm3 (0.0-0.8); NEUTROPHILS ABSOLUTE AUTO 8.3 K/mm3 (1.8-7.7); NEUTROPHILS PERCENT AUTO 83.8 % (41.0-71.0); PLATELET COUNT,PLT 262 K/mm3 (150-400); RED BLOOD CELL COUNT 4.16 M/mm3 (4.52-5.90); WHITE BLOOD CELL COUNT,WBC 9.95 K/mm3 (3.9-11.3)
[2023-06-08 00:04] LABS: BASE EXCESS ARTERIAL -10.2 (-2-2.0); BICARBONATE,ARTERIAL 16.8 meq/L (22.0-26.0); O2 SATURATION ARTERIAL 84.6 % (96.0-97.0); PCO2 ARTERIAL 41.7 mmHg (35.0-45.0)
[2023-06-08 00:15] LABS: ALBUMIN 3.8 g/dl (3.4-5.0); ANION GAP 23.2 (5-15); BILIRUBIN TOTAL 0.9 mg/dL (0.2-1.0); BUN/CREATININE RATIO 6.7 (14-18); CALCIUM 8.2 mg/dL (8.5-10.1); CREATININE 1.2 mg/dL (0.7-1.3); EST CRCL DRUG DOSING (CG) 100.23 mL/min; MAGNESIUM 1.7 mg/dL (1.8-2.4); POTASSIUM,K 3.2 mEq/L (3.5-5.1); PROTEIN TOTAL,TP 7.5 g/dl (6.4-8.2)
[2023-06-08] MEDS ORDERED: Sodium Chloride 0.9% 100 ML ONE (00:20)
[2023-06-08 03:05] LABS: CORONAVIRUS COVID-19 NAA NEGATIVE (NEGATIVE); INFLUENZA A NAA NEGATIVE (NEGATIVE); RESPIRATORY SYNCYTIAL VIR NAA NEGATIVE (NEGATIVE)
[2023-06-08 03:08] LABS: APPEARANCE,URINE CLEAR (Clear); BILIRUBIN,URINE NEGATIVE (Negative); COLOR,URINE YELLOW (Yellow); GLUCOSE,URINE NEGATIVE (Negative); KETONES,URINE 1+ (Negative); LEUKOCYTE ESTERASE,URINE NEGATIVE (Negative); NITRITE,URINE NEGATIVE (Negative); OCCULT BLOOD,URINE NEGATIVE (Negative); PROTEIN,URINE TRACE (Negative); UROBILINOGEN,URINE 0.2 (0.2-1.0)
[2023-06-08 03:18] LABS: BARBITURATE SCREEN,URINE NEGATIVE (CUTOFF=200); BENZODIAZEPINES SCREEN,URINE NEGATIVE (CUTOFF=150); BUPRENORPHINE SCREEN,URINE NEGATIVE (CUTOFF=10); METHADONE SCREEN, URINE NEGATIVE (CUT0FF=200); METHAMPHETAMINES SCREEN, URINE NEGATIVE (CUTOFF=500); OXYCODONE SCREEN,URINE NEGATIVE (CUT0FF=100); THC SCREEN,URINE 20 NG/ML PRESUMPTIVE POSITIVE (CUTOFF=50)
[2023-06-08 03:23] LABS: EPITHELIAL CELLS,URINE 0-5 /hpf (0-5); RBC,URINE NOT SEEN /hpf (0-5); WBC,URINE 0-5 /hpf (0-5)
[2023-06-08 03:24] LABS: BACTERIA,URINE FEW /hpf (FEW); HYALINE CASTS,URINE 0-5 /lpf (0-5); MUCUS,URINE NOT SEEN /hpf (FEW)
[2023-06-08 03:27] LABS: AMPHETAMINES SCREEN, URINE NEGATIVE (CUTOFF=500)
[2023-06-08 07:18] VITALS: BP 109/67; PULSE 92
== END 2023-06-08 07:15 | disposition home or self-care (01) ==
LOC: JD.ED 23:34
DX: S42.031A Displaced fracture of lateral end of right clavicle, initial encounter for closed fracture (principal); G40.901 Epilepsy, unspecified, not intractable, with status epilepticus; Z79.899 Other long term (current) drug therapy; X58.XXXA Exposure to other specified factors, initial encounter
CPT/HCPCS: 0241U; 36415; 36600; 70450; 71045; 80053; 80306; 80307; 81001; 82803; 83735; 85025; 93005; 96365; 96367; 99285; J1953; J3490; 93010; 99284

== ENCOUNTER 2023-08-18 10:13 | Emergency (ER) | payer MEDICAID ==
[2023-08-18] MEDS: Sodium Chloride 0.9% 1,000 ML IV SCH (10:21)
[2023-08-18] MEDS: levETIRAcetam 500 MG/5 ML SDV IVPUSH ONE ×2 (10:23→11:03)
[2023-08-18] MEDS: Sodium Bicarbonate 8.4% 50 MEQ/50 ML Syringe IVPUSH ONE ×2 (10:26→11:50)
[2023-08-18 10:31] LABS: BASOPHILS PERCENT AUTO 0.4 % (0.0-1.0); EOSINOPHILS PERCENT AUTO 0.5 % (0.0-6.0); HEMATOCRIT 46.2 % (42.0-52.0); HEMOGLOBIN 15.3 gm/dl (14.0-18.0); IMMATURE GRAN ABSOLUTE AUTO 0.04 K/mm3 (0.00-0.05); IMMATURE GRAN PERCENT AUTO 0.5 % (0.0-0.4); LYMPHOCYTES ABSOLUTE AUTO 2.8 K/mm3 (1.0-4.8); MEAN CORPUSCULAR HEMOGLOBIN 38.2 pg (28.0-32.0); MEAN CORPUSCULAR HGB CONC 33.1 g/dl (32.0-36.0); MEAN CORPUSCULAR VOLUME 115.2 fl (83.0-99.0); MEAN PLATELET VOLUME 9.4 fl (9.4-12.4); MONOCYTES ABSOLUTE AUTO 0.6 K/mm3 (0.0-0.8); MONOCYTES PERCENT AUTO 7.5 % (0.0-8.0); NEUTROPHILS ABSOLUTE AUTO 4.5 K/mm3 (1.8-7.7); NEUTROPHILS PERCENT AUTO 56.1 % (41.0-71.0); PLATELET COUNT,PLT 211 K/mm3 (150-400); RED BLOOD CELL COUNT 4.01 M/mm3 (4.52-5.90); WHITE BLOOD CELL COUNT,WBC 7.97 K/mm3 (3.9-11.3)
[2023-08-18 11:01] LABS: A/G RATIO 1.2 (1-2); ALANINE AMINOTRANSFERASE,ALT 61 U/L (16-63); ALKALINE PHOSPHATASE 137 U/L (46-116); ANION GAP 23.2 (5-15); ASPARTATE AMNIOTRANSFERASE,AST 111 U/L (15-37); BILIRUBIN TOTAL 1.1 mg/dL (0.2-1.0); BLOOD UREA NITROGEN,BUN 7 mg/dL (7-18); BUN/CREATININE RATIO 5.4 (14-18); CALCIUM 8.8 mg/dL (8.5-10.1); CARBON DIOXIDE,CO2 20 mEq/L (21-32); CHLORIDE,CL 101 mEq/L (98-107); CREATININE 1.3 mg/dL (0.7-1.3); ESTIMATED GFR 78 mL/min (>60); GLUCOSE RANDOM 227 mg/dL (70-99); POTASSIUM,K 3.2 mEq/L (3.5-5.1); PROTEIN TOTAL,TP 7.3 g/dl (6.4-8.2); SODIUM,NA 141 mEq/L (136-145); TROPONIN I HIGH SENSITIVITY 6 pg/mL (<=76); TSH 1.526 uIU/mL (0.358-3.74)
[2023-08-18] MEDS: LORazepam 2 MG/ML SDV IVPUSH ONE (11:03)
[2023-08-18] MEDS: Propofol 200 MG/20 ML SDV IVPUSH ONE (11:14)
[2023-08-18] MEDS: Propofol 200 MG/20 ML SDV IV ONE ×2 (11:17→11:20)
[2023-08-18] MEDS: propofoL 100 ML IV SCH (11:18)
[2023-08-18] MEDS: Sodium Chloride 0.9% 1,000 ML IV ONE (11:19)
[2023-08-18] MEDS: Midazolam 1 MG/ML 5 ML SDV IVPUSH ONE (12:05)
[2023-08-18 12:06] LABS: BASE EXCESS ARTERIAL 1.2 (-2-2.0); BICARBONATE,ARTERIAL 27.9 meq/L (22.0-26.0); O2 SATURATION ARTERIAL 94.4 % (96.0-97.0); PCO2 ARTERIAL 56.3 mmHg (35.0-45.0)
[2023-08-18 12:09] LABS: BASE EXCESS ARTERIAL -5.8 (-2-2.0); BICARBONATE,ARTERIAL 25.6 meq/L (22.0-26.0); O2 SATURATION ARTERIAL 87.5 % (96.0-97.0)
[2023-08-18 12:10] LABS: PCO2 ARTERIAL 83.7 mmHg (35.0-45.0)
[2023-08-18 12:13] LABS: BASE EXCESS ARTERIAL -12.9 (-2-2.0); BICARBONATE,ARTERIAL 21.4 meq/L (22.0-26.0); O2 SATURATION ARTERIAL 94.3 % (96.0-97.0); PCO2 ARTERIAL 88.8 mmHg (35.0-45.0)
[2023-08-18] MEDS: Sodium Chloride 0.9% 10 ML Syringe FLUSH PRN (13:00)
[2023-08-18] MEDS: Rocuronium 50 MG/5 ML Vial IVPUSH ONE (13:00)
[2023-08-18] MEDS: Potassium Chloride 10 MEQ in Premix Bag 1 BAG IV ONE (13:00)
[2023-08-18] MEDS: Lactated Ringers 1,000 ML IV ONE (13:00)
[2023-08-18 13:05] LABS: SLIDE REVIEW ABNORMAL SMEAR
[2023-08-18] MEDS ORDERED: Rocuronium 50 MG/5 ML Vial ONE (13:45)
[2023-08-18] MEDS ORDERED: Etomidate 2 MG/ML 20 ML SDV IVPUSH ONE (13:45)
[2023-08-18 13:56] LABS: A/G RATIO 1.3 (1-2); ALBUMIN 3.2 g/dl (3.4-5.0); ANION GAP 13.7 (5-15); BILIRUBIN TOTAL 1.2 mg/dL (0.2-1.0); BUN/CREATININE RATIO 7.5 (14-18); CREATININE 0.8 mg/dL (0.7-1.3); EST CRCL DRUG DOSING (CG) 135.84 mL/min; POTASSIUM,K 3.7 mEq/L (3.5-5.1); PROTEIN TOTAL,TP 5.7 g/dl (6.4-8.2)
[2023-08-18 15:45] LABS: APPEARANCE,URINE CLEAR (Clear); BILIRUBIN,URINE NEGATIVE (Negative); COLOR,URINE YELLOW (Yellow); GLUCOSE,URINE 2+ (Negative); KETONES,URINE 1+ (Negative); LEUKOCYTE ESTERASE,URINE NEGATIVE (Negative); NITRITE,URINE NEGATIVE (Negative); OCCULT BLOOD,URINE 2+ (Negative); PH,URINE 6.5 (5.0-8.0); PROTEIN,URINE 2+ (Negative); UROBILINOGEN,URINE 0.2 (0.2-1.0)
[2023-08-18 15:56] LABS: BARBITURATE SCREEN,URINE NEGATIVE (CUTOFF=200); BENZODIAZEPINES SCREEN,URINE NEGATIVE (CUTOFF=150); BUPRENORPHINE SCREEN,URINE NEGATIVE (CUTOFF=10); METHADONE SCREEN, URINE NEGATIVE (CUT0FF=200); METHAMPHETAMINES SCREEN, URINE NEGATIVE (CUTOFF=500); OXYCODONE SCREEN,URINE NEGATIVE (CUT0FF=100); THC SCREEN,URINE 20 NG/ML PRESUMPTIVE POSITIVE (CUTOFF=50)
[2023-08-18 15:57] LABS: AMPHETAMINES SCREEN, URINE NEGATIVE (CUTOFF=500)
[2023-08-18 16:53] LABS: BACTERIA,URINE RARE /hpf (FEW); EPITHELIAL CELLS,URINE NOT SEEN /hpf (0-5); HYALINE CASTS,URINE 0-5 /lpf (0-5); MUCUS,URINE FEW /hpf (FEW); WBC,URINE 0-5 /hpf (0-5)
== END 2023-08-18 14:15 ==
LOC: JD.ED 10:13
DX: G40.901 Epilepsy, unspecified, not intractable, with status epilepticus (principal); Z79.899 Other long term (current) drug therapy
CPT/HCPCS: 31500; 36415; 36600; 51702; 70450; 71045; 80053; 80306; 81001; 82803; 82947; 83605; 83735; 84100; 84443; 84484; 85025; 93005; 94660; 96361; 96365; 96367; 96375; 96376; 99291; 99292; C1758; J1953; J2060; J2250; J2704; J3480; J3490; J7030; J7120; 93010

== ENCOUNTER 2023-11-11 19:32 | Emergency (ER) | payer MEDICAID ==
[2023-11-11] MEDS ORDERED: LORazepam 2 MG/ML SDV ONE (19:34)
[2023-11-11] MEDS: LORazepam 2 MG/ML SDV IM ONE (19:42)
[2023-11-11] MEDS: levETIRAcetam 500 MG/5 ML SDV IVPUSH ONE (19:46)
[2023-11-11 19:49] LABS: BASOPHILS ABSOLUTE AUTO 0.1 K/mm3 (0.0-0.2); BASOPHILS PERCENT AUTO 0.5 % (0.0-1.0); EOSINOPHILS PERCENT AUTO 0.1 % (0.0-6.0); HEMATOCRIT 54.4 % (42.0-52.0); HEMOGLOBIN 16.7 gm/dl (14.0-18.0); IMMATURE GRAN ABSOLUTE AUTO 0.11 K/mm3 (0.00-0.05); IMMATURE GRAN PERCENT AUTO 0.7 % (0.0-0.4); LYMPHOCYTES ABSOLUTE AUTO 6.2 K/mm3 (1.0-4.8); LYMPHOCYTES PERCENT AUTO 40.4 % (24.0-44.0); MEAN CORPUSCULAR HEMOGLOBIN 32.6 pg (28.0-32.0); MEAN CORPUSCULAR HGB CONC 30.7 g/dl (32.0-36.0); MEAN PLATELET VOLUME 10.3 fl (9.4-12.4); MONOCYTES ABSOLUTE AUTO 1.3 K/mm3 (0.0-0.8); MONOCYTES PERCENT AUTO 8.7 % (0.0-8.0); NEUTROPHILS ABSOLUTE AUTO 7.6 K/mm3 (1.8-7.7); NEUTROPHILS PERCENT AUTO 49.6 % (41.0-71.0); PLATELET COUNT,PLT 377 K/mm3 (150-400); RED BLOOD CELL COUNT 5.13 M/mm3 (4.52-5.90); WHITE BLOOD CELL COUNT,WBC 15.33 K/mm3 (3.9-11.3)
[2023-11-11] MEDS: LORazepam 2 MG/ML SDV IVPUSH ONE (19:49)
[2023-11-11] MEDS: Sodium Chloride 0.9% 10 ML Syringe FLUSH PRN (19:50)
[2023-11-11] MEDS: levETIRAcetam 500 MG/5 ML SDV ONE (19:51)
[2023-11-11] MEDS: Sodium Chloride 0.9% 100 ML ONE (19:51)
[2023-11-11] MEDS: Valproate Sodium 500 MG in Sodium Chloride 0.9% 100 ML IV ONE (20:05)
[2023-11-11 20:09] LABS: A/G RATIO 1.4 (1-2); ANION GAP 26.9 (5-15); BILIRUBIN TOTAL 0.6 mg/dL (0.2-1.0); BUN/CREATININE RATIO 8.5 (14-18); CALCIUM 10.2 mg/dL (8.5-10.1); CREATININE 1.3 mg/dL (0.7-1.3); EST CRCL DRUG DOSING (CG) 78.39 mL/min; POTASSIUM,K 3.9 mEq/L (3.5-5.1); PROTEIN TOTAL,TP 8.6 g/dl (6.4-8.2)
[2023-11-11 20:24] LABS: SLIDE REVIEW ABNORMAL SMEAR
[2023-11-11] MEDS: LORazepam 2 MG/ML SDV ONE (20:32)
[2023-11-11] MEDS: Iopamidol 755 Mg/ML 100 ML Bottle IVPUSH ONE (21:13)
[2023-11-11] MEDS: Sodium Chloride 0.9% 100 ML IV SCH (21:13)
[2023-11-11] MEDS: Sodium Chloride 0.9% 10 ML Syringe FLUSH ONE (21:13)
[2023-11-12 01:23] LABS: BARBITURATE SCREEN,URINE NEGATIVE (CUTOFF=200); BENZODIAZEPINES SCREEN,URINE NEGATIVE (CUTOFF=150); BUPRENORPHINE SCREEN,URINE NEGATIVE (CUTOFF=10); METHADONE SCREEN, URINE NEGATIVE (CUT0FF=200); METHAMPHETAMINES SCREEN, URINE NEGATIVE (CUTOFF=500); OXYCODONE SCREEN,URINE NEGATIVE (CUT0FF=100); THC SCREEN,URINE 20 NG/ML PRESUMPTIVE POSITIVE (CUTOFF=50)
[2023-11-12 01:25] LABS: AMPHETAMINES SCREEN, URINE NEGATIVE (CUTOFF=500)
[2023-11-12 06:00] VITALS: BP 120/69; PULSE 98
== END 2023-11-12 05:58 | disposition home or self-care (01) ==
LOC: JD.ED 19:32
DX: G40.409 Other generalized epilepsy and epileptic syndromes, not intractable, without status epilepticus (principal); F12.10 Cannabis abuse, uncomplicated; Z79.899 Other long term (current) drug therapy
CPT/HCPCS: 36415; 70450; 70496; 80053; 80306; 80307; 82947; 83735; 85025; 96365; 96372; 96375; 99285; J1953; J2060; J3490; Q9967

== ENCOUNTER 2024-01-29 15:21 | Emergency (ER) | payer SELFPAY ==
[2024-01-29] MEDS: LORazepam 2 MG/ML SDV IVPUSH ONE (15:57)
[2024-01-29 16:03] LABS: BASOPHILS PERCENT AUTO 0.4 % (0.0-1.0); EOSINOPHILS ABSOLUTE AUTO 0.1 K/mm3 (0.0-0.4); EOSINOPHILS PERCENT AUTO 2.1 % (0.0-6.0); HEMATOCRIT 46.4 % (42.0-52.0); HEMOGLOBIN 15.7 gm/dl (14.0-18.0); IMMATURE GRAN ABSOLUTE AUTO 0.01 K/mm3 (0.00-0.05); IMMATURE GRAN PERCENT AUTO 0.2 % (0.0-0.4); LYMPHOCYTES ABSOLUTE AUTO 0.9 K/mm3 (1.0-4.8); LYMPHOCYTES PERCENT AUTO 17.8 % (24.0-44.0); MEAN CORPUSCULAR HEMOGLOBIN 30.3 pg (28.0-32.0); MEAN CORPUSCULAR HGB CONC 33.8 g/dl (32.0-36.0); MEAN CORPUSCULAR VOLUME 89.6 fl (83.0-99.0); MEAN PLATELET VOLUME 9.5 fl (9.4-12.4); MONOCYTES ABSOLUTE AUTO 0.2 K/mm3 (0.0-0.8); MONOCYTES PERCENT AUTO 4.5 % (0.0-8.0); NEUTROPHILS ABSOLUTE AUTO 3.6 K/mm3 (1.8-7.7); PLATELET COUNT,PLT 218 K/mm3 (150-400); RED BLOOD CELL COUNT 5.18 M/mm3 (4.52-5.90); WHITE BLOOD CELL COUNT,WBC 4.84 K/mm3 (3.9-11.3)
[2024-01-29] MEDS: Sodium Chloride 0.9% 1,000 ML IV SCH (16:05)
[2024-01-29] MEDS: Sodium Chloride 0.9% 10 ML Syringe FLUSH PRN (16:14)
[2024-01-29 16:31] LABS: A/G RATIO 1.2 (1-2); ALBUMIN 4.2 g/dl (3.4-5.0); ANION GAP 13.9 (5-15); BILIRUBIN TOTAL 0.9 mg/dL (0.2-1.0); CALCIUM 9.1 mg/dL (8.5-10.1); EST CRCL DRUG DOSING (CG) 100.63 mL/min; MAGNESIUM 1.8 mg/dL (1.8-2.4); POTASSIUM,K 3.9 mEq/L (3.5-5.1); PROTEIN TOTAL,TP 7.6 g/dl (6.4-8.2)
[2024-01-29 18:49] VITALS: BP 96/59; PULSE 77
[2024-01-31 12:47] LABS: KEPPRA 105 ug/mL (10-40)
== END 2024-01-29 18:45 | disposition home or self-care (01) ==
LOC: JD.ED 15:21
DX: F41.9 Anxiety disorder, unspecified (principal); F10.10 Alcohol abuse, uncomplicated; Z79.899 Other long term (current) drug therapy
CPT/HCPCS: 36415; 80053; 80177; 83735; 85025; 96361; 96374; 99283-25; 99284; J2060; J3490; J7030

== ENCOUNTER 2024-02-11 09:53 | Inpatient (IN) | payer SELFPAY ==
[2024-02-11] MEDS: Sodium Chloride 0.9% 10 ML Syringe FLUSH PRN (10:00)
[2024-02-11] MEDS: Sodium Chloride 0.9% 1,000 ML IV ONE ×3 (10:20→16:40)
[2024-02-11 10:21] LABS: HEMATOCRIT 45.9 % (42.0-52.0); HEMOGLOBIN 15.2 gm/dl (14.0-18.0); MEAN CORPUSCULAR HEMOGLOBIN 31.4 pg (28.0-32.0); MEAN CORPUSCULAR HGB CONC 33.1 g/dl (32.0-36.0); MEAN CORPUSCULAR VOLUME 94.8 fl (83.0-99.0); MEAN PLATELET VOLUME 9.5 fl (9.4-12.4); PLATELET COUNT,PLT 277 K/mm3 (150-400); RED BLOOD CELL COUNT 4.84 M/mm3 (4.52-5.90); WHITE BLOOD CELL COUNT,WBC 7.99 K/mm3 (3.9-11.3)
[2024-02-11 10:33] LABS: A/G RATIO 1.2 (1-2); ALBUMIN 3.9 g/dl (3.4-5.0); ANION GAP 21.4 (5-15); BILIRUBIN TOTAL 0.9 mg/dL (0.2-1.0); BUN/CREATININE RATIO 7.1 (14-18); CALCIUM 8.6 mg/dL (8.5-10.1); CREATININE 1.4 mg/dL (0.7-1.3); EST CRCL DRUG DOSING (CG) 77.58 mL/min; POTASSIUM,K 3.4 mEq/L (3.5-5.1); PROTEIN TOTAL,TP 7.1 g/dl (6.4-8.2)
[2024-02-11] MEDS: LORazepam 2 MG/ML SDV IVPUSH ONE (10:34)
[2024-02-11] MEDS: levETIRAcetam 2,000 MG in Sodium Chloride 0.9% 100 ML IV ONE ×2 (10:37→11:03)
[2024-02-11 10:40] LABS: LACTIC ACID 8.8 mmol/L (0.4-2.0)
[2024-02-11 10:47] LABS: APPEARANCE,URINE CLEAR (Clear); BILIRUBIN,URINE NEGATIVE (Negative); COLOR,URINE YELLOW (Yellow); GLUCOSE,URINE 2+ (Negative); KETONES,URINE NEGATIVE (Negative); LEUKOCYTE ESTERASE,URINE NEGATIVE (Negative); NITRITE,URINE NEGATIVE (Negative); OCCULT BLOOD,URINE 1+ (Negative); PROTEIN,URINE 2+ (Negative); UROBILINOGEN,URINE 0.2 (0.2-1.0)
[2024-02-11 10:57] LABS: ANISOCYTOSIS 1+ SLIGHT; BAND PERCENT MAN 2 % (0-10); BASOPHILS PERCENT MAN 0 (0.2-1.2); EOSINOPHILS PERCENT MAN 0 % (0.8-7.0); LYMPHOCYTES % ATYPICAL MANUAL 0 %; LYMPHOCYTES PERCENT MAN 24 % (20-40); MONOCYTES PERCENT MAN 5 % (2-10); PLATELET COUNT ESTIMATE ADEQUATE
[2024-02-11 10:58] LABS: BARBITURATE SCREEN,URINE NEGATIVE (CUTOFF=200); BENZODIAZEPINES SCREEN,URINE NEGATIVE (CUTOFF=150); BUPRENORPHINE SCREEN,URINE NEGATIVE (CUTOFF=10); METHADONE SCREEN, URINE NEGATIVE (CUT0FF=200); METHAMPHETAMINES SCREEN, URINE NEGATIVE (CUTOFF=500); OXYCODONE SCREEN,URINE NEGATIVE (CUT0FF=100); THC SCREEN,URINE 20 NG/ML PRESUMPTIVE POSITIVE (CUTOFF=50)
[2024-02-11 11:00] LABS: AMPHETAMINES SCREEN, URINE NEGATIVE (CUTOFF=500)
[2024-02-11 11:08] LABS: CORONAVIRUS COVID-19 NAA NEGATIVE (NEGATIVE); INFLUENZA A NAA NEGATIVE (NEGATIVE); RESPIRATORY SYNCYTIAL VIR NAA NEGATIVE (NEGATIVE)
[2024-02-11 11:08] LABS: SQUAMOUS EPITHELIAL CELLS,UR 0-5 /hpf (0-5)
[2024-02-11 11:09] LABS: BACTERIA,URINE MANY /hpf (FEW); MUCUS,URINE MODERATE /hpf (FEW)
[2024-02-11] MEDS ORDERED: LORazepam 2 MG/ML SDV IV PRN ×2 (15:53)
[2024-02-11] MEDS ORDERED: Acetaminophen 325 MG Tab PO PRN (15:55)
[2024-02-11] MEDS ORDERED: Ondansetron 4 MG Tab.DIS PO PRN (15:55)
[2024-02-11] MEDS: Sodium Chloride 0.9% 1,000 ML IV SCH (16:40)
[2024-02-11] MEDS: Multivitamin Tab PO SCH (18:24)
[2024-02-11] MEDS: Lactulose Soln 10 GM/15 ML 30 ML UD Cup PO ONE (18:24)
[2024-02-11] MEDS: Thiamine 100 MG Tab PO SCH (18:24)
[2024-02-11] MEDS: Folic Acid 1 MG Tab PO SCH (18:24)
[2024-02-12 06:10] LABS: A/G RATIO 1.2 (1-2); ALBUMIN 2.9 g/dl (3.4-5.0); ANION GAP 16.4 (5-15); BILIRUBIN TOTAL 1.2 mg/dL (0.2-1.0); BUN/CREATININE RATIO 4.4 (14-18); CREATININE 0.9 mg/dL (0.7-1.3); EST CRCL DRUG DOSING (CG) 120.02 mL/min; POTASSIUM,K 3.4 mEq/L (3.5-5.1); PROTEIN TOTAL,TP 5.4 g/dl (6.4-8.2)
[2024-02-12] MEDS: levETIRAcetam 500 MG Tab PO SCH (09:13)
[2024-02-12] MEDS: Enoxaparin 40 MG/0.4 ML Syringe SUBCUT SCH (09:14)
[2024-02-12] MEDS: Potassium Chloride 20 MEQ Tab.ER PO ONE (10:20)
[2024-02-12 10:53] VITALS: BP 118/76; PULSE 67
[2024-02-12] MEDS ORDERED: ZONISAMIDE 100 MG PO SCH (21:00)
== END 2024-02-12 10:40 | disposition home or self-care (01) | DRG 897 ==
LOC: JD.ED 09:53 → JD.ICU 13:42
PROVIDERS: ADMIT Family Medicine; ATTEND Family Medicine
DX: F10.139 Alcohol abuse with withdrawal, unspecified (principal); E87.20 Acidosis, unspecified; N17.9 Acute kidney failure, unspecified; G40.909 Epilepsy, unspecified, not intractable, without status epilepticus; E87.6 Hypokalemia; E86.0 Dehydration; K21.9 Gastro-esophageal reflux disease without esophagitis; H54.7 Unspecified visual loss; F32.A Depression, unspecified; K76.82 Hepatic encephalopathy; F17.210 Nicotine dependence, cigarettes, uncomplicated; Z91.148 Patient's other noncompliance with medication regimen for other reason; Z79.899 Other long term (current) drug therapy
CPT/HCPCS: 0241U; 36415; 70450; 70450-26; 71045; 71045-26; 72125; 72125-26; 72170; 72170-26; 80053; 80143; 80179; 80306; 80307; 81001; 82140; 82550; 82947; 83605; 83690; 83735; 84484; 85007; 85027; 87040; 93005; 96361; 96365; 96375; 99285-25; A9270-GY; C1758; J1650; J1953; J2060; J3490; J7030

== ENCOUNTER 2024-03-02 16:48 | Emergency (ER) | payer SELFPAY ==
[2024-03-02 17:36] LABS: BASOPHILS PERCENT AUTO 0.2 % (0.0-1.0); EOSINOPHILS PERCENT AUTO 0.2 % (0.0-6.0); HEMATOCRIT 44.1 % (42.0-52.0); HEMOGLOBIN 15.2 gm/dl (14.0-18.0); IMMATURE GRAN ABSOLUTE AUTO 0.02 K/mm3 (0.00-0.05); IMMATURE GRAN PERCENT AUTO 0.4 % (0.0-0.4); LYMPHOCYTES PERCENT AUTO 16.9 % (24.0-44.0); MEAN CORPUSCULAR HEMOGLOBIN 31.6 pg (28.0-32.0); MEAN CORPUSCULAR HGB CONC 34.5 g/dl (32.0-36.0); MEAN CORPUSCULAR VOLUME 91.7 fl (83.0-99.0); MEAN PLATELET VOLUME 9.1 fl (9.4-12.4); MONOCYTES ABSOLUTE AUTO 0.4 K/mm3 (0.0-0.8); MONOCYTES PERCENT AUTO 7.1 % (0.0-8.0); NEUTROPHILS ABSOLUTE AUTO 4.2 K/mm3 (1.8-7.7); NEUTROPHILS PERCENT AUTO 75.2 % (41.0-71.0); PLATELET COUNT,PLT 218 K/mm3 (150-400); RED BLOOD CELL COUNT 4.81 M/mm3 (4.52-5.90); WHITE BLOOD CELL COUNT,WBC 5.63 K/mm3 (3.9-11.3)
[2024-03-02] MEDS: LORazepam 2 MG/ML SDV IVPUSH ONE (17:58)
[2024-03-02] MEDS: Ondansetron 4 MG/2 ML SDV IVPUSH ONE (18:00)
[2024-03-02] MEDS: Lactated Ringers 1,000 ML IV ONE (18:04)
[2024-03-02] MEDS: Sodium Chloride 0.9% 10 ML Syringe FLUSH PRN (18:04)
[2024-03-02 18:07] LABS: A/G RATIO 1.1 (1-2); ALBUMIN 3.7 g/dl (3.4-5.0); ANION GAP 12.1 (5-15); BILIRUBIN TOTAL 0.9 mg/dL (0.2-1.0); CALCIUM 8.6 mg/dL (8.5-10.1); EST CRCL DRUG DOSING (CG) 103.66 mL/min; POTASSIUM,K 3.1 mEq/L (3.5-5.1); TSH 0.888 uIU/mL (0.358-3.74)
[2024-03-02] MEDS ORDERED: Potassium Chloride 20 MEQ Tab.ER ONE (21:45)
[2024-03-02] MEDS: Potassium Chloride 20 MEQ Tab.ER PO ONE (21:59)
[2024-03-02 22:59] VITALS: BP 109/72; PULSE 85
== END 2024-03-02 22:59 | disposition home or self-care (01) ==
LOC: JD.ED 16:48
DX: F10.130 Alcohol abuse with withdrawal, uncomplicated (principal); Z79.899 Other long term (current) drug therapy
CPT/HCPCS: 36415; 80053; 80143; 80179; 80307; 84443; 85025; 96361; 96374; 96375; 99284-25; A9270-GY; J2060; J2405; J3490; J7120

== ENCOUNTER 2024-03-13 16:03 | Inpatient (IN) | payer SELFPAY ==
[~2024-03-13 16:03] MED LIST: LORazepam 2 MG/ML SDV ONE
[2024-03-13] MEDS: LORazepam 2 MG/ML SDV IVPUSH ONE (16:15)
[2024-03-13] MEDS ORDERED: Sodium Chloride 0.9% 10 ML Syringe FLUSH PRN (16:17)
[2024-03-13] MEDS: Ondansetron 4 MG/2 ML SDV IVPUSH ONE ×2 (16:21)
[2024-03-13 16:32] LABS: BASOPHILS PERCENT AUTO 0.3 % (0.0-1.0); HEMATOCRIT 43.9 % (42.0-52.0); HEMOGLOBIN 14.8 gm/dl (14.0-18.0); IMMATURE GRAN ABSOLUTE AUTO 0.03 K/mm3 (0.00-0.05); IMMATURE GRAN PERCENT AUTO 0.5 % (0.0-0.4); LYMPHOCYTES ABSOLUTE AUTO 0.6 K/mm3 (1.0-4.8); LYMPHOCYTES PERCENT AUTO 8.5 % (24.0-44.0); MEAN CORPUSCULAR HEMOGLOBIN 32.5 pg (28.0-32.0); MEAN CORPUSCULAR HGB CONC 33.7 g/dl (32.0-36.0); MEAN CORPUSCULAR VOLUME 96.3 fl (83.0-99.0); MEAN PLATELET VOLUME 9.3 fl (9.4-12.4); MONOCYTES ABSOLUTE AUTO 0.2 K/mm3 (0.0-0.8); MONOCYTES PERCENT AUTO 2.5 % (0.0-8.0); NEUTROPHILS ABSOLUTE AUTO 5.7 K/mm3 (1.8-7.7); NEUTROPHILS PERCENT AUTO 88.2 % (41.0-71.0); PLATELET COUNT,PLT 183 K/mm3 (150-400); RED BLOOD CELL COUNT 4.56 M/mm3 (4.52-5.90); WHITE BLOOD CELL COUNT,WBC 6.49 K/mm3 (3.9-11.3)
[2024-03-13] MEDS: Lactated Ringers 1,000 ML IV ONE (16:33)
[2024-03-13] MEDS: Piperacillin/Tazobactam 4.5 GM in Sodium Chloride 0.9% 100 ML IV ONE (16:51)
[2024-03-13 16:56] LABS: A/G RATIO 1.2 (1-2); ALANINE AMINOTRANSFERASE,ALT 29 U/L (16-63); ALBUMIN 3.9 g/dl (3.4-5.0); ALKALINE PHOSPHATASE 108 U/L (46-116); ANION GAP 12.1 (5-15); BILIRUBIN TOTAL 0.7 mg/dL (0.2-1.0); BLOOD UREA NITROGEN,BUN 9 mg/dL (7-18); CALCIUM 8.1 mg/dL (8.5-10.1); CARBON DIOXIDE,CO2 25 mEq/L (21-32); CHLORIDE,CL 104 mEq/L (98-107); CREATININE 0.9 mg/dL (0.7-1.3); ESTIMATED GFR 122 mL/min (>60); GLUCOSE RANDOM 187 mg/dL (70-99); MAGNESIUM 1.8 mg/dL (1.8-2.4); POTASSIUM,K 4.1 mEq/L (3.5-5.1); PROTEIN TOTAL,TP 7.3 g/dl (6.4-8.2); SODIUM,NA 137 mEq/L (136-145); TROPONIN I HIGH SENSITIVITY < 4 pg/mL (<=76)
[2024-03-13] MEDS: Sodium Chloride 0.9% 1,000 ML IV ONE (17:05)
[2024-03-13 17:11] LABS: ASPARTATE AMNIOTRANSFERASE,AST 20 U/L (15-37)
[2024-03-13 17:16] LABS: LACTIC ACID 2.1 mmol/L (0.4-2.0)
[2024-03-13 17:50] LABS: BARBITURATE SCREEN,URINE NEGATIVE (CUTOFF=200); BENZODIAZEPINES SCREEN,URINE PRESUMPTIVE POSITIVE (CUTOFF=150); BUPRENORPHINE SCREEN,URINE NEGATIVE (CUTOFF=10); METHADONE SCREEN, URINE NEGATIVE (CUT0FF=200); METHAMPHETAMINES SCREEN, URINE NEGATIVE (CUTOFF=500); OXYCODONE SCREEN,URINE NEGATIVE (CUT0FF=100); THC SCREEN,URINE 20 NG/ML PRESUMPTIVE POSITIVE (CUTOFF=50)
[2024-03-13 18:00] LABS: AMPHETAMINES SCREEN, URINE NEGATIVE (CUTOFF=500)
[2024-03-13] MEDS: levETIRAcetam 500 MG/5 ML SDV IVPUSH ONE ×2 (19:28→21:26)
[2024-03-13 19:30] LABS: APPEARANCE,URINE SLT CLOUDY (Clear); BILIRUBIN,URINE NEGATIVE (Negative); COLOR,URINE YELLOW (Yellow); GLUCOSE,URINE TRACE (Negative); KETONES,URINE NEGATIVE (Negative); LEUKOCYTE ESTERASE,URINE NEGATIVE (Negative); NITRITE,URINE NEGATIVE (Negative); OCCULT BLOOD,URINE NEGATIVE (Negative); PH,URINE 6.5 (5.0-8.0); PROTEIN,URINE 1+ (Negative); UROBILINOGEN,URINE 0.2 (0.2-1.0)
[2024-03-13 19:35] LABS: RBC,URINE 0-5 /hpf (0-5); WBC,URINE 0-5 /hpf (0-5)
[2024-03-13 19:36] LABS: BACTERIA,URINE MODERATE /hpf (FEW); MUCUS,URINE FEW /hpf (FEW); SQUAMOUS EPITHELIAL CELLS,UR 0-5 /hpf (0-5)
[2024-03-13] MEDS: ZONISAMIDE 100 MG PO SCH (21:26)
[2024-03-14] MEDS ORDERED: Acetaminophen 325 MG Tab PO PRN (08:17)
[2024-03-14] MEDS: levETIRAcetam 500 MG Tab PO SCH ×3 (08:34→20:17)
[2024-03-14] MEDS: Enoxaparin 40 MG/0.4 ML Syringe SUBCUT SCH (08:34)
[2024-03-14] MEDS: levETIRAcetam 500 MG Tab PO ONE (11:30)
[2024-03-14] MEDS: ZONISAMIDE 100 MG PO SCH (20:16)
[2024-03-15 08:03] VITALS: BP 113/76; PULSE 63
== END 2024-03-15 07:40 | disposition home or self-care (01) | DRG 101 ==
LOC: JD.ED 16:03 → JD.ICU 18:53
PROVIDERS: ADMIT Internal Medicine; ATTEND Internal Medicine
DX: G40.309 Generalized idiopathic epilepsy and epileptic syndromes, not intractable, without status epilepticus (principal); K21.9 Gastro-esophageal reflux disease without esophagitis; F32.A Depression, unspecified; H54.7 Unspecified visual loss; Z87.442 Personal history of urinary calculi; Z79.899 Other long term (current) drug therapy
CPT/HCPCS: 36415; 71045; 71045-26; 80053; 80143; 80179; 80306; 80307; 81001; 82947; 83605; 83735; 84484; 85025; 87040; 93005; 93010; 96361; 96365; 96375; 99285; 99285-25; A9270-GY; C1758; J1650; J1953; J2060; J2405; J2543; J3490; J7030; J7120

== ENCOUNTER 2024-05-30 17:25 | Emergency (ER) | payer SELFPAY ==
[2024-05-30] MEDS ORDERED: Sodium Chloride 0.9% 1,000 ML IV ONE ×2 (17:26)
[2024-05-30] MEDS ORDERED: Naloxone 0.4 MG/ML SDV ONE (17:30)
[2024-05-30] MEDS ORDERED: Naloxone 2 MG/2 ML Syringe ONE ×2 (17:30)
[2024-05-30] MEDS: levETIRAcetam 500 MG/5 ML SDV IVPUSH ONE (17:45)
[2024-05-30 18:07] LABS: BASOPHILS ABSOLUTE AUTO 0.1 K/mm3 (0.0-0.2); BASOPHILS PERCENT AUTO 0.4 % (0.0-1.0); EOSINOPHILS ABSOLUTE AUTO 0.1 K/mm3 (0.0-0.4); EOSINOPHILS PERCENT AUTO 0.5 % (0.0-6.0); HEMATOCRIT 51.5 % (42.0-52.0); HEMOGLOBIN 15.9 gm/dl (14.0-18.0); IMMATURE GRAN ABSOLUTE AUTO 0.11 K/mm3 (0.00-0.05); IMMATURE GRAN PERCENT AUTO 0.8 % (0.0-0.4); LYMPHOCYTES PERCENT AUTO 28.7 % (24.0-44.0); MEAN CORPUSCULAR HEMOGLOBIN 30.8 pg (28.0-32.0); MEAN CORPUSCULAR HGB CONC 30.9 g/dl (32.0-36.0); MEAN CORPUSCULAR VOLUME 99.8 fl (83.0-99.0); MEAN PLATELET VOLUME 10.4 fl (9.4-12.4); MONOCYTES ABSOLUTE AUTO 0.8 K/mm3 (0.0-0.8); MONOCYTES PERCENT AUTO 5.6 % (0.0-8.0); NEUTROPHILS ABSOLUTE AUTO 8.8 K/mm3 (1.8-7.7); PLATELET COUNT,PLT 334 K/mm3 (150-400); RED BLOOD CELL COUNT 5.16 M/mm3 (4.52-5.90); WHITE BLOOD CELL COUNT,WBC 13.81 K/mm3 (3.9-11.3)
[2024-05-30 18:09] LABS: APPEARANCE,URINE SLT CLOUDY (Clear); BILIRUBIN,URINE NEGATIVE (Negative); COLOR,URINE YELLOW (Yellow); GLUCOSE,URINE TRACE (Negative); KETONES,URINE NEGATIVE (Negative); LEUKOCYTE ESTERASE,URINE NEGATIVE (Negative); NITRITE,URINE NEGATIVE (Negative); OCCULT BLOOD,URINE 2+ (Negative); PH,URINE 5.5 (5.0-8.0); PROTEIN,URINE 3+ (Negative); UROBILINOGEN,URINE 0.2 (0.2-1.0)
[2024-05-30 18:20] LABS: A/G RATIO 1.3 (1-2); ALANINE AMINOTRANSFERASE,ALT 16 U/L (16-63); ALBUMIN 4.7 g/dl (3.4-5.0); ALKALINE PHOSPHATASE 167 U/L (46-116); ANION GAP 21.6 (5-15); ASPARTATE AMNIOTRANSFERASE,AST 14 U/L (15-37); BILIRUBIN TOTAL 0.5 mg/dL (0.2-1.0); BLOOD UREA NITROGEN,BUN 20 mg/dL (7-18); BUN/CREATININE RATIO 14.3 (14-18); CALCIUM 9.2 mg/dL (8.5-10.1); CARBON DIOXIDE,CO2 17 mEq/L (21-32); CHLORIDE,CL 103 mEq/L (98-107); CREATININE 1.4 mg/dL (0.7-1.3); ESTIMATED GFR 71 mL/min (>60); GLUCOSE RANDOM 254 mg/dL (70-99); MAGNESIUM 2.5 mg/dL (1.8-2.4); POTASSIUM,K 3.6 mEq/L (3.5-5.1); PROTEIN TOTAL,TP 8.2 g/dl (6.4-8.2); SODIUM,NA 138 mEq/L (136-145)
[2024-05-30 18:37] LABS: BACTERIA,URINE MODERATE /hpf (FEW); CALCIUM OXALATE CRYSTALS,URINE FEW; MUCUS,URINE FEW /hpf (FEW); RBC,URINE 50-75 /hpf (0-5); WBC,URINE 0-5 /hpf (0-5)
[2024-05-30 19:11] LABS: BARBITURATE SCREEN,URINE NEGATIVE (CUTOFF=200); BENZODIAZEPINES SCREEN,URINE NEGATIVE (CUTOFF=150); BUPRENORPHINE SCREEN,URINE NEGATIVE (CUTOFF=10); METHADONE SCREEN, URINE NEGATIVE (CUT0FF=200); METHAMPHETAMINES SCREEN, URINE NEGATIVE (CUTOFF=500); OXYCODONE SCREEN,URINE NEGATIVE (CUT0FF=100); THC SCREEN,URINE 20 NG/ML PRESUMPTIVE POSITIVE (CUTOFF=50)
[2024-05-30 19:12] LABS: AMPHETAMINES SCREEN, URINE NEGATIVE (CUTOFF=500)
[2024-05-30 20:35] LABS: A/G RATIO 1.3 (1-2); ALANINE AMINOTRANSFERASE,ALT 13 U/L (16-63); ALBUMIN 3.6 g/dl (3.4-5.0); ALKALINE PHOSPHATASE 125 U/L (46-116); ANION GAP 16.1 (5-15); ASPARTATE AMNIOTRANSFERASE,AST 13 U/L (15-37); BILIRUBIN TOTAL 0.4 mg/dL (0.2-1.0); BLOOD UREA NITROGEN,BUN 18 mg/dL (7-18); CALCIUM 8.2 mg/dL (8.5-10.1); CARBON DIOXIDE,CO2 19 mEq/L (21-32); CHLORIDE,CL 108 mEq/L (98-107); ESTIMATED GFR 106 mL/min (>60); GLUCOSE RANDOM 114 mg/dL (70-99); POTASSIUM,K 4.1 mEq/L (3.5-5.1); PROTEIN TOTAL,TP 6.4 g/dl (6.4-8.2); SODIUM,NA 139 mEq/L (136-145)
[2024-05-30 23:30] VITALS: BP 111/69; PULSE 72
== END 2024-05-30 23:30 | disposition home or self-care (01) ==
LOC: JD.ED 17:25
DX: G40.401 Other generalized epilepsy and epileptic syndromes, not intractable, with status epilepticus (principal); Z79.899 Other long term (current) drug therapy
CPT/HCPCS: 36415; 71045; 80053; 80306; 80307; 81001; 83735; 85025; 93005; 96374; 99285; J1953; J2310; J7030

== ENCOUNTER 2024-06-02 23:22 | Emergency (ER) | payer SELFPAY ==
[2024-06-03] MEDS: Ketorolac 15 MG/ML SDV IVPUSH ONE (00:09)
[2024-06-03] MEDS: Sodium Chloride 0.9% 1,000 ML IV ONE (00:09)
[2024-06-03 00:10] LABS: BASOPHILS PERCENT AUTO 0.3 % (0.0-1.0); EOSINOPHILS PERCENT AUTO 0.3 % (0.0-6.0); HEMATOCRIT 41.8 % (42.0-52.0); IMMATURE GRAN ABSOLUTE AUTO 0.01 K/mm3 (0.00-0.05); IMMATURE GRAN PERCENT AUTO 0.1 % (0.0-0.4); LYMPHOCYTES ABSOLUTE AUTO 1.3 K/mm3 (1.0-4.8); LYMPHOCYTES PERCENT AUTO 18.1 % (24.0-44.0); MEAN CORPUSCULAR HEMOGLOBIN 30.9 pg (28.0-32.0); MEAN CORPUSCULAR HGB CONC 33.5 g/dl (32.0-36.0); MEAN CORPUSCULAR VOLUME 92.3 fl (83.0-99.0); MEAN PLATELET VOLUME 9.6 fl (9.4-12.4); MONOCYTES ABSOLUTE AUTO 0.5 K/mm3 (0.0-0.8); MONOCYTES PERCENT AUTO 6.3 % (0.0-8.0); NEUTROPHILS ABSOLUTE AUTO 5.3 K/mm3 (1.8-7.7); NEUTROPHILS PERCENT AUTO 74.9 % (41.0-71.0); PLATELET COUNT,PLT 195 K/mm3 (150-400); RED BLOOD CELL COUNT 4.53 M/mm3 (4.52-5.90); WHITE BLOOD CELL COUNT,WBC 7.09 K/mm3 (3.9-11.3)
[2024-06-03] MEDS: Sodium Chloride 0.9% 10 ML Syringe FLUSH ONE (00:10)
[2024-06-03] MEDS: Iopamidol 612 MG/ML 100 ML Bottle IVPUSH ONE (00:28)
[2024-06-03] MEDS: Sodium Chloride 0.9% 10 ML Syringe FLUSH PRN (00:28)
[2024-06-03] MEDS: Iopamidol 612 MG/ML 30 ML SDV IVPUSH ONE (00:28)
[2024-06-03 00:44] LABS: A/G RATIO 1.2 (1-2); ALBUMIN 3.9 g/dl (3.4-5.0); ANION GAP 14.4 (5-15); BILIRUBIN TOTAL 0.6 mg/dL (0.2-1.0); CALCIUM 8.9 mg/dL (8.5-10.1); EST CRCL DRUG DOSING (CG) 100.55 mL/min; POTASSIUM,K 3.4 mEq/L (3.5-5.1); PROTEIN TOTAL,TP 7.3 g/dl (6.4-8.2)
[2024-06-03 02:04] VITALS: BP 92/64; PULSE 59
== END 2024-06-03 02:02 | disposition home or self-care (01) ==
LOC: JD.ED 23:22
DX: J18.9 Pneumonia, unspecified organism (principal); R10.9 Unspecified abdominal pain; Z79.899 Other long term (current) drug therapy
CPT/HCPCS: 36415; 74177; 80053; 83690; 83735; 85025; 86308; 87428; 87651; 96361; 96374; 99284; J1885; J7030; Q9967

== ENCOUNTER 2024-06-15 00:49 | Emergency (ER) | payer SELFPAY ==
[2024-06-15 01:39] LABS: BASOPHILS PERCENT AUTO 0.3 % (0.0-1.0); EOSINOPHILS PERCENT AUTO 0.2 % (0.0-6.0); HEMATOCRIT 39.9 % (42.0-52.0); HEMOGLOBIN 12.8 gm/dl (14.0-18.0); IMMATURE GRAN ABSOLUTE AUTO 0.03 K/mm3 (0.00-0.05); IMMATURE GRAN PERCENT AUTO 0.5 % (0.0-0.4); LYMPHOCYTES ABSOLUTE AUTO 0.7 K/mm3 (1.0-4.8); LYMPHOCYTES PERCENT AUTO 12.2 % (24.0-44.0); MEAN CORPUSCULAR HEMOGLOBIN 30.9 pg (28.0-32.0); MEAN CORPUSCULAR HGB CONC 32.1 g/dl (32.0-36.0); MEAN CORPUSCULAR VOLUME 96.4 fl (83.0-99.0); MEAN PLATELET VOLUME 9.7 fl (9.4-12.4); MONOCYTES ABSOLUTE AUTO 0.3 K/mm3 (0.0-0.8); MONOCYTES PERCENT AUTO 4.1 % (0.0-8.0); NEUTROPHILS PERCENT AUTO 82.7 % (41.0-71.0); PLATELET COUNT,PLT 187 K/mm3 (150-400); RED BLOOD CELL COUNT 4.14 M/mm3 (4.52-5.90); WHITE BLOOD CELL COUNT,WBC 6.06 K/mm3 (3.9-11.3)
[2024-06-15 01:58] LABS: A/G RATIO 1.1 (1-2); ALANINE AMINOTRANSFERASE,ALT 18 U/L (16-63); ALBUMIN 3.2 g/dl (3.4-5.0); ALKALINE PHOSPHATASE 116 U/L (46-116); ANION GAP 11.7 (5-15); ASPARTATE AMNIOTRANSFERASE,AST 14 U/L (15-37); BILIRUBIN TOTAL 0.3 mg/dL (0.2-1.0); BLOOD UREA NITROGEN,BUN 17 mg/dL (7-18); CALCIUM 8.3 mg/dL (8.5-10.1); CARBON DIOXIDE,CO2 24 mEq/L (21-32); CHLORIDE,CL 107 mEq/L (98-107); ESTIMATED GFR 106 mL/min (>60); GLUCOSE RANDOM 101 mg/dL (70-99); MAGNESIUM 2.1 mg/dL (1.8-2.4); POTASSIUM,K 3.7 mEq/L (3.5-5.1); PROTEIN TOTAL,TP 6.2 g/dl (6.4-8.2); SODIUM,NA 139 mEq/L (136-145)
[2024-06-15 02:12] LABS: LACTIC ACID 3.5 mmol/L (0.4-2.0)
[2024-06-15] MEDS: Sodium Chloride 0.9% 1,000 ML IV ONE ×2 (02:42→03:46)
[2024-06-15] MEDS: Sodium Chloride 0.9% 10 ML Syringe FLUSH PRN (02:43)
[2024-06-15] MEDS: levETIRAcetam 500 MG Tab PO SCH (06:29)
[2024-06-15 06:51] LABS: APPEARANCE,URINE SLT CLOUDY (Clear); BILIRUBIN,URINE NEGATIVE (Negative); COLOR,URINE YELLOW (Yellow); GLUCOSE,URINE NEGATIVE (Negative); KETONES,URINE TRACE (Negative); LEUKOCYTE ESTERASE,URINE NEGATIVE (Negative); NITRITE,URINE NEGATIVE (Negative); OCCULT BLOOD,URINE NEGATIVE (Negative); PROTEIN,URINE 2+ (Negative); UROBILINOGEN,URINE 0.2 (0.2-1.0)
[2024-06-15 06:57] VITALS: BP 90/52; PULSE 97
[2024-06-15 06:59] LABS: BARBITURATE SCREEN,URINE NEGATIVE (CUTOFF=200); BENZODIAZEPINES SCREEN,URINE NEGATIVE (CUTOFF=150); BUPRENORPHINE SCREEN,URINE NEGATIVE (CUTOFF=10); METHADONE SCREEN, URINE NEGATIVE (CUT0FF=200); METHAMPHETAMINES SCREEN, URINE NEGATIVE (CUTOFF=500); OXYCODONE SCREEN,URINE NEGATIVE (CUT0FF=100); THC SCREEN,URINE 20 NG/ML PRESUMPTIVE POSITIVE (CUTOFF=50)
[2024-06-15 07:02] LABS: AMPHETAMINES SCREEN, URINE NEGATIVE (CUTOFF=500); BACTERIA,URINE FEW /hpf (FEW); MUCUS,URINE MANY /hpf (FEW); RBC,URINE 0-5 /hpf (0-5); SQUAMOUS EPITHELIAL CELLS,UR 0-5 /hpf (0-5); WBC,URINE 0-5 /hpf (0-5)
[2024-06-17 14:42] LABS: KEPPRA <2 ug/mL (10-40)
== END 2024-06-15 08:30 | disposition home or self-care (01) ==
LOC: JD.ED 00:49
DX: E87.20 Acidosis, unspecified (principal); Z79.899 Other long term (current) drug therapy
CPT/HCPCS: 36415; 71045; 71045-26; 80053; 80177; 80306; 80307; 81001; 83605; 83735; 85025; 93005; 96360; 96361; 99285-25; A9270-GY; J7030

== ENCOUNTER 2024-07-18 12:18 | Emergency (ER) | payer MEDICAID ==
[2024-07-18 13:35] LABS: BASOPHILS PERCENT AUTO 0.4 % (0.0-1.0); EOSINOPHILS PERCENT AUTO 0.2 % (0.0-6.0); HEMATOCRIT 45.4 % (42.0-52.0); IMMATURE GRAN ABSOLUTE AUTO 0.03 K/mm3 (0.00-0.05); IMMATURE GRAN PERCENT AUTO 0.6 % (0.0-0.4); LYMPHOCYTES ABSOLUTE AUTO 0.9 K/mm3 (1.0-4.8); LYMPHOCYTES PERCENT AUTO 20.2 % (24.0-44.0); MEAN CORPUSCULAR HGB CONC 34.1 g/dl (32.0-36.0); MONOCYTES ABSOLUTE AUTO 0.3 K/mm3 (0.0-0.8); MONOCYTES PERCENT AUTO 6.9 % (0.0-8.0); NEUTROPHILS ABSOLUTE AUTO 3.3 K/mm3 (1.8-7.7); NEUTROPHILS PERCENT AUTO 71.7 % (41.0-71.0); PLATELET COUNT,PLT 201 K/mm3 (150-400); WHITE BLOOD CELL COUNT,WBC 4.65 K/mm3 (3.9-11.3)
[2024-07-18 13:36] LABS: HEMOGLOBIN 15.5 gm/dl (14.0-18.0); MEAN CORPUSCULAR VOLUME 90.8 fl (83.0-99.0)
[2024-07-18 13:52] LABS: BARBITURATE SCREEN,URINE NEGATIVE (CUTOFF=200); BENZODIAZEPINES SCREEN,URINE NEGATIVE (CUTOFF=150); BUPRENORPHINE SCREEN,URINE NEGATIVE (CUTOFF=10); METHADONE SCREEN, URINE NEGATIVE (CUT0FF=200); METHAMPHETAMINES SCREEN, URINE NEGATIVE (CUTOFF=500); OXYCODONE SCREEN,URINE NEGATIVE (CUT0FF=100); THC SCREEN,URINE 20 NG/ML PRESUMPTIVE POSITIVE (CUTOFF=50)
[2024-07-18 14:04] LABS: AMPHETAMINES SCREEN, URINE NEGATIVE (CUTOFF=500)
[2024-07-18 14:07] LABS: A/G RATIO 1.1 (1-2); ALBUMIN 3.9 g/dl (3.4-5.0); BILIRUBIN TOTAL 0.7 mg/dL (0.2-1.0); BUN/CREATININE RATIO 6.4 (14-18); CALCIUM 8.8 mg/dL (8.5-10.1); CREATININE 1.1 mg/dL (0.7-1.3); EST CRCL DRUG DOSING (CG) 89.96 mL/min; ETHANOL BLOOD MEDICAL 0.17 gm% (0.00); PROTEIN TOTAL,TP 7.5 g/dl (6.4-8.2); TSH 0.703 uIU/mL (0.358-3.74)
[2024-07-18 15:23] VITALS: BP 131/74; PULSE 67
== END 2024-07-18 15:10 | disposition home or self-care (01) ==
LOC: JD.ED 12:18
DX: S09.90XA Unspecified injury of head, initial encounter (principal); Z79.899 Other long term (current) drug therapy; X58.XXXA Exposure to other specified factors, initial encounter; Y93.89 Activity, other specified
CPT/HCPCS: 36415; 70450; 70450-26; 80053; 80143; 80179; 80306; 80307; 84443; 85025; 87428-QW; 93005; 93010; 99284

== ENCOUNTER 2024-09-15 15:38 | Emergency (ER) | payer SELFPAY ==
[2024-09-15] MEDS: Sodium Chloride 0.9% 1,000 ML IV ONE (17:37)
[2024-09-15] MEDS: Ondansetron 4 MG/2 ML SDV IVPUSH ONE (17:39)
[2024-09-15 17:45] LABS: BASOPHILS PERCENT AUTO 0.2 % (0.0-1.0); HEMATOCRIT 43.3 % (42.0-52.0); HEMOGLOBIN 14.9 gm/dl (14.0-18.0); IMMATURE GRAN ABSOLUTE AUTO 0.01 K/mm3 (0.00-0.05); IMMATURE GRAN PERCENT AUTO 0.2 % (0.0-0.4); LYMPHOCYTES ABSOLUTE AUTO 0.7 K/mm3 (1.0-4.8); LYMPHOCYTES PERCENT AUTO 13.9 % (24.0-44.0); MEAN CORPUSCULAR HEMOGLOBIN 31.9 pg (28.0-32.0); MEAN CORPUSCULAR HGB CONC 34.4 g/dl (32.0-36.0); MEAN CORPUSCULAR VOLUME 92.7 fl (83.0-99.0); MONOCYTES ABSOLUTE AUTO 0.4 K/mm3 (0.0-0.8); MONOCYTES PERCENT AUTO 8.2 % (0.0-8.0); NEUTROPHILS ABSOLUTE AUTO 3.9 K/mm3 (1.8-7.7); NEUTROPHILS PERCENT AUTO 77.5 % (41.0-71.0); PLATELET COUNT,PLT 151 K/mm3 (150-400); RED BLOOD CELL COUNT 4.67 M/mm3 (4.52-5.90); WHITE BLOOD CELL COUNT,WBC 4.98 K/mm3 (3.9-11.3)
[2024-09-15 18:06] LABS: A/G RATIO 1.2 (1-2); ALANINE AMINOTRANSFERASE,ALT 24 U/L (16-63); ALBUMIN 3.8 g/dl (3.4-5.0); ALKALINE PHOSPHATASE 97 U/L (46-116); ANION GAP 12.5 (5-15); ASPARTATE AMNIOTRANSFERASE,AST 24 U/L (15-37); BLOOD UREA NITROGEN,BUN 11 mg/dL (7-18); BUN/CREATININE RATIO 12.2 (14-18); C-REACTIVE PROTEIN <0.05 mg/dL (<0.30); CALCIUM 9.1 mg/dL (8.5-10.1); CARBON DIOXIDE,CO2 26 mEq/L (21-32); CHLORIDE,CL 100 mEq/L (98-107); CREATININE 0.9 mg/dL (0.7-1.3); EST CRCL DRUG DOSING (CG) 121.37 mL/min; ESTIMATED GFR 121 mL/min (>60); GLUCOSE RANDOM 110 mg/dL (70-99); POTASSIUM,K 3.5 mEq/L (3.5-5.1); SODIUM,NA 135 mEq/L (136-145)
[2024-09-15 22:42] VITALS: BP 111/72; PULSE 87
== END 2024-09-15 19:05 | disposition home or self-care (01) ==
LOC: JD.ED 15:38
DX: R11.2 Nausea with vomiting, unspecified (principal); Z79.899 Other long term (current) drug therapy
CPT/HCPCS: 36415; 80053; 80307; 85025; 86140; 96361; 96374; 99284; J2405; J7030; 99283

== ENCOUNTER 2024-09-21 14:35 | Emergency (ER) | payer SELFPAY ==
[2024-09-21 15:01] VITALS: BP 121/87; PULSE 90
[2024-09-21 15:39] LABS: BASOPHILS PERCENT AUTO 0.3 % (0.0-1.0); EOSINOPHILS PERCENT AUTO 0.3 % (0.0-6.0); HEMATOCRIT 43.5 % (42.0-52.0); HEMOGLOBIN 15.2 gm/dl (14.0-18.0); IMMATURE GRAN ABSOLUTE AUTO 0.01 K/mm3 (0.00-0.05); IMMATURE GRAN PERCENT AUTO 0.3 % (0.0-0.4); LYMPHOCYTES ABSOLUTE AUTO 0.5 K/mm3 (1.0-4.8); LYMPHOCYTES PERCENT AUTO 15.2 % (24.0-44.0); MEAN CORPUSCULAR HEMOGLOBIN 31.7 pg (28.0-32.0); MEAN CORPUSCULAR HGB CONC 34.9 g/dl (32.0-36.0); MEAN CORPUSCULAR VOLUME 90.8 fl (83.0-99.0); MEAN PLATELET VOLUME 9.8 fl (9.4-12.4); MONOCYTES ABSOLUTE AUTO 0.3 K/mm3 (0.0-0.8); MONOCYTES PERCENT AUTO 8.2 % (0.0-8.0); NEUTROPHILS ABSOLUTE AUTO 2.4 K/mm3 (1.8-7.7); NEUTROPHILS PERCENT AUTO 75.7 % (41.0-71.0); PLATELET COUNT,PLT 104 K/mm3 (150-400); RED BLOOD CELL COUNT 4.79 M/mm3 (4.52-5.90); WHITE BLOOD CELL COUNT,WBC 3.16 K/mm3 (3.9-11.3)
[2024-09-21] MEDS: Folic Acid 1 MG Tab PO ONE (15:45)
[2024-09-21] MEDS: Multivitamin Tab PO STA (15:45)
[2024-09-21] MEDS: Thiamine 100 MG Tab PO ONE (15:45)
[2024-09-21 15:55] LABS: PROTHROMBIN TIME 10.6 SECONDS (9.7-12.0)
[2024-09-21 15:58] LABS: A/G RATIO 1.2 (1-2); ALBUMIN 3.8 g/dl (3.4-5.0); BILIRUBIN TOTAL 1.3 mg/dL (0.2-1.0); BUN/CREATININE RATIO 9.1 (14-18); CALCIUM 9.1 mg/dL (8.5-10.1); CREATININE 1.1 mg/dL (0.7-1.3); EST CRCL DRUG DOSING (CG) 97.59 mL/min; MAGNESIUM 1.6 mg/dL (1.8-2.4)
[2024-09-21 16:05] LABS: BARBITURATE SCREEN,URINE NEGATIVE (CUTOFF=200); BENZODIAZEPINES SCREEN,URINE NEGATIVE (CUTOFF=150); BUPRENORPHINE SCREEN,URINE NEGATIVE (CUTOFF=10); METHADONE SCREEN, URINE NEGATIVE (CUT0FF=200); METHAMPHETAMINES SCREEN, URINE NEGATIVE (CUTOFF=500); OXYCODONE SCREEN,URINE NEGATIVE (CUT0FF=100); THC SCREEN,URINE 20 NG/ML PRESUMPTIVE POSITIVE (CUTOFF=50)
[2024-09-21 16:08] LABS: AMPHETAMINES SCREEN, URINE NEGATIVE (CUTOFF=500)
== END 2024-09-21 19:20 | disposition other institution (70) ==
LOC: JD.ED 14:35
DX: G40.909 Epilepsy, unspecified, not intractable, without status epilepticus (principal); F12.10 Cannabis abuse, uncomplicated; F41.9 Anxiety disorder, unspecified; F10.20 Alcohol dependence, uncomplicated; F17.200 Nicotine dependence, unspecified, uncomplicated
CPT/HCPCS: 36415; 80053; 80143; 80179; 80306; 80307; 82550; 83690; 83735; 85025; 85610; 99284; A9270

== ENCOUNTER 2024-10-12 15:07 | Emergency (ER) | payer SELFPAY ==
[2024-10-12] MEDS: Ondansetron 4 MG/2 ML SDV IVPUSH ONE (15:57)
[2024-10-12] MEDS: Sodium Chloride 0.9% 1,000 ML IV ONE (15:57)
[2024-10-12] MEDS: LORazepam 2 MG/ML SDV IVPUSH ONE ×2 (15:57→17:39)
[2024-10-12] MEDS: Thiamine 200 MG/2 ML MDV IVPUSH ONE (15:57)
[2024-10-12 16:26] LABS: BASOPHILS PERCENT AUTO 0.3 % (0.0-1.0); EOSINOPHILS PERCENT AUTO 0.4 % (0.0-6.0); HEMATOCRIT 45.7 % (42.0-52.0); HEMOGLOBIN 15.3 gm/dl (14.0-18.0); IMMATURE GRAN ABSOLUTE AUTO 0.01 K/mm3 (0.00-0.05); IMMATURE GRAN PERCENT AUTO 0.1 % (0.0-0.4); LYMPHOCYTES ABSOLUTE AUTO 1.2 K/mm3 (1.0-4.8); LYMPHOCYTES PERCENT AUTO 16.8 % (24.0-44.0); MEAN CORPUSCULAR HGB CONC 33.5 g/dl (32.0-36.0); MEAN CORPUSCULAR VOLUME 98.7 fl (83.0-99.0); MONOCYTES ABSOLUTE AUTO 0.4 K/mm3 (0.0-0.8); MONOCYTES PERCENT AUTO 6.3 % (0.0-8.0); NEUTROPHILS ABSOLUTE AUTO 5.3 K/mm3 (1.8-7.7); NEUTROPHILS PERCENT AUTO 76.1 % (41.0-71.0); PLATELET COUNT,PLT 183 K/mm3 (150-400); RED BLOOD CELL COUNT 4.63 M/mm3 (4.52-5.90); WHITE BLOOD CELL COUNT,WBC 6.95 K/mm3 (3.9-11.3)
[2024-10-12 16:56] LABS: A/G RATIO 1.1 (1-2); ANION GAP 29.7 (5-15); BILIRUBIN TOTAL 1.7 mg/dL (0.2-1.0); BUN/CREATININE RATIO 11.4 (14-18); CALCIUM 8.8 mg/dL (8.5-10.1); CREATININE 1.4 mg/dL (0.7-1.3); EST CRCL DRUG DOSING (CG) 76.57 mL/min; MAGNESIUM 2.2 mg/dL (1.8-2.4); POTASSIUM,K 3.7 mEq/L (3.5-5.1); PROTEIN TOTAL,TP 7.6 g/dl (6.4-8.2)
[2024-10-12] MEDS: Folic Acid 1 MG Tab PO ONE (19:45)
[2024-10-12] MEDS: Multivitamins with Minerals/Folic Acid/Lutein/Zeaxanth Tab PO STA (19:45)
[2024-10-12] MEDS: levETIRAcetam 1,500 MG in Sodium Chloride 0.9% 100 ML IV ONE (19:46)
[2024-10-12 19:51] VITALS: BP 107/76; PULSE 91
== END 2024-10-12 19:30 | disposition home or self-care (01) ==
LOC: JD.ED 15:07
DX: G40.909 Epilepsy, unspecified, not intractable, without status epilepticus (principal); N28.9 Disorder of kidney and ureter, unspecified; E80.6 Other disorders of bilirubin metabolism; Z79.899 Other long term (current) drug therapy
CPT/HCPCS: 36415; 80053; 80307; 82550; 83690; 83735; 84484; 85025; 93005; 96361; 96374; 96375; 99284; J1953; J2060; J2405; J3411; J7030; 93010

== ENCOUNTER 2024-10-26 14:28 | Emergency (ER) | payer MEDICAID ==
[2024-10-26 15:12] LABS: BASOPHILS PERCENT AUTO 0.1 % (0.0-1.0); HEMATOCRIT 41.8 % (42.0-52.0); HEMOGLOBIN 14.9 gm/dl (14.0-18.0); IMMATURE GRAN ABSOLUTE AUTO 0.03 K/mm3 (0.00-0.05); IMMATURE GRAN PERCENT AUTO 0.4 % (0.0-0.4); LYMPHOCYTES ABSOLUTE AUTO 0.3 K/mm3 (1.0-4.8); LYMPHOCYTES PERCENT AUTO 4.3 % (24.0-44.0); MEAN CORPUSCULAR HEMOGLOBIN 33.6 pg (28.0-32.0); MEAN CORPUSCULAR HGB CONC 35.6 g/dl (32.0-36.0); MEAN CORPUSCULAR VOLUME 94.1 fl (83.0-99.0); MEAN PLATELET VOLUME 9.3 fl (9.4-12.4); MONOCYTES ABSOLUTE AUTO 0.4 K/mm3 (0.0-0.8); MONOCYTES PERCENT AUTO 4.8 % (0.0-8.0); NEUTROPHILS ABSOLUTE AUTO 6.5 K/mm3 (1.8-7.7); NEUTROPHILS PERCENT AUTO 90.4 % (41.0-71.0); PLATELET COUNT,PLT 177 K/mm3 (150-400); RED BLOOD CELL COUNT 4.44 M/mm3 (4.52-5.90); WHITE BLOOD CELL COUNT,WBC 7.23 K/mm3 (3.9-11.3)
[2024-10-26] MEDS: HYDROmorphone 1 MG/ML Syringe IVPUSH ONE (15:17)
[2024-10-26] MEDS: Sodium Chloride 0.9% 1,000 ML IV STA ×2 (15:17→16:34)
[2024-10-26 15:36] LABS: A/G RATIO 1.2 (1-2); ALBUMIN 4.1 g/dl (3.4-5.0); ANION GAP 18.9 (5-15); BILIRUBIN TOTAL 1.7 mg/dL (0.2-1.0); C-REACTIVE PROTEIN 0.08 mg/dL (<0.30); CALCIUM 9.6 mg/dL (8.5-10.1); CREATININE 1.1 mg/dL (0.7-1.3); EST CRCL DRUG DOSING (CG) 96.76 mL/min; POTASSIUM,K 3.9 mEq/L (3.5-5.1); PROTEIN TOTAL,TP 7.5 g/dl (6.4-8.2)
[2024-10-26] MEDS: chlordiazePOXIDE 25 MG Cap PO ONE ×2 (16:44→17:06)
[2024-10-26 18:31] VITALS: BP 104/77; PULSE 71
[2024-10-28 12:47] LABS: ZONISAMIDE 12 ug/mL (10-40)
[2024-10-28 21:42] LABS: KEPPRA 60 ug/mL (10-40)
== END 2024-10-26 18:30 | disposition home or self-care (01) ==
LOC: JD.ED 14:28
DX: G40.909 Epilepsy, unspecified, not intractable, without status epilepticus (principal); F10.10 Alcohol abuse, uncomplicated; E87.20 Acidosis, unspecified; Z79.899 Other long term (current) drug therapy; Y90.9 Presence of alcohol in blood, level not specified
CPT/HCPCS: 36415; 71100; 80053; 80177; 80203; 83605; 85025; 86140; 96361; 96374; 99284; A9270; J1171; J7030

== ENCOUNTER 2024-12-01 21:23 | Emergency (ER) | payer MEDICAID ==
[2024-12-01 21:32] VITALS: BP 110/78; PULSE 88
[2024-12-01] MEDS ORDERED: Sodium Chloride 0.9% 10 ML Syringe FLUSH PRN (21:54)
== END 2024-12-01 22:00 | disposition left against medical advice (07) ==
LOC: JD.ED 21:23
DX: Z53.21 Procedure and treatment not carried out due to patient leaving prior to being seen by health care provider (principal)

== ENCOUNTER 2024-12-02 12:37 | Emergency (ER) | payer MEDICAID ==
[2024-12-02 12:48] VITALS: PULSE 114
[2024-12-02 13:01] LABS: BASOPHILS ABSOLUTE AUTO 0.0 K/mm3 (0.0-0.2); BASOPHILS PERCENT AUTO 0.4 % (0.0-1.0); EOSINOPHILS ABSOLUTE AUTO 0.0 K/mm3 (0.0-0.4); EOSINOPHILS PERCENT AUTO 0.6 % (0.0-6.0); IMMATURE GRAN ABSOLUTE AUTO 0.02 K/mm3 (0.00-0.05); IMMATURE GRAN PERCENT AUTO 0.4 % (0.0-0.4); LYMPHOCYTES ABSOLUTE AUTO 1.0 K/mm3 (1.0-4.8); LYMPHOCYTES PERCENT AUTO 19.8 % (24.0-44.0); MEAN PLATELET VOLUME 8.6 fl (9.4-12.4); MONOCYTES ABSOLUTE AUTO 0.3 K/mm3 (0.0-0.8); MONOCYTES PERCENT AUTO 6.4 % (0.0-8.0); NEUTROPHILS ABSOLUTE AUTO 3.7 K/mm3 (1.8-7.7); NEUTROPHILS PERCENT AUTO 72.4 % (41.0-71.0); NRBC ABSOLUTE 0.00 (0.00-0.02); NRBC PERCENT 0.0 % (0.0-0.2); PLATELET COUNT,PLT 198 K/mm3 (150-400); RED BLOOD CELL COUNT 4.55 M/mm3 (4.52-5.90); WHITE BLOOD CELL COUNT,WBC 5.14 K/mm3 (3.9-11.3)
[2024-12-02] MEDS: Ondansetron 4 MG/2 ML SDV IVPUSH ONE (13:07)
[2024-12-02 13:34] LABS: A/G RATIO 1.1 (1-2); ALANINE AMINOTRANSFERASE,ALT 95.0 U/L (16-63); ASPARTATE AMNIOTRANSFERASE,AST 109.0 U/L (15-37); BILIRUBIN TOTAL 1.6 mg/dL (0.2-1.0); BLOOD UREA NITROGEN,BUN 9.0 mg/dL (7-18); CARBON DIOXIDE,CO2 17.0 mEq/L (21-32); CHLORIDE,CL 95.0 mEq/L (98-107); CREATININE 1.2 mg/dL (0.7-1.3); EST CRCL DRUG DOSING (CG) 89.77 mL/min; ESTIMATED GFR 86.0 mL/min (>60); ETHANOL BLOOD MEDICAL 0.01 gm% (0.00); GLUCOSE RANDOM 133.0 mg/dL (70-99); POTASSIUM,K 3.2 mEq/L (3.5-5.1); PROTEIN TOTAL,TP 7.5 g/dl (6.4-8.2); SODIUM,NA 135.0 mEq/L (136-145)
[2024-12-02 13:42] LABS: LACTIC ACID 12.9 mmol/L (0.4-2.0)
[2024-12-02] MEDS: Lactated Ringers 1,000 ML IV ONE (14:22)
[2024-12-02] MEDS: Magnesium Sulfate 2 GM/50 mL 2 GM in Premix Bag 1 BAG IV ONE (14:22)
[2024-12-02] MEDS: droPERidol 2.5 MG/ML SDV IV STA (14:22)
[2024-12-02] MEDS: Thiamine 200 MG/2 ML MDV IVPUSH ONE (18:04)
[2024-12-02] MEDS: Folic Acid 50 MG/10 ML MDV IV STA (18:20)
[2024-12-02 18:35] VITALS: BP 116/73
== END 2024-12-02 18:15 | disposition home or self-care (01) ==
LOC: JD.ED 12:37
DX: R56.9 Unspecified convulsions (principal); R11.2 Nausea with vomiting, unspecified; E87.1 Hypo-osmolality and hyponatremia; E86.0 Dehydration; F10.130 Alcohol abuse with withdrawal, uncomplicated; Z79.899 Other long term (current) drug therapy
CPT/HCPCS: 36415; 80053; 80307; 83605; 83735; 85025; 96361; 96365; 96366; 96367; 96368; 96375; 99284; A9270; J1790; J1953; J2405; J3411; J3475; J3480; J7030; J7120

== ENCOUNTER 2025-01-19 14:10 | Emergency (ER) | payer MEDICAID ==
[2025-01-19 15:36] LABS: BASOPHILS ABSOLUTE AUTO 0.0 K/mm3 (0.0-0.2); BASOPHILS PERCENT AUTO 0.4 % (0.0-1.0); EOSINOPHILS ABSOLUTE AUTO 0.0 K/mm3 (0.0-0.4); EOSINOPHILS PERCENT AUTO 0.2 % (0.0-6.0); IMMATURE GRAN ABSOLUTE AUTO 0.01 K/mm3 (0.00-0.05); IMMATURE GRAN PERCENT AUTO 0.2 % (0.0-0.4); LYMPHOCYTES ABSOLUTE AUTO 0.8 K/mm3 (1.0-4.8); LYMPHOCYTES PERCENT AUTO 14.4 % (24.0-44.0); MEAN PLATELET VOLUME 9.1 fl (9.4-12.4); MONOCYTES ABSOLUTE AUTO 0.3 K/mm3 (0.0-0.8); MONOCYTES PERCENT AUTO 5.5 % (0.0-8.0); NEUTROPHILS ABSOLUTE AUTO 4.3 K/mm3 (1.8-7.7); NEUTROPHILS PERCENT AUTO 79.3 % (41.0-71.0); NRBC ABSOLUTE 0.00 (0.00-0.02); NRBC PERCENT 0.0 % (0.0-0.2); PLATELET COUNT,PLT 170 K/mm3 (150-400); RED BLOOD CELL COUNT 4.75 M/mm3 (4.52-5.90); WHITE BLOOD CELL COUNT,WBC 5.43 K/mm3 (3.9-11.3)
[2025-01-19 15:52] LABS: A/G RATIO 1.2 (1-2); ALANINE AMINOTRANSFERASE,ALT 36.0 U/L (16-63); ASPARTATE AMNIOTRANSFERASE,AST 55.0 U/L (15-37); BILIRUBIN TOTAL 1.5 mg/dL (0.2-1.0); BLOOD UREA NITROGEN,BUN 12.0 mg/dL (7-18); CARBON DIOXIDE,CO2 23.0 mEq/L (21-32); CHLORIDE,CL 101.0 mEq/L (98-107); CREATININE 0.9 mg/dL (0.7-1.3); EST CRCL DRUG DOSING (CG) 124.88 mL/min; ESTIMATED GFR 121.0 mL/min (>60); ETHANOL BLOOD MEDICAL 0.02 gm% (0.00); GLUCOSE RANDOM 108.0 mg/dL (70-99); POTASSIUM,K 3.7 mEq/L (3.5-5.1); PROTEIN TOTAL,TP 7.2 g/dl (6.4-8.2); SODIUM,NA 138.0 mEq/L (136-145)
[2025-01-19] MEDS: Sodium Chloride 0.9% 10 ML Syringe FLUSH PRN (16:06)
[2025-01-19] MEDS: LORazepam 2 MG/ML SDV IVPUSH ONE (16:06)
[2025-01-19 17:15] VITALS: BP 100/71; PULSE 94
[2025-01-19] MEDS ORDERED: Ketorolac 30 MG/ML SDV IM ONE (18:27)
== END 2025-01-19 17:19 | disposition left against medical advice (07) ==
LOC: JD.ED 14:10
DX: F10.139 Alcohol abuse with withdrawal, unspecified (principal); K21.9 Gastro-esophageal reflux disease without esophagitis; Z79.899 Other long term (current) drug therapy; Y90.1 Blood alcohol level of 20-39 mg/100 ml
CPT/HCPCS: 36415; 80053; 80307; 83735; 85025; 96361; 96374; 99284; J2060; J7030

== ENCOUNTER 2025-02-04 19:27 | Emergency (ER) | payer MEDICAID ==
[2025-02-04] MEDS: LORazepam 2 MG/ML SDV IVPUSH ONE ×2 (19:27→19:30)
[2025-02-04] MEDS ORDERED: LORazepam 2 MG/ML SDV ONE (19:28)
[2025-02-04] MEDS: propofoL 1,000 MG/100 ML 100 ML IV SCH (20:00)
[2025-02-04] MEDS: propofoL 1,000 MG/100 ML 100 ML ONE (20:00)
[2025-02-04 20:05] LABS: BASOPHILS ABSOLUTE AUTO 0.1 K/mm3 (0.0-0.2); BASOPHILS PERCENT AUTO 0.5 % (0.0-1.0); EOSINOPHILS ABSOLUTE AUTO 0.0 K/mm3 (0.0-0.4); EOSINOPHILS PERCENT AUTO 0.1 % (0.0-6.0); IMMATURE GRAN ABSOLUTE AUTO 0.08 K/mm3 (0.00-0.05); IMMATURE GRAN PERCENT AUTO 0.7 % (0.0-0.4); LYMPHOCYTES ABSOLUTE AUTO 5.8 K/mm3 (1.0-4.8); LYMPHOCYTES PERCENT AUTO 48.3 % (24.0-44.0); MEAN PLATELET VOLUME 9.3 fl (9.4-12.4); MONOCYTES ABSOLUTE AUTO 0.5 K/mm3 (0.0-0.8); MONOCYTES PERCENT AUTO 4.1 % (0.0-8.0); NEUTROPHILS ABSOLUTE AUTO 5.5 K/mm3 (1.8-7.7); NEUTROPHILS PERCENT AUTO 46.3 % (41.0-71.0); NRBC ABSOLUTE 0.00 (0.00-0.02); NRBC PERCENT 0.0 % (0.0-0.2); PLATELET COUNT,PLT 347 K/mm3 (150-400); RED BLOOD CELL COUNT 5.10 M/mm3 (4.52-5.90); WHITE BLOOD CELL COUNT,WBC 11.92 K/mm3 (3.9-11.3)
[2025-02-04] MEDS: Lactated Ringers 1,000 ML IV ONE ×2 (20:11→20:40)
[2025-02-04 20:17] LABS: A/G RATIO 1.2 (1-2); ALANINE AMINOTRANSFERASE,ALT 34.0 U/L (16-63); ASPARTATE AMNIOTRANSFERASE,AST 47.0 U/L (15-37); BILIRUBIN TOTAL 1.8 mg/dL (0.2-1.0); BLOOD UREA NITROGEN,BUN 12.0 mg/dL (7-18); CARBON DIOXIDE,CO2 16.0 mEq/L (21-32); CHLORIDE,CL 107.0 mEq/L (98-107); CREATININE 1.7 mg/dL (0.7-1.3); EST CRCL DRUG DOSING (CG) 61.56 mL/min; ESTIMATED GFR 56.0 mL/min (>60); PROTEIN TOTAL,TP 9.1 g/dl (6.4-8.2); SODIUM,NA 150.0 mEq/L (136-145)
[2025-02-04 20:24] LABS: POTASSIUM,K 6.3 mEq/L (3.5-5.1)
[2025-02-04 20:25] LABS: GLUCOSE RANDOM 162.0 mg/dL (70-99)
[2025-02-04] MEDS: Midazolam 1 MG/ML 2 ML SDV IVPUSH ONE ×2 (20:26→21:14)
[2025-02-04] MEDS: cefTRIAXone 2 GM in Water For Injection, Sterile 20 ML IVPUSH ONE (20:39)
[2025-02-04 20:50] VITALS: BP 92/56; PULSE 123
[2025-02-04 20:51] LABS: LACTIC ACID 24.6 mmol/L (0.4-2.0)
[2025-02-04] MEDS: Midazolam 1 MG/ML 2 ML SDV ONE (21:13)
[2025-02-04] MEDS ORDERED: Sodium Chloride 0.9% 10 ML Syringe FLUSH PRN (21:13)
[2025-02-04] MEDS: Midazolam 1 MG/ML 5 ML SDV IVPUSH ONE (21:13)
[2025-02-04] MEDS: Benzocaine 20% Topical Spray UD MUCMEM ONE (21:16)
[2025-02-04 21:32] LABS: APPEARANCE,URINE CLOUDY (Clear); GLUCOSE,URINE NEGATIVE (Negative); OCCULT BLOOD,URINE 3+ (Negative)
[2025-02-04 21:39] LABS: EPITHELIAL CELLS,URINE 0-5 /hpf (0-5)
[2025-02-04 21:44] LABS: BUPRENORPHINE SCREEN,URINE NEGATIVE (CUTOFF=10); METHADONE SCREEN, URINE NEGATIVE (CUT0FF=200); METHAMPHETAMINES SCREEN, URINE NEGATIVE (CUTOFF=500); OXYCODONE SCREEN,URINE NEGATIVE (CUT0FF=100); THC SCREEN,URINE 20 NG/ML PRESUMPTIVE POSITIVE (CUTOFF=50)
[2025-02-04 21:45] LABS: AMPHETAMINES SCREEN, URINE NEGATIVE (CUTOFF=500)
[2025-02-04 21:54] LABS: BASE EXCESS ARTERIAL -9.0 (-2-2.0); BICARBONATE,ARTERIAL 16.9 meq/L (22.0-26.0); O2 SATURATION ARTERIAL 98.7 % (96.0-97.0); PCO2 ARTERIAL 36.0 mmHg (35.0-45.0); PO2 ARTERIAL 101.0 mmHg (80.0-100.0)
[2025-02-04 21:55] LABS: PATIENT RESPIRATORY RATE 21.0 /MIN
== END 2025-02-04 21:10 ==
LOC: JD.ED 19:27
DX: J96.01 Acute respiratory failure with hypoxia (principal); J69.0 Pneumonitis due to inhalation of food and vomit; E87.5 Hyperkalemia; E87.20 Acidosis, unspecified; Z79.899 Other long term (current) drug therapy
CPT/HCPCS: 31500; 36415; 36600; 51702; 70450; 71045; 80053; 80306; 81001; 82803; 83605; 83735; 85025; 96365; 96375; 96376; 99291; 99292; A4216; J0696; J1953; J2060; J2250; J2704; J7120

== ENCOUNTER 2025-02-23 19:57 | Inpatient (IN) | payer MEDICAID ==
[2025-02-23] MEDS ORDERED: Sodium Chloride 0.9% 10 ML Syringe FLUSH PRN (20:38)
[2025-02-23 20:46] LABS: BASOPHILS ABSOLUTE AUTO 0.1 K/mm3 (0.0-0.2); BASOPHILS PERCENT AUTO 1.2 % (0.0-1.0); EOSINOPHILS ABSOLUTE AUTO 0.0 K/mm3 (0.0-0.4); EOSINOPHILS PERCENT AUTO 0.2 % (0.0-6.0); IMMATURE GRAN ABSOLUTE AUTO 0.03 K/mm3 (0.00-0.05); IMMATURE GRAN PERCENT AUTO 0.7 % (0.0-0.4); LYMPHOCYTES ABSOLUTE AUTO 1.0 K/mm3 (1.0-4.8); LYMPHOCYTES PERCENT AUTO 24.5 % (24.0-44.0); MEAN PLATELET VOLUME 8.9 fl (9.4-12.4); MONOCYTES ABSOLUTE AUTO 0.3 K/mm3 (0.0-0.8); MONOCYTES PERCENT AUTO 7.2 % (0.0-8.0); NEUTROPHILS ABSOLUTE AUTO 2.8 K/mm3 (1.8-7.7); NEUTROPHILS PERCENT AUTO 66.2 % (41.0-71.0); NRBC ABSOLUTE 0.00 (0.00-0.02); NRBC PERCENT 0.0 % (0.0-0.2); PLATELET COUNT,PLT 343 K/mm3 (150-400); RED BLOOD CELL COUNT 4.21 M/mm3 (4.52-5.90); WHITE BLOOD CELL COUNT,WBC 4.16 K/mm3 (3.9-11.3)
[2025-02-23] MEDS: LORazepam 2 MG/ML SDV IVPUSH ONE (20:49)
[2025-02-23 21:04] LABS: A/G RATIO 1.1 (1-2); ALANINE AMINOTRANSFERASE,ALT 48 U/L (16-63); ASPARTATE AMNIOTRANSFERASE,AST 32 U/L (15-37); BILIRUBIN TOTAL 0.4 mg/dL (0.2-1.0); BLOOD UREA NITROGEN,BUN 14 mg/dL (7-18); CARBON DIOXIDE,CO2 14 mEq/L (21-32); CHLORIDE,CL 103 mEq/L (98-107); CREATININE 1.3 mg/dL (0.7-1.3); ESTIMATED GFR 78 mL/min (>60); GLUCOSE RANDOM 116 mg/dL (70-99); POTASSIUM,K 3.6 mEq/L (3.5-5.1); PROTEIN TOTAL,TP 7.3 g/dl (6.4-8.2); SODIUM,NA 141 mEq/L (136-145); TSH 2.718 uIU/mL (0.358-3.74)
[2025-02-23 21:14] LABS: ETHANOL BLOOD MEDICAL 0.00 gm% (0.00)
[2025-02-23 22:36] LABS: APPEARANCE,URINE SLT CLOUDY (Clear); GLUCOSE,URINE NEGATIVE (Negative); OCCULT BLOOD,URINE NEGATIVE (Negative)
[2025-02-23 22:45] LABS: EPITHELIAL CELLS,URINE NOT SEEN /hpf (0-5); FINE GRANULAR CASTS,URINE 0-5 /lpf (0-5)
[2025-02-23 22:46] LABS: BUPRENORPHINE SCREEN,URINE NEGATIVE (CUTOFF=10); METHADONE SCREEN, URINE NEGATIVE (CUT0FF=200); METHAMPHETAMINES SCREEN, URINE NEGATIVE (CUTOFF=500); OXYCODONE SCREEN,URINE NEGATIVE (CUT0FF=100); THC SCREEN,URINE 20 NG/ML PRESUMPTIVE POSITIVE (CUTOFF=50)
[2025-02-23 22:48] LABS: AMPHETAMINES SCREEN, URINE NEGATIVE (CUTOFF=500)
[2025-02-23] MEDS ORDERED: LORazepam 2 MG/ML SDV IVPUSH PRN (23:41)
[2025-02-24] MEDS: LORazepam 2 MG/ML SDV IVPUSH ONE (01:02)
[2025-02-24 05:40] LABS: BASOPHILS ABSOLUTE AUTO 0.0 K/mm3 (0.0-0.2); BASOPHILS PERCENT AUTO 0.7 % (0.0-1.0); EOSINOPHILS ABSOLUTE AUTO 0.0 K/mm3 (0.0-0.4); EOSINOPHILS PERCENT AUTO 0.2 % (0.0-6.0); IMMATURE GRAN ABSOLUTE AUTO 0.01 K/mm3 (0.00-0.05); IMMATURE GRAN PERCENT AUTO 0.2 % (0.0-0.4); LYMPHOCYTES ABSOLUTE AUTO 0.9 K/mm3 (1.0-4.8); LYMPHOCYTES PERCENT AUTO 21.0 % (24.0-44.0); MEAN PLATELET VOLUME 9.0 fl (9.4-12.4); MONOCYTES ABSOLUTE AUTO 0.5 K/mm3 (0.0-0.8); MONOCYTES PERCENT AUTO 11.6 % (0.0-8.0); NEUTROPHILS ABSOLUTE AUTO 2.8 K/mm3 (1.8-7.7); NEUTROPHILS PERCENT AUTO 66.3 % (41.0-71.0); NRBC ABSOLUTE 0.00 (0.00-0.02); NRBC PERCENT 0.0 % (0.0-0.2); RED BLOOD CELL COUNT 3.72 M/mm3 (4.52-5.90); WHITE BLOOD CELL COUNT,WBC 4.24 K/mm3 (3.9-11.3)
[2025-02-24 05:47] LABS: PLATELET COUNT,PLT 261 K/mm3 (150-400)
[2025-02-24 06:05] LABS: A/G RATIO 1.1 (1-2); ALANINE AMINOTRANSFERASE,ALT 36.0 U/L (16-63); ASPARTATE AMNIOTRANSFERASE,AST 22.0 U/L (15-37); BILIRUBIN TOTAL 0.9 mg/dL (0.2-1.0); BLOOD UREA NITROGEN,BUN 12.0 mg/dL (7-18); CHLORIDE,CL 104.0 mEq/L (98-107); CREATININE 0.9 mg/dL (0.7-1.3); EST CRCL DRUG DOSING (CG) 126.24 mL/min; ESTIMATED GFR 121.0 mL/min (>60); GLUCOSE RANDOM 98.0 mg/dL (70-99); PHOSPHORUS 3.3 mg/dL (2.6-4.7); POTASSIUM,K 3.5 mEq/L (3.5-5.1); PROTEIN TOTAL,TP 6.0 g/dl (6.4-8.2); SODIUM,NA 138.0 mEq/L (136-145)
[2025-02-24 06:18] LABS: CARBON DIOXIDE,CO2 23.0 mEq/L (21-32)
[2025-02-24 13:42] VITALS: BP 106/65; PULSE 54
[2025-02-24] MEDS ORDERED: ZONISAMIDE 100 MG PO SCH (21:00)
== END 2025-02-24 13:42 | disposition home or self-care (01) | DRG 897 ==
LOC: JD.ED 19:57 → JD.MS 23:40
PROVIDERS: ADMIT Family Medicine; ATTEND Family Medicine
PROC: HZ2ZZZZ Detoxification Services for Substance Abuse Treatment (ICD-10-PCS; principal; 2025-02-23)
DX: F10.239 Alcohol dependence with withdrawal, unspecified (principal); H54.7 Unspecified visual loss; K21.9 Gastro-esophageal reflux disease without esophagitis; F32.A Depression, unspecified; F17.200 Nicotine dependence, unspecified, uncomplicated; G40.909 Epilepsy, unspecified, not intractable, without status epilepticus; F12.90 Cannabis use, unspecified, uncomplicated; E53.8 Deficiency of other specified B group vitamins; Z98.890 Other specified postprocedural states; Z79.899 Other long term (current) drug therapy
CPT/HCPCS: 36415; 70450; 70450-26; 80053; 80306; 80307; 81001; 82550; 82746; 83690; 83735; 84100; 84443; 85025; 93005; 96361; 96374; 99285-25; A9270-GY; J2060; J7030

== ENCOUNTER 2025-03-28 22:56 | Emergency (ER) | payer MEDICAID ==
[2025-03-28] MEDS ORDERED: levETIRAcetam 500 MG/5 ML SDV IVPUSH ONE (23:20)
[2025-03-28] MEDS: Ketorolac 60 MG/2 ML SDV IVPUSH STA (23:34)
[2025-03-28] MEDS: LORazepam 2 MG/ML SDV IVPUSH STA (23:36)
[2025-03-29] MEDS: levETIRAcetam 500 MG/5 ML SDV IVPUSH STA (00:19)
[2025-03-29 01:23] LABS: BASOPHILS ABSOLUTE AUTO 0.0 K/mm3 (0.0-0.2); BASOPHILS PERCENT AUTO 0.2 % (0.0-1.0); EOSINOPHILS ABSOLUTE AUTO 0.1 K/mm3 (0.0-0.4); EOSINOPHILS PERCENT AUTO 0.8 % (0.0-6.0); IMMATURE GRAN ABSOLUTE AUTO 0.11 K/mm3 (0.00-0.05); IMMATURE GRAN PERCENT AUTO 0.6 % (0.0-0.4); LYMPHOCYTES ABSOLUTE AUTO 0.2 K/mm3 (1.0-4.8); LYMPHOCYTES PERCENT AUTO 1.1 % (24.0-44.0); MEAN PLATELET VOLUME 9.6 fl (9.4-12.4); MONOCYTES ABSOLUTE AUTO 1.5 K/mm3 (0.0-0.8); MONOCYTES PERCENT AUTO 8.2 % (0.0-8.0); NEUTROPHILS ABSOLUTE AUTO 15.8 K/mm3 (1.8-7.7); NEUTROPHILS PERCENT AUTO 89.1 % (41.0-71.0); NRBC ABSOLUTE 0.00 (0.00-0.02); NRBC PERCENT 0.0 % (0.0-0.2); PLATELET COUNT,PLT 212 K/mm3 (150-400); RED BLOOD CELL COUNT 4.84 M/mm3 (4.52-5.90); WHITE BLOOD CELL COUNT,WBC 17.74 K/mm3 (3.9-11.3)
[2025-03-29 01:40] LABS: A/G RATIO 1.2 (1-2); ALANINE AMINOTRANSFERASE,ALT 45.0 U/L (16-63); ASPARTATE AMNIOTRANSFERASE,AST 73.0 U/L (15-37); BILIRUBIN TOTAL 1.0 mg/dL (0.2-1.0); BLOOD UREA NITROGEN,BUN 23.0 mg/dL (7-18); CARBON DIOXIDE,CO2 20.0 mEq/L (21-32); CHLORIDE,CL 97.0 mEq/L (98-107); CREATININE 1.5 mg/dL (0.7-1.3); EST CRCL DRUG DOSING (CG) 77.06 mL/min; ESTIMATED GFR 65.0 mL/min (>60); GLUCOSE RANDOM 156.0 mg/dL (70-99); PROTEIN TOTAL,TP 7.6 g/dl (6.4-8.2); SODIUM,NA 133.0 mEq/L (136-145)
[2025-03-29 01:52] LABS: CREATINE KINASE,CK 1150.0 U/L (39-308); ETHANOL BLOOD MEDICAL 0.0 gm% (0.00); POTASSIUM,K 3.5 mEq/L (3.5-5.1)
[2025-03-29 02:36] VITALS: BP 117/62; PULSE 99
== END 2025-03-29 02:30 | disposition home or self-care (01) ==
LOC: JD.ED 22:56
DX: R56.9 Unspecified convulsions (principal); R07.82 Intercostal pain; F12.20 Cannabis dependence, uncomplicated; N28.9 Disorder of kidney and ureter, unspecified; M62.82 Rhabdomyolysis; E86.0 Dehydration; Z91.148 Patient's other noncompliance with medication regimen for other reason; Z79.899 Other long term (current) drug therapy
CPT/HCPCS: 36415; 71045; 80053; 80307; 82550; 83735; 85025; 96361; 96374; 96375; 99284; A9270; J1885; J2060; J7030